=== PATIENT | female | born 1930 | race Caucasian/White ===

== ENCOUNTER 2018-08-29 21:25 | Emergency (ER) | payer MEDICARE ==
[2018-08-29 21:52] LABS: #Basophils 0.1 thou/uL (0.0-0.2); #Eosinphils 0.1 thou/uL (0.0-0.7); #Lymphocytes 1.7 thou/uL (1.20-3.40); #Monocytes 0.9 thou/uL (0.11-0.59); #Neutrophils 8.3 thou/uL (1.40-6.50); %Basophils 0.6 % (0.0-1.0); %Eosinophils 0.7 % (0.0-10.0); %Monocytes 8.2 % (0.0-10.0); %Neutrophils 75.4 % (42.0-75.0); Hemoglobin 10.7 g/dL (12.0-16.0); Mean Corpuscular HGB CONC 31.6 g/dL (32.0-36.0); Mean Corpuscular Hemoglobin 28.1 pg (27.0-31.0); Mean Corpuscular Volume 89.1 fL (78.0-98.0); Mean Platelet Volume 7.8 fL (7.4-10.4); Platelet Count 181 thou/uL (130-400); RBC Distribution Width 12.7 % (11.5-14.5); Red Blood Cell (RBC) Count 3.81 mill/uL (4.20-5.40)
[2018-08-29 21:56] LABS: Bilirubin Negative (Negative); Blood, Urine Negative (Negative); Clarity Slightly Cloudy (Clear); Glucose, Urine (Dipstick) Negative (Negative); Leukocyte Negative (Negative); Nitrite Negative (Negative); Protein, Urine (Dipstick) 30 mg/dL (Neg-Trace); Urobilinogen 0.2 mg/dL (0.2-1.0)
[2018-08-29 22:05] LABS: ALT (SGPT) 7 U/L (8-55); AST (SGOT) 10 U/L (5-34); Alkaline Phosphatase 83 U/L (40-150); Anion Gap 13 mmol/L (10-20); BUN (Urea Nitrogen) 27 mg/dL (9.8-20.1); Bilirubin, Total 0.3 mg/dL (0.2-1.2); Calc. Creatinine Clearance 0 mL/min (70-130); Calcium 9.9 mg/dL (7.8-10.44); Carbon Dioxide 30 mmol/L (23-31); Chloride 102 mmol/L (98-107); Estimated GFR-MDRD 31; Globulin 3.1 g/dL (2.4-3.5); Glucose 144 mg/dL (83-110); Potassium 3.4 mmol/L (3.5-5.1); Protein, Total 7.1 g/dL (6.0-8.3); Sodium 142 mmol/L (136-145)
[2018-08-29 22:07] LABS: Bacteria/HPF None Seen HPF (None Seen); Hyaline Casts/LPF 0-3 HYALINE CAST LPF (0-3 Hyaline); RBC/HPF 0-3 HPF (0-3); Squamous Epithelial 0-3 HPF (0-3); Transitional Epithelial 0-3 HPF (0-3); WBC/HPF 0-3 HPF (0-3)
--- NOTE | 2018-08-29 22:07 | RAD ---
PORTABLE CHEST: 08/29/18 PROVIDED CLINICAL HISTORY: Altered mental status. COMPARISON: 11/27/17. The cardiac silhouette appears enlarged. Vascular calcification is noted. Emphysematous changes are s een. No focal consolidation, pleural fluid or pneumothorax apparent. IMPRESSION: No evidence for an acute cardiopulmonary process. POS: [facility]
--- NOTE | 2018-08-29 22:16 | CT ---
CT BRAIN 08/29/18 PROVIDED CLINICAL HISTORY: Altered mental status. FINDINGS: No comparisons. The ventricular system appears normal in size and morphology. There is no evidence for intracranial h emorrhage or mass effect. Extensive chronic microvascular white matter ischemic changes are seen. The extracranial soft tissues and osseous structures demonstrate an unremarkable CT appearance. IMPRESSION: No evidence for intracranial hemorrhage or mass effect. POS: [facility]
== END 2018-08-29 22:50 | disposition home or self-care (01) ==
LOC: SCSER 21:25
DX: F03.90 Unspecified dementia, unspecified severity, without behavioral disturbance, psychotic disturbance, mood disturbance, and anxiety (principal); K21.9 Gastro-esophageal reflux disease without esophagitis; E78.5 Hyperlipidemia, unspecified; I10 Essential (primary) hypertension; F32.9 Major depressive disorder, single episode, unspecified; Z86.73 Personal history of transient ischemic attack (TIA), and cerebral infarction without residual deficits
CPT/HCPCS: 51701; 70450; 71045; 80053; 81003; 81015; 84484; 85025; 87086; 93005; A4353

== ENCOUNTER 2018-10-26 04:27 | Inpatient (IN) | payer MEDICARE ==
[2018-10-26 05:10] LABS: #Basophils 0.1 thou/uL (0.0-0.2); #Eosinphils 0.1 thou/uL (0.0-0.7); #Lymphocytes 1.7 thou/uL (1.20-3.40); #Monocytes 0.8 thou/uL (0.11-0.59); #Neutrophils 7.2 thou/uL (1.40-6.50); %Basophils 0.5 % (0.0-1.0); %Eosinophils 0.6 % (0.0-10.0); %Lymphocytes 17.1 % (21.0-51.0); %Monocytes 8.3 % (0.0-10.0); %Neutrophils 73.4 % (42.0-75.0); Hemoglobin 11.3 g/dL (12.0-16.0); Mean Corpuscular HGB CONC 34.2 g/dL (32.0-36.0); Mean Corpuscular Hemoglobin 30.2 pg (27.0-31.0); Mean Corpuscular Volume 88.3 fL (78.0-98.0); Platelet Count 211 thou/uL (130-400); RBC Distribution Width 12.8 % (11.5-14.5); Red Blood Cell (RBC) Count 3.74 mill/uL (4.20-5.40); White Blood Cell (WBC) Count 9.8 thou/uL (4.8-10.8)
[2018-10-26 05:27] LABS: ALT (SGPT) 9 U/L (8-55); AST (SGOT) 11 U/L (5-34); Albumin 4.1 g/dL (3.4-4.8); Alkaline Phosphatase 86 U/L (40-150); Anion Gap 13 mmol/L (10-20); BUN (Urea Nitrogen) 21 mg/dL (9.8-20.1); Bilirubin, Total 0.4 mg/dL (0.2-1.2); CK (CPK) 35 U/L (29-168); Calc. Creatinine Clearance 0 mL/min (70-130); Calcium 10.2 mg/dL (7.8-10.44); Carbon Dioxide 27 mmol/L (23-31); Chloride 104 mmol/L (98-107); Estimated GFR-MDRD 35; Globulin 2.9 g/dL (2.4-3.5); Glucose 123 mg/dL (83-110); Potassium 3.1 mmol/L (3.5-5.1); Sodium 141 mmol/L (136-145)
[2018-10-26] MEDS ORDERED: hydrALAZINE 20 MG/ML VIAL ONE (05:27)
[2018-10-26 05:55] LABS: Bilirubin Negative (Negative); Blood, Urine Negative (Negative); Clarity Slightly Cloudy (Clear); Glucose, Urine (Dipstick) 100 mg/dL (Negative); Leukocyte Negative (Negative); Nitrite Positive (Negative); Protein, Urine (Dipstick) 30 mg/dL (Neg-Trace); pH, Urine 6.5 (5.0-9.0)
[2018-10-26 06:14] LABS: Bacteria/HPF Rare-Few HPF (None Seen); Hyaline Casts/LPF 0-3 HYALINE CAST LPF (0-3 Hyaline); RBC/HPF None Seen HPF (0-3); Renal Epithelial 0-3 HPF (0-3); Squamous Epithelial None Seen HPF (0-3); WBC/HPF 0-3 HPF (0-3)
[2018-10-26] MEDS ORDERED: Sodium Chloride 0.9% 100 ML ONE (06:45)
[2018-10-26] MEDS ORDERED: cefTRIAXone\\ROCEPHIN 1 GM VIAL ONE (06:45)
--- NOTE | 2018-10-26 07:29 | CT ---
CT HEAD NONCONTRAST: Date: 10/26/18 COMPARISON: 08/29/18. INDICATION: Altered mental status with history of dementia and TIA. FINDINGS: Moderate chronic microvascular ischemic changes of cerebral white matter present. There is parenchyma l volume loss and compensatory dilatation of the ventricular system. No acute intracranial hemorrhage or mass effect. No acute fluid levels of paranasal sinuses. There is mild scattered paranasal sinus mucosal thickening. IMPRESSION: 1. No acute intracranial hemorrhage or mass effect. 2. Moderate chronic ischemic disease. POS: [facility]
[2018-10-26] MEDS ORDERED: Losartan 25 MG TAB ONE (07:37)
[2018-10-26] MEDS ORDERED: Labetalol HCl 100 MG/20 ML VIAL ONE (07:37)
[2018-10-26] MEDS ORDERED: hydrALAZINE 25 MG TAB ONE (07:37)
[2018-10-26] MEDS ORDERED: Sodium Chloride 0.9% 500 ML IV SCH (09:45)
--- NOTE | 2018-10-26 09:46 | RAD ---
FRONTAL VIEW CHEST: Date: 10/26/18 COMPARISON: 09/06/18. INDICATION: Altered mental status. FINDINGS: The cardiac silhouette is enlarged. There is vascular calcification. Lungs are hyperinflated without consolidation. Chest is otherwise similar. IMPRESSION: 1. COPD. 2. Prominent cardiac silhouette. Correlate clinically. POS: [facility]
[2018-10-26] MEDS: hydrALAZINE 10 MG TAB PO SCH ×2 (12:45→20:36)
--- NOTE | 2018-10-26 12:57 | HP ---
PRIMARY CARE PHYSICIAN: Dr. Perry. CHIEF COMPLAINT: Altered mental status and UTI. HISTORY OF PRESENT ILLNESS: Ms. Dai is a very pleasant 88-year-old female , who presented to the emergency room at [place] earlier this morning with her primary caregiver and her granddaughter, chief complaint about altered mental status, very confused, and talking about people she used to work with. Granddaughter reports this is very out of character. She went to bed with her usual state of health. Denied any fever, cough, or vomiting. Denies any pain. Denied any recent illnesses. She had a similar episode evidently in August, diagnosed with UTI, was given antibiotics and sent home. The granddaughter reports that a year ago in October, she did have a cerebrovascular accident and reports that this episode that she is being admitted for is similar in nature to behavior prior to the CVA, which is why she was worried. Reports that the confusion and altered mental status is not uncommon for her when she does get the UTI, but this is worrisome for her based on symptoms prior to her CVA last October. In the emergency room, she was evaluated and found to have UTI. She was given a dose of Rocephin. Blood pressure was also elevated and she was given multiple medications including her home medications of labetalol 100 mg, hydralazine 10 mg, losartan 100 mg, and then was also given labetalol 20 mg IV push and another dose of hydralazine 10 mg IV push and then, admitted for further management. History is primarily obtained from ER records and from talking with granddaughter, who is at the bedside. She was initially admitted for medical, but we based on blood pressure issues, we will change to telemetry. 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 diff, vertigo, reflux, hyperlipidemia, and hypertension. PAST SURGICAL HISTORY: Per granddaughter, hysterectomy. PSYCHIATRIC HISTORY: Depression. SOCIAL HISTORY: She does live with her granddaughter, who is her primary caregiver. REVIEW OF SYSTEMS: Denies fevers or chills. The patient denies abdominal pain, chest pain, dysuria, or increased frequency. Granddaughter reports increased confusion. All other systems were reviewed with the patient and granddaughter and done to the best of our ability with the patient's current mental state. PHYSICAL EXAMINATION: VITAL SIGNS: Blood pressure 164/79, pulse is 70, respirations 14, temperature 98.5, and pulse ox 99% on room air. CONSTITUTIONAL: The patient is confused. She is oriented to person. HEENT: Head is atraumatic and normocephalic. Eye exam, eyelids normal to inspection. Pupils are equally round and reactive to light. ENT, mucous membranes are moist. Mouth exam is normal. NECK: Normal range of motion. Trachea is midline. RESPIRATORY: Chest, no signs of respiratory distress. Breath sounds are clear. CARDIOVASCULAR: Normal rate and rhythm. Heart sounds are normal S1 and S2. No murmurs. ABDOMEN: With mild tenderness to suprapubic region. No distention. No peritoneal signs. No rigidity. No guarding. BACK: No sacral decubitus noted. EXTREMITIES: Upper extremity sensation intact. Motor strength is normal. Radial pulses equal bilaterally. Lower extremities, motor strength is normal. Sensation intact. Pedal pulses equal bilaterally. No edema is noted. NEURO: The patient is oriented to person. There is no focal motor or sensory deficits. Speech is normal. SKIN: Visualized skin is warm and dry. No rash. PSYCH: The patient is pleasantly confused. Per granddaughter, she is talking about people that she used to interact with in the past, including several people who have been . Insight is very poor. DIAGNOSTIC DATA: EKG interpretation in the ER shows first-degree AV block, breathes per minute 63, no ectopics. Conduction is normal. ST segments are normal. Jackson is left. Radiology interpretation, head CT is negative without contrast, in no acute changes. Chest films, no infiltrates, no congestive heart failure, and no acute findings. ALLERGIES: AMOXICILLIN, CIPRO, HYDROCODONE, MACROBID, AND RIVASTIGMINE. CURRENT MEDICATIONS: 1. Aricept 5 mg p.o. once a day. 2. Amiodarone 100 mg 2 tablets once a day. 3. Hydralazine 10 mg p.o. t.i.d. 4. Labetalol 100 mg b.i.d. 5. Losartan 50 mg 2 tablets once a day. 6. Zoloft 100 mg once a day at bedtime. 7. Pravastatin 20 mg once a day at bedtime. PERTINENT LABORATORY DATA: White blood cell count is 9.8, hemoglobin is 11.3, hematocrit is 33.0, and platelet count is 211. Sodium 141, potassium is 3.1, chloride 104, BUN is 21, creatinine is 1.43, estimated GFR is 35, glucose is 123 , lactic acid 1.5, and calcium 10.2. Liver enzymes are unremarkable. Troponin x1 is undetectable. Urine is positive for protein, glucose, nitrite, transitional and epithelial cells, it has been sent off for culture. PLAN AND ASSESSMENT: 1. Encephalopathy, most likely related to her urinary tract infection. We have sent urine for culture. They started Rocephin IV piggyback in the ER. We will continue. IV gentle hydration normal saline at 75 mL per hour. 2. Hypertension. We will continue her home medications. We will add p.r.n. hypertensive medicines as needed. 3. Hyperlipidemia. We will restart her home medications. 4. Dementia. We will continue her home medications. 5. History of cerebrovascular accident due to confusion. We will obtain an MRI of the brain to rule out subsequent cerebrovascular accident. 6. Deep venous thrombosis and gastrointestinal prophylaxis will be started. 7. Case will be discussed with Dr. Preston, for any further management suggestions. 8. Hospital course will be dependent on clinical findings. Job ID: [id number] [facility]
[2018-10-26] MEDS ORDERED: Melatonin 3 MG TAB PO PRN (12:58)
[2018-10-26] MEDS: cloNIDine 0.1 MG TAB PO PRN (13:05)
--- NOTE | 2018-10-26 13:47 | MRI ---
BRAIN MRI NONCONTRAST: Date: 10/26/18 Reference made to recent head CT, same date. INDICATION: Altered mental status. FINDINGS: No acute territorial infarction, mass effect, or midline shift. There is moderate chronic ischemic di sease of the cerebral white matter. Generalized mild atrophy is present. There is compensatory dilata tion of the ventricular system. Scattered remote lacunar infarctions of the cerebellum are present. T here is mucosal thickening of the paranasal sinuses and bilateral mastoid fluid. Prominent susceptibi lity emanating from patient's oral cavity limits evaluation of this region. IMPRESSION: 1. No acute territorial infarction or mass effect. 2. Moderate chronic ischemic disease of the cerebral white matter. POS: [facility]
[2018-10-26] MEDS: Sodium Chloride 0.9% 1,000 ML IV SCH (14:00)
[2018-10-26] MEDS: hydrALAZINE 20 MG/ML VIAL SLOW IVP PRN (16:08)
[2018-10-26] MEDS: Donepezil HCl 5 MG TAB PO SCH (20:36)
[2018-10-26] MEDS: Pravastatin Sodium 20 MG TAB PO SCH (20:36)
[2018-10-26] MEDS: Labetalol 100 MG TAB PO SCH (20:36)
[2018-10-27] MEDS: Sodium Chloride 0.9% 1,000 ML IV SCH ×2 (04:00→20:18)
[2018-10-27] MEDS ORDERED: hydrALAZINE 10 MG TAB PO SCH (08:06)
[2018-10-27] MEDS: Labetalol 100 MG TAB PO SCH ×2 (09:24→20:18)
[2018-10-27] MEDS: hydrALAZINE 25 MG TAB PO SCH ×2 (09:24→20:18)
[2018-10-27] MEDS: Losartan 25 MG TAB PO SCH (09:24)
[2018-10-27] MEDS: cefTRIAXone\\ROCEPHIN 1 GM in Sodium Chloride 0.9% 100 ML IVPB SCH (09:24)
[2018-10-27] MEDS: Amiodarone 200 MG TAB PO SCH (09:24)
[2018-10-27 09:49] LABS: #Basophils 0.1 thou/uL (0.0-0.2); #Eosinphils 0.1 thou/uL (0.0-0.7); #Lymphocytes 1.4 thou/uL (1.20-3.40); #Monocytes 0.7 thou/uL (0.11-0.59); %Basophils 0.7 % (0.0-1.0); %Lymphocytes 19.1 % (21.0-51.0); %Monocytes 9.4 % (0.0-10.0); %Neutrophils 69.8 % (42.0-75.0); Hemoglobin 9.1 g/dL (12.0-16.0); Mean Corpuscular HGB CONC 31.9 g/dL (32.0-36.0); Mean Corpuscular Hemoglobin 29.4 pg (27.0-31.0); Mean Corpuscular Volume 91.9 fL (78.0-98.0); Mean Platelet Volume 7.6 fL (7.4-10.4); Platelet Count 189 thou/uL (130-400); RBC Distribution Width 12.6 % (11.5-14.5); White Blood Cell (WBC) Count 7.1 thou/uL (4.8-10.8)
[2018-10-27 10:11] LABS: ALT (SGPT) Less than 7 U/L (8-55); AST (SGOT) 8 U/L (5-34); Albumin 3.3 g/dL (3.4-4.8); Alkaline Phosphatase 73 U/L (40-150); Anion Gap 11 mmol/L (10-20); BUN (Urea Nitrogen) 18 mg/dL (9.8-20.1); Bilirubin, Total 0.4 mg/dL (0.2-1.2); Calc. Creatinine Clearance 23 mL/min (70-130); Calcium 9.2 mg/dL (7.8-10.44); Carbon Dioxide 23 mmol/L (23-31); Chloride 111 mmol/L (98-107); Estimated GFR-MDRD 42; Globulin 2.2 g/dL (2.4-3.5); Glucose 91 mg/dL (83-110); Potassium 3.2 mmol/L (3.5-5.1); Protein, Total 5.5 g/dL (6.0-8.3); Sodium 142 mmol/L (136-145)
--- NOTE | 2018-10-27 12:32 | PDOC.PN ---
- Subjective Encounter Start Date: 10/27/18 Encounter Start Time: 12:00 Subjective: Patient examined, alert and oriented x3 -: BP with systolic in the 200s over the last 24 hours -: Denies c/o today - Objective Vital Signs & Weight: Vital Signs (12 hours) Temp Pulse Resp BP Pulse Ox 10/27/18 11:31 98.4 F 76 18 140/62 97 10/27/18 07:59 98.3 F 72 16 199/81 H 93 L 10/27/18 04:02 98.2 F 85 16 93 L Weight Admit Weight 45.495 kg Weight 45.495 kg I&O: 10/26/18 10/27/18 10/28/18 06:59 06:59 06:59 Intake Total 3770 Balance 3770 Result Diagrams: 10/27/18 09:16 10/27/18 09:16 Phys Exam - Physical Examination HEENT: PERRLA, moist MMs Neck: no nodes, no JVD Respiratory: clear to auscultation bilateral Cardiovascular: RRR Gastrointestinal: soft, non-tender Musculoskeletal: no edema, pulses present Neurological: non-focal, normal sensation, moves all 4 limbs Lymphatic: no nodes Psychiatric: A&O x 3 Skin: no rash, normal turgor Dx/Plan (1) Hypertension Code(s): I10 - ESSENTIAL (PRIMARY) HYPERTENSION Status: Acute (2) Acute encephalopathy Code(s): G93.40 - ENCEPHALOPATHY, UNSPECIFIED Status: Acute (3) UTI (urinary tract infection) Status: Acute - Plan cont current plan of care, continue antibiotics Will continue gentle hydration, IV ABX -: SBP>180 despite meds, Increased home dose of hydralazine today -: Is on multiple medications, family states normal SBP in 160's -: PT eval prior to DC * . Review of Systems - Review of Systems Genitourinary: Frequency - Medications/Allergies Allergies/Adverse Reactions: Allergies Allergy/AdvReac Type Severity Reaction Status Date / Time acetaminophen Allergy Verified 10/26/18 09:47 amoxicillin [From Amoxil] Allergy Verified 10/26/18 09:47 ciprofloxacin Allergy Verified 10/26/18 09:47 clarithromycin Allergy Verified 10/26/18 09:47 hydrocodone Allergy Verified 10/26/18 09:47 lansoprazole Allergy Verified 10/26/18 09:47 nitrofurantoin Allergy Verified 10/26/18 09:47 rivastigmine Allergy Verified 10/26/18 09:47 Medications: Current Medications Amiodarone HCl (Cordarone) 200 mg PO DAILY [facility] Last Admin: 10/27/18 09:24 Dose: 200 mg Clonidine (Catapres) 0.1 mg PO Q4H PRN PRN Reason: Hypertension Last Admin: 10/26/18 13:05 Dose: 0.1 mg Donepezil HCl (Aricept) 5 mg PO HS [facility] Last Admin: 10/26/18 20:36 Dose: 5 mg Hydralazine HCl (Apresoline) 10 mg SLOW IVP Q4H PRN PRN Reason: SBP > 180 and HR < 70 Last Admin: 10/26/18 16:08 Dose: 10 mg Hydralazine HCl (Apresoline) 25 mg PO BID [facility] Last Admin: 10/27/18 09:24 Dose: 25 mg Sodium Chloride (Normal Saline 0.9%) 1,000 mls @ 75 mls/hr IV .[id number] [facility] Last Admin: 10/27/18 04:00 Dose: 1,000 mls Ceftriaxone Sodium 1 gm/ (Sodium Chloride) 100 mls @ 200 mls/hr IVPB Q24HR [facility] Labetalol HCl (Normodyne) 100 mg PO BID [facility] Last Admin: 10/27/18 09:24 Dose: 100 mg Losartan Potassium (Cozaar) 100 mg PO DAILY [facility] Last Admin: 10/27/18 09:24 Dose: 100 mg Melatonin (Melatonin) 3 mg PO HS PRN PRN Reason: Insomnia Pravastatin Sodium (Pravachol) 20 mg PO HS [facility] Last Admin: 10/26/18 20:36 Dose: 20 mg Sertraline HCl (Zoloft) 100 mg PO DAILY [facility] Last Admin: 10/27/18 09:25 Dose: 100 mg
[2018-10-27] MEDS: Pravastatin Sodium 20 MG TAB PO SCH (20:18)
[2018-10-27] MEDS: Donepezil HCl 5 MG TAB PO SCH (20:18)
[2018-10-28] MEDS: cloNIDine 0.1 MG TAB PO PRN ×3 (04:27→17:06)
[2018-10-28 05:24] LABS: #Basophils 0.1 thou/uL (0.0-0.2); #Eosinphils 0.1 thou/uL (0.0-0.7); #Lymphocytes 1.2 thou/uL (1.20-3.40); #Monocytes 0.9 thou/uL (0.11-0.59); #Neutrophils 7.3 thou/uL (1.40-6.50); %Basophils 0.6 % (0.0-1.0); %Eosinophils 0.8 % (0.0-10.0); %Lymphocytes 12.6 % (21.0-51.0); %Monocytes 9.7 % (0.0-10.0); %Neutrophils 76.3 % (42.0-75.0); Hemoglobin 9.4 g/dL (12.0-16.0); Mean Corpuscular Hemoglobin 30.5 pg (27.0-31.0); Mean Corpuscular Volume 92.5 fL (78.0-98.0); Mean Platelet Volume 7.9 fL (7.4-10.4); Platelet Count 176 thou/uL (130-400); RBC Distribution Width 12.4 % (11.5-14.5); Red Blood Cell (RBC) Count 3.07 mill/uL (4.20-5.40); White Blood Cell (WBC) Count 9.6 thou/uL (4.8-10.8)
[2018-10-28 05:45] LABS: ALT (SGPT) Less than 7 U/L (8-55); AST (SGOT) 11 U/L (5-34); Albumin 3.4 g/dL (3.4-4.8); Alkaline Phosphatase 74 U/L (40-150); Anion Gap 14 mmol/L (10-20); BUN (Urea Nitrogen) 20 mg/dL (9.8-20.1); Bilirubin, Total 0.4 mg/dL (0.2-1.2); Calc. Creatinine Clearance 22 mL/min (70-130); Calcium 9.2 mg/dL (7.8-10.44); Carbon Dioxide 19 mmol/L (23-31); Chloride 112 mmol/L (98-107); Estimated GFR-MDRD 41; Globulin 2.3 g/dL (2.4-3.5); Glucose 97 mg/dL (83-110); Potassium 3.1 mmol/L (3.5-5.1); Protein, Total 5.7 g/dL (6.0-8.3); Sodium 142 mmol/L (136-145)
[2018-10-28] MEDS: hydrALAZINE 20 MG/ML VIAL SLOW IVP PRN ×3 (06:03→23:54)
[2018-10-28] MEDS ORDERED: Potassium Chloride 40 MEQ in Premix Bag 1 BAG IVPB SCH (08:30)
[2018-10-28] MEDS: hydrALAZINE 25 MG TAB PO SCH ×2 (08:31→20:08)
[2018-10-28] MEDS: Amiodarone 200 MG TAB PO SCH (08:31)
[2018-10-28] MEDS: Labetalol 100 MG TAB PO SCH ×2 (08:31→20:08)
[2018-10-28] MEDS: Losartan 25 MG TAB PO SCH (08:32)
[2018-10-28] MEDS: Sodium Chloride 0.9% 1,000 ML IV SCH ×2 (09:42→20:12)
[2018-10-28] MEDS: cefTRIAXone\\ROCEPHIN 1 GM in Sodium Chloride 0.9% 100 ML IVPB SCH (09:44)
[2018-10-28] MEDS: Potassium Chloride 20 MEQ in Premix Bag 1 BAG IVPB SCH ×2 (10:20→12:20)
--- NOTE | 2018-10-28 16:33 | PDOC.PN ---
- Subjective Encounter Start Date: 10/28/18 Encounter Start Time: 10:00 Subjective: Minimally verbal. Alert and in no distress. -: No n/v. No abdo pain. No CP/SOB. Tolerating intake. -: Continues to have trouble with BP being raised. Per granddaughter she brought her in due to AMS. She was more confused that normal however appears to be back at baseline. Feels fatigued but no complaints at present. - Objective Vital Signs & Weight: Vital Signs (12 hours) Temp Pulse Pulse Resp BP BP BP 10/28/18 15:45 98.7 F 68 16 10/28/18 12:21 186/82 H 10/28/18 11:53 98.2 F 69 17 10/28/18 09:39 195/86 H 10/28/18 09:33 68 195/86 H 199/89 H 10/28/18 08:31 71 193/87 H 10/28/18 07:50 98.2 F 71 17 10/28/18 06:38 70 181/84 H 10/28/18 06:03 69 196/95 H BP Pulse Ox 10/28/18 15:45 190/84 H 94 L 10/28/18 12:21 10/28/18 11:53 195/86 H 94 L 10/28/18 09:39 10/28/18 09:33 10/28/18 08:31 10/28/18 07:50 193/87 H 94 L 10/28/18 06:38 10/28/18 06:03 Weight Admit Weight 100 lb 4.8 oz Weight 100 lb I&O: 10/27/18 10/28/18 10/29/18 06:59 06:59 06:59 Intake Total 3770 2620 1400 Output Total 450 Balance 3770 2170 1400 Result Diagrams: 10/29/18 05:04 10/29/18 05:04 Phys Exam - Physical Examination Constitutional: NAD HEENT: PERRLA, moist MMs Neck: no nodes, supple, full ROM Respiratory: clear to auscultation bilateral Cardiovascular: RRR Gastrointestinal: soft, non-tender, no distention, positive bowel sounds Musculoskeletal: no edema Neurological: normal sensation, moves all 4 limbs Deviation from normal: Alert to person and place, minimally verbal Skin: no rash Dx/Plan (1) Confusion Code(s): R41.0 - DISORIENTATION, UNSPECIFIED Status: Resolved (2) Fatigue Code(s): R53.83 - OTHER FATIGUE Status: Acute Qualifiers: Fatigue type: unspecified Qualified Code(s): R53.83 - Other fatigue (3) Hypertension Code(s): I10 - ESSENTIAL (PRIMARY) HYPERTENSION Status: Chronic Qualifiers: Hypertension type: essential hypertension Qualified Code(s): I10 - Essential (primary) hypertension (4) Hypokalemia Code(s): E87.6 - HYPOKALEMIA Status: Acute - Plan cont current plan of care, plan discussed w/ family, PT/OT, DVT proph w/SCDs Out of bed to chair. Awaiting PT Eval. -: Afebrile. UA/UCx negative. Blood Cx also negative. Discontinue Rocephin. -: Monitor WCC. No signs of infection. -: Ehuwznmy-TVO-9 patch, monitor BP. -: Hypokalemia, K+ replaced. Recheck in AM. Seen by Dr. Oviedo who agrees with plan above. Review of Systems - Review of Systems Constitutional: weakness, malaise. negative: fever, chills, sweats Eyes: negative: Pain, Vision Change, Conjunctivae Inflammation, Eyelid Inflammation, Redness ENT: negative: Ear Pain, Ear Discharge, Nose Pain, Nose Discharge, Nose Congestion, Mouth Pain, Mouth Swelling, Throat Pain, Throat Swelling Respiratory: negative: Cough, Dry, Shortness of Breath, Hemoptysis, SOB with Excertion, Pleuritic Pain, Sputum, Wheezing Cardiovascular: negative: chest pain, palpitations, orthopnea, paroxysmal nocturnal dyspnea, edema, light headedness Gastrointestinal: negative: Nausea, Vomiting, Abdominal Pain, Diarrhea, Constipation, Melena, Hematochezia Genitourinary: negative: Dysuria, Frequency, Incontinence, Hematuria, Retention Musculoskeletal: negative: Neck Pain, Shoulder Pain, Arm Pain, Back Pain, Hand Pain, Leg Pain, Foot Pain Skin: negative: Rash, Lesions, Bruising Neurological: Change in Speech (less verbal than usual). negative: Weakness, Numbness, Incoordination, Confusion, Seizures - Medications/Allergies Allergies/Adverse Reactions: Allergies Allergy/AdvReac Type Severity Reaction Status Date / Time acetaminophen Allergy Verified 10/26/18 09:47 amoxicillin [From Amoxil] Allergy Verified 10/26/18 09:47 ciprofloxacin Allergy Verified 10/26/18 09:47 clarithromycin Allergy Verified 10/26/18 09:47 hydrocodone Allergy Verified 10/26/18 09:47 lansoprazole Allergy Verified 10/26/18 09:47 nitrofurantoin Allergy Verified 10/26/18 09:47 rivastigmine Allergy Verified 10/26/18 09:47 Medications: Current Medications Amiodarone HCl (Cordarone) 200 mg PO DAILY [facility] Last Admin: 10/28/18 08:31 Dose: 200 mg Clonidine (Catapres) 0.1 mg PO Q4H PRN PRN Reason: Hypertension Last Admin: 10/28/18 09:39 Dose: 0.1 mg Clonidine (Yeswgzrk-Uul-5) 0.2 mg TD Q7DAYS [facility] Donepezil HCl (Aricept) 5 mg PO HS [facility] Last Admin: 10/27/18 20:18 Dose: 5 mg Hydralazine HCl (Apresoline) 10 mg SLOW IVP Q4H PRN PRN Reason: SBP > 180 and HR < 70 Last Admin: 10/28/18 14:46 Dose: 10 mg Hydralazine HCl (Apresoline) 25 mg PO BID [facility] Last Admin: 10/28/18 08:31 Dose: 25 mg Sodium Chloride (Normal Saline 0.9%) 1,000 mls @ 75 mls/hr IV .[id number] [facility] Last Admin: 10/28/18 09:42 Dose: 1,000 mls Labetalol HCl (Normodyne) 100 mg PO BID [facility] Last Admin: 10/28/18 08:31 Dose: 100 mg Losartan Potassium (Cozaar) 100 mg PO DAILY [facility] Last Admin: 10/28/18 08:32 Dose: 100 mg Melatonin (Melatonin) 3 mg PO HS PRN PRN Reason: Insomnia Pravastatin Sodium (Pravachol) 20 mg PO HS [facility] Last Admin: 10/27/18 20:18 Dose: 20 mg Sertraline HCl (Zoloft) 100 mg PO DAILY [facility] Last Admin: 10/28/18 08:32 Dose: 100 mg
--- NOTE | 2018-10-28 16:35 | PDOC.EVN ---
Event Note - Event Note Event Note: patient seen, rio reviewed, discussed with Sonja Núñez. agree with management
[2018-10-28] MEDS: Pravastatin Sodium 20 MG TAB PO SCH (20:08)
[2018-10-28] MEDS: Donepezil HCl 5 MG TAB PO SCH (20:08)
[2018-10-29] MEDS: Sodium Chloride 0.9% 1,000 ML IV SCH (02:05)
[2018-10-29] MEDS: cloNIDine 0.1 MG TAB PO PRN (03:55)
[2018-10-29] MEDS: hydrALAZINE 20 MG/ML VIAL SLOW IVP PRN (05:16)
[2018-10-29 05:47] LABS: #Lymphocytes 0.7 thou/uL (1.20-3.40); #Neutrophils 10.7 thou/uL (1.40-6.50); %Basophils 0.1 % (0.0-1.0); %Eosinophils 0.2 % (0.0-10.0); %Lymphocytes 5.3 % (21.0-51.0); %Monocytes 7.7 % (0.0-10.0); %Neutrophils 86.6 % (42.0-75.0); Hemoglobin 9.1 g/dL (12.0-16.0); Mean Corpuscular HGB CONC 32.6 g/dL (32.0-36.0); Mean Corpuscular Hemoglobin 30.2 pg (27.0-31.0); Mean Corpuscular Volume 92.9 fL (78.0-98.0); Mean Platelet Volume 7.5 fL (7.4-10.4); Platelet Count 162 thou/uL (130-400); RBC Distribution Width 12.5 % (11.5-14.5); White Blood Cell (WBC) Count 12.3 thou/uL (4.8-10.8)
[2018-10-29] MEDS: cloNIDine 0.2mg/24 Hour PATCH TD SCH (06:11)
[2018-10-29 06:17] LABS: Anion Gap 16 mmol/L (10-20); BUN (Urea Nitrogen) 21 mg/dL (9.8-20.1); CRP (Inflammatory) 5.51 mg/dL (= or < 0.5); Calc. Creatinine Clearance 25 mL/min (70-130); Calcium 9.5 mg/dL (7.8-10.44); Carbon Dioxide 16 mmol/L (23-31); Chloride 111 mmol/L (98-107); Estimated GFR-MDRD 45; Glucose 129 mg/dL (83-110); Magnesium 1.9 mg/dL (1.6-2.6); Potassium 3.2 mmol/L (3.5-5.1); Sodium 140 mmol/L (136-145)
[2018-10-29] MEDS: Labetalol 100 MG TAB PO SCH ×2 (09:24→21:19)
[2018-10-29] MEDS: hydrALAZINE 25 MG TAB PO SCH ×2 (09:25→21:20)
[2018-10-29] MEDS: Losartan 25 MG TAB PO SCH (09:25)
[2018-10-29] MEDS: Amiodarone 200 MG TAB PO SCH (09:25)
[2018-10-29] MEDS ORDERED: ISOVUE-370 76%-LOCM 1 ML ONE (09:58)
--- NOTE | 2018-10-29 10:01 | PDOC.PN ---
- Subjective Encounter Start Date: 10/29/18 Encounter Start Time: 10:00 -: non-verbal Subjective: Patient alert and found sat upright eating breakfast. -: Does not appear to be in any distress but minimally verbal this morning. -: Complaining of discomfort in right shoulder/neck region. Continues to have issues with uncontrolled BP. Has been in 190s systolic. BP responds to PO meds but without prolonged control, despite addition of Clonidine patch. Asymptomatic. Denies any headaches or blurred vision. Has not had a full bowel movement x 3 days. Per nurse had smear of stool. Tolerating PO intake. No n/v. - Objective Vital Signs & Weight: Vital Signs (12 hours) Temp Pulse Resp BP BP Pulse Ox 10/29/18 07:32 97.3 F L 68 16 238/104 H 93 L 10/29/18 06:11 74 197/79 H 10/29/18 05:16 67 208/98 H 10/29/18 03:41 98.4 F 73 16 195/91 H 93 L 10/29/18 01:01 135/70 10/28/18 23:49 98.7 F 70 16 209/84 H 93 L 10/28/18 22:10 64 168/81 H Weight Admit Weight 100 lb 4.8 oz Weight 103 lb 4.8 oz I&O: 10/28/18 10/29/18 10/30/18 06:59 06:59 06:59 Intake Total 2620 3254 Output Total 450 1150 Balance 2170 2104 Result Diagrams: 10/29/18 05:04 10/29/18 05:04 Phys Exam - Physical Examination Constitutional: NAD HEENT: PERRLA, oral pharynx no lesions Neck: no nodes, supple, full ROM Respiratory: clear to auscultation bilateral Cardiovascular: RRR Gastrointestinal: soft slightly distended, no bowel sounds present Musculoskeletal: no edema Neurological: moves all 4 limbs Psychiatric: normal affect Deviation from normal: Alert but not verbal Skin: no rash Dx/Plan (1) Confusion Code(s): R41.0 - DISORIENTATION, UNSPECIFIED Status: Resolved (2) Fatigue Code(s): R53.83 - OTHER FATIGUE Status: Acute (3) Hypertension Code(s): I10 - ESSENTIAL (PRIMARY) HYPERTENSION Status: Chronic (4) Hypokalemia Code(s): E87.6 - HYPOKALEMIA Status: Acute - Plan cont current plan of care BP 233/104 this morning. Has remained in 190s systolic since admission -: Initially responds to regular & PRN meds. No improvement w/ clonidine patch -: Recheck post morning meds. Add Amlodipine 5 mg PO. -: Convert to full admission status due to hypertensive urgency. Monitor BP. -: Monitor WCC (raised this morning), afebrile. UA/UCx and BCx neg KUB. Check LFTs and lipase. Tylenol for right shoulder pain.
[2018-10-29 11:05] LABS: ALT (SGPT) Less than 7 U/L (8-55); AST (SGOT) 12 U/L (5-34); Albumin 3.5 g/dL (3.4-4.8); Alkaline Phosphatase 77 U/L (40-150); Bilirubin, Direct 0.2 mg/dL (0.1-0.3); Bilirubin, Total 0.5 mg/dL (0.2-1.2); Lipase 11 U/L (8-78); Protein, Total 5.9 g/dL (6.0-8.3)
--- NOTE | 2018-10-29 12:40 | RAD ---
ABDOMEN 1 VIEW: HISTORY: Distention and discomfort, reduced bowel sounds. COMPARISON: None. FINDINGS: Mild dextroscoliosis of the thoracolumbar junction. There is a very large volume of stool within the rectal vault. Dense calcifications of the costal cartilage. IMPRESSION: Large volume of stool in the rectal vault. POS: [facility]
[2018-10-29] MEDS ORDERED: Amlodipine 5 MG TAB PO SCH (12:45)
[2018-10-29 15:10] LABS: Actual Bicarbonate (HCO3a) 18.7 mEq/L (22-28); Base Excess (BEa) -5.1 mEq/L (-2.0 to +3.0); CO2 Tension 30.4 mmHg (35.0-45.0); Calcium, Ionized 1.31 mmol/L (1.12-1.30); Carboxyhemoglobin (COHb) 0.9 gm% (0.0-3.0); Hemoglobin (Hb) 9.7 g/dL (12.0-16.0); O2 Tension (PaO2) 79.1 mmHg (> 60.0); Potassium - ABG Lab 3.19 mmol/L (3.70-5.30); pH, Arterial 7.41 (7.35-7.45)
[2018-10-29 15:13] LABS: Puncture Site RBA
--- NOTE | 2018-10-29 15:31 | PDOC.EVN ---
Event Note - Event Note Event Note: discussed with Sonja Rodriguez. change to inpt, etc
--- NOTE | 2018-10-29 15:50 | RAD ---
CHEST 2 VIEWS: HISTORY: Shortness of breath. COMPARISON: Radiograph of 11/27/2017. FINDINGS: Small effusions. Heart size is enlarged. Mild pulmonary venous congestion. No pneumothorax. Moderate degenerative changes of both shoulders. Dense calcifications of the aorta . IMPRESSION: Moderate effusions and mild pulmonary venous congestion and early edema. POS: [facility]
[2018-10-29] MEDS ORDERED: Furosemide 40 MG/4 ML VIAL SLOW IVP SCH (16:30)
--- NOTE | 2018-10-29 16:36 | CT ---
CT ANGIOGRAPHY CHEST WITH CONTRAST: 10/29/18 HISTORY: Shortness of breath and hypoxia. COMPARISON: Chest radiograph same day. FINDINGS: CT angiogram chest performed after the intravenous administration of contrast. 3D rendering is provid ed. Pulmonary arteries are mildly dilated. No proximal segmental pulmonary arterial filling defect. There are moderate sized layering bilateral pleural effusions. Heart size is markedly enlarged. No pe ricardial effusion. The ascending aorta measures up to 3.2 cm. Extensive vascular calcifications of the aorta. Limited evaluation of the upper abdomen appears unremarkable. Mild pulmonary edema. No pneumothorax. No thoracic spine compression fracture. No displaced rib fracture. IMPRESSION: 1. No proximal segmental pulmonary arterial filling defect. 2. Congestive heart failure with cardiomegaly, moderate effusions, and moderate pulmonary edema. 3. Pulmonary arterial hypertension. POS: [facility]
--- NOTE | 2018-10-29 17:05 | PDOC.PN ---
- Subjective Encounter Start Date: 10/29/18 Encounter Start Time: 17:03 Subjective: some sob today - Objective MAR Reviewed: Yes Vital Signs & Weight: Vital Signs (12 hours) Temp Pulse Resp BP BP Pulse Ox 10/29/18 15:11 98.0 F 63 18 163/74 H 94 L 10/29/18 11:20 94 L 10/29/18 10:49 99.7 F H 71 18 173/72 H 10/29/18 07:32 97.3 F L 68 16 238/104 H 93 L 10/29/18 06:11 74 197/79 H 10/29/18 05:16 67 208/98 H Weight Admit Weight 100 lb 4.8 oz Weight 103 lb 4.8 oz I&O: 10/28/18 10/29/18 10/30/18 06:59 06:59 06:59 Intake Total 2620 3254 Output Total 450 1150 Balance 2170 2104 Result Diagrams: 10/29/18 05:04 10/29/18 05:04 Radiology Reviewed by me: Yes (cxr- bilat pleural effusions, PVC) EKG Reviewed by me: Yes (CT chest, no PE, pos chf) Phys Exam - Physical Examination Neck: no JVD bilat post rales Cardiovascular: RRR, no significant murmur Gastrointestinal: soft, positive bowel sounds Musculoskeletal: no edema Dx/Plan (1) Acute CHF (congestive heart failure) Code(s): I50.9 - HEART FAILURE, UNSPECIFIED Status: Acute Qualifiers: Heart failure type: unspecified Qualified Code(s): I50.9 - Heart failure, unspecified (2) Fatigue Code(s): R53.83 - OTHER FATIGUE Status: Acute Qualifiers: Fatigue type: unspecified Qualified Code(s): R53.83 - Other fatigue (3) Hypokalemia Code(s): E87.6 - HYPOKALEMIA Status: Acute (4) Hypertension Code(s): I10 - ESSENTIAL (PRIMARY) HYPERTENSION Status: Chronic Qualifiers: Hypertension type: essential hypertension Qualified Code(s): I10 - Essential (primary) hypertension - Plan IV fluids DCed -: iv lasix, replace K+, BMP in am -: echocardiagram -: BNP * .
[2018-10-29] MEDS: Donepezil HCl 5 MG TAB PO SCH (21:20)
[2018-10-29] MEDS: Pravastatin Sodium 20 MG TAB PO SCH (21:21)
[2018-10-30] MEDS: hydrALAZINE 20 MG/ML VIAL SLOW IVP PRN (03:54)
[2018-10-30 04:47] LABS: #Lymphocytes 0.7 thou/uL (1.20-3.40); #Monocytes 1.1 thou/uL (0.11-0.59); #Neutrophils 11.7 thou/uL (1.40-6.50); %Eosinophils 0.2 % (0.0-10.0); %Lymphocytes 5.1 % (21.0-51.0); %Monocytes 8.1 % (0.0-10.0); %Neutrophils 86.5 % (42.0-75.0); Mean Corpuscular HGB CONC 32.7 g/dL (32.0-36.0); Mean Corpuscular Hemoglobin 29.8 pg (27.0-31.0); Mean Corpuscular Volume 91.2 fL (78.0-98.0); Platelet Count 172 thou/uL (130-400); RBC Distribution Width 12.6 % (11.5-14.5); Red Blood Cell (RBC) Count 3.03 mill/uL (4.20-5.40); White Blood Cell (WBC) Count 13.6 thou/uL (4.8-10.8)
[2018-10-30 05:06] LABS: ALT (SGPT) 11 U/L (8-55); AST (SGOT) 13 U/L (5-34); Albumin 3.7 g/dL (3.4-4.8); Alkaline Phosphatase 80 U/L (40-150); Anion Gap 13 mmol/L (10-20); BUN (Urea Nitrogen) 25 mg/dL (9.8-20.1); Bilirubin, Total 0.5 mg/dL (0.2-1.2); Calc. Creatinine Clearance 20 mL/min (70-130); Calcium 10.1 mg/dL (7.8-10.44); Carbon Dioxide 22 mmol/L (23-31); Chloride 108 mmol/L (98-107); Estimated GFR-MDRD 35; Globulin 2.8 g/dL (2.4-3.5); Glucose 128 mg/dL (83-110); Protein, Total 6.5 g/dL (6.0-8.3); Sodium 140 mmol/L (136-145)
[2018-10-30 05:20] LABS: Potassium 2.8 mmol/L (3.5-5.1)
[2018-10-30] MEDS: Potassium Chloride 20 MEQ TAB PO SCH ×2 (07:01→09:14)
--- NOTE | 2018-10-30 08:24 | PDOC.PN ---
- Subjective Encounter Start Date: 10/30/18 Encounter Start Time: 08:23 Subjective: no chest pain, sob - Objective MAR Reviewed: Yes Vital Signs & Weight: Vital Signs (12 hours) Temp Pulse Resp BP BP Pulse Ox 10/30/18 07:47 98.8 F 64 18 189/87 H 91 L 10/30/18 04:00 98.2 F 65 19 211/82 H 92 L 10/30/18 03:54 65 211/82 H 10/30/18 00:00 97.7 F 60 19 180/83 H 92 L 10/29/18 21:20 64 214/84 H 10/29/18 21:19 64 214/84 H Weight Admit Weight 100 lb 4.8 oz Weight 99 lb 2 oz I&O: 10/29/18 10/30/18 10/31/18 06:59 06:59 06:59 Intake Total 3254 360 Output Total 1150 825 Balance 2104 -465 Result Diagrams: 10/30/18 04:27 10/30/18 04:27 Phys Exam - Physical Examination Neck: no JVD Respiratory: clear to auscultation bilateral Cardiovascular: RRR, no significant murmur Gastrointestinal: soft, non-tender, positive bowel sounds Musculoskeletal: no edema Dx/Plan (1) Confusion Code(s): R41.0 - DISORIENTATION, UNSPECIFIED Status: Resolved (2) Fatigue Code(s): R53.83 - OTHER FATIGUE Status: Acute Qualifiers: Fatigue type: unspecified Qualified Code(s): R53.83 - Other fatigue (3) Hypertension Code(s): I10 - ESSENTIAL (PRIMARY) HYPERTENSION Status: Chronic Qualifiers: Hypertension type: essential hypertension Qualified Code(s): I10 - Essential (primary) hypertension (4) Hypokalemia Code(s): E87.6 - HYPOKALEMIA Status: Acute (5) Acute respiratory failure with hypoxia Code(s): J96.01 - ACUTE RESPIRATORY FAILURE WITH HYPOXIA Status: Acute (6) CAD (coronary artery disease) Code(s): I25.10 - ATHSCL HEART DISEASE OF [place] CORONARY ARTERY W/O ANG PCTRS Status: Chronic Qualifiers: Coronary Disease-Associated Artery/Lesion type: [place] artery [place] vs. transplanted heart: [place] heart Associated angina: without angina Qualified Code(s): I25.10 - Atherosclerotic heart disease of [place] coronary artery without angina pectoris Comment: Hx cardiac cath, no intervention (7) Acute CHF (congestive heart failure) Code(s): I50.9 - HEART FAILURE, UNSPECIFIED Status: Acute Qualifiers: Heart failure type: unspecified Qualified Code(s): I50.9 - Heart failure, unspecified - Plan cont iv diuresis -: await ECHO -: increase hydralazine po * .
[2018-10-30] MEDS ORDERED: Furosemide 40 MG/4 ML VIAL SLOW IVP SCH (08:30)
[2018-10-30] MEDS: Losartan 25 MG TAB PO SCH (09:13)
[2018-10-30] MEDS: hydrALAZINE 25 MG TAB PO SCH ×3 (09:14→21:22)
[2018-10-30] MEDS: Amlodipine 5 MG TAB PO SCH (09:15)
[2018-10-30] MEDS: Labetalol 100 MG TAB PO SCH ×2 (09:15→21:23)
[2018-10-30] MEDS: Amiodarone 200 MG TAB PO SCH (09:15)
--- NOTE | 2018-10-30 12:59 | PQF ---
[facility], [facility], [facility] [id number] [address] [place] [address] [id number] CLINICAL DOCUMENTATION IMPROVEMENT CLARIFICATION FORM: ICD-10 Updated PLEASE DO AN ADDENDUM TO THE PROGRESS NOTE WITH ANY DOCUMENTATION UPDATES OR ADDITIONS AND CARRY THROUGH TO DC SUMMARY. THANK YOU. DATE: 10/30/2018 ATTN: DR. MARTINEZ Please exercise your independent, professional judgment in responding to the clarification form. Clinical indicators are provided on the bottom of this form for your review Please check appropriate box(s): [ ] Acute Metabolic Encephalopathy in the setting of underlying dementia likely due to Urinary Tract Infection [ ] Acute Encephalopathy in the setting of underlying dementia; multifactorial and include metabolic and hypertensive components [ ] Acute Hypertensive Encephalopathy in the setting of underlying dementia [ x ] Transient Alteration of Awareness [ ] Other diagnosis [ ] Unable to determine In addition, please specify: Present on Admission (POA): [ x ] Yes [ ] No [ ] Unable to determine For continuity of documentation, please document condition throughout progress notes and discharge summary. Thank You. CLINICAL INDICATORS - SIGNS / SYMPTOMS / LABS Altered mental status / confusion improving once cause is corrected (acute) *10/26-ER: HERE FOR CONFUSION *10/28-PN: PER GD, PT WAS MORE CONFUSED THAN NORMAL HOWEVER APPEARS TO BE BACK AT BASELINE. 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 Metabolic / electrolyte abnormality - ER: DIAGNOSED WITH UTI Severe Hypertension - 10/27-PN: BP WITH SYSTOLIC IN THE 200s OVER THE LAST 24 HRS. RISK FACTORS *Hypertension - uncontrolled. 10/27-PN: BP WITH SYSTOLIC IN THE 200s OVER THE LAST 24 HRS. *Infectious process. POSITIVE NITRITES IN URINE. TREATED WITH ROCEPHIN IM AND IV. *Advanced age with dementia - 88 y/o *10/26-ER: HX OF SAME SX WITH CVA AND PREVIOUS UTI. TREATMENTS *IV/IM ANTIBIOTICS *CT AND MRI BRAIN *Neuro checks PER NURSING NOTES *Cause is corrected encephalopathy resolves - 10/28-PN: CONTINUES W/ HTN. PER GD , PT WAS MORE CONFUSED THAN NORMAL HOWEVER APPEARS TO BE BACK AT BASELINE. (AFTER IVF AND IM/IV ABX) . *Antihypertensives (IV) *IV fluids Thank you, Melba (This form is maintained as a part of the permanent medical record) 2015 [employer]. All Rights Reserved Melba Feliciano RN, CDIS [email or web address] [phone] MTDMayra
--- NOTE | 2018-10-30 16:17 | PDOC.EVN ---
Event Note - Event Note Event Note: called to see for nysagtmus, denies dizziness. neuro- horizontal nystagmus, Full range occular motion, strength symetric, no past pointing. advised family i would FU.
--- NOTE | 2018-10-30 17:45 | PDOC.EVN ---
Event Note - Event Note Event Note: family reports unable to talk with nystagmus- seizures- keppra 250 iv q 12h pending neuro
[2018-10-30] MEDS ORDERED: Aspirin 325 MG TAB PO SCH (18:00)
--- NOTE | 2018-10-30 18:39 | ULT ---
CAROTID ULTRASOUND WITH NAZARIO SCALE AND DOPPLER DUPLEX COLOR FLOW IMAGING SPECTRAL ANALYSIS PERFORMED: CLINICAL INDICATION: Nystagmus. FINDINGS: There is scattered mild atherosclerotic calcification of the carotid arteries. PEAK SYSTOLIC VELOCITY (CM/S): Right CCA 61 Left CCA 93 Right ICA 111 Left ICA 151 There is antegrade flow within the visualized bilateral vertebral arteries. IMPRESSION: Elevated on the basis of velocities and ratios there is moderate (50-69%) stenosis of each ICA. As n ecessary, this can be further assessed with CTA neck. POS: MIGUELINA
[2018-10-30] MEDS: Donepezil HCl 5 MG TAB PO SCH (21:22)
[2018-10-30] MEDS: Pravastatin Sodium 20 MG TAB PO SCH (21:23)
[2018-10-31 05:41] LABS: #Lymphocytes 0.9 thou/uL (1.20-3.40); #Monocytes 1.2 thou/uL (0.11-0.59); #Neutrophils 10.2 thou/uL (1.40-6.50); %Basophils 0.1 % (0.0-1.0); %Eosinophils 0.3 % (0.0-10.0); %Monocytes 9.5 % (0.0-10.0); %Neutrophils 83.2 % (42.0-75.0); Hemoglobin 9.2 g/dL (12.0-16.0); Mean Corpuscular HGB CONC 32.8 g/dL (32.0-36.0); Mean Corpuscular Hemoglobin 30.7 pg (27.0-31.0); Mean Corpuscular Volume 93.6 fL (78.0-98.0); Platelet Count 173 thou/uL (130-400); RBC Distribution Width 12.9 % (11.5-14.5); Red Blood Cell (RBC) Count 3.01 mill/uL (4.20-5.40); White Blood Cell (WBC) Count 12.2 thou/uL (4.8-10.8)
[2018-10-31 06:00] LABS: ALT (SGPT) 8 U/L (8-55); AST (SGOT) 15 U/L (5-34); Albumin 3.5 g/dL (3.4-4.8); Alkaline Phosphatase 82 U/L (40-150); Anion Gap 12 mmol/L (10-20); BUN (Urea Nitrogen) 27 mg/dL (9.8-20.1); Bilirubin, Total 0.5 mg/dL (0.2-1.2); Calc. Creatinine Clearance 19 mL/min (70-130); Carbon Dioxide 22 mmol/L (23-31); Chloride 112 mmol/L (98-107); Estimated GFR-MDRD 37; Globulin 2.8 g/dL (2.4-3.5); Glucose 107 mg/dL (83-110); Potassium 3.7 mmol/L (3.5-5.1); Protein, Total 6.3 g/dL (6.0-8.3); Sodium 142 mmol/L (136-145)
[2018-10-31] MEDS: hydrALAZINE 20 MG/ML VIAL SLOW IVP PRN (06:03)
--- NOTE | 2018-10-31 08:10 | PDOC.PN ---
- Subjective Encounter Start Date: 10/31/18 Encounter Start Time: 08:08 Subjective: alert,nystamus resolved - Objective MAR Reviewed: Yes Vital Signs & Weight: Vital Signs (12 hours) Temp Pulse Resp BP BP Pulse Ox 10/31/18 08:00 98 F 76 16 200/106 H 88 L 10/31/18 06:03 68 203/76 H 10/31/18 04:00 99 F 68 16 192/86 H 90 L 10/31/18 00:00 98 F 77 16 136/64 93 L 10/30/18 21:23 70 178/64 H 10/30/18 21:22 70 178/64 H 10/30/18 20:40 91 L Weight Admit Weight 100 lb 4.8 oz Weight 96 lb 9 oz I&O: 10/30/18 10/31/18 11/01/18 06:59 06:59 06:59 Intake Total 360 200 Output Total 825 325 Balance -465 -125 Result Diagrams: 10/31/18 04:55 10/31/18 04:55 Radiology Reviewed by me: Yes (50-70 % stenosis bilat ICA) Phys Exam - Physical Examination Neck: no JVD Respiratory: clear to auscultation bilateral Cardiovascular: RRR, no significant murmur Gastrointestinal: soft, positive bowel sounds Musculoskeletal: no edema Neurological: non-focal Dx/Plan (1) Confusion Code(s): R41.0 - DISORIENTATION, UNSPECIFIED Status: Resolved (2) Fatigue Code(s): R53.83 - OTHER FATIGUE Status: Acute Qualifiers: Fatigue type: unspecified Qualified Code(s): R53.83 - Other fatigue (3) Hypertension Code(s): I10 - ESSENTIAL (PRIMARY) HYPERTENSION Status: Chronic Qualifiers: Hypertension type: essential hypertension Qualified Code(s): I10 - Essential (primary) hypertension (4) Hypokalemia Code(s): E87.6 - HYPOKALEMIA Status: Acute (5) Acute respiratory failure with hypoxia Code(s): J96.01 - ACUTE RESPIRATORY FAILURE WITH HYPOXIA Status: Acute (6) CAD (coronary artery disease) Code(s): I25.10 - ATHSCL HEART DISEASE OF [place] CORONARY ARTERY W/O ANG PCTRS Status: Chronic Qualifiers: Coronary Disease-Associated Artery/Lesion type: [place] artery [place] vs. transplanted heart: [place] heart Associated angina: without angina Qualified Code(s): I25.10 - Atherosclerotic heart disease of [place] coronary artery without angina pectoris Comment: Hx cardiac cath, no intervention (7) Acute CHF (congestive heart failure) Code(s): I50.9 - HEART FAILURE, UNSPECIFIED Status: Acute Qualifiers: Heart failure type: diastolic Qualified Code(s): I50.31 - Acute diastolic ( congestive) heart failure - Plan lasix cozaar for DHF -: cont ASA daily -: cont keppra, EEG today -: cont amlodipine, hydralazine po * .
[2018-10-31] MEDS ORDERED: levETIRAcetam 500 MG TAB PO SCH (09:00)
[2018-10-31] MEDS: Amlodipine 5 MG TAB PO SCH (09:24)
[2018-10-31] MEDS: Losartan 25 MG TAB PO SCH (09:24)
[2018-10-31] MEDS: hydrALAZINE 25 MG TAB PO SCH ×3 (09:24→21:55)
[2018-10-31] MEDS: Labetalol 100 MG TAB PO SCH ×2 (09:24→21:55)
[2018-10-31] MEDS: Amiodarone 200 MG TAB PO SCH (09:24)
[2018-10-31] MEDS: Aspirin 325 MG TAB PO SCH (09:25)
[2018-10-31] MEDS: levETIRAcetam 500 mg/5 ml Oral Solution PO SCH ×2 (10:45→23:20)
--- NOTE | 2018-10-31 18:08 | PDOC.EVN ---
Event Note - Event Note Event Note: family insisting on rehab referall
[2018-10-31] MEDS: Pravastatin Sodium 20 MG TAB PO SCH (21:56)
[2018-10-31] MEDS: Donepezil HCl 5 MG TAB PO SCH (21:56)
--- NOTE | 2018-10-31 23:31 | CON ---
DATE OF CONSULTATION: 10/31/2018 CONSULTING PHYSICIAN: Hospitalist Service. IMPRESSION: Probable focal seizures. PLAN: 1. Keppra 250 mg twice a day. 2. Office followup. HISTORY OF PRESENT ILLNESS: Mrs. Dai is an 88-year-old white female who was admitted with altered mental status. She was placed in the hospital and had echocardiogram, which showed an ejection fraction of 60% to 65%. Her carotid artery study showed around 50% to 69% stenosis bilaterally. Her MRI of the brain showed some small-vessel ischemic changes, but no other acute abnormalities. She was witnessed to have an episode, where her eyes was abruptly start twitching in a conjugate motion. She becomes unresponsive during this period of time. Her daughter reports that the episode yesterday lasted around 15 minutes. She had a very brief episode of only a couple of seconds earlier today. She had an EEG done, which showed some mild slowing, but relatively normal for age. No epileptiform features were seen. She was started on Keppra yesterday. She generally is able to get around the house with the use of a walker. She has a family that looks after her and tends to many of her daily activities. She is generally able to feed herself independently, but otherwise needs help. PAST MEDICAL HISTORY: Hypertension, hyperlipidemia, mild dementia. ALLERGIES: AMOXIL, HYDROCODONE, NITROFURANTOIN, CIPRO, AND RIVASTIGMINE. SOCIAL HISTORY: No tobacco or alcohol use. FAMILY HISTORY: Noncontributory. REVIEW OF SYSTEMS: 10-system review of systems limited due to her cognitive state. PHYSICAL EXAMINATION: GENERAL: She is a frail elderly lady, who is lying in bed, in no distress. She awakened easily and was limitedly conversant. HEENT: Pupils are equal and reactive. Conjunctivae clear. Oropharynx clear. NECK: No lymphadenopathy noted. EXTREMITIES: No cyanosis or edema. NEUROLOGIC: She awakens easily and followed commands reasonably well. Her speech was clear. No facial asymmetry was noted. She had good cat hooker strength bilaterally. Dpsaqa-[id number] movements were smooth. Gait was not tested. No abnormal movements were seen. Reflexes diffusely suppressed. SUMMARY: This is an elderly lady who has had some episodes consistent with some focal seizure activity. I agree with the Keppra and will follow up with her in the office. Job ID: [id number]
[2018-11-01] MEDS: hydrALAZINE 20 MG/ML VIAL SLOW IVP PRN (04:33)
[2018-11-01] MEDS: levETIRAcetam 500 mg/5 ml Oral Solution PO SCH ×2 (08:45→20:23)
[2018-11-01] MEDS: Amlodipine 5 MG TAB PO SCH (08:46)
[2018-11-01] MEDS: Aspirin 325 MG TAB PO SCH (08:46)
[2018-11-01] MEDS: hydrALAZINE 25 MG TAB PO SCH ×3 (08:46→20:23)
[2018-11-01] MEDS: Furosemide 40 MG TAB PO SCH (08:46)
[2018-11-01] MEDS: Labetalol 100 MG TAB PO SCH ×2 (08:46→20:22)
[2018-11-01] MEDS: Amiodarone 200 MG TAB PO SCH (08:46)
[2018-11-01] MEDS: Losartan 25 MG TAB PO SCH (08:46)
--- NOTE | 2018-11-01 10:41 | PQF ---
COOPER ORO RYAN MD [id number] [address] [place] [address] [id number] CLINICAL DOCUMENTATION IMPROVEMENT CLARIFICATION FORM: ICD-10 Updated PLEASE DO AN ADDENDUM TO THE PROGRESS NOTE WITH ANY DOCUMENTATION UPDATES OR ADDITIONS AND CARRY THROUGH TO DC SUMMARY. THANK YOU. Date: 11/01/2018 ATTN: DR. SAN Please exercise your independent, professional judgment in responding to the clarification form. Clinical indicators are provided on the bottom of this form for your review Please check appropriate box(s): [ X ] Protein Calorie Malnutrition: [ ] Mild [ ] Moderate [ X ] Severe [ ] Other Malnutrition (please specify) __ [ ] Underweight without malnutrition [ ] Cachexia [ ] Other diagnosis [ ] Unable to determine In addition, please specify: Present on Admission (POA): [ X ] Yes [ ] No [ ] Unable to determine CLINICAL INDICATORS - SIGNS / SYMPTOMS / LABS *BMI of _15.2____ *Two or More of the Followin. Unintentional Insufficient Energy Intake: 10/31-DIET: KCAL AND PROTEIN GOALS NOT MET. 2. Weight Loss: 10/31-DIET: -3.7% SINCE ADMIT; -8% FROM UBW (105-lbs) 3. Diminished Handgrip Strength: PT ASMT: 3/5 AND 3+/5 CAR ESCORT STRENGTH RISK FACTORS *Inability to consume adequate caloric intake: 10/31-DIET: PT HAS NOT BEEN EATING WELL. *Chronic illness: DEMENTIA, CVA. *ADVANCED AGE - 88 y/o TREATMENT *Dietary consult *Nutritional supplements: ORDERS FOR GLUCERNA BID AND MIGHTY SHAKES BID *Assistance with feeding - 10/31 NURSE NOTE SHOWS MODERATE ASSISTANCE NEEDED WITH FEEDING. PARAMETERS.... Moderate Malnutrition (in acute illness) Energy Intake: <75% of estimated energy requirement for > 7 days Weight Loss: 1-2%/1 week; 5%/ 1 month; 7.5%/3 months Other: mild body fat loss; mild muscle mass loss; mild fluid accumulation; Severe Malnutrition (in acute illness) Energy Intake: < 50% of estimated energy requirement for > 5 days Weight Loss: >1-2%/1 week; >5%/1 month; >7.5%/3 months Other: moderate body fat loss; moderate muscle mass loss; moderate- severe fluid accumulation; measurably reduced attending physician strength Moderate Malnutrition (in chronic illness) Energy Intake: <75% of estimated energy requirement for >1 month Weight Loss: 5%/1 month; 7.5%/3 months; 10%/6 months; 20%/1 year Other: mild body fat loss; mild muscle mass loss; mild fluid accumulation Severe Malnutrition (in chronic illness) Energy Intake: <75% of estimated energy requirement for >1 month Weight Loss: >5%/1 month; >7.5%/3 months; >10%/6 months; >20%/1 year Other: severe body fat loss; severe muscle mass loss; severe fluid accumulation ; measurably reduced attending physician strength Thank you, Melba (This form is maintained as a part of the permanent medical record) 2015 [employer]. All Rights Reserved Melba Feliciano RN, CDIS [email or web address] [phone] MTDMayra
--- NOTE | 2018-11-01 12:00 | PDOC.PN ---
- Subjective Encounter Start Date: 11/01/18 Encounter Start Time: 11:59 Patient seen and examined, family at bedside, all questions answered. - Objective Vital Signs & Weight: Vital Signs (12 hours) Temp Pulse Pulse Resp BP BP BP 11/01/18 11:41 98.7 F 72 18 179/76 H 11/01/18 09:15 72 171/98 H 11/01/18 08:46 72 171/98 H 11/01/18 08:00 99.2 F 72 18 171/98 H 11/01/18 04:33 68 11/01/18 04:00 98.3 F 72 16 182/64 H 11/01/18 00:00 98.7 F 68 16 Pulse Ox Pulse Ox 11/01/18 11:41 93 L 11/01/18 09:15 92 L 11/01/18 08:46 11/01/18 08:00 90 L 11/01/18 04:33 11/01/18 04:00 91 L 11/01/18 00:00 91 L Weight Admit Weight 100 lb 4.8 oz Weight 94 lb 3 oz I&O: 10/31/18 11/01/18 11/02/18 06:59 06:59 06:59 Intake Total 200 250 Output Total 325 100 Balance -125 -100 250 Result Diagrams: 10/31/18 04:55 10/31/18 04:55 Phys Exam - Physical Examination Constitutional: NAD HEENT: PERRLA, moist MMs, sclera anicteric Neck: no nodes, no JVD, supple Respiratory: no wheezing, no rales, no rhonchi Cardiovascular: RRR, no significant murmur, no rub Gastrointestinal: soft, non-tender, no distention Musculoskeletal: no edema, pulses present Dx/Plan (1) Acute CHF (congestive heart failure) Code(s): I50.9 - HEART FAILURE, UNSPECIFIED Status: Acute Qualifiers: Heart failure type: diastolic Qualified Code(s): I50.31 - Acute diastolic ( congestive) heart failure (2) Acute encephalopathy Code(s): G93.40 - ENCEPHALOPATHY, UNSPECIFIED Status: Acute (3) Fatigue Code(s): R53.83 - OTHER FATIGUE Status: Acute Qualifiers: Fatigue type: unspecified Qualified Code(s): R53.83 - Other fatigue (4) CAD (coronary artery disease) Code(s): I25.10 - ATHSCL HEART DISEASE OF [place] CORONARY ARTERY W/O ANG PCTRS Status: Chronic Qualifiers: Coronary Disease-Associated Artery/Lesion type: [place] artery [place] vs. transplanted heart: [place] heart Associated angina: without angina Qualified Code(s): I25.10 - Atherosclerotic heart disease of [place] coronary artery without angina pectoris Comment: Hx cardiac cath, no intervention (5) Hypertension Code(s): I10 - ESSENTIAL (PRIMARY) HYPERTENSION Status: Chronic Qualifiers: Hypertension type: essential hypertension Qualified Code(s): I10 - Essential (primary) hypertension - Plan * overall fucntion is very poor * long discussion held with daughter and granddaughter as well as rest of family * at this point in time continue with current plan of care * will place consult to SNF * consult also to palliative care services * DC plans to home with palliation or SNF depending on what family decides * d/w CM * case and plan d/w patient and family at [facility] along with the MPOa, they understand and agree with this plan.
[2018-11-01] MEDS: Donepezil HCl 5 MG TAB PO SCH (20:22)
[2018-11-01] MEDS: Pravastatin Sodium 20 MG TAB PO SCH (20:23)
[2018-11-02] MEDS: cloNIDine 0.1 MG TAB PO PRN (03:53)
[2018-11-02] MEDS: hydrALAZINE 20 MG/ML VIAL SLOW IVP PRN (04:45)
[2018-11-02] MEDS: Aspirin 325 MG TAB PO SCH (08:57)
[2018-11-02] MEDS: Furosemide 40 MG TAB PO SCH (08:57)
[2018-11-02] MEDS: Labetalol 100 MG TAB PO SCH ×2 (08:57→21:44)
[2018-11-02] MEDS: Amiodarone 200 MG TAB PO SCH (08:57)
[2018-11-02] MEDS: Amlodipine 5 MG TAB PO SCH (08:57)
[2018-11-02] MEDS: Losartan 25 MG TAB PO SCH (08:57)
[2018-11-02] MEDS: hydrALAZINE 25 MG TAB PO SCH ×3 (08:57→21:44)
[2018-11-02] MEDS: levETIRAcetam 500 mg/5 ml Oral Solution PO SCH ×2 (08:58→21:45)
--- NOTE | 2018-11-02 10:37 | PDOC.PN ---
- Subjective Encounter Start Date: 11/02/18 Encounter Start Time: 10:37 Patient seen and examined, no new issues or complaints, all questions answered. - Objective Resuscitation Status - Order Detail: 11/01/18 13:27 Resuscitation Status Routine Resuscitation Status: PRTL: Chem only Discussed with: MPOA Additional comments: discussed with family and MPOA, they want a chemical code only Vital Signs & Weight: Vital Signs (12 hours) Temp Pulse Resp BP BP Pulse Ox 11/02/18 08:57 65 11/02/18 08:00 96 11/02/18 07:52 98.2 F 65 20 195/81 H 96 11/02/18 05:36 166/76 H 11/02/18 04:45 66 181/81 H 11/02/18 04:00 98.3 F 68 19 195/84 H 95 11/02/18 03:53 199/92 H 11/02/18 00:00 98.6 F 70 18 174/70 H 94 L Weight Admit Weight 100 lb 4.8 oz Weight 98 lb I&O: 11/01/18 11/02/18 11/03/18 06:59 06:59 06:59 Intake Total 825 240 Output Total 100 1100 Balance -100 -275 240 Result Diagrams: 10/31/18 04:55 10/31/18 04:55 Phys Exam - Physical Examination Constitutional: NAD HEENT: PERRLA, moist MMs, sclera anicteric Neck: no nodes, no JVD, supple Respiratory: no wheezing, no rales, no rhonchi Cardiovascular: RRR, no significant murmur, no rub Gastrointestinal: soft, non-tender, no distention Musculoskeletal: no edema, pulses present Dx/Plan (1) Acute CHF (congestive heart failure) Code(s): I50.9 - HEART FAILURE, UNSPECIFIED Status: Acute Qualifiers: Heart failure type: diastolic Qualified Code(s): I50.31 - Acute diastolic ( congestive) heart failure (2) Acute encephalopathy Code(s): G93.40 - ENCEPHALOPATHY, UNSPECIFIED Status: Acute (3) Fatigue Code(s): R53.83 - OTHER FATIGUE Status: Acute Qualifiers: Fatigue type: unspecified Qualified Code(s): R53.83 - Other fatigue (4) CAD (coronary artery disease) Code(s): I25.10 - ATHSCL HEART DISEASE OF [place] CORONARY ARTERY W/O ANG PCTRS Status: Chronic Qualifiers: Coronary Disease-Associated Artery/Lesion type: [place] artery [place] vs. transplanted heart: [place] heart Associated angina: without angina Qualified Code(s): I25.10 - Atherosclerotic heart disease of [place] coronary artery without angina pectoris Comment: Hx cardiac cath, no intervention (5) Hypertension Code(s): I10 - ESSENTIAL (PRIMARY) HYPERTENSION Status: Chronic Qualifiers: Hypertension type: essential hypertension Qualified Code(s): I10 - Essential (primary) hypertension - Plan * family having a discussion with palliative care services today to discuss plan of care * for now will continue current plan of care with no changes * case and plan d/w patient's MPOA via phone Roberta Elaine [phone], she understood and agreed with this plan
[2018-11-02] MEDS: Donepezil HCl 5 MG TAB PO SCH (21:43)
[2018-11-02] MEDS: Pravastatin Sodium 20 MG TAB PO SCH (21:44)
[2018-11-03 05:04] LABS: #Eosinphils 0.1 thou/uL (0.0-0.7); #Monocytes 1.2 thou/uL (0.11-0.59); %Basophils 0.2 % (0.0-1.0); %Eosinophils 0.7 % (0.0-10.0); %Monocytes 7.5 % (0.0-10.0); %Neutrophils 85.5 % (42.0-75.0); Hemoglobin 9.7 g/dL (12.0-16.0); Mean Corpuscular HGB CONC 31.6 g/dL (32.0-36.0); Mean Corpuscular Hemoglobin 29.6 pg (27.0-31.0); Mean Corpuscular Volume 93.7 fL (78.0-98.0); Mean Platelet Volume 7.2 fL (7.4-10.4); Platelet Count 252 thou/uL (130-400); RBC Distribution Width 12.4 % (11.5-14.5); Red Blood Cell (RBC) Count 3.26 mill/uL (4.20-5.40); White Blood Cell (WBC) Count 16.3 thou/uL (4.8-10.8)
[2018-11-03 05:24] LABS: ALT (SGPT) 11 U/L (8-55); AST (SGOT) 12 U/L (5-34); Albumin 3.4 g/dL (3.4-4.8); Alkaline Phosphatase 79 U/L (40-150); Anion Gap 15 mmol/L (10-20); BUN (Urea Nitrogen) 32 mg/dL (9.8-20.1); Bilirubin, Total 0.4 mg/dL (0.2-1.2); Calc. Creatinine Clearance 19 mL/min (70-130); Calcium 9.8 mg/dL (7.8-10.44); Carbon Dioxide 25 mmol/L (23-31); Chloride 107 mmol/L (98-107); Estimated GFR-MDRD 36; Globulin 2.8 g/dL (2.4-3.5); Glucose 105 mg/dL (83-110); Protein, Total 6.2 g/dL (6.0-8.3); Sodium 144 mmol/L (136-145)
[2018-11-03 05:25] LABS: Potassium 2.8 mmol/L (3.5-5.1)
[2018-11-03] MEDS: Potassium Chloride 20 MEQ TAB PO SCH ×2 (06:26→08:51)
[2018-11-03] MEDS: Furosemide 40 MG TAB PO SCH (08:50)
[2018-11-03] MEDS: Aspirin 325 MG TAB PO SCH (08:50)
[2018-11-03] MEDS: Amiodarone 200 MG TAB PO SCH (08:50)
[2018-11-03] MEDS: hydrALAZINE 25 MG TAB PO SCH ×3 (08:50→21:10)
[2018-11-03] MEDS: Amlodipine 5 MG TAB PO SCH (08:50)
[2018-11-03] MEDS: Labetalol 100 MG TAB PO SCH ×2 (08:51→21:10)
[2018-11-03] MEDS: levETIRAcetam 500 mg/5 ml Oral Solution PO SCH ×2 (08:51→21:10)
[2018-11-03] MEDS: Losartan 25 MG TAB PO SCH (08:51)
--- NOTE | 2018-11-03 09:33 | PDOC.PN ---
- Subjective Encounter Start Date: 11/03/18 Encounter Start Time: 09:32 Patient seen and examined, no new issues, no famliy at bedside. All questions answered - Objective Resuscitation Status - Order Detail: 11/02/18 12:31 Resuscitation Status Routine Resuscitation Status: DNAR: NO Resuscitation Discussed with: AYAKA Additional comments: Also discussed with family Vital Signs & Weight: Vital Signs (12 hours) Temp Pulse Resp BP BP Pulse Ox 11/03/18 08:51 69 187/92 H 11/03/18 08:50 69 187/92 H 11/03/18 07:49 98.5 F 69 16 187/92 H 95 11/03/18 04:00 98.5 F 66 19 166/80 H 95 11/03/18 00:00 98.7 F 64 19 134/61 94 L 11/02/18 21:44 65 169/60 H Weight Admit Weight 100 lb 4.8 oz Weight 91 lb 4 oz I&O: 11/02/18 11/03/18 11/04/18 06:59 06:59 06:59 Intake Total 825 960 Output Total 1100 1350 Balance -275 -390 Result Diagrams: 11/03/18 04:43 11/03/18 04:43 Phys Exam - Physical Examination Constitutional: NAD HEENT: PERRLA, moist MMs, sclera anicteric Neck: no nodes, no JVD, supple Respiratory: no wheezing, no rales, no rhonchi Cardiovascular: RRR, no significant murmur, no rub Gastrointestinal: soft, non-tender, no distention Musculoskeletal: no edema, pulses present Dx/Plan (1) Acute CHF (congestive heart failure) Code(s): I50.9 - HEART FAILURE, UNSPECIFIED Status: Acute Qualifiers: Heart failure type: diastolic Qualified Code(s): I50.31 - Acute diastolic ( congestive) heart failure (2) Acute encephalopathy Code(s): G93.40 - ENCEPHALOPATHY, UNSPECIFIED Status: Acute (3) Fatigue Code(s): R53.83 - OTHER FATIGUE Status: Acute Qualifiers: Fatigue type: unspecified Qualified Code(s): R53.83 - Other fatigue (4) CAD (coronary artery disease) Code(s): I25.10 - ATHSCL HEART DISEASE OF [place] CORONARY ARTERY W/O ANG PCTRS Status: Chronic Qualifiers: Coronary Disease-Associated Artery/Lesion type: [place] artery [place] vs. transplanted heart: [place] heart Associated angina: without angina Qualified Code(s): I25.10 - Atherosclerotic heart disease of [place] coronary artery without angina pectoris Comment: Hx cardiac cath, no intervention (5) Hypertension Code(s): I10 - ESSENTIAL (PRIMARY) HYPERTENSION Status: Chronic Qualifiers: Hypertension type: essential hypertension Qualified Code(s): I10 - Essential (primary) hypertension - Plan * Case d/w family at length, overall poor prognosis * palliative care also following * family opting to go to [facility] for now and then possible hospice if no recovery noted * CM consulted for placement * DC to [facility] once placement obtained * repeat labs in AM for low K * no other changes in plan
[2018-11-03] MEDS ORDERED: Potassium Chloride 10 MEQ in Premix Bag 1 BAG IVPB SCH (09:45)
[2018-11-03] MEDS: Pravastatin Sodium 20 MG TAB PO SCH (21:10)
[2018-11-03] MEDS: Donepezil HCl 5 MG TAB PO SCH (21:10)
[2018-11-04 07:07] LABS: #Eosinphils 0.3 thou/uL (0.0-0.7); #Monocytes 1.1 thou/uL (0.11-0.59); #Neutrophils 9.8 thou/uL (1.40-6.50); %Basophils 0.1 % (0.0-1.0); %Eosinophils 2.1 % (0.0-10.0); %Lymphocytes 8.4 % (21.0-51.0); %Monocytes 8.8 % (0.0-10.0); %Neutrophils 80.6 % (42.0-75.0); Hemoglobin 10.1 g/dL (12.0-16.0); Mean Corpuscular HGB CONC 32.1 g/dL (32.0-36.0); Mean Corpuscular Volume 93.5 fL (78.0-98.0); Platelet Count 250 thou/uL (130-400); RBC Distribution Width 12.4 % (11.5-14.5); Red Blood Cell (RBC) Count 3.35 mill/uL (4.20-5.40); White Blood Cell (WBC) Count 12.1 thou/uL (4.8-10.8)
[2018-11-04 07:24] LABS: Anion Gap 12 mmol/L (10-20); BUN (Urea Nitrogen) 32 mg/dL (9.8-20.1); Calc. Creatinine Clearance 20 mL/min (70-130); Calcium 9.9 mg/dL (7.8-10.44); Carbon Dioxide 29 mmol/L (23-31); Chloride 106 mmol/L (98-107); Estimated GFR-MDRD 36; Glucose 110 mg/dL (83-110); Potassium 3.6 mmol/L (3.5-5.1); Sodium 143 mmol/L (136-145)
--- NOTE | 2018-11-04 08:18 | PDOC.PN ---
- Subjective Encounter Start Date: 11/04/18 Encounter Start Time: 10:40 Subjective: Patient feels very hungry. Tube feeds held last night due to drainage -: from PEG site. Tightended by Dr. Gan this AM and restarting feeds at -: half speed. - Objective Resuscitation Status - Order Detail: 11/02/18 12:31 Resuscitation Status Routine Resuscitation Status: DNAR: NO Resuscitation Discussed with: MPOA Additional comments: Also discussed with family MAR Reviewed: Yes Vital Signs & Weight: Vital Signs (12 hours) Temp Pulse Resp BP BP Pulse Ox 11/04/18 07:41 98.6 F 64 16 153/78 H 95 11/04/18 07:40 95 11/04/18 04:30 98.6 F 65 18 136/63 95 11/04/18 00:38 98.5 F 70 18 158/74 H 95 11/03/18 21:36 99.0 F 61 18 158/64 H 97 11/03/18 21:10 64 152/75 H Weight Admit Weight 100 lb 4.8 oz Weight 98 lb 6 oz I&O: 11/03/18 11/04/18 11/05/18 06:59 06:59 06:59 Intake Total 960 1440 Output Total 1350 1075 Balance -390 365 Result Diagrams: 11/04/18 06:51 11/04/18 06:51 Phys Exam - Physical Examination Constitutional: NAD very thin HEENT: moist MMs Respiratory: no wheezing, no rales, no rhonchi Cardiovascular: RRR Gastrointestinal: soft, positive bowel sounds PEG in place Neurological: non-focal, moves all 4 limbs Psychiatric: normal affect, A&O x 3 Dx/Plan (1) Acute CHF (congestive heart failure) Code(s): I50.9 - HEART FAILURE, UNSPECIFIED Status: Acute Qualifiers: Heart failure type: diastolic Qualified Code(s): I50.31 - Acute diastolic ( congestive) heart failure (2) Acute encephalopathy Code(s): G93.40 - ENCEPHALOPATHY, UNSPECIFIED Status: Acute (3) Fatigue Code(s): R53.83 - OTHER FATIGUE Status: Acute Qualifiers: Fatigue type: unspecified Qualified Code(s): R53.83 - Other fatigue (4) CAD (coronary artery disease) Code(s): I25.10 - ATHSCL HEART DISEASE OF [place] CORONARY ARTERY W/O ANG PCTRS Status: Chronic Qualifiers: Coronary Disease-Associated Artery/Lesion type: [place] artery [place] vs. 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 - Discharge Day Encounter end time: 10:50
[2018-11-04] MEDS: levETIRAcetam 500 mg/5 ml Oral Solution PO SCH ×2 (09:38→20:30)
[2018-11-04] MEDS: hydrALAZINE 25 MG TAB PO SCH ×3 (09:38→20:29)
[2018-11-04] MEDS: Labetalol 100 MG TAB PO SCH ×2 (09:39→20:30)
[2018-11-04] MEDS: Amiodarone 200 MG TAB PO SCH (09:39)
[2018-11-04] MEDS: Furosemide 40 MG TAB PO SCH (09:39)
[2018-11-04] MEDS: Losartan 25 MG TAB PO SCH (09:39)
[2018-11-04] MEDS: Aspirin 325 MG TAB PO SCH (09:41)
[2018-11-04] MEDS: Amlodipine 5 MG TAB PO SCH (09:41)
[2018-11-04] MEDS: Artificial Tear Sol 15 ML BOT EA EYE PRN ×2 (09:42→20:37)
[2018-11-04] MEDS: Donepezil HCl 5 MG TAB PO SCH (20:29)
[2018-11-04] MEDS: Pravastatin Sodium 20 MG TAB PO SCH (20:30)
[2018-11-05] MEDS: levETIRAcetam 500 mg/5 ml Oral Solution PO SCH ×2 (08:41→20:58)
[2018-11-05] MEDS: Furosemide 40 MG TAB PO SCH (08:42)
[2018-11-05] MEDS: hydrALAZINE 25 MG TAB PO SCH ×3 (08:42→20:52)
[2018-11-05] MEDS: Losartan 25 MG TAB PO SCH (08:43)
[2018-11-05] MEDS: Aspirin 325 MG TAB PO SCH (08:43)
[2018-11-05] MEDS: Amiodarone 200 MG TAB PO SCH (08:43)
[2018-11-05] MEDS: Amlodipine 5 MG TAB PO SCH (08:43)
[2018-11-05] MEDS: Labetalol 100 MG TAB PO SCH ×2 (08:44→21:13)
--- NOTE | 2018-11-05 08:56 | PDOC.PN ---
- Subjective Encounter Start Date: 11/05/18 Encounter Start Time: 10:30 Subjective: Patient not talking this AM. Shook head denying pain or complaints. Sleepy. - Objective Resuscitation Status - Order Detail: 11/02/18 12:31 Resuscitation Status Routine Resuscitation Status: DNAR: NO Resuscitation Discussed with: AYAKA Additional comments: Also discussed with family MAR Reviewed: Yes Vital Signs & Weight: Vital Signs (12 hours) Temp Pulse Resp BP BP Pulse Ox 11/05/18 08:44 60 202/106 H 11/05/18 08:43 60 202/106 H 11/05/18 08:42 60 202/106 H 11/05/18 08:00 97.6 F 60 20 202/106 H 97 11/05/18 04:00 98.2 F 59 L 19 170/68 H 97 11/05/18 00:00 98.1 F 57 L 18 125/55 L 97 Weight Admit Weight 100 lb 4.8 oz Weight 95 lb 5 oz I&O: 11/04/18 11/05/18 11/06/18 06:59 06:59 06:59 Intake Total 1440 450 Output Total 1075 200 400 Balance 365 250 -400 Result Diagrams: 11/04/18 06:51 11/04/18 06:51 Phys Exam - Physical Examination Constitutional: NAD HEENT: moist MMs Respiratory: no wheezing, no rales, no rhonchi Cardiovascular: RRR Gastrointestinal: soft, positive bowel sounds Neurological: non-focal Psychiatric: normal affect Deviation from normal: sleepy, not verbal Dx/Plan (1) Acute CHF (congestive heart failure) Code(s): I50.9 - HEART FAILURE, UNSPECIFIED Status: Acute Qualifiers: Heart failure type: diastolic Qualified Code(s): I50.31 - Acute diastolic ( congestive) heart failure (2) Acute encephalopathy Code(s): G93.40 - ENCEPHALOPATHY, UNSPECIFIED Status: Acute (3) Fatigue Code(s): R53.83 - OTHER FATIGUE Status: Acute Qualifiers: Fatigue type: unspecified Qualified Code(s): R53.83 - Other fatigue (4) CAD (coronary artery disease) Code(s): I25.10 - ATHSCL HEART DISEASE OF [place] CORONARY ARTERY W/O ANG PCTRS Status: Chronic Qualifiers: Coronary Disease-Associated Artery/Lesion type: [place] artery [place] vs. transplanted heart: [place] heart Associated angina: without angina Qualified Code(s): I25.10 - Atherosclerotic heart disease of [place] coronary artery without angina pectoris Comment: Hx cardiac cath, no intervention (5) Hypertension Code(s): I10 - ESSENTIAL (PRIMARY) HYPERTENSION Status: Chronic Qualifiers: Hypertension type: essential hypertension Qualified Code(s): I10 - Essential (primary) hypertension (6) Hypokalemia Code(s): E87.6 - HYPOKALEMIA Status: Resolved (7) Protein-calorie malnutrition, severe Code(s): E43 - UNSPECIFIED SEVERE PROTEIN-CALORIE MALNUTRITION Status: Acute - Plan cont current plan of care, PT/OT, dialysis social worker awaiting SNF placement * . - Discharge Day Encounter end time: 10:40
[2018-11-05] MEDS: cloNIDine 0.2mg/24 Hour PATCH TD SCH (10:40)
[2018-11-05] MEDS: Donepezil HCl 5 MG TAB PO SCH (20:52)
[2018-11-05] MEDS: Pravastatin Sodium 20 MG TAB PO SCH (20:58)
[2018-11-06 05:49] LABS: #Eosinphils 0.1 thou/uL (0.0-0.7); #Monocytes 1.3 thou/uL (0.11-0.59); #Neutrophils 8.5 thou/uL (1.40-6.50); %Basophils 0.3 % (0.0-1.0); %Eosinophils 0.7 % (0.0-10.0); %Lymphocytes 8.9 % (21.0-51.0); %Monocytes 11.9 % (0.0-10.0); %Neutrophils 78.2 % (42.0-75.0); Hemoglobin 10.2 g/dL (12.0-16.0); Mean Corpuscular HGB CONC 31.8 g/dL (32.0-36.0); Mean Corpuscular Hemoglobin 29.6 pg (27.0-31.0); Mean Platelet Volume 7.1 fL (7.4-10.4); Platelet Count 252 thou/uL (130-400); RBC Distribution Width 12.3 % (11.5-14.5); Red Blood Cell (RBC) Count 3.43 mill/uL (4.20-5.40); White Blood Cell (WBC) Count 10.9 thou/uL (4.8-10.8)
[2018-11-06 06:18] LABS: Anion Gap 12 mmol/L (10-20); BUN (Urea Nitrogen) 43 mg/dL (9.8-20.1); Calc. Creatinine Clearance 15 mL/min (70-130); Calcium 9.9 mg/dL (7.8-10.44); Carbon Dioxide 29 mmol/L (23-31); Chloride 106 mmol/L (98-107); Estimated GFR-MDRD 26; Glucose 103 mg/dL (83-110); Potassium 3.1 mmol/L (3.5-5.1); Sodium 144 mmol/L (136-145)
[2018-11-06] MEDS: Amlodipine 5 MG TAB PO SCH (07:54)
[2018-11-06] MEDS: Aspirin 325 MG TAB PO SCH (07:54)
[2018-11-06] MEDS: hydrALAZINE 25 MG TAB PO SCH ×3 (07:55→20:49)
[2018-11-06] MEDS: Losartan 25 MG TAB PO SCH (07:55)
[2018-11-06] MEDS: Furosemide 40 MG TAB PO SCH (07:55)
[2018-11-06] MEDS: Amiodarone 200 MG TAB PO SCH (07:55)
[2018-11-06] MEDS: levETIRAcetam 500 mg/5 ml Oral Solution PO SCH ×2 (07:56→20:49)
[2018-11-06] MEDS: Labetalol 100 MG TAB PO SCH ×2 (07:59→20:49)
--- NOTE | 2018-11-06 09:24 | PDOC.PN ---
- Subjective Encounter Start Date: 11/06/18 Encounter Start Time: 12:20 -: non-verbal Subjective: No events overnight. Still not verbal. - Objective Resuscitation Status - Order Detail: 11/02/18 12:31 Resuscitation Status Routine Resuscitation Status: DNAR: NO Resuscitation Discussed with: AYAKA Additional comments: Also discussed with family MAR Reviewed: Yes Vital Signs & Weight: Vital Signs (12 hours) Temp Pulse Resp BP Pulse Ox 11/06/18 07:59 65 11/06/18 07:55 65 11/06/18 07:54 98.5 F 98 12 165/66 H 92 L 11/06/18 05:21 98.2 F 98 16 159/71 H 98 11/06/18 00:17 98.5 F 60 16 144/63 H 98 Weight Admit Weight 100 lb 4.8 oz Weight 102 lb I&O: 11/05/18 11/06/18 11/07/18 06:59 06:59 06:59 Intake Total 450 460 Output Total 200 400 Balance 250 60 Result Diagrams: 11/06/18 05:31 11/06/18 05:31 Phys Exam - Physical Examination Constitutional: NAD HEENT: moist MMs Respiratory: no wheezing, no rales, no rhonchi Cardiovascular: RRR Gastrointestinal: soft, positive bowel sounds Musculoskeletal: no edema Neurological: non-focal, moves all 4 limbs Deviation from normal: sleepy, opens eyes and shakes head yes and no to first 1- 2 questions, then closes eyes and won't answer anymore Dx/Plan (1) Acute CHF (congestive heart failure) Code(s): I50.9 - HEART FAILURE, UNSPECIFIED Status: Acute Qualifiers: Heart failure type: diastolic Qualified Code(s): I50.31 - Acute diastolic ( congestive) heart failure (2) Acute encephalopathy Code(s): G93.40 - ENCEPHALOPATHY, UNSPECIFIED Status: Acute (3) Fatigue Code(s): R53.83 - OTHER FATIGUE Status: Acute Qualifiers: Fatigue type: unspecified Qualified Code(s): R53.83 - Other fatigue (4) CAD (coronary artery disease) Code(s): I25.10 - ATHSCL HEART DISEASE OF [place] CORONARY ARTERY W/O ANG PCTRS Status: Chronic Qualifiers: Coronary Disease-Associated Artery/Lesion type: [place] artery [place] vs. transplanted heart: [place] heart Associated angina: without angina Qualified Code(s): I25.10 - Atherosclerotic heart disease of [place] coronary artery without angina pectoris Comment: Hx cardiac cath, no intervention (5) Hypertension Code(s): I10 - ESSENTIAL (PRIMARY) HYPERTENSION Status: Chronic Qualifiers: Hypertension type: essential hypertension Qualified Code(s): I10 - Essential (primary) hypertension (6) Hypokalemia Code(s): E87.6 - HYPOKALEMIA Status: Resolved (7) Protein-calorie malnutrition, severe Code(s): E43 - UNSPECIFIED SEVERE PROTEIN-CALORIE MALNUTRITION Status: Acute - Plan cont current plan of care, PT/OT, sr. social media & mobile manager awaiting SNF placement * . - Discharge Day Encounter end time: 12:30
[2018-11-06 20:31] VITALS: TEMP 97.8
[2018-11-06] MEDS: Donepezil HCl 5 MG TAB PO SCH (20:49)
[2018-11-06] MEDS: Pravastatin Sodium 20 MG TAB PO SCH (20:49)
[2018-11-07 08:10] VITALS: BP 166/68
[2018-11-07] MEDS: Aspirin 325 MG TAB PO SCH (08:20)
[2018-11-07] MEDS: levETIRAcetam 500 mg/5 ml Oral Solution PO SCH (08:20)
[2018-11-07] MEDS: Losartan 25 MG TAB PO SCH (08:21)
[2018-11-07] MEDS: Labetalol 100 MG TAB PO SCH (08:21)
[2018-11-07] MEDS: hydrALAZINE 25 MG TAB PO SCH ×2 (08:22→14:45)
[2018-11-07] MEDS: Amiodarone 200 MG TAB PO SCH ×2 (08:22→08:23)
[2018-11-07] MEDS: Furosemide 40 MG TAB PO SCH (08:23)
[2018-11-07] MEDS: Amlodipine 5 MG TAB PO SCH (08:33)
--- NOTE | 2018-11-07 09:01 | EEG ---
Referring Physician: Madison MARTINEZ EEG # 19-30 TEST TYPE: ROUTINE PORTABLE INPATIENT REPORT: AN EEG USING THE INTERNATIONAL TEN-TWENTY SYSTEM OF ELECTRODE PLACEMENT WAS PERFORMED. The waking background is predominately theta frequency in the 5-6 hertz range. Occasional alpha activity was seen but this is poorly maintained. Photic stimulation was unremarkable. No epileptiform features were present. IMPRESSION: THIS IS AN ABNORMAL STUDY FOR THE FINDINGS OF MILD DIFFUSE SLOWING CONSISTENT WITH A DIFFUSE ENCEPHALOPATHIC PROCESS. CLINICAL CORRELATION IS INDICATED. Allergy And Immunology Specialist: ONUR [employer] Forming Machine Tender: EEG.DARIANA DIAZ
--- NOTE | 2018-11-07 09:41 | PDOC.PN ---
- Subjective Encounter Start Date: 11/07/18 Encounter Start Time: 10:00 Subjective: Patient still very sad. Won't talk to me. Did say a few words to her -: daughter when she came. Downturn in mood seemed to coincide with -: starting clondinine patch. - Objective Resuscitation Status - Order Detail: 11/02/18 12:31 Resuscitation Status Routine Resuscitation Status: DNAR: NO Resuscitation Discussed with: MPOA Additional comments: Also discussed with family MAR Reviewed: Yes Vital Signs & Weight: Vital Signs (12 hours) Temp Pulse Resp BP Pulse Ox 11/07/18 08:33 64 11/07/18 08:22 64 11/07/18 08:21 64 11/07/18 08:10 97.8 F 64 18 166/68 H 98 11/07/18 04:00 64 16 153/63 H 97 11/07/18 00:00 58 L 16 148/54 H 98 Weight Admit Weight 100 lb 4.8 oz Weight 102 lb I&O: 11/06/18 11/07/18 11/08/18 06:59 06:59 06:59 Intake Total 460 720 Output Total 400 Balance 60 720 Result Diagrams: 11/06/18 05:31 11/06/18 05:31 Phys Exam - Physical Examination Constitutional: NAD HEENT: moist MMs Respiratory: no wheezing, no rales, no rhonchi Cardiovascular: RRR, no significant murmur Gastrointestinal: soft Musculoskeletal: no edema Neurological: non-focal Deviation from normal: depressed affect, not talking Dx/Plan (1) Acute CHF (congestive heart failure) Code(s): I50.9 - HEART FAILURE, UNSPECIFIED Status: Acute Qualifiers: Heart failure type: diastolic Qualified Code(s): I50.31 - Acute diastolic ( congestive) heart failure (2) Acute encephalopathy Code(s): G93.40 - ENCEPHALOPATHY, UNSPECIFIED Status: Acute (3) Fatigue Code(s): R53.83 - OTHER FATIGUE Status: Acute Qualifiers: Fatigue type: unspecified Qualified Code(s): R53.83 - Other fatigue (4) CAD (coronary artery disease) Code(s): I25.10 - ATHSCL HEART DISEASE OF [place] CORONARY ARTERY W/O ANG PCTRS Status: Chronic Qualifiers: Coronary Disease-Associated Artery/Lesion type: [place] artery [place] vs. transplanted heart: [place] heart Associated angina: without angina Qualified Code(s): I25.10 - Atherosclerotic heart disease of [place] coronary artery without angina pectoris Comment: Hx cardiac cath, no intervention (5) Hypertension Code(s): I10 - ESSENTIAL (PRIMARY) HYPERTENSION Status: Chronic Qualifiers: Hypertension type: essential hypertension Qualified Code(s): I10 - Essential (primary) hypertension (6) Hypokalemia Code(s): E87.6 - HYPOKALEMIA Status: Resolved (7) Protein-calorie malnutrition, severe Code(s): E43 - UNSPECIFIED SEVERE PROTEIN-CALORIE MALNUTRITION Status: Acute (8) Seizure Code(s): R56.9 - UNSPECIFIED CONVULSIONS Status: Acute Comment: Seen by Dr. Weinstein and started on very low dose Keppra, no further episodes, will need O/P followup. (9) Depression, major Code(s): F32.9 - MAJOR DEPRESSIVE DISORDER, SINGLE EPISODE, UNSPECIFIED Status : Acute Comment: On SSRI, suspect Clonidine patch exacerbating, decreased to 0.1mg patch and can try to titrate off as outpatient in a few days - Plan cont current plan of care, PT/OT D/c to SNF today * . - Discharge Day Encounter end time: 10:30
[2018-11-07] MEDS ORDERED: cloNIDine 0.1mg/24 Hour PATCH TD SCH (11:00)
[2018-11-07 13:45] VITALS: BMI 16.5
--- NOTE | 2018-11-08 04:32 | DIS ---
DATE OF ADMISSION: 10/26/2018 DATE OF DISCHARGE: 11/07/2018 PRIMARY CARE PHYSICIAN: Dr. Ricky Perry. REASON FOR ADMISSION: Altered mental status and possible UTI. DISCHARGE DIAGNOSES: 1. Acute metabolic encephalopathy, improved. 2. Acute exacerbation of diastolic congestive heart failure. 3. New onset seizures. 4. Major depression. 5. Fatigue. 6. Protein calorie malnutrition, severe. 7. Hypertensive urgency, resolved. 8. Hypokalemia, resolved. 9. Coronary artery disease, chronic. 10. Bilateral moderate carotid artery stenosis. PROCEDURES: 1. CT of the brain without contrast showing moderate chronic ischemic disease, but no acute intracranial abnormalities. 2. MRI of the brain showing no acute territorial infarction or mass effect, just moderate chronic ischemic disease of the cerebral white matter. 3. X-ray of the abdomen showing large volume of stool in the rectal vault. 4. Two-view chest x-ray showing moderate effusions and mild pulmonary vascular congestion or edema. 5. CT scan, angio of the chest with and without contrast showing no evidence of pulmonary embolism, just congestive heart failure with cardiomegaly, moderate effusions, moderate pulmonary edema and pulmonary artery hypertension. 6. Bilateral carotid ultrasounds showing moderate 50% to 69% stenosis of bilateral internal carotid arteries. 7. EEG showing mild diffuse slowing consistent with diffuse encephalopathic process. 8. Echocardiogram showing ejection fraction of 60% to 65%, grade 1/3 diastolic dysfunction. She does have severe tricuspid regurgitation and elevated right ventricular systolic pressure of 70 mmHg. She also had a small pericardial effusion without tamponade and large pleural effusion. SUMMARY OF HOSPITAL COURSE: This is 88-year-old white female with a longstanding history of very difficult to control hypertension who came in with an episode of altered mental status, confused, talking to people she used to work with who were not present. She had some similar episodes in the past with both UTI and she also had previous stroke or TIA. The patient presents to the emergency room. She had workup done for a stroke, including CT and MRI that were negative and she did have bilateral carotid artery stenosis. During her hospitalization, the patient had very lnlnlnttv-rb-[id number] blood pressure, was going up into the 200s systolic in the setting of no stroke on her MRI. This was treated, eventually clonidine 0.2 mg patch was added and then multiple other medicines were added as well. She continued to have very elevated blood pressures as well as some respiratory difficulties and was requiring some oxygen. She had been in need before, so a workup was done that showed the evidence of congestive heart failure exacerbation. The patient was treated with Lasix, this along with increasing her hydralazine and adding amlodipine eventually improved her blood pressure control. The patient did have a witnessed episode during the hospitalization where her eyes started twitching, conjugate motion, she began unresponsive during this, lasted about 15 minutes and then had another episode, this lasted a few seconds. Dr. Weinstein was consulted about the possible stroke and then this possible seizure activity. EEG was done that just showed results as above. Dr. Olsen is concerned that she is likely having some focal seizure activity. Agree with starting on a very low-dose Keppra 250 mg twice a day and then follow up in his office. During patient's hospitalization, she was quite weak and having to have physical therapy. She was moving much better by the end of the hospitalization. However, she became more and more depressed during her hospitalization. Her SSRIs from home were continued at her previous dose. However, the patient became less verbal. The only time that she would really talk was with her great grandchildren coming to her room and she perked up and started talking some. She also started eating in the morning about 30% of her meals. Looking back over the notes and talking with her family, it seems that her decreased energy level and worsening of depression actually started with the initiation of the clonidine patch. I am actually going to try and wean her off that. We are decreasing her to 0.1 mg patch before discharge today and that can be weaned off further over the next few days. The patient was doing a lot better with weaning off physical therapy by the day of discharge, however, and did ambulate with assistance in the hallways 120 feet. DISCHARGE MANAGEMENT: Discharged to custodial facility at in [place]. ACTIVITY: As tolerated. Encouraged to get up to the chair and ambulate with assistance 1 to 2 times per day. DIET: Healthy heart diet with Mighty shakes t.i.d. or milk shakes if strawberry ones are available. She is on a fluid restriction of 1500 mL. THERAPIES: Occupational, physical, and speech therapy. FOLLOWUP: Follow up with Dr. Olsen in 2 to 3 weeks in the clinic and with her primary care doctor, Ricky Perry, after this day. DISCHARGE MEDICATIONS: 1. Amiodarone 200 mg daily. 2. Amlodipine 5 mg daily. 3. Aspirin 325 mg daily. 4. Clonidine 0.1 mg transdermal q.7 days patch and this can be attempted to be titrated off in the next week. 5. Aricept 5 mg at night. 6. Furosemide 40 mg daily. 7. Hydralazine 50 mg 3 times a day. 8. Labetalol 100 mg twice a day. 9. Keppra 250 mg twice a day. 10. Cozaar 100 mg daily. 11. Melatonin 3 mg at night. 12. Pravastatin 20 mg at night. 13. Sertraline 100 mg daily. TIME SPENT: 35 minutes. Job ID: [id number]
== END 2018-11-07 15:10 | DRG 291 ==
LOC: SCSER 04:27 → OBSVTOIN 07:35 → 2SW 07:35 → 2SE 10-29 18:53 → T4-B 11-05 20:02
PROVIDERS: ADMIT Internal Medicine; ATTEND Internal Medicine
DX: I11.0 Hypertensive heart disease with heart failure (principal); I50.31 Acute diastolic (congestive) heart failure; E43 Unspecified severe protein-calorie malnutrition; J96.01 Acute respiratory failure with hypoxia; N39.0 Urinary tract infection, site not specified; Z68.1 Body mass index [BMI] 19.9 or less, adult; I16.0 Hypertensive urgency; E78.5 Hyperlipidemia, unspecified; K21.9 Gastro-esophageal reflux disease without esophagitis; F32.9 Major depressive disorder, single episode, unspecified; Z88.1 Allergy status to other antibiotic agents; Z88.5 Allergy status to narcotic agent; Z88.8 Allergy status to other drugs, medicaments and biological substances; F03.90 Unspecified dementia, unspecified severity, without behavioral disturbance, psychotic disturbance, mood disturbance, and anxiety; G40.909 Epilepsy, unspecified, not intractable, without status epilepticus; E87.6 Hypokalemia; I25.10 Atherosclerotic heart disease of native coronary artery without angina pectoris; I65.23 Occlusion and stenosis of bilateral carotid arteries; I25.2 Old myocardial infarction; Z79.82 Long term (current) use of aspirin; Z66 Do not resuscitate
CPT/HCPCS: 36415; 51701; 70450; 70551; 71045; 71046; 71275; 74018; 80048; 80053; 80076; 81003; 81015; 82550; 82805; 83605; 83690; 83735; 83880; 84484; 85025; 85379; 86140; 87040; 87086; 93005; 93306; 93798; 93880; 95816; 95819; 96365; 96375; A4353; J0360; J0696; J1940; J1953; J3480; J7050; Q9966

== ENCOUNTER 2018-11-08 20:51 | Emergency (ER) | payer MEDICARE ==
[2018-11-08 22:39] LABS: Bilirubin Negative (Negative); Blood, Urine Negative (Negative); Clarity CLEAR (Clear); Glucose, Urine (Dipstick) Negative (Negative); Leukocyte Negative (Negative); Nitrite Negative (Negative); Protein, Urine (Dipstick) Negative (Neg-Trace); Specific Gravity, Urine 1.012 (1.002-1.036); Urobilinogen 0.2 mg/dL (0.2-1.0)
[2018-11-08] MEDS ORDERED: hydrALAZINE 25 MG TAB PO SCH (23:30)
--- NOTE | 2018-11-08 23:48 | RAD ---
AP VIEW PELVIS 11/08/18 HISTORY: Fall, pain. AP view pelvis obtained. AP view pelvis demonstrates no evidence of pelvic fractures or bony lesions. There is a large amount of stool in the rectum compatible with possible fecal impaction. A large amou nt of stool is also seen in the colon. IMPRESSION: Possible fecal impaction but no evidence of acute pelvic abnormality seen. POS: [facility]
[2018-11-09] MEDS ORDERED: Bisacodyl 10 MG SUPP ONE (00:16)
== END 2018-11-09 01:11 | disposition home or self-care (01) ==
LOC: ERS 20:51
DX: Z04.3 Encounter for examination and observation following other accident (principal); I11.0 Hypertensive heart disease with heart failure; I50.9 Heart failure, unspecified; F32.9 Major depressive disorder, single episode, unspecified; Z79.899 Other long term (current) drug therapy; Z79.82 Long term (current) use of aspirin; Z86.73 Personal history of transient ischemic attack (TIA), and cerebral infarction without residual deficits; W06.XXXA Fall from bed, initial encounter
CPT/HCPCS: 51701; 72170; 81003; A4353

== ENCOUNTER 2018-11-12 15:41 | Inpatient (IN) | payer MEDICARE ==
--- NOTE | 2018-11-12 16:35 | RAD ---
CHEST ONE VIEW: HISTORY: Altered mental status. COMPARISON: Radiograph from 10/26/2018. FINDINGS: The heart size is mildly enlarged. Dense calcifications of the aorta. No focal air space consolidation, pneumothorax, or large effusion. The lungs are mildly hyperinflate d, chronic. Moderate degenerative changes of the right glenohumeral joint. IMPRESSION: 1. Chronic changes. 2. No acute intrathoracic abnormality. POS: [facility]
[2018-11-12 16:56] LABS: Hemoglobin 11.5 g/dL (12.0-16.0); Mean Corpuscular HGB CONC 31.2 g/dL (32.0-36.0); Mean Corpuscular Hemoglobin 28.4 pg (27.0-31.0); Mean Corpuscular Volume 90.8 fL (78.0-98.0); Mean Platelet Volume 7.4 fL (7.4-10.4); Platelet Count 324 thou/uL (130-400); RBC Distribution Width 12.5 % (11.5-14.5); Red Blood Cell (RBC) Count 4.04 mill/uL (4.20-5.40)
[2018-11-12 17:13] LABS: ALT (SGPT) 15 U/L (8-55); AST (SGOT) 16 U/L (5-34); Albumin 3.9 g/dL (3.4-4.8); Alkaline Phosphatase 107 U/L (40-150); Anion Gap 17 mmol/L (10-20); BUN (Urea Nitrogen) 82 mg/dL (9.8-20.1); Bilirubin, Total 0.3 mg/dL (0.2-1.2); Calc. Creatinine Clearance 0 mL/min (70-130); Calcium 10.9 mg/dL (7.8-10.44); Carbon Dioxide 29 mmol/L (23-31); Chloride 108 mmol/L (98-107); Estimated GFR-MDRD 13; Globulin 3.7 g/dL (2.4-3.5); Glucose 137 mg/dL (83-110); Protein, Total 7.6 g/dL (6.0-8.3); Sodium 151 mmol/L (136-145)
[2018-11-12 17:22] LABS: Band 1 % (5-11); Hypochromia SLIGHT = 6-15 cells (100X) (0-5/hpf); Lymphocytes 4 % (21-51); MDiff Complete? YES; Monocytes 4 % (0-10); Neutrophil 91 % (42-75); Platelet Morphology Comment Appears Adequate
--- NOTE | 2018-11-12 17:40 | CT ---
HEAD CT WITHOUT CONTRAST 11/12/18 HISTORY: Altered mental status. COMPARISON: 10/26/18. FINDINGS: No parenchymal hemorrhage. No extra-axial hematoma. No midline shift. Basilar cisterns are patent. Br ain volume, age appropriate. Cortical rojas-white matter differentiation is preserved. Ventricles and sulci are patent and symmetric. Confluent white matter hypodensities likely due to chronic small vessel ischemic change. remote lacun ar infarct involving the left and right deep rojas matter structures. Atherosclerosis of the cavernous carotid and intracranial vertebral arteries. Partial opacification o f the paranasal sinuses. Intact calvarium. IMPRESSION: No acute intracranial process. POS: [facility]
[2018-11-12 18:08] LABS: Bilirubin Small (Negative); Blood, Urine Negative (Negative); Clarity CLEAR (Clear); Glucose, Urine (Dipstick) Negative (Negative); Leukocyte Small (Negative); Nitrite Negative (Negative); Protein, Urine (Dipstick) Trace mg/dL (Neg-Trace); Specific Gravity, Urine 1.016 (1.002-1.036); Urobilinogen 0.2 mg/dL (0.2-1.0)
[2018-11-12 18:10] LABS: Bacteria/HPF None Seen HPF (None Seen); Hyaline Casts/LPF 0-3 HYALINE CAST LPF (0-3 Hyaline); Pathc Cast-AUWi Flag 0.43 (0-2.49); RBC/HPF 0-3 HPF (0-3); Squamous Epithelial 0-3 HPF (0-3)
--- NOTE | 2018-11-12 18:36 | CT ---
ABDOMEN CT WITH CONTRAST PELVIC CT WITH CONTRAST 11/12/18 HISTORY: Abdominal pain. Elevated white blood cell count. COMPARISON: None. FINDINGS: ABDOMEN CT: Minimal opacification and consolidation of the right lower lobe likely representing atelectasis. Avni y pneumonia/infiltrate cannot be excluded. Heart size is within normal limits. No pericardial effusio n. The visualized aorta is atherosclerotic. There are coronary artery calcification. 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 Gallbladder is surgically absent. There does appear to be some d ilatation of the biliary system. Evaluation is limited by motion. Limited evaluation of the solid org ans by lack of IV contrast. Grossly, no solid organ abnormality. Hypodense, isodense and hyperdense lesions of the kidneys are likely due to combination of simple and complex cysts. Fat attenuation in the right kidney may represent a small angiomyolipoma. Bilaterally , no evidence of obstructive uropathy. No mesenteric mass, lymphadenopathy, free air or free fluid. Markedly limited evaluation of the alimentary canal by lack of oral contrast. Gastric mucosal is unre markable. Small bowel loops are grossly unremarkable. The ileocecal junction appears to be normal. Ap pendix is difficult to appreciate. No obvious inflammation at the cecal apex. There is a marked amoun t of fecal material with bowel wall thickening, pericolonic and presacral fat stranding involving the sigmoid colon and rectum. Given the presence of significant fecal material, stercoral colitis should be considered. CT PELVIS: Stranding of the presacral fat. Surgically absent uterus. Unremarkable urinary bladder. No lytic or b lastic lesions in the osseous structures. IMPRESSION: Stercoral colitis. Other etiologies of colitis such as ischemic or infectious/inflammatory process ca nnot be completely excluded. Results of the study discussed with Trini Kamara, 11/12/18 at 6:14 p.m. Code CR. POS: [facility]
[2018-11-12] MEDS ORDERED: metroNIDAZOLE 500 MG/100 ML BAG ONE (19:00)
[2018-11-12] MEDS ORDERED: Aztreonam 2 GM in Sodium Chloride 0.9% 100 ML IVPB SCH (19:15)
[2018-11-12] MEDS ORDERED: Ondansetron ODT 4 MG TAB PO PRN (20:58)
[2018-11-12] MEDS ORDERED: Guaifenesin DM 100-10/5 ML UDCUP PO PRN (20:58)
[2018-11-12] MEDS ORDERED: Ondansetron PF 4 MG/2 ML Vial IVP PRN (20:58)
[2018-11-12] MEDS ORDERED: Sodium Chloride 0.9% 1,000 ML IV SCH (20:58)
[2018-11-12] MEDS ORDERED: Melatonin 3 MG TAB PO PRN (20:58)
[2018-11-12] MEDS ORDERED: Senokot 8.6 MG TAB PO PRN (20:58)
[2018-11-12] MEDS: Labetalol 100 MG TAB PO SCH ×2 (21:43→21:59)
[2018-11-12] MEDS: Cefepime 1 GM in Sodium Chloride 0.9% 100 ML IVPB SCH (21:46)
[2018-11-12] MEDS: metroNIDAZOLE 500 MG in Premix Bag 1 BAG IVPB SCH (21:47)
[2018-11-12] MEDS: levETIRAcetam 500 mg/5 ml Oral Solution PO SCH ×2 (21:48→21:59)
[2018-11-12] MEDS: hydrALAZINE 25 MG TAB PO SCH ×2 (21:49→21:59)
[2018-11-12] MEDS: Famotidine 20 MG TAB PO SCH (21:49)
[2018-11-12] MEDS: Docusate 100 MG CAP PO SCH (21:49)
[2018-11-12] MEDS: Pravastatin Sodium 20 MG TAB PO SCH ×2 (21:49→22:01)
[2018-11-12] MEDS: Donepezil HCl 5 MG TAB PO SCH ×2 (21:49→22:01)
--- NOTE | 2018-11-13 02:22 | HP ---
PRIMARY CARE PHYSICIAN: Ricky Perry MD. CHIEF COMPLAINT: Altered mental status. HISTORY OF PRESENT ILLNESS: This is an 88-year-old white female, recently in the hospital for altered mental status and hypertensive urgency. The patient was initially treated for possible UTI. The culture came back negative and the antibiotics were discontinued. The patient had severe elevations of blood pressure in her last hospitalization and multiple medications were started including amlodipine and clonidine patch. The patient became very, very sleepy, somnolent, much less responsive during her hospitalization. She had no stroke identified. She did appear to have worsening of her depression, however. The patient's blood pressure was able to be stabilized and it was thought that she was actually being sedated and having worsening of her depression from her clonidine patch. This was titrated down. The patient was discharged to a [facility] facility with instructions to titrate off completely, which was done about 2 days ago. In the [facility] facility, the patient has not had any bowel movements. She did have a fall and was evaluated in the emergency room over the weekend. At that time, she had some laxatives given for constipation, some bowel movement did pass. The patient was brought back to the [facility] facility; however, today she was noted to be altered by the nursing staff, so she was brought back in today. Here her creatinine was noted to be elevated from previously being 1.3 to 1.8 up to now 3.36 and her white blood cell count was elevated at 35,000. She had impaction on exam and a large amount of stool was cleared up by the emergency room doctor. CT of the abdomen did show some stranding and bowel wall thickening consistent with stercoral colitis. There was still a large amount of fecal material in the colon in spite of what has already been removed. Speaking with the granddaughters in the room, the patient does not really seem any different from mental status standpoint to her than she has been over the last week and a half to 2 weeks when she was in the hospital here previously. The patient has been getting up with physical therapy. She actually ate and sat up and ate dinner last night and in the emergency room here, after she had a small amount of IV fluids given, she perked up and then asked to go to the bathroom. She went and sat on the bedside commode and passed a bowel movement then as well. PAST MEDICAL HISTORY: All history taken from family and from the chart as the patient verbalizes minimally, mentally when she is interested in talking similar to when she was in the hospital last time. 1. Stroke in 2018. 2. Hypertension. 3. Hyperlipidemia. 4. Gastroesophageal reflux. 5. Vertigo previously with amlodipine. 6. Recurrent Clostridium difficile colitis. 7. Renal mass. 8. Arthritis. PAST SURGICAL HISTORY: Hysterectomy. PSYCHIATRIC HISTORY: Major depression. SOCIAL HISTORY: The patient is currently living at a SNF, but lives with her granddaughter. The patient is a confirmed, continued to be a DNR. REVIEW OF SYSTEMS: Unable to obtain secondary to patient's mental status. The granddaughter does not know about her having any fevers or any other symptoms and stated that she has had some bowel movement since the laxatives given on Sunday in the emergency room. PHYSICAL EXAMINATION: VITAL SIGNS: Blood pressure 145/64, pulse 71, respirations 14, temperature 98.5, O2 saturation 97% on room air. GENERAL: This is a well-developed, thin, elderly white female in no acute distress. She has her eyes closed, but will open them to voice, will nod yes or no for the first question or so and after that, closes her eyes and does not really respond. She can follow commands though, but opening eyes, opening mouth and moving arms and legs. HEENT EXAM: Pupils equal, round, and reactive to light. Oropharynx clear without lesions, erythema, or exudate. NECK: Supple. No lymphadenopathy. No thyroid nodules or enlargement. No JVD. HEART: Regular rate and rhythm. No murmurs, rubs, or gallops. LUNGS: Clear to auscultation bilaterally. No wheezes, crackles, or rhonchi. ABDOMEN: Soft. She does have some tenderness to palpation diffusely. No masses palpable. No significant guarding. Normoactive bowel sounds. Per the emergency room physician's exam, the patient had impaction and had a large amount of stool removed by the ER doctor. I did not repeat that exam currently. EXTREMITIES: No clubbing, cyanosis, or edema. SKIN: No rashes or lesions noted. NEUROLOGIC: The patient seems to be moving all extremities equally and has no facial droop. PSYCHIATRIC: She is alert, but will not speak for me. She does appear depressed, though not crying like she was multiple times and during her last hospitalization. LABORATORY DATA: CBC with a white blood cell count of 35,000, 91% neutrophils, 1 band. Hemoglobin 11.5, hematocrit 36.7, platelet count 324. Complete metabolic panel is notable for sodium of 151, potassium 3.0, chloride of 108, BUN of 82, creatinine of 3.36, glucose of 137, calcium of 10.9. Urinalysis showed small bilirubin, small leukocyte esterase, 7-10 white blood cells and no bacteria. Chest x-ray, I did review the chest x-ray done in the emergency room along with the radiologist's report. There is no acute infiltrate or cardiac abnormalities. CT of the brain in the emergency room shows no acute intracranial process. CT of the abdomen and pelvis in the emergency room, see history of present illness for results. ASSESSMENT AND PLAN: 1. Fecal impaction with stercoral colitis. We will give MiraLAX, stool softeners and p.r.n. Senokot until we get soft regular bowel movements. We will also use enemas as needed. We will consult Dr. Jimenez with GI for assistance in dealing with this. 2. Sepsis secondary to fecal impaction with stercoral colitis. We will treat with antibiotics. The patient was given aztreonam and metronidazole in the emergency room. I will transition this to metronidazole and cefepime due to the patient's renal function. The patient has had cephalosporins successfully in the past without any sort of reactions. We will monitor the patient closely. Granddaughter does understand the patient, given her age and physical status, that this is a severe illness, but she does seem to be tolerating it well at this point. Hope she will improve with fluids and antibiotics. 3. Acute on chronic renal failure. We will give patient gentle fluid hydration. She got a small bolus in the emergency room. We will give fluids overnight and we have to be careful not to overload her. I will check creatinine regularly and we will have Nephrology consulted. 4. History of Clostridium difficile colitis. We will observe carefully on antibiotics for any evidence of a recurrence of Clostridium difficile. For now, patient is on metronidazole and if she does start having some diarrhea most likely from the laxatives, then we may need checking for Clostridium difficile and start oral vancomycin. We will give her IV antibiotics with a minimal amount of time necessary for her inflammation and infection. 5. Hypertension with history of hypertensive urgency. Patient's blood pressure is currently well controlled off the clonidine. Given her constipation and her previous reactions amlodipine, I do want to try and take her off the amlodipine as well as stop that now. We will continue all her other blood pressure medicines except for her losartan due to her renal function. We will hold that until renal function improves and then restart at that time. I will give her some p.r.n. IV hydralazine as well for severe elevations of high blood pressure. 6. Gastrointestinal prophylaxis. The patient is on Pepcid twice a day. CODE STATUS: I did confirm this with her granddaughter. The patient is a Do Not Attempt resuscitation. Her medical decision makers are her daughter, Kika Buchanan, and granddaughter, Roberta Henry. Job ID: [id number]
[2018-11-13] MEDS: hydrALAZINE 20 MG/ML VIAL SLOW IVP PRN ×2 (04:09→12:46)
[2018-11-13] MEDS: metroNIDAZOLE 500 MG in Premix Bag 1 BAG IVPB SCH ×3 (05:47→15:21)
[2018-11-13 07:52] LABS: Anion Gap 20 mmol/L (10-20); BUN (Urea Nitrogen) 78 mg/dL (9.8-20.1); Calc. Creatinine Clearance 9 mL/min (70-130); Calcium 10.1 mg/dL (7.8-10.44); Carbon Dioxide 21 mmol/L (23-31); Chloride 116 mmol/L (98-107); Estimated GFR-MDRD 17; Glucose 115 mg/dL (83-110); Sodium 154 mmol/L (136-145)
[2018-11-13 07:55] LABS: Potassium 2.8 mmol/L (3.5-5.1)
[2018-11-13] MEDS: Cefepime 1 GM in Sodium Chloride 0.9% 100 ML IVPB SCH ×2 (08:02→20:10)
[2018-11-13 08:05] LABS: Mean Corpuscular HGB CONC 31.7 g/dL (32.0-36.0); Mean Corpuscular Hemoglobin 28.8 pg (27.0-31.0); Mean Corpuscular Volume 90.8 fL (78.0-98.0); Mean Platelet Volume 7.6 fL (7.4-10.4); Platelet Count 253 thou/uL (130-400); RBC Distribution Width 12.5 % (11.5-14.5); Red Blood Cell (RBC) Count 3.82 mill/uL (4.20-5.40); White Blood Cell (WBC) Count 35.9 thou/uL (4.8-10.8)
--- NOTE | 2018-11-13 08:44 | PDOC.PN ---
- Subjective Encounter Start Date: 11/13/18 Encounter Start Time: 11:00 Subjective: Patient unchanged overnight. Continues to respond minimally, but following -: commands. Dr. Jimenez saw earlier today and performed further manual -: disimpaction, enemas to remove the rest. - Objective Resuscitation Status - Order Detail: 11/12/18 19:36 Resuscitation Status Routine Resuscitation Status: DNAR: NO Resuscitation Discussed with: Daughter and Granddaughter MAR Reviewed: Yes Vital Signs & Weight: Vital Signs (12 hours) Temp Pulse Resp BP BP BP Pulse Ox 11/13/18 07:51 97.2 F L 73 19 179/65 H 95 11/13/18 04:09 71 190/64 H 11/13/18 04:00 97.5 F L 74 18 190/64 H 97 11/13/18 00:00 97.8 F 71 18 171/67 H 95 11/12/18 22:24 97 11/12/18 21:59 68 11/12/18 21:09 97.6 F 68 20 151/79 H 97 Weight Weight 87 lb 9.6 oz Result Diagrams: 11/13/18 07:13 11/13/18 07:13 Phys Exam - Physical Examination Constitutional: NAD HEENT: moist MMs Respiratory: no wheezing, no rales, no rhonchi Cardiovascular: RRR, no significant murmur Gastrointestinal: soft, positive bowel sounds TTP diffusely, but minimal guarding Neurological: non-focal, moves all 4 limbs Deviation from normal: depressed affect, at recent baseline Dx/Plan (1) Sepsis Code(s): A41.9 - SEPSIS, UNSPECIFIED ORGANISM Status: Acute (2) Fecal impaction Code(s): K56.41 - FECAL IMPACTION Status: Acute Comment: with stercoralis colitis (3) Acute renal failure superimposed on stage 3 chronic kidney disease Code(s): N17.9 - ACUTE KIDNEY FAILURE, UNSPECIFIED; N18.3 - CHRONIC KIDNEY DISEASE, STAGE 3 (MODERATE) Status: Acute Comment: Improving with gentle fluids (4) Hypokalemia Code(s): E87.6 - HYPOKALEMIA Status: Acute Comment: replacing (5) Hypertension Code(s): I10 - ESSENTIAL (PRIMARY) HYPERTENSION Status: Chronic Qualifiers: Hypertension type: essential hypertension Qualified Code(s): I10 - Essential (primary) hypertension Comment: elevated, holding ARB, will increase Hydralazine (6) Diastolic CHF Code(s): I50.30 - UNSPECIFIED DIASTOLIC (CONGESTIVE) HEART FAILURE Status: Chronic Qualifiers: Heart failure chronicity: chronic Qualified Code(s): I50.32 - Chronic diastolic (congestive) heart failure Comment: Will need to monitor closely with fluid resuscitation for overload (7) Acute encephalopathy Code(s): G93.40 - ENCEPHALOPATHY, UNSPECIFIED Status: Acute Comment: likely related to depression worsened by new medications, clonidine discontinued, stopping Amlodipine as well as has history of severe vertigo with that medication and also causes constipation (8) Depression, major Code(s): F32.9 - MAJOR DEPRESSIVE DISORDER, SINGLE EPISODE, UNSPECIFIED Status : Acute Comment: On SSRI (9) Protein-calorie malnutrition, severe Code(s): E43 - UNSPECIFIED SEVERE PROTEIN-CALORIE MALNUTRITION Status: Acute (10) Seizure Code(s): R56.9 - UNSPECIFIED CONVULSIONS Status: Chronic Comment: Seen by Dr. Weinstein last visit and started on very low dose Keppra, no further episodes (11) CAD (coronary artery disease) Code(s): I25.10 - ATHSCL HEART DISEASE OF [place] CORONARY ARTERY W/O ANG PCTRS Status: Chronic Qualifiers: Coronary Disease-Associated Artery/Lesion type: [place] artery [place] vs. transplanted heart: [place] heart Associated angina: without angina Qualified Code(s): I25.10 - Atherosclerotic heart disease of [place] coronary artery without angina pectoris Comment: Hx cardiac cath, no intervention - Plan cont current plan of care, continue antibiotics, PT/OT, DVT proph w/SCDs * . - Discharge Day Encounter end time: 11:10
[2018-11-13] MEDS ORDERED: Potassium Chloride 40 MEQ in Premix Bag 1 BAG IVPB SCH (08:45)
[2018-11-13] MEDS ORDERED: Dextrose 5% in Water 1,000 ML IV SCH (09:00)
[2018-11-13] MEDS: Amiodarone 200 MG TAB PO SCH (09:22)
[2018-11-13] MEDS: Aspirin 325 MG TAB PO SCH (09:22)
[2018-11-13] MEDS: levETIRAcetam 500 mg/5 ml Oral Solution PO SCH ×2 (09:23→20:10)
[2018-11-13] MEDS: Labetalol 100 MG TAB PO SCH ×2 (09:23→20:08)
[2018-11-13] MEDS: Famotidine 20 MG TAB PO SCH ×2 (09:23→20:08)
[2018-11-13] MEDS: Polyethylene Glycol 3350 17 GM Packet PO SCH (09:23)
[2018-11-13] MEDS: Docusate 100 MG CAP PO SCH ×2 (09:23→20:08)
--- NOTE | 2018-11-13 09:54 | CON ---
DATE OF CONSULTATION: CONSULTING PHYSICIAN: Tony Burton MD. REQUESTING PHYSICIAN: John Paul Chavarria MD. REASON FOR CONSULTATION: Acute on chronic kidney disease, hypernatremia, and hypokalemia. IMPRESSION: 1. Acute on chronic kidney disease, this is likely hemodynamically mediated in the context of intravascular depletion. 2. Hypernatremia in the context of free water deficit. 3. Hypokalemia related to GI issues. 4. Mental status change, agitation, this is likely related to electrolyte abnormality in this case of hypernatremia. 5. Fecal impaction with elevated white blood cell count, query cause, rule out Clostridium difficile colitis. PLAN: 1. Discontinue normal saline. 2. Start this patient on free water repletion with dextrose water in addition to potassium repletion. 3. Given the elevated white blood cell count and fecal impaction and recent history of antibiotic usage for treatment of urinary tract infection, we will ask this patient's stool for Clostridium difficile. 4. Monitor the electrolyte closely. 5. Renally dose all medications for low GFR. 6. Further management to be dependent on the clinical course. HISTORY OF PRESENT ILLNESS: This is an 88-year-old female patient from a intermediate facility, who was recently treated here for urinary tract infection, sent to a intermediate facility; however, noted not to have moved her bowels to the point of undergoing fecal disimpaction. The patient presented here noted with elevated white blood cell count of about 35,000, elevated creatinine, elevated sodium, and low potassium. Given the constellation of these findings, decision has been taken to involve Renal in the management of this case. PAST MEDICAL HISTORY: Significant for severe hypertension, dyslipidemia, reflux disease, vertigo, renal mass, and arthritis. MEDICATIONS: Reviewed as documented on [email or web address]. SOCIAL HISTORY: Recently from a intermediate facility. The patient is DNR. FAMILY HISTORY: Could not be obtained. REVIEW OF SYSTEMS: Could not be obtained from this patient given the mental status. PHYSICAL EXAMINATION: GENERAL: The patient was found to be somewhat agitated, noted with the following vital signs. VITAL SIGNS: Afebrile, temperature 97.5, pulse 74, respiratory rate of 18, blood pressure 190/64, O2 saturation of 97%. HEENT: Remarkable for dry oral mucosa. NECK: Supple. No conjunctival injection or icterus. CARDIOVASCULAR SYSTEM: First and second heart sounds were heard. RESPIRATORY SYSTEM: Clear to auscultation. DIGESTIVE: Revealed a benign abdomen. EXTREMITIES: No peripheral edema. SKIN: Revealed dry skin. LYMPHATICS: No peripheral lymphadenopathy. NEUROLOGIC: Revealed that the patient is agitated, but no lateralizing sign. SUMMARY: An 88-year-old female patient, who presented here with mental status change, noted to be severely hypernatremic and hypokalemic also with evidence of acute on chronic kidney disease with elevated white blood cell count. Thank you for this consultation. We will follow with you. Job ID: [id number]
[2018-11-13 09:57] LABS: Band 3 % (5-11); Lymphocytes 10 % (21-51); MDiff Complete? YES; Monocytes 3 % (0-10); Neutrophil 84 % (42-75); RBC Morphology Normal
[2018-11-13] MEDS: Potassium Chloride 40 MEQ in Dextrose 5% in Water 1,000 ML IV SCH ×2 (11:25→16:38)
[2018-11-13] MEDS: Potassium Chloride 20 MEQ in Premix Bag 1 BAG IVPB SCH ×2 (11:26→13:23)
[2018-11-13] MEDS: hydrALAZINE 25 MG TAB PO SCH ×3 (11:34→20:08)
--- NOTE | 2018-11-13 12:18 | CON ---
DATE OF CONSULTATION: 11/13/2018 REASON FOR CONSULTATION: Fecal impaction and stercoral colitis. HISTORY OF PRESENT ILLNESS: Ms. Dai is an 88-year-old female, brought [facility] for altered mentation. She has not been very communicative. On ER evaluation, she was noted to have a large amount of fecal impaction that was cleared partially in the emergency room. CT exam performed showed large stool burden in the rectosigmoid colon with mural thickening and surrounding inflammatory changes in the perirectal area. There is no reported history of nausea and vomiting. On initial admission, her white count was noted to be elevated to 30,000. There was no reported fever. Not much other history could be obtained from the patient. Of note, the patient was recently admitted to the hospital for altered mentation and elevation of blood pressure. There was no acute cerebrovascular event noted. PAST MEDICAL HISTORY: Includes; 1. Hypertension. 2. Hyperlipidemia. 3. History of C. diff colitis. 4. Degenerative joint disease. 5. History of renal mass. 6. Status post hysterectomy. ALLERGIES: INCLUDE ACETAMINOPHEN, AMOXICILLIN, CIPRO, AND CLARITHROMYCIN. MEDICATIONS: Prior to admission include; 1. Keppra. 2. Apresoline. 3. Sertraline. 4. Pravastatin. 5. Labetalol. 6. Donepezil. 7. Aspirin. 8. Amiodarone. 9. Clonidine. 10. Losartan. 11. Lasix. 12. Amlodipine. SOCIAL HISTORY: The [facility]. No known tobacco or alcohol usage. FAMILY HISTORY: Unknown. REVIEW OF SYSTEMS: Not obtainable. PHYSICAL EXAMINATION: VITAL SIGNS: Temperature is 97.2, blood pressure 179/65, and pulse is 73. GENERAL: She is awake, but not communicative. HEENT: Shows anicteric sclerae. NECK: Supple. No adenopathy or mass. CV: Shows normal S1 and S2. Regular rate and rhythm. CHEST: Shows poor excursion. ABDOMEN: Soft and diffusely mildly tender. No guarding or rebound. She has active bowel sounds. No tympany. EXTREMITIES: Shows no edema. RECTAL: Showed a large amount of semi-hard and soft stool in the rectal vault. With the help of her nurse, I manually disimpact her rectum as much as possible with fairly moderate amount of stool evacuated, remaining stool is soft and not able to disimpact. LABORATORY DATA: WBCs 35.9, hemoglobin 11.0, hematocrit 34.7, and platelet count of 353. Sodium 154, potassium 2.8, chloride 116, CO2 of 21, creatinine 2.59, and BUN is 78. Abdominal CT showed large amount of fecal material in the distal colon, rectosigmoid area, and also some in the proximal colon. There is mural thickening involving the rectosigmoid area and rectum with described presacral fat stranding. ASSESSMENT: 1. Obstipation with rectal impaction. The patient was partially disimpacted in the ER and I further disimpacted at bedside. The remaining stool is very soft and not hard and not able to manually evacuated through her anus. 2. Severe dehydration with hypernatremia and hypokalemia. 3. Acute kidney injury, likely prerenal. 4. Altered mentation. RECOMMENDATION: 1. As the patient is severely dehydrated with acute renal failure, would refrain from any bowel prep solution such as Golytely from above. 2. We will give Fleet Enema per rectum x3 in serial. 3. We will obtain followup KUB later today following enema administration. 4. We would continue with cefepime and metronidazole for now. Job ID: [id number] [facility]
[2018-11-13] MEDS: Fleet Enema 133 ML BOT PR SCH ×3 (12:26→17:23)
[2018-11-13] MEDS ORDERED: diphenhydrAMINE 50 MG/ML VIAL IVP SCH ×2 (14:30→16:00)
[2018-11-13] MEDS ORDERED: diphenhydrAMINE 50 MG/ML VIAL IVP PRN (15:58)
[2018-11-13 17:37] LABS: Anion Gap 19 mmol/L (10-20); BUN (Urea Nitrogen) 67 mg/dL (9.8-20.1); Calc. Creatinine Clearance 11 mL/min (70-130); Calcium 9.7 mg/dL (7.8-10.44); Carbon Dioxide 19 mmol/L (23-31); Chloride 114 mmol/L (98-107); Estimated GFR-MDRD 21; Glucose 109 mg/dL (83-110); Potassium 3.3 mmol/L (3.5-5.1); Sodium 149 mmol/L (136-145)
[2018-11-13] MEDS: Pravastatin Sodium 20 MG TAB PO SCH (20:08)
[2018-11-13] MEDS: Donepezil HCl 5 MG TAB PO SCH (20:08)
--- NOTE | 2018-11-13 20:12 | RAD ---
ONE VIEW ABDOMEN 11/13/18 COMPARISON: 10/29/18 HISTORY: Colitis. Bowel impaction. FINDINGS: Moderate amount of fecal material in the sigmoid colon and rectum. Air filled mildly prominent left h emicolon is noted. There is some scattered fecal material in the right hemicolon. No pneumoperitoneum in the supine projection. When correlation is made with a CT from 11/12/18, the degree of fecal materi al in the sigmoid colon and rectum does not appear to have appreciably changed. IMPRESSION: Persistent fecal material in the distal sigmoid colon and rectum. POS: [facility]
[2018-11-14] MEDS: Potassium Chloride 40 MEQ in Dextrose 5% in Water 1,000 ML IV SCH ×4 (00:23→20:13)
[2018-11-14] MEDS ORDERED: Bisacodyl 5 MG TAB PO PRN (07:13)
[2018-11-14] MEDS ORDERED: Fleet Enema 133 ML BOT PR SCH (07:15)
--- NOTE | 2018-11-14 08:30 | PDOC.PN ---
- Subjective Encounter Start Date: 11/14/18 Encounter Start Time: 09:50 Subjective: Patient had diffuse rash and discomfort with antibiotics yesterday. Stopped -: metronidazole initially as patient may have had reaction many years ago. -: Next Cefepime infusion with rash again. Stopped and switched to Aztreonam. Patient not taking good po and pulling at lips and tongue, has some ulcers in mouth likely from antibiotic reaction as well. Will try some Maalox to coat ulcers and see if she can take po better doing that. - Objective Resuscitation Status - Order Detail: 11/12/18 19:36 Resuscitation Status Routine Resuscitation Status: DNAR: NO Resuscitation Discussed with: Daughter and Granddaughter MAR Reviewed: Yes Vital Signs & Weight: Vital Signs (12 hours) Temp Pulse Resp BP BP Pulse Ox 11/14/18 07:44 98.2 F 79 21 H 133/53 L 97 11/14/18 04:00 98.2 F 85 18 137/54 L 96 11/14/18 00:00 98.3 F 86 18 135/55 L 94 L Weight Admit Weight 87 lb 9.6 oz Weight 88 lb 6.4 oz I&O: 11/13/18 11/14/18 11/15/18 06:59 06:59 06:59 Intake Total 1620 Balance 1620 Result Diagrams: 11/14/18 11:01 11/14/18 11:01 Phys Exam - Physical Examination Constitutional: NAD HEENT: moist MMs some ulcers on tongue and cheeks, dry cracked lips Respiratory: no wheezing, no rales, no rhonchi Cardiovascular: RRR, no significant murmur Gastrointestinal: positive bowel sounds soft, TTP diffusely, no masses Neurological: non-focal Deviation from normal: arousable, not verbalizing anything Dx/Plan (1) Sepsis Code(s): A41.9 - SEPSIS, UNSPECIFIED ORGANISM Status: Acute (2) Fecal impaction Code(s): K56.41 - FECAL IMPACTION Status: Acute Comment: with stercoralis colitis (3) Acute renal failure superimposed on stage 3 chronic kidney disease Code(s): N17.9 - ACUTE KIDNEY FAILURE, UNSPECIFIED; N18.3 - CHRONIC KIDNEY DISEASE, STAGE 3 (MODERATE) Status: Acute Comment: Improving with gentle fluids (4) Hypokalemia Code(s): E87.6 - HYPOKALEMIA Status: Acute Comment: replacing (5) Hypertension Code(s): I10 - ESSENTIAL (PRIMARY) HYPERTENSION Status: Chronic Qualifiers: Hypertension type: essential hypertension Qualified Code(s): I10 - Essential (primary) hypertension Comment: elevated, holding ARB, will increase Hydralazine, much better if taken manually (6) Diastolic CHF Code(s): I50.30 - UNSPECIFIED DIASTOLIC (CONGESTIVE) HEART FAILURE Status: Chronic Qualifiers: Heart failure chronicity: chronic Qualified Code(s): I50.32 - Chronic diastolic (congestive) heart failure Comment: Will need to monitor closely with fluid resuscitation for overload (7) Acute encephalopathy Code(s): G93.40 - ENCEPHALOPATHY, UNSPECIFIED Status: Acute Comment: likely related to depression worsened by new medications, clonidine discontinued, stopping Amlodipine as well as has history of severe vertigo with that medication and also causes constipation (8) Depression, major Code(s): F32.9 - MAJOR DEPRESSIVE DISORDER, SINGLE EPISODE, UNSPECIFIED Status : Acute Comment: On SSRI (9) Protein-calorie malnutrition, severe Code(s): E43 - UNSPECIFIED SEVERE PROTEIN-CALORIE MALNUTRITION Status: Acute (10) Seizure Code(s): R56.9 - UNSPECIFIED CONVULSIONS Status: Chronic Comment: Seen by Dr. Weinstein last visit and started on very low dose Keppra, no further episodes (11) CAD (coronary artery disease) Code(s): I25.10 - ATHSCL HEART DISEASE OF [place] CORONARY ARTERY W/O ANG PCTRS Status: Chronic Qualifiers: Coronary Disease-Associated Artery/Lesion type: [place] artery [place] vs. transplanted heart: [place] heart Associated angina: without angina Qualified Code(s): I25.10 - Atherosclerotic heart disease of [place] coronary artery without angina pectoris Comment: Hx cardiac cath, no intervention - Plan cont current plan of care, continue antibiotics, PT/OT, DVT proph w/SCDs switch to aztreonam, Dr. Jimenez to start metronidazole and vanc fo -: hx of C. diff. * . - Discharge Day Encounter end time: 10:00
[2018-11-14] MEDS: Aspirin 325 MG TAB PO SCH ×3 (08:51→11:19)
[2018-11-14] MEDS: Famotidine 20 MG TAB PO SCH ×4 (08:51→20:59)
[2018-11-14] MEDS: Labetalol 100 MG TAB PO SCH ×4 (08:51→20:59)
[2018-11-14] MEDS: Docusate 100 MG CAP PO SCH ×4 (08:51→20:51)
[2018-11-14] MEDS: Amiodarone 200 MG TAB PO SCH ×3 (08:51→11:20)
[2018-11-14] MEDS: hydrALAZINE 25 MG TAB PO SCH ×5 (08:51→20:58)
[2018-11-14] MEDS: levETIRAcetam 500 mg/5 ml Oral Solution PO SCH ×3 (08:52→20:57)
[2018-11-14] MEDS: Fleet Enema 133 ML BOT PR SCH ×3 (08:52→15:12)
[2018-11-14] MEDS: Aztreonam 1 GM in Sodium Chloride 0.9% 100 ML IVPB SCH ×2 (08:52→20:13)
[2018-11-14] MEDS: Polyethylene Glycol 3350 17 GM Packet PO SCH (09:13)
[2018-11-14] MEDS ORDERED: Mag-Al Plus 1200 MG/1200 MG/120 MG/30 ML UDCUP PO PRN (10:19)
--- NOTE | 2018-11-14 10:33 | PRG ---
DATE OF SERVICE: 11/14/2018 SUBJECTIVE: The patient has moderate result with Fleet enemas x3 yesterday. She only had smear stool output overnight. Clinically, she appears about the same, noncommunicative. PHYSICAL EXAMINATION: VITAL SIGNS: Temperature 98.2, blood pressure 133/53, and pulse 79. GENERAL: She appears somewhat stuporous, but arousable, noncommunicative. HEENT: Anicteric sclerae. NECK: Supple. CV: Normal S1 and S2. Regular rate and rhythm. CHEST: Breath sound, poor excursion. ABDOMEN: Soft. No tympany. No distention. She has active bowel sounds. EXTREMITIES: No edema. LABORATORY DATA: None yet today. ASSESSMENT: 1. Constipation with fecal impaction, status post disimpaction yesterday with moderate result from Fleet enemas. 2. Stercoral colitis. 3. Positive Clostridium difficile, toxigenic by PCR. 4. Dehydration with acute kidney injury. 5. Altered mentation. RECOMMENDATION: 1. Continue with Fleet enemas from below and/or Dulcolax from above. No GoLYTELY at this point because of her kidney injuries. 2. I will start on vancomycin 125 mg p.o. q.i.d. 3. Check labs. If she still has significant leukocytosis, we will restart her back on IV metronidazole. Job ID: [id number]
[2018-11-14 11:25] LABS: #Basophils 0.1 thou/uL (0.0-0.2); #Eosinphils 0.1 thou/uL (0.0-0.7); #Lymphocytes 1.8 thou/uL (1.20-3.40); #Monocytes 1.2 thou/uL (0.11-0.59); #Neutrophils 16.1 thou/uL (1.40-6.50); %Basophils 0.3 % (0.0-1.0); %Eosinophils 0.6 % (0.0-10.0); %Lymphocytes 9.1 % (21.0-51.0); Hemoglobin 9.3 g/dL (12.0-16.0); Mean Corpuscular HGB CONC 31.5 g/dL (32.0-36.0); Mean Corpuscular Hemoglobin 29.1 pg (27.0-31.0); Mean Corpuscular Volume 92.3 fL (78.0-98.0); Mean Platelet Volume 7.4 fL (7.4-10.4); Platelet Count 230 thou/uL (130-400); RBC Distribution Width 12.5 % (11.5-14.5); White Blood Cell (WBC) Count 19.2 thou/uL (4.8-10.8)
[2018-11-14 11:58] LABS: ALT (SGPT) 16 U/L (8-55); AST (SGOT) 20 U/L (5-34); Albumin 2.8 g/dL (3.4-4.8); Alkaline Phosphatase 69 U/L (40-150); Anion Gap 14 mmol/L (10-20); BUN (Urea Nitrogen) 60 mg/dL (9.8-20.1); Bilirubin, Total 0.3 mg/dL (0.2-1.2); Calc. Creatinine Clearance 13 mL/min (70-130); Calcium 8.6 mg/dL (7.8-10.44); Carbon Dioxide 21 mmol/L (23-31); Chloride 113 mmol/L (98-107); Estimated GFR-MDRD 26; Globulin 2.5 g/dL (2.4-3.5); Glucose 112 mg/dL (83-110); Potassium 3.6 mmol/L (3.5-5.1); Protein, Total 5.3 g/dL (6.0-8.3); Sodium 144 mmol/L (136-145)
[2018-11-14] MEDS: Vancomycin HCl 25 MG/ML Oral PO SCH ×3 (13:01→20:13)
--- NOTE | 2018-11-14 20:00 | PRG ---
DATE OF SERVICE: 11/14/2018 SUBJECTIVE: The patient is seen and examined. Seems to be doing much better. Noted with the following vital signs. OBJECTIVE: VITAL SIGNS: Afebrile. Temperature 98.5, pulse 73, blood pressure 133/55, respiratory rate of 18, O2 saturation of 96%. HEENT: Unremarkable. CARDIOVASCULAR SYSTEM: First and second heart sounds were heard. RESPIRATORY SYSTEM: Clear to auscultation. DIGESTIVE SYSTEM: Revealed a benign abdomen. EXTREMITIES: No peripheral edema. LABORATORY INVESTIGATION: Showed a white count of 19,000, hemoglobin 9.3. Chemistry showed a sodium of 144, creatinine 1.8, BUN of 60. IMPRESSION: 1. Hypernatremia in the context of free water deficit, which seems to be improved. 2. Hypokalemia, which has improved. 3. Acute on chronic kidney disease, improving. 4. Clostridium difficile colitis, on treatment. PLAN: 1. We will begin to deescalate free water repletion. 2. Continue to monitor renal function and electrolytes. 3. Further management to be dependent on the clinical course. Job ID: [id number]
[2018-11-14] MEDS: Pravastatin Sodium 20 MG TAB PO SCH (20:58)
[2018-11-14] MEDS: Donepezil HCl 5 MG TAB PO SCH (20:59)
[2018-11-15 07:41] LABS: Anion Gap 13 mmol/L (10-20); BUN (Urea Nitrogen) 47 mg/dL (9.8-20.1); Calc. Creatinine Clearance 16 mL/min (70-130); Calcium 8.4 mg/dL (7.8-10.44); Carbon Dioxide 20 mmol/L (23-31); Chloride 114 mmol/L (98-107); Estimated GFR-MDRD 34; Glucose 105 mg/dL (83-110); Potassium 3.5 mmol/L (3.5-5.1); Sodium 143 mmol/L (136-145)
[2018-11-15] MEDS: Labetalol 100 MG TAB PO SCH ×2 (09:27→21:40)
[2018-11-15] MEDS: levETIRAcetam 500 mg/5 ml Oral Solution PO SCH ×2 (09:27→21:40)
[2018-11-15] MEDS: Docusate 100 MG CAP PO SCH (09:28)
[2018-11-15] MEDS: Aspirin 325 MG TAB PO SCH (09:28)
[2018-11-15] MEDS: Famotidine 20 MG TAB PO SCH ×2 (09:29→21:40)
[2018-11-15] MEDS: hydrALAZINE 25 MG TAB PO SCH ×3 (09:29→21:41)
[2018-11-15] MEDS: Amiodarone 200 MG TAB PO SCH (09:29)
[2018-11-15] MEDS: Aztreonam 1 GM in Sodium Chloride 0.9% 100 ML IVPB SCH (09:30)
[2018-11-15] MEDS: Polyethylene Glycol 3350 17 GM Packet PO SCH (09:30)
[2018-11-15] MEDS: Vancomycin HCl 25 MG/ML Oral PO SCH ×4 (09:32→21:40)
--- NOTE | 2018-11-15 11:12 | PQF ---
COOPER ORO, NITHIN LOPEZ MD [id number] [facility] [id number] CLINICAL DOCUMENTATION IMPROVEMENT CLARIFICATION FORM: ICD-10 Updated PLEASE DO AN ADDENDUM TO THE PROGRESS NOTE WITH ANY DOCUMENTATION UPDATES OR ADDITIONS AND CARRY THROUGH TO DC SUMMARY. THANK YOU. DATE: 11/15/18 ATTN: DR. Mayra CAROLINA Please exercise your independent, professional judgment in responding to the clarification form. Clinical indicators are provided on the bottom of this form for your review. Please check appropriate box(s): [ x] Encephalopathy: Type: [ x ] Acute [ ] Subacute [ ] Chronic Etiology: [ ] Metabolic [ ] Toxic [ ] Hypoxic [ ] Septic [ ] Drug induced: [ x ] Other diagnosis metabolic encephalopathy [ ] Unable to determine In addition, please specify: Present on Admission (POA): [ x] Yes [ ] No [ ] Unable to determine For continuity of documentation, please document condition throughout progress notes and discharge summary. Thank You. CLINICAL INDICATORS - SIGNS / SYMPTOMS / LABS 11/12 ED PHYSICIAN: PRIMARY DX METABOLIC ENCEPHALOPATHY 11/13 - 11/14 PN (JASWINDER) DX/PLAN : 7) ACUTE ENCEPHALOPATHY, UNSPECIFIED LIKELY RELATED TO DEPRESSION WORSENED BY NEW MEDICATIONS RISK: SEVERE DEHYDRATION SEPSIS C-DIFF COLITIS POTASSIUM CHLORIDE D5W (11/14- PRESENT) VANCOMYCIN PO (11/14 - PRESENT) AZACTAM IV ( 11/14- PRESENT) THANK YOU! KHLOE (This form is maintained as a part of the permanent medical record) 2014 [employer]. All Rights Reserved [email or web address] [phone] MTDD
--- NOTE | 2018-11-15 11:59 | PDOC.PN ---
- Subjective Encounter Start Date: 11/15/18 Encounter Start Time: 07:40 -: old records requested/rev pt is altered, has poor oral intake, family bedside Patient seen and examined. No overnight events - Objective Resuscitation Status - Order Detail: 11/12/18 19:36 Resuscitation Status Routine Resuscitation Status: DNAR: NO Resuscitation Discussed with: Daughter and Granddaughter ELDA Reviewed: Yes Vital Signs & Weight: Vital Signs (12 hours) Temp Pulse Resp BP Pulse Ox 11/15/18 09:29 79 11/15/18 09:27 79 11/15/18 08:06 97.5 F L 79 18 173/69 H 96 11/15/18 05:39 97.6 F 77 18 179/73 H 96 11/15/18 00:00 97.9 F 77 18 173/66 H 96 Weight Admit Weight 87 lb 9.6 oz Weight 87 lb 12.8 oz I&O: 11/14/18 11/15/18 11/16/18 06:59 06:59 06:59 Intake Total 1620 1240 Balance 1620 1240 Result Diagrams: 11/14/18 11:01 11/15/18 07:11 Phys Exam - Physical Examination Constitutional: NAD HEENT: PERRLA, sclera anicteric dry MM Neck: no JVD, supple Respiratory: no wheezing, no rales, no rhonchi Cardiovascular: RRR, no significant murmur, no rub Gastrointestinal: soft, non-tender, no distention, positive bowel sounds Musculoskeletal: no edema, pulses present Neurological: moves all 4 limbs Lymphatic: no nodes Psychiatric: normal affect Skin: no rash, normal turgor Dx/Plan (1) Acute renal failure superimposed on stage 3 chronic kidney disease Code(s): N17.9 - ACUTE KIDNEY FAILURE, UNSPECIFIED; N18.3 - CHRONIC KIDNEY DISEASE, STAGE 3 (MODERATE) Status: Acute Comment: Improving with gentle fluids (2) C. difficile colitis Status: Acute (3) Fecal impaction Code(s): K56.41 - FECAL IMPACTION Status: Acute Comment: with stercoralis colitis (4) Hypokalemia Code(s): E87.6 - HYPOKALEMIA Status: Acute (5) Sepsis Code(s): A41.9 - SEPSIS, UNSPECIFIED ORGANISM Status: Acute (6) Anxiety and depression Code(s): F41.9 - ANXIETY DISORDER, UNSPECIFIED; F32.9 - MAJOR DEPRESSIVE DISORDER, SINGLE EPISODE, UNSPECIFIED Status: Chronic (7) CAD (coronary artery disease) Code(s): I25.10 - ATHSCL HEART DISEASE OF [place] CORONARY ARTERY W/O ANG PCTRS Status: Chronic Qualifiers: Coronary Disease-Associated Artery/Lesion type: [place] artery [place] vs. transplanted heart: [place] heart Associated angina: without angina Qualified Code(s): I25.10 - Atherosclerotic heart disease of [place] coronary artery without angina pectoris Comment: (8) Hypertension Code(s): I10 - ESSENTIAL (PRIMARY) HYPERTENSION Status: Chronic Qualifiers: Hypertension type: essential hypertension Qualified Code(s): I10 - Essential (primary) hypertension Comment: elevated, holding ARB, will increase Hydralazine, much better if taken manually (9) Protein-calorie malnutrition, severe Code(s): E43 - UNSPECIFIED SEVERE PROTEIN-CALORIE MALNUTRITION Status: Chronic (10) Seizure Code(s): R56.9 - UNSPECIFIED CONVULSIONS Status: Chronic Comment: Seen by Dr. 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 Review of Systems - Review of Systems Other: not reliable due to her level of cognitive status - Medications/Allergies Allergies/Adverse Reactions: Allergies Allergy/AdvReac Type Severity Reaction Status Date / Time cefepime Allergy Mild Rash Verified 11/14/18 10:10 red dye Allergy Unknown Verified 11/13/18 16:12 yellow dye Allergy Unknown Verified 11/13/18 16:12 acetaminophen Allergy Verified 10/26/18 09:47 amoxicillin [From Amoxil] Allergy Verified 10/26/18 09:47 ciprofloxacin Allergy Verified 10/26/18 09:47 clarithromycin Allergy Verified 10/26/18 09:47 hydrocodone Allergy Verified 10/26/18 09:47 lansoprazole Allergy Verified 10/26/18 09:47 nitrofurantoin Allergy Verified 10/26/18 09:47 rivastigmine Allergy Verified 10/26/18 09:47 Medications: Current Medications Al Hydroxide/Mg Hydroxide (Maalox Plus) 30 ml PO Q6H PRN PRN Reason: MOUTH PAIN Last Admin: 11/14/18 15:14 Dose: 30 ml Amiodarone HCl (Cordarone) 200 mg PO DAILY [facility] Last Admin: 11/15/18 09:29 Dose: 200 mg Aspirin (Aspirin) 325 mg PO DAILY [facility] Last Admin: 11/15/18 09:28 Dose: 325 mg Bisacodyl (Dulcolax) 10 mg PO DAILYPRN PRN PRN Reason: Constipation Diphenhydramine HCl (Benadryl) 25 mg IVP Q6H PRN PRN Reason: Itching & Insomnia Last Admin: 11/13/18 21:19 Dose: 25 mg Docusate Sodium (Colace) 100 mg PO BID [facility] Last Admin: 11/15/18 09:28 Dose: Not Given Donepezil HCl (Aricept) 5 mg PO HS [facility] Last Admin: 11/14/18 20:59 Dose: 5 mg Famotidine (Pepcid) 20 mg PO BID [facility] Last Admin: 11/15/18 09:29 Dose: 20 mg Guaifenesin/Dextromethorphan (Robitussin Dm) 15 ml PO Q4H PRN PRN Reason: Cough Hydralazine HCl (Apresoline) 10 mg SLOW IVP Q4H PRN PRN Reason: Severe Hypertension Last Admin: 11/13/18 12:46 Dose: 10 mg Hydralazine HCl (Apresoline) 75 mg PO TID [facility] Last Admin: 11/15/18 09:29 Dose: 75 mg Aztreonam 1 gm/ Sodium (Chloride) 100 mls @ 100 mls/hr IVPB Q12HR [facility] Last Admin: 11/15/18 09:30 Dose: 100 mls Potassium Chloride 40 meq/ (Dextrose/Water) 1,020 mls @ 75 mls/hr IV .[id number] [facility] Last Admin: 11/14/18 20:13 Dose: 1,020 mls Labetalol HCl (Normodyne) 100 mg PO BID [facility] Last Admin: 11/15/18 09:27 Dose: 100 mg Levetiracetam (Keppra Oral Solution) 250 mg PO BID [facility] Last Admin: 11/15/18 09:27 Dose: 250 mg Melatonin (Melatonin) 3 mg PO HS PRN PRN Reason: Insomnia Ondansetron HCl (Zofran Odt) 4 mg PO Q6H PRN PRN Reason: Nausea/Vomiting Ondansetron HCl (Zofran) 4 mg IVP Q6H PRN PRN Reason: Nausea/Vomiting Polyethylene Glycol (Miralax) 17 gm PO DAILY [facility] Last Admin: 11/15/18 09:30 Dose: Not Given Pravastatin Sodium (Pravachol) 20 mg PO HS [facility] Last Admin: 11/14/18 20:58 Dose: 20 mg Senna (Senokot) 2 tab PO HSPRN PRN PRN Reason: Constipation Sertraline HCl (Zoloft) 100 mg PO DAILY [facility] Last Admin: 11/15/18 09:28 Dose: 100 mg Sodium Chloride (Flush - Normal Saline) 10 ml IVF Q12HR [facility] Last Admin: 11/15/18 09:31 Dose: Not Given Sodium Chloride (Flush - Normal Saline) 10 ml IVF PRN PRN PRN Reason: Saline Flush Vancomycin HCl (First Vancomycin) 125 mg PO QID [facility] Last Admin: 11/15/18 09:32 Dose: 125 mg
--- NOTE | 2018-11-15 12:42 | PRG ---
DATE OF SERVICE: 11/15/2018 SUBJECTIVE: The patient is seen and examined, seems to be doing much better. Noted with the following vital signs. OBJECTIVE: VITAL SIGNS: Afebrile, temperature 97.5, pulse 79, respiratory rate of 18, O2 saturations are 96%, blood pressure of 177/79. HEENT: Unremarkable. Moist oral mucosa. NECK: Supple. No conjunctival injection or icterus. CARDIOVASCULAR SYSTEM: First and second heart sounds were heard. RESPIRATORY SYSTEM: Clear to auscultation. DIGESTIVE SYSTEM: Revealed a benign abdomen. Positive bowel sounds. EXTREMITIES: No peripheral edema. SKIN: No new gross rash. LYMPHATICS: No peripheral lymphadenopathy. IMPRESSION: 1. Acute on chronic kidney disease, which seems to be improving. 2. Chronic kidney disease, stage 3, at baseline. 3. Hyponatremia which has improved status post free water repletion. 4. Clostridium difficile colitis, on treatment. PLAN: 1. We will continue current renal supportive measures. 2. Continue to renally dose all medications and avoid potentially nephrotoxic agents. 3. I have already deescalated free water repletion. The patient seems to be doing much better. Job ID: [id number]
[2018-11-15] MEDS: Potassium Chloride 40 MEQ in Dextrose 5% in Water 1,000 ML IV SCH (14:12)
--- NOTE | 2018-11-15 15:58 | PRG ---
DATE OF SERVICE: 11/15/2018 SUBJECTIVE: Ms. Dai had a couple of liquidy incontinent stools today. She has had very little oral intake. OBJECTIVE: VITAL SIGNS: Temperature 97.5, pulse 79, blood pressure 173/69. GENERAL: She is in no acute distress. She is awake and responsive. Her daughter does most of the talking for her. LUNGS: Clear to auscultation bilaterally. HEART: Regular rate and rhythm. ABDOMEN: Soft, nontender, nondistended. Bowel sounds are present. EXTREMITIES: No lower extremity edema. RECTAL: Reveals no stool in the rectal vault. She has a liquid incontinent diarrhea in the diaper. LABORATORY DATA: White blood cell count 19.2, hemoglobin 9.3, platelets 230. Creatinine 1.46. IMPRESSION: 1. Stercoral colitis, improved status post disimpaction at the bedside by Dr. Jimenez. 2. Clostridium difficile colitis. She is now having diarrhea with incontinence. She is on vancomycin orally. 3. Acute renal failure, is improved. RECOMMENDATIONS: 1. Continue oral vancomycin. We should be able to back off the laxatives; however, we again do not want to run into a problem with fecal impaction. I will reduce the MiraLAX to one-half of a dose daily. If the diarrhea worsens, then it can be discontinued. 2. I am not clear on the indication for the aztreonam. I will discontinue that for now; however, if it is deemed necessary, the primary service can restart it. 3. Continue to encourage oral intake and ambulation. 4. Dr. Basilio will cover for the weekend. Job ID: [id number]
[2018-11-15] MEDS: Donepezil HCl 5 MG TAB PO SCH (21:40)
[2018-11-15] MEDS: Pravastatin Sodium 20 MG TAB PO SCH (21:40)
[2018-11-16] MEDS: Potassium Chloride 40 MEQ in Dextrose 5% in Water 1,000 ML IV SCH ×2 (00:39→11:28)
[2018-11-16 07:55] LABS: #Basophils 0.1 thou/uL (0.0-0.2); #Eosinphils 0.5 thou/uL (0.0-0.7); #Lymphocytes 1.8 thou/uL (1.20-3.40); #Monocytes 1.1 thou/uL (0.11-0.59); #Neutrophils 11.1 thou/uL (1.40-6.50); %Basophils 0.6 % (0.0-1.0); %Eosinophils 3.4 % (0.0-10.0); %Lymphocytes 12.1 % (21.0-51.0); %Monocytes 7.7 % (0.0-10.0); %Neutrophils 76.3 % (42.0-75.0); Hemoglobin 9.3 g/dL (12.0-16.0); Mean Corpuscular HGB CONC 31.6 g/dL (32.0-36.0); Mean Corpuscular Hemoglobin 29.2 pg (27.0-31.0); Mean Corpuscular Volume 92.4 fL (78.0-98.0); Mean Platelet Volume 7.4 fL (7.4-10.4); Platelet Count 231 thou/uL (130-400); RBC Distribution Width 12.4 % (11.5-14.5); Red Blood Cell (RBC) Count 3.17 mill/uL (4.20-5.40); White Blood Cell (WBC) Count 14.6 thou/uL (4.8-10.8)
[2018-11-16 08:20] LABS: Anion Gap 9 mmol/L (10-20); BUN (Urea Nitrogen) 36 mg/dL (9.8-20.1); Calc. Creatinine Clearance 20 mL/min (70-130); Calcium 8.2 mg/dL (7.8-10.44); Carbon Dioxide 20 mmol/L (23-31); Chloride 112 mmol/L (98-107); Estimated GFR-MDRD 43; Glucose 89 mg/dL (83-110); Magnesium 1.5 mg/dL (1.6-2.6); Potassium 4.2 mmol/L (3.5-5.1); Sodium 137 mmol/L (136-145)
[2018-11-16] MEDS: hydrALAZINE 25 MG TAB PO SCH ×3 (08:20→20:27)
[2018-11-16] MEDS: Aspirin 325 MG TAB PO SCH (08:20)
[2018-11-16 08:21] LABS: ALT (SGPT) 15 U/L (8-55); AST (SGOT) 12 U/L (5-34); Albumin 2.6 g/dL (3.4-4.8); Alkaline Phosphatase 70 U/L (40-150); Bilirubin, Direct 0.1 mg/dL (0.1-0.3); Bilirubin, Total 0.3 mg/dL (0.2-1.2); Phosphorus 2.8 mg/dL (2.3-4.7); Protein, Total 5.1 g/dL (6.0-8.3)
[2018-11-16] MEDS: Polyethylene Glycol 3350 17 GM Packet PO SCH (08:21)
[2018-11-16] MEDS: levETIRAcetam 500 mg/5 ml Oral Solution PO SCH ×2 (08:21→20:29)
[2018-11-16] MEDS: Famotidine 20 MG TAB PO SCH ×2 (08:21→20:29)
[2018-11-16] MEDS: Amiodarone 200 MG TAB PO SCH (08:21)
[2018-11-16] MEDS: Labetalol 100 MG TAB PO SCH ×2 (08:22→20:28)
[2018-11-16] MEDS: Vancomycin HCl 25 MG/ML Oral PO SCH ×4 (08:22→20:28)
--- NOTE | 2018-11-16 10:29 | PDOC.PN ---
- Subjective Encounter Start Date: 11/16/18 Encounter Start Time: 09:35 today her bladder appeared distended, asked to do bladder scan she is very weak and her oral intake is very poor that is main concern at this time - Objective Resuscitation Status - Order Detail: 11/12/18 19:36 Resuscitation Status Routine Resuscitation Status: DNAR: NO Resuscitation Discussed with: Daughter and Granddaughter ELDA Reviewed: Yes Vital Signs & Weight: Vital Signs (12 hours) Temp Pulse Resp BP Pulse Ox 11/16/18 08:22 67 11/16/18 08:20 67 11/16/18 08:00 95 11/16/18 07:49 97.7 F 67 16 173/65 H 94 L Weight Admit Weight 87 lb 9.6 oz Weight 87 lb 3.2 oz I&O: 11/15/18 11/16/18 11/17/18 06:59 06:59 07:59 Intake Total 1240 950 Output Total 5 3 Balance 1235 947 Result Diagrams: 11/16/18 07:32 11/16/18 07:32 Phys Exam - Physical Examination Constitutional: NAD HEENT: PERRLA, sclera anicteric Neck: no JVD, supple Respiratory: no wheezing, no rales, no rhonchi Cardiovascular: RRR, no significant murmur, no rub Gastrointestinal: soft, no distention, positive bowel sounds Musculoskeletal: no edema, pulses present Neurological: moves all 4 limbs Lymphatic: no nodes Psychiatric: normal affect Skin: no rash, normal turgor Dx/Plan (1) Acute renal failure superimposed on stage 3 chronic kidney disease Code(s): N17.9 - ACUTE KIDNEY FAILURE, UNSPECIFIED; N18.3 - CHRONIC KIDNEY DISEASE, STAGE 3 (MODERATE) Status: Acute Comment: Improving with gentle fluids (2) C. difficile colitis Status: Acute (3) Fecal impaction Code(s): K56.41 - FECAL IMPACTION Status: Acute Comment: with stercoralis colitis (4) Hypokalemia Code(s): E87.6 - HYPOKALEMIA Status: Acute (5) Sepsis Code(s): A41.9 - SEPSIS, UNSPECIFIED ORGANISM Status: Acute (6) Anxiety and depression Code(s): F41.9 - ANXIETY DISORDER, UNSPECIFIED; F32.9 - MAJOR DEPRESSIVE DISORDER, SINGLE EPISODE, UNSPECIFIED Status: Chronic (7) CAD (coronary artery disease) Code(s): I25.10 - ATHSCL HEART DISEASE OF [place] CORONARY ARTERY W/O ANG PCTRS Status: Chronic Qualifiers: Coronary Disease-Associated Artery/Lesion type: [place] artery [place] vs. transplanted heart: [place] heart Associated angina: without angina Qualified Code(s): I25.10 - Atherosclerotic heart disease of [place] coronary artery without angina pectoris Comment: (8) Hypertension Code(s): I10 - ESSENTIAL (PRIMARY) HYPERTENSION Status: Chronic Qualifiers: Hypertension type: essential hypertension Qualified Code(s): I10 - Essential (primary) hypertension Comment: elevated, holding ARB, will increase Hydralazine, much better if taken manually (9) Protein-calorie malnutrition, severe Code(s): E43 - UNSPECIFIED SEVERE PROTEIN-CALORIE MALNUTRITION Status: Chronic (10) Seizure Code(s): R56.9 - UNSPECIFIED CONVULSIONS Status: Chronic Comment: Seen by Dr. 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 Review of Systems - Review of Systems Other: not reliable with pt due to her level of cognitive status - Medications/Allergies Allergies/Adverse Reactions: Allergies Allergy/AdvReac Type Severity Reaction Status Date / Time cefepime Allergy Mild Rash Verified 11/14/18 10:10 red dye Allergy Unknown Verified 11/13/18 16:12 yellow dye Allergy Unknown Verified 11/13/18 16:12 acetaminophen Allergy Verified 10/26/18 09:47 amoxicillin [From Amoxil] Allergy Verified 10/26/18 09:47 ciprofloxacin Allergy Verified 10/26/18 09:47 clarithromycin Allergy Verified 10/26/18 09:47 hydrocodone Allergy Verified 10/26/18 09:47 lansoprazole Allergy Verified 10/26/18 09:47 nitrofurantoin Allergy Verified 10/26/18 09:47 rivastigmine Allergy Verified 10/26/18 09:47 Medications: Current Medications Al Hydroxide/Mg Hydroxide (Maalox Plus) 30 ml PO Q6H PRN PRN Reason: MOUTH PAIN Last Admin: 11/14/18 15:14 Dose: 30 ml Amiodarone HCl (Cordarone) 200 mg PO DAILY [facility] Last Admin: 11/16/18 08:21 Dose: 200 mg Aspirin (Aspirin) 325 mg PO DAILY [facility] Last Admin: 11/16/18 08:20 Dose: 325 mg Diphenhydramine HCl (Benadryl) 25 mg IVP Q6H PRN PRN Reason: Itching & Insomnia Last Admin: 11/13/18 21:19 Dose: 25 mg Donepezil HCl (Aricept) 5 mg PO HS [facility] Last Admin: 11/15/18 21:40 Dose: 5 mg Famotidine (Pepcid) 20 mg PO BID [facility] Last Admin: 11/16/18 08:21 Dose: 20 mg Guaifenesin/Dextromethorphan (Robitussin Dm) 15 ml PO Q4H PRN PRN Reason: Cough Hydralazine HCl (Apresoline) 10 mg SLOW IVP Q4H PRN PRN Reason: Severe Hypertension Last Admin: 11/13/18 12:46 Dose: 10 mg Hydralazine HCl (Apresoline) 75 mg PO TID [facility] Last Admin: 11/16/18 08:20 Dose: 75 mg Potassium Chloride 40 meq/ (Dextrose/Water) 1,020 mls @ 75 mls/hr IV .[id number] [facility] Last Admin: 11/16/18 00:39 Dose: 1,020 mls Labetalol HCl (Normodyne) 100 mg PO BID [facility] Last Admin: 11/16/18 08:22 Dose: 100 mg Levetiracetam (Keppra Oral Solution) 250 mg PO BID [facility] Last Admin: 11/16/18 08:21 Dose: 250 mg Melatonin (Melatonin) 3 mg PO HS PRN PRN Reason: Insomnia Ondansetron HCl (Zofran Odt) 4 mg PO Q6H PRN PRN Reason: Nausea/Vomiting Ondansetron HCl (Zofran) 4 mg IVP Q6H PRN PRN Reason: Nausea/Vomiting Polyethylene Glycol (Miralax) 8.5 gm PO DAILY [facility] Last Admin: 11/16/18 08:21 Dose: 8.5 gm Pravastatin Sodium (Pravachol) 20 mg PO HS [facility] Last Admin: 03/08/19 21:40 Dose: 20 mg Senna (Senokot) 2 tab PO HSPRN PRN PRN Reason: Constipation Sertraline HCl (Zoloft) 100 mg PO DAILY [facility] Last Admin: 11/16/18 08:20 Dose: 100 mg Sodium Chloride (Flush - Normal Saline) 10 ml IVF Q12HR [facility] Last Admin: 11/16/18 08:22 Dose: Not Given Sodium Chloride (Flush - Normal Saline) 10 ml IVF PRN PRN PRN Reason: Saline Flush Vancomycin HCl (First Vancomycin) 125 mg PO QID [facility] Last Admin: 11/16/18 08:22 Dose: 125 mg
--- NOTE | 2018-11-16 13:52 | PRG ---
DATE OF SERVICE: 11/16/2018 SUBJECTIVE: This is an 88-year-old female with fecal impaction, diarrhea, C. difficile toxin positive. She is on antibiotics. She appears weak and sleepy. She does not communicate very well. She has no abdominal pain, nausea, vomiting. PHYSICAL EXAMINATION: GENERAL: She is thin built, appears sleepy and weak. VITAL SIGNS: Pulse is 67, blood pressure is 173/60. CARDIOVASCULAR SYSTEM/LUNGS: Within normal limits. ABDOMEN: Soft. Abdomen is nondistended. Abdomen is nontender. LABORATORY DATA: From today WBC down to 14,600, hemoglobin is 9.3, hematocrit 29.3, polys are 73. No bandemia. Chemistry panel shows normal potassium 4.2, chloride 112, bicarb is 20, BUN is 36 coming down with hydration, creatinine 1.18. RECOMMENDATION: Continue p.r.n. vancomycin, and also increase p.o. intake and IV hydration. Job ID: [id number]
[2018-11-16] MEDS: Donepezil HCl 5 MG TAB PO SCH (20:29)
[2018-11-16] MEDS: Pravastatin Sodium 20 MG TAB PO SCH (20:29)
--- NOTE | 2018-11-16 21:54 | PRG ---
DATE OF SERVICE: 11/16/2018 SUBJECTIVE: The patient is seen and examined, noted with the following vital signs. OBJECTIVE: VITAL SIGNS: Afebrile, temperature 97.7, pulse 69, respiratory rate of 16, O2 saturation of 95. HEENT: Unremarkable. CARDIOVASCULAR: First and second heart sounds were heard. RESPIRATORY: Clear to auscultation. DIGESTIVE: Revealed a benign abdomen. Positive bowel sounds. EXTREMITIES: No peripheral edema. SKIN: No new gross rash. LYMPHATICS: No peripheral lymphadenopathy. LABORATORY INVESTIGATION: Showed a sodium down to 137, potassium 4.2, creatinine 1.18 with BUN of 36. IMPRESSION: 1. Hypernatremia which has since resolved in the context of free water repletion. 2. Clostridium difficile colitis, on treatment. 3. Acute on chronic kidney disease, which is much improved. 4. Hypokalemia, resolved. PLAN: 1. We will begin to deescalate free water repletion. 2. No need for potassium supplementation any more. 3. Further management will be dependent on the clinical course. 4. Consider addressing this hypertension with medications. Job ID: [id number]
[2018-11-17 06:45] LABS: Anion Gap 10 mmol/L (10-20); BUN (Urea Nitrogen) 27 mg/dL (9.8-20.1); Calc. Creatinine Clearance 25 mL/min (70-130); Calcium 8.4 mg/dL (7.8-10.44); Carbon Dioxide 21 mmol/L (23-31); Chloride 113 mmol/L (98-107); Estimated GFR-MDRD 50; Glucose 80 mg/dL (83-110); Potassium 4.1 mmol/L (3.5-5.1); Sodium 140 mmol/L (136-145)
[2018-11-17] MEDS: Vancomycin HCl 25 MG/ML Oral PO SCH ×4 (08:36→19:49)
[2018-11-17] MEDS: levETIRAcetam 500 mg/5 ml Oral Solution PO SCH ×2 (08:36→19:48)
[2018-11-17] MEDS: Labetalol 100 MG TAB PO SCH ×2 (08:36→19:48)
[2018-11-17] MEDS: hydrALAZINE 25 MG TAB PO SCH ×3 (08:37→19:48)
[2018-11-17] MEDS: Amiodarone 200 MG TAB PO SCH (08:38)
[2018-11-17] MEDS: Polyethylene Glycol 3350 17 GM Packet PO SCH (08:38)
[2018-11-17] MEDS: Famotidine 20 MG TAB PO SCH ×2 (08:38→19:48)
[2018-11-17] MEDS: Aspirin 325 MG TAB PO SCH (08:38)
[2018-11-17] MEDS: Losartan 25 MG TAB PO SCH (10:19)
[2018-11-17] MEDS: Amlodipine 5 MG TAB PO SCH (10:20)
--- NOTE | 2018-11-17 12:39 | PDOC.PN ---
- Subjective Encounter Start Date: 11/17/18 Encounter Start Time: 09:30 pt is doing well, she is more alert, able to void, eating - Objective Resuscitation Status - Order Detail: 11/12/18 19:36 Resuscitation Status Routine Resuscitation Status: DNAR: NO Resuscitation Discussed with: Daughter and Granddaughter MAR Reviewed: Yes Vital Signs & Weight: Vital Signs (12 hours) Temp Pulse Resp BP Pulse Ox 11/17/18 11:00 97.8 F 83 18 183/75 H 97 11/17/18 10:20 78 11/17/18 08:37 78 11/17/18 08:36 78 11/17/18 08:00 97 11/17/18 07:43 98.0 F 78 16 192/71 H 97 11/17/18 00:00 95 Weight Admit Weight 87 lb 9.6 oz Weight 94 lb 1.6 oz I&O: 11/16/18 11/17/18 11/18/18 05:59 06:59 06:59 Intake Total Output Total Balance Result Diagrams: 11/16/18 07:32 11/17/18 05:43 Phys Exam - Physical Examination HEENT: PERRLA, moist MMs, sclera anicteric Neck: no JVD, supple Respiratory: no wheezing, no rales, no rhonchi Cardiovascular: RRR, no significant murmur, no rub Gastrointestinal: soft, non-tender, no distention, positive bowel sounds Musculoskeletal: no edema, pulses present Neurological: non-focal, normal sensation Psychiatric: normal affect, A&O x 3 Skin: no rash, normal turgor Dx/Plan (1) Acute renal failure superimposed on stage 3 chronic kidney disease Code(s): N17.9 - ACUTE KIDNEY FAILURE, UNSPECIFIED; N18.3 - CHRONIC KIDNEY DISEASE, STAGE 3 (MODERATE) Status: Acute Comment: Improving with gentle fluids (2) C. difficile colitis Status: Acute (3) Fecal impaction Code(s): K56.41 - FECAL IMPACTION Status: Acute Comment: with stercoralis colitis (4) Hypokalemia Code(s): E87.6 - HYPOKALEMIA Status: Acute (5) Sepsis Code(s): A41.9 - SEPSIS, UNSPECIFIED ORGANISM Status: Acute (6) Anxiety and depression Code(s): F41.9 - ANXIETY DISORDER, UNSPECIFIED; F32.9 - MAJOR DEPRESSIVE DISORDER, SINGLE EPISODE, UNSPECIFIED Status: Chronic (7) CAD (coronary artery disease) Code(s): I25.10 - ATHSCL HEART DISEASE OF [place] CORONARY ARTERY W/O ANG PCTRS Status: Chronic Qualifiers: Coronary Disease-Associated Artery/Lesion type: [place] artery [place] vs. transplanted heart: [place] heart Associated angina: without angina Qualified Code(s): I25.10 - Atherosclerotic heart disease of [place] coronary artery without angina pectoris Comment: (8) Hypertension Code(s): I10 - ESSENTIAL (PRIMARY) HYPERTENSION Status: Chronic Qualifiers: Hypertension type: essential hypertension Qualified Code(s): I10 - Essential (primary) hypertension Comment: elevated, holding ARB, will increase Hydralazine, much better if taken manually (9) Protein-calorie malnutrition, severe Code(s): E43 - UNSPECIFIED SEVERE PROTEIN-CALORIE MALNUTRITION Status: Chronic (10) Seizure Code(s): R56.9 - UNSPECIFIED CONVULSIONS Status: Chronic Comment: Seen by Dr. Weinstein last visit and started on very low dose Keppra, no further episodes - Plan cont current plan of care, plan discussed w/ family * continue oral vancomycin * add florastor * discussed with family * medication reviewed as below * symptomatic treatment * discharge planning. Review of Systems - Review of Systems ENT: negative: Ear Pain, Ear Discharge, Nose Pain, Nose Discharge, Nose Congestion, Mouth Pain, Mouth Swelling, Throat Pain, Throat Swelling, Other Respiratory: negative: Cough, Dry, Shortness of Breath, Hemoptysis, SOB with Excertion, Pleuritic Pain, Sputum, Wheezing Cardiovascular: negative: chest pain, palpitations, orthopnea, paroxysmal nocturnal dyspnea, edema, light headedness, other Gastrointestinal: negative: Nausea, Vomiting, Abdominal Pain, Diarrhea, Constipation, Melena, Hematochezia, Other Genitourinary: negative: Dysuria, Frequency, Incontinence, Hematuria, Retention , Other Musculoskeletal: negative: Neck Pain, Shoulder Pain, Arm Pain, Back Pain, Hand Pain, Leg Pain, Foot Pain, Other - Medications/Allergies Allergies/Adverse Reactions: Allergies Allergy/AdvReac Type Severity Reaction Status Date / Time cefepime Allergy Mild Rash Verified 11/14/18 10:10 red dye Allergy Unknown Verified 11/13/18 16:12 yellow dye Allergy Unknown Verified 11/13/18 16:12 acetaminophen Allergy Verified 10/26/18 09:47 amoxicillin [From Amoxil] Allergy Verified 10/26/18 09:47 ciprofloxacin Allergy Verified 10/26/18 09:47 clarithromycin Allergy Verified 10/26/18 09:47 hydrocodone Allergy Verified 10/26/18 09:47 lansoprazole Allergy Verified 10/26/18 09:47 nitrofurantoin Allergy Verified 10/26/18 09:47 rivastigmine Allergy Verified 10/26/18 09:47 Medications: Current Medications Al Hydroxide/Mg Hydroxide (Maalox Plus) 30 ml PO Q6H PRN PRN Reason: MOUTH PAIN Last Admin: 11/14/18 15:14 Dose: 30 ml Amiodarone HCl (Cordarone) 200 mg PO DAILY [facility] Last Admin: 11/17/18 08:38 Dose: 200 mg Amlodipine Besylate (Norvasc) 5 mg PO DAILY [facility] Last Admin: 11/17/18 10:20 Dose: 5 mg Aspirin (Aspirin) 325 mg PO DAILY [facility] Last Admin: 11/17/18 08:38 Dose: 325 mg Diphenhydramine HCl (Benadryl) 25 mg IVP Q6H PRN PRN Reason: Itching & Insomnia Last Admin: 11/13/18 21:19 Dose: 25 mg Donepezil HCl (Aricept) 5 mg PO HS [facility] Last Admin: 11/16/18 20:29 Dose: 5 mg Famotidine (Pepcid) 20 mg PO BID [facility] Last Admin: 11/17/18 08:38 Dose: 20 mg Furosemide (Lasix) 40 mg PO DAILY-[facility] Guaifenesin/Dextromethorphan (Robitussin Dm) 15 ml PO Q4H PRN PRN Reason: Cough Hydralazine HCl (Apresoline) 10 mg SLOW IVP Q4H PRN PRN Reason: Severe Hypertension Last Admin: 11/13/18 12:46 Dose: 10 mg Hydralazine HCl (Apresoline) 75 mg PO TID [facility] Last Admin: 11/17/18 08:37 Dose: 75 mg Labetalol HCl (Normodyne) 100 mg PO BID [facility] Last Admin: 11/17/18 08:36 Dose: 100 mg Levetiracetam (Keppra Oral Solution) 250 mg PO BID [facility] Last Admin: 11/17/18 08:36 Dose: 250 mg Losartan Potassium (Cozaar) 100 mg PO DAILY [facility] Last Admin: 11/17/18 10:19 Dose: 100 mg Melatonin (Melatonin) 3 mg PO HS PRN PRN Reason: Insomnia Ondansetron HCl (Zofran Odt) 4 mg PO Q6H PRN PRN Reason: Nausea/Vomiting Ondansetron HCl (Zofran) 4 mg IVP Q6H PRN PRN Reason: Nausea/Vomiting Polyethylene Glycol (Miralax) 8.5 gm PO DAILY [facility] Last Admin: 11/17/18 08:38 Dose: 8.5 gm Pravastatin Sodium (Pravachol) 20 mg PO HS [facility] Last Admin: 11/16/18 20:29 Dose: 20 mg Saccharomyces Boulardii (Florastor) 250 mg PO DAILY [facility] Senna (Senokot) 2 tab PO HSPRN PRN PRN Reason: Constipation Sertraline HCl (Zoloft) 100 mg PO DAILY [facility] Last Admin: 11/17/18 08:37 Dose: 100 mg Sodium Chloride (Flush - Normal Saline) 10 ml IVF Q12HR [facility] Last Admin: 11/17/18 08:40 Dose: 10 ml Sodium Chloride (Flush - Normal Saline) 10 ml IVF PRN PRN PRN Reason: Saline Flush Last Admin: 11/17/18 08:39 Dose: 10 ml Vancomycin HCl (First Vancomycin) 125 mg PO QID [facility] Last Admin: 11/17/18 08:36 Dose: 125 mg
[2018-11-17] MEDS: Pravastatin Sodium 20 MG TAB PO SCH (19:47)
[2018-11-17] MEDS: Donepezil HCl 5 MG TAB PO SCH (19:48)
--- NOTE | 2018-11-17 19:57 | PRG ---
DATE OF SERVICE: 11/17/2018 SUBJECTIVE: An 88-year-old female hospitalized because of dehydration, fecal impaction, C. difficile colitis etc. She is actually remarkably doing much better today. She is awake, alert and was able to eat well today as well as she is not having any abdominal pain. She is eating well today. She had 2 small liquid stool, the volume is very small. She is on vancomycin. Her lab tests actually coming, it was normal. Her BUN is almost back to normal to 27, creatinine is 1.03. The chloride is slightly high at 113 indicative of free water deficiency. Her WBC count is 14,600 and hemoglobin 9.3. PHYSICAL EXAMINATION: GENERAL: She is awake and responsive. She ate pretty well today. She has no abdominal pain. VITAL SIGNS: Temperature 97.8 degrees Fahrenheit, pulse is 83, and blood pressure 180/76. CARDIOVASCULAR: First and second heart sounds are normal. LUNGS: Clear to auscultation. ABDOMEN: Soft. No organomegaly. No tenderness. No masses. RECOMMENDATIONS: 1. Continue increased p.o. intake. 2. Hopefully, tomorrow. We will continue the vancomycin in the next 10 to 14 days. We will sign off from today and if there are new problems, please call us back. Job ID: [id number]
--- NOTE | 2018-11-17 23:10 | PRG ---
DATE OF SERVICE: 11/17/2018 SUBJECTIVE: The patient is seen and examined, noted with the following vital signs. OBJECTIVE: VITAL SIGNS: Afebrile, temperature 97.7; pulse 73; respiratory rate of 12; O2 saturation 96%; blood pressure 171/70. HEENT EXAMINATION: Unremarkable. CARDIOVASCULAR SYSTEM: First and second heart sounds were heard. RESPIRATORY SYSTEM: Clear to auscultation. DIGESTIVE SYSTEM: Revealed a benign abdomen. EXTREMITIES: No peripheral edema. SKIN EXAMINATION: No new gross rash. LYMPHATICS: No peripheral lymphadenopathy. IMPRESSION: 1. Hypernatremia which seems to have resolved. 2. Acute on chronic kidney disease, much improved. 3. Clostridium difficile colitis. PLAN: 1. Continue current renal supportive measures. 2. Pay close attention to the patient's electrolytes and replete accordingly. 3. Further management will be dependent on the clinical course. Job ID: [id number]
[2018-11-18] MEDS: levETIRAcetam 500 mg/5 ml Oral Solution PO SCH ×2 (08:05→20:55)
[2018-11-18] MEDS: Vancomycin HCl 25 MG/ML Oral PO SCH ×4 (08:06→20:56)
[2018-11-18] MEDS: Saccharomyces boulardii 250 MG CAP PO SCH (08:06)
[2018-11-18] MEDS: Labetalol 100 MG TAB PO SCH ×2 (08:06→20:55)
[2018-11-18] MEDS: Polyethylene Glycol 3350 17 GM Packet PO SCH (08:07)
[2018-11-18] MEDS: hydrALAZINE 25 MG TAB PO SCH ×3 (08:07→20:55)
[2018-11-18] MEDS: Famotidine 20 MG TAB PO SCH ×2 (08:07→20:54)
[2018-11-18] MEDS: Amlodipine 5 MG TAB PO SCH (08:08)
[2018-11-18] MEDS: Furosemide 40 MG TAB PO SCH (08:08)
[2018-11-18] MEDS: Losartan 25 MG TAB PO SCH (08:08)
[2018-11-18] MEDS: Aspirin 325 MG TAB PO SCH (08:08)
[2018-11-18] MEDS: Amiodarone 200 MG TAB PO SCH (08:09)
[2018-11-18 09:10] LABS: #Basophils 0.2 thou/uL (0.0-0.2); #Eosinphils 0.5 thou/uL (0.0-0.7); #Lymphocytes 1.9 thou/uL (1.20-3.40); #Monocytes 0.9 thou/uL (0.11-0.59); #Neutrophils 9.1 thou/uL (1.40-6.50); %Basophils 1.3 % (0.0-1.0); %Lymphocytes 15.4 % (21.0-51.0); %Monocytes 7.4 % (0.0-10.0); Hemoglobin 11.1 g/dL (12.0-16.0); Mean Corpuscular Hemoglobin 28.7 pg (27.0-31.0); Mean Corpuscular Volume 89.8 fL (78.0-98.0); Mean Platelet Volume 7.4 fL (7.4-10.4); Platelet Count 329 thou/uL (130-400); RBC Distribution Width 12.5 % (11.5-14.5); Red Blood Cell (RBC) Count 3.88 mill/uL (4.20-5.40); White Blood Cell (WBC) Count 12.7 thou/uL (4.8-10.8)
[2018-11-18 09:45] LABS: Anion Gap 12 mmol/L (10-20); BUN (Urea Nitrogen) 21 mg/dL (9.8-20.1); Calc. Creatinine Clearance 22 mL/min (70-130); Calcium 9.6 mg/dL (7.8-10.44); Carbon Dioxide 22 mmol/L (23-31); Chloride 111 mmol/L (98-107); Estimated GFR-MDRD 44; Glucose 73 mg/dL (83-110); Potassium 4.4 mmol/L (3.5-5.1); Sodium 141 mmol/L (136-145)
--- NOTE | 2018-11-18 11:31 | PDOC.PN ---
- Subjective Encounter Start Date: 11/18/18 Encounter Start Time: 09:55 Patient seen and examined. No new complaints. No overnight events - Objective Resuscitation Status - Order Detail: 11/12/18 19:36 Resuscitation Status Routine Resuscitation Status: DNAR: NO Resuscitation Discussed with: Daughter and Granddaughter ELDA Reviewed: Yes Vital Signs & Weight: Vital Signs (12 hours) Temp Pulse Resp BP BP Pulse Ox 11/18/18 08:08 73 189/82 H 11/18/18 08:07 73 189/82 H 11/18/18 08:06 73 189/82 H 11/18/18 07:49 97.4 F L 73 20 189/82 H 96 Weight Admit Weight 87 lb 9.6 oz Weight 92 lb 6.4 oz I&O: 11/17/18 11/18/18 11/19/18 06:59 06:59 06:59 Intake Total 650 Output Total 320 Balance 330 Result Diagrams: 11/18/18 08:42 11/18/18 08:42 Phys Exam - Physical Examination Constitutional: NAD HEENT: PERRLA, sclera anicteric Neck: no JVD, supple Respiratory: no wheezing, no rales, no rhonchi Cardiovascular: RRR, no significant murmur, no rub Gastrointestinal: soft, non-tender, no distention Musculoskeletal: no edema, pulses present Neurological: non-focal, normal sensation Lymphatic: no nodes Psychiatric: normal affect Skin: no rash, normal turgor Dx/Plan (1) Acute renal failure superimposed on stage 3 chronic kidney disease Code(s): N17.9 - ACUTE KIDNEY FAILURE, UNSPECIFIED; N18.3 - CHRONIC KIDNEY DISEASE, STAGE 3 (MODERATE) Status: Acute Comment: Improving with gentle fluids (2) C. difficile colitis Status: Acute (3) Fecal impaction Code(s): K56.41 - FECAL IMPACTION Status: Acute Comment: with stercoralis colitis (4) Hypokalemia Code(s): E87.6 - HYPOKALEMIA Status: Acute (5) Sepsis Code(s): A41.9 - SEPSIS, UNSPECIFIED ORGANISM Status: Acute (6) Anxiety and depression Code(s): F41.9 - ANXIETY DISORDER, UNSPECIFIED; F32.9 - MAJOR DEPRESSIVE DISORDER, SINGLE EPISODE, UNSPECIFIED Status: Chronic (7) CAD (coronary artery disease) Code(s): I25.10 - ATHSCL HEART DISEASE OF [place] CORONARY ARTERY W/O ANG PCTRS Status: Chronic Qualifiers: Coronary Disease-Associated Artery/Lesion type: [place] artery [place] vs. transplanted heart: [place] heart Associated angina: without angina Qualified Code(s): I25.10 - Atherosclerotic heart disease of [place] coronary artery without angina pectoris Comment: (8) Hypertension Code(s): I10 - ESSENTIAL (PRIMARY) HYPERTENSION Status: Chronic Qualifiers: Hypertension type: essential hypertension Qualified Code(s): I10 - Essential (primary) hypertension Comment: elevated, holding ARB, will increase Hydralazine, much better if taken manually (9) Protein-calorie malnutrition, severe Code(s): E43 - UNSPECIFIED SEVERE PROTEIN-CALORIE MALNUTRITION Status: Chronic (10) Seizure Code(s): R56.9 - UNSPECIFIED CONVULSIONS Status: Chronic Comment: Seen by Dr. 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 * continue oral vancomycin * encourage oral intake * medication reviewed as below * symptomatic treatment Review of Systems - Review of Systems Other: not reliable with pt due to her level of cognitive status - Medications/Allergies Allergies/Adverse Reactions: Allergies Allergy/AdvReac Type Severity Reaction Status Date / Time cefepime Allergy Mild Rash Verified 11/14/18 10:10 red dye Allergy Unknown Verified 11/13/18 16:12 yellow dye Allergy Unknown Verified 11/13/18 16:12 acetaminophen Allergy Verified 10/26/18 09:47 amoxicillin [From Amoxil] Allergy Verified 10/26/18 09:47 ciprofloxacin Allergy Verified 10/26/18 09:47 clarithromycin Allergy Verified 10/26/18 09:47 hydrocodone Allergy Verified 10/26/18 09:47 lansoprazole Allergy Verified 10/26/18 09:47 nitrofurantoin Allergy Verified 10/26/18 09:47 rivastigmine Allergy Verified 10/26/18 09:47 Medications: Current Medications Al Hydroxide/Mg Hydroxide (Maalox Plus) 30 ml PO Q6H PRN PRN Reason: MOUTH PAIN Last Admin: 11/14/18 15:14 Dose: 30 ml Amiodarone HCl (Cordarone) 200 mg PO [facility]ILY [facility] Last Admin: 11/18/18 08:09 Dose: 200 mg Amlodipine Besylate (Norvasc) 5 mg PO DAILY [facility] Last Admin: 11/18/18 08:08 Dose: 5 mg Aspirin (Aspirin) 325 mg PO DAILY [facility] Last Admin: 11/18/18 08:08 Dose: 325 mg Diphenhydramine HCl (Benadryl) 25 mg IVP Q6H PRN PRN Reason: Itching & Insomnia Last Admin: 11/13/18 21:19 Dose: 25 mg Donepezil HCl (Aricept) 5 mg PO HS [facility] Last Admin: 11/17/18 19:48 Dose: 5 mg Famotidine (Pepcid) 20 mg PO BID [facility] Last Admin: 11/18/18 08:07 Dose: 20 mg Furosemide (Lasix) 40 mg PO DAILY-[facility] Last Admin: 11/18/18 08:08 Dose: 40 mg Guaifenesin/Dextromethorphan (Robitussin Dm) 15 ml PO Q4H PRN PRN Reason: Cough Hydralazine HCl (Apresoline) 10 mg SLOW IVP Q4H PRN PRN Reason: Severe Hypertension Last Admin: 11/13/18 12:46 Dose: 10 mg Hydralazine HCl (Apresoline) 75 mg PO TID [facility] Last Admin: 11/18/18 08:07 Dose: 75 mg Labetalol HCl (Normodyne) 100 mg PO BID [facility] Last Admin: 11/18/18 08:06 Dose: 100 mg Levetiracetam (Keppra Oral Solution) 250 mg PO BID [facility] Last Admin: 11/18/18 08:05 Dose: 250 mg Losartan Potassium (Cozaar) 100 mg PO DAILY [facility] Last Admin: 11/18/18 08:08 Dose: 100 mg Melatonin (Melatonin) 3 mg PO HS PRN PRN Reason: Insomnia Ondansetron HCl (Zofran Odt) 4 mg PO Q6H PRN PRN Reason: Nausea/Vomiting Ondansetron HCl (Zofran) 4 mg IVP Q6H PRN PRN Reason: Nausea/Vomiting Polyethylene Glycol (Miralax) 8.5 gm PO DAILY [facility] Last Admin: 11/18/18 08:07 Dose: 8.5 gm Pravastatin Sodium (Pravachol) 20 mg PO HS [facility] Last Admin: 11/17/18 19:47 Dose: 20 mg Saccharomyces Boulardii (Florastor) 250 mg PO DAILY [facility] Last Admin: 11/18/18 08:06 Dose: 250 mg Senna (Senokot) 2 tab PO HSPRN PRN PRN Reason: Constipation Sertraline HCl (Zoloft) 100 mg PO DAILY [facility] Last Admin: 11/18/18 08:07 Dose: 100 mg Sodium Chloride (Flush - Normal Saline) 10 ml IVF Q12HR [facility] Last Admin: 11/18/18 08:09 Dose: 10 ml Sodium Chloride (Flush - Normal Saline) 10 ml IVF PRN PRN PRN Reason: Saline Flush Last Admin: 11/17/18 08:39 Dose: 10 ml Vancomycin HCl (First Vancomycin) 125 mg PO QID [facility] Last Admin: 11/18/18 08:06 Dose: 125 mg
--- NOTE | 2018-11-18 20:12 | PRG ---
DATE OF SERVICE: 11/18/2018 SUBJECTIVE: The patient is seen and examined, noted with the following vital signs. OBJECTIVE: VITAL SIGNS: Afebrile, temperature 97.8, pulse 89, respiratory rate of 16, O2 saturations 97%, and blood pressure of 122/60. HEENT: Examination unremarkable. CARDIOVASCULAR: First and second heart sounds were heard. RESPIRATORY SYSTEM: Clear to auscultation. DIGESTIVE SYSTEM: Revealed a benign abdomen with positive bowel sounds. EXTREMITIES: No peripheral edema. SKIN: No new gross rash. LYMPHATICS: No peripheral lymphadenopathy. LABORATORY DATA: Laboratory investigation showed sodium of 141, creatinine 1.15. IMPRESSION: 1. Acute on chronic kidney disease, which has much improved. 2. Hypernatremia resolved. PLAN: 1. We will continue current supportive measures. 2. Further management to be dependent on the clinical course. Job ID: [id number]
[2018-11-18] MEDS: Pravastatin Sodium 20 MG TAB PO SCH (20:54)
[2018-11-18] MEDS: Donepezil HCl 5 MG TAB PO SCH (20:54)
[2018-11-19] MEDS: Labetalol 100 MG TAB PO SCH ×2 (08:26→20:09)
[2018-11-19] MEDS: levETIRAcetam 500 mg/5 ml Oral Solution PO SCH ×2 (08:26→20:10)
[2018-11-19] MEDS: Losartan 25 MG TAB PO SCH (08:27)
[2018-11-19] MEDS: Aspirin 325 MG TAB PO SCH (08:27)
[2018-11-19] MEDS: Saccharomyces boulardii 250 MG CAP PO SCH (08:27)
[2018-11-19] MEDS: hydrALAZINE 25 MG TAB PO SCH ×3 (08:27→20:08)
[2018-11-19] MEDS: Amlodipine 5 MG TAB PO SCH (08:27)
[2018-11-19] MEDS: Furosemide 40 MG TAB PO SCH (08:28)
[2018-11-19] MEDS: Famotidine 20 MG TAB PO SCH ×2 (08:28→20:09)
[2018-11-19] MEDS: Polyethylene Glycol 3350 17 GM Packet PO SCH (08:28)
[2018-11-19] MEDS: Amiodarone 200 MG TAB PO SCH (08:28)
[2018-11-19] MEDS: Vancomycin HCl 25 MG/ML Oral PO SCH ×4 (08:29→20:10)
--- NOTE | 2018-11-19 10:35 | PDOC.PN ---
- Subjective Encounter Start Date: 11/19/18 Encounter Start Time: 08:20 Patient seen and examined. No overnight events - Objective Resuscitation Status - Order Detail: 11/12/18 19:36 Resuscitation Status Routine Resuscitation Status: DNAR: NO Resuscitation Discussed with: Daughter and Granddaughter ELDA Reviewed: Yes Vital Signs & Weight: Vital Signs (12 hours) Temp Pulse Resp BP BP Pulse Ox 11/19/18 08:27 76 193/84 H 11/19/18 08:26 76 193/84 H 11/19/18 07:46 97.8 F 76 18 193/84 H 91 L Weight Admit Weight 87 lb 9.6 oz Weight 92 lb 3.2 oz I&O: 11/18/18 11/19/18 11/20/18 06:59 06:59 06:59 Intake Total 650 525 Output Total 320 Balance 330 525 Result Diagrams: 11/18/18 08:42 11/18/18 08:42 Phys Exam - Physical Examination Constitutional: NAD HEENT: PERRLA, moist MMs, sclera anicteric Neck: no JVD, supple Respiratory: no wheezing, no rales, no rhonchi Cardiovascular: RRR, no significant murmur, no rub Gastrointestinal: soft, non-tender, no distention, positive bowel sounds Musculoskeletal: no edema, pulses present Neurological: moves all 4 limbs Lymphatic: no nodes Psychiatric: normal affect Skin: no rash, normal turgor Dx/Plan (1) Acute renal failure superimposed on stage 3 chronic kidney disease Code(s): N17.9 - ACUTE KIDNEY FAILURE, UNSPECIFIED; N18.3 - CHRONIC KIDNEY DISEASE, STAGE 3 (MODERATE) Status: Acute Comment: (2) C. difficile colitis Status: Acute (3) Fecal impaction Code(s): K56.41 - FECAL IMPACTION Status: Acute Comment: with stercoralis colitis (4) Hypokalemia Code(s): E87.6 - HYPOKALEMIA Status: Acute (5) Sepsis Code(s): A41.9 - SEPSIS, UNSPECIFIED ORGANISM Status: Acute (6) Anxiety and depression Code(s): F41.9 - ANXIETY DISORDER, UNSPECIFIED; F32.9 - MAJOR DEPRESSIVE DISORDER, SINGLE EPISODE, UNSPECIFIED Status: Chronic (7) CAD (coronary artery disease) Code(s): I25.10 - ATHSCL HEART DISEASE OF [place] CORONARY ARTERY W/O ANG PCTRS Status: Chronic Qualifiers: Coronary Disease-Associated Artery/Lesion type: [place] artery [place] vs. transplanted heart: [place] heart Associated angina: without angina Qualified Code(s): I25.10 - Atherosclerotic heart disease of [place] coronary artery without angina pectoris Comment: (8) Hypertension Code(s): I10 - ESSENTIAL (PRIMARY) HYPERTENSION Status: Chronic Qualifiers: Hypertension type: essential hypertension Qualified Code(s): I10 - Essential (primary) hypertension Comment: (9) Protein-calorie malnutrition, severe Code(s): E43 - UNSPECIFIED SEVERE PROTEIN-CALORIE MALNUTRITION Status: Chronic (10) Seizure Code(s): R56.9 - UNSPECIFIED CONVULSIONS Status: Chronic Comment: - Plan cont current plan of care, 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 Review of Systems - Review of Systems Other: not reliable with pt due to her dementia - Medications/Allergies Allergies/Adverse Reactions: Allergies Allergy/AdvReac Type Severity Reaction Status Date / Time cefepime Allergy Mild Rash Verified 11/14/18 10:10 red dye Allergy Unknown Verified 11/13/18 16:12 yellow dye Allergy Unknown Verified 11/13/18 16:12 acetaminophen Allergy Verified 10/26/18 09:47 amoxicillin [From Amoxil] Allergy Verified 10/26/18 09:47 ciprofloxacin Allergy Verified 10/26/18 09:47 clarithromycin Allergy Verified 10/26/18 09:47 hydrocodone Allergy Verified 10/26/18 09:47 lansoprazole Allergy Verified 10/26/18 09:47 nitrofurantoin Allergy Verified 10/26/18 09:47 rivastigmine Allergy Verified 10/26/18 09:47 Medications: Current Medications Al Hydroxide/Mg Hydroxide (Maalox Plus) 30 ml PO Q6H PRN PRN Reason: MOUTH PAIN Last Admin: 11/14/18 15:14 Dose: 30 ml Amiodarone HCl (Cordarone) 200 mg PO DAILY [facility] Last Admin: 11/19/18 08:28 Dose: 200 mg Amlodipine Besylate (Norvasc) 5 mg PO DAILY [facility] Last Admin: 11/19/18 08:27 Dose: 5 mg Aspirin (Aspirin) 325 mg PO DAILY [facility] Last Admin: 11/19/18 08:27 Dose: 325 mg Diphenhydramine HCl (Benadryl) 25 mg IVP Q6H PRN PRN Reason: Itching & Insomnia Last Admin: 11/13/18 21:19 Dose: 25 mg Donepezil HCl (Aricept) 5 mg PO HS [facility] Last Admin: 11/18/18 20:54 Dose: 5 mg Famotidine (Pepcid) 20 mg PO BID [facility] Last Admin: 11/19/18 08:28 Dose: 20 mg Furosemide (Lasix) 40 mg PO DAILY-[facility] Last Admin: 11/19/18 08:28 Dose: 40 mg Guaifenesin/Dextromethorphan (Robitussin Dm) 15 ml PO Q4H PRN PRN Reason: Cough Hydralazine HCl (Apresoline) 10 mg SLOW IVP Q4H PRN PRN Reason: Severe Hypertension Last Admin: 11/13/18 12:46 Dose: 10 mg Hydralazine HCl (Apresoline) 75 mg PO TID [facility] Last Admin: 11/19/18 08:27 Dose: 75 mg Labetalol HCl (Normodyne) 100 mg PO BID [facility] Last Admin: 11/19/18 08:26 Dose: 100 mg Levetiracetam (Keppra Oral Solution) 250 mg PO BID [facility] Last Admin: 11/19/18 08:26 Dose: 250 mg Losartan Potassium (Cozaar) 100 mg PO DAILY [facility] Last Admin: 11/19/18 08:27 Dose: 100 mg Melatonin (Melatonin) 3 mg PO HS PRN PRN Reason: Insomnia Ondansetron HCl (Zofran Odt) 4 mg PO Q6H PRN PRN Reason: Nausea/Vomiting Ondansetron HCl (Zofran) 4 mg IVP Q6H PRN PRN Reason: Nausea/Vomiting Polyethylene Glycol (Miralax) 8.5 gm PO DAILY [facility] Last Admin: 11/19/18 08:28 Dose: 8.5 gm Pravastatin Sodium (Pravachol) 20 mg PO HS [facility] Last Admin: 11/18/18 20:54 Dose: 20 mg Saccharomyces Boulardii (Florastor) 250 mg PO DAILY [facility] Last Admin: 11/19/18 08:27 Dose: 250 mg Senna (Senokot) 2 tab PO HSPRN PRN PRN Reason: Constipation Sertraline HCl (Zoloft) 100 mg PO DAILY [facility] Last Admin: 11/19/18 08:27 Dose: 100 mg Sodium Chloride (Flush - Normal Saline) 10 ml IVF Q12HR [facility] Last Admin: 11/19/18 08:29 Dose: 10 ml Sodium Chloride (Flush - Normal Saline) 10 ml IVF PRN PRN PRN Reason: Saline Flush Last Admin: 11/17/18 08:39 Dose: 10 ml Vancomycin HCl (First Vancomycin) 125 mg PO QID [facility] Last Admin: 11/19/18 08:29 Dose: 125 mg
[2018-11-19 11:30] LABS: Anion Gap 9 mmol/L (10-20); BUN (Urea Nitrogen) 16 mg/dL (9.8-20.1); Calc. Creatinine Clearance 23 mL/min (70-130); Calcium 8.8 mg/dL (7.8-10.44); Carbon Dioxide 21 mmol/L (23-31); Chloride 113 mmol/L (98-107); Estimated GFR-MDRD 46; Glucose 105 mg/dL (83-110); Potassium 3.8 mmol/L (3.5-5.1); Sodium 139 mmol/L (136-145)
[2018-11-19 14:35] LABS: #Basophils 0.1 thou/uL (0.0-0.2); #Eosinphils 0.3 thou/uL (0.0-0.7); #Lymphocytes 1.3 thou/uL (1.20-3.40); #Monocytes 0.8 thou/uL (0.11-0.59); #Neutrophils 6.4 thou/uL (1.40-6.50); %Basophils 0.9 % (0.0-1.0); %Eosinophils 3.9 % (0.0-10.0); %Lymphocytes 14.4 % (21.0-51.0); %Neutrophils 71.9 % (42.0-75.0); Hemoglobin 9.4 g/dL (12.0-16.0); Mean Corpuscular HGB CONC 31.2 g/dL (32.0-36.0); Mean Corpuscular Volume 89.8 fL (78.0-98.0); Mean Platelet Volume 6.8 fL (7.4-10.4); Platelet Count 262 thou/uL (130-400); RBC Distribution Width 12.5 % (11.5-14.5); Red Blood Cell (RBC) Count 3.34 mill/uL (4.20-5.40); White Blood Cell (WBC) Count 8.9 thou/uL (4.8-10.8)
[2018-11-19] MEDS ORDERED: Chloraseptic Spray 180 ml Bottle PO PRN (16:36)
[2018-11-19] MEDS ORDERED: Cyanocobalamin (Vitamin B-12) 1,000 MCG TAB PO SCH (16:45)
[2018-11-19] MEDS ORDERED: Folic Acid 1 MG TAB PO SCH (16:45)
[2018-11-19] MEDS: Cyanocobalamin (Vitamin B-12) 1,000 MCG TAB PO SCH (17:18)
--- NOTE | 2018-11-19 20:00 | PRG ---
DATE OF SERVICE: 11/19/2018 SUBJECTIVE: The patient is seen and examined. Noted with the following vital signs. OBJECTIVE: VITAL SIGNS: Afebrile, temperature 97.9, pulse 69, respiratory rate of 16, O2 saturations are 97%, and blood pressure 135/82. HEENT: Unremarkable. Moist oral mucosa. No conjunctival injection or icterus. NECK: Supple. CARDIOVASCULAR SYSTEM: First and second heart sounds were heard. RESPIRATORY SYSTEM: Clear to auscultation. DIGESTIVE SYSTEM: Revealed a benign abdomen. Positive bowel sounds. EXTREMITIES: No peripheral edema. SKIN: No new gross rash. LYMPHATICS: No peripheral lymphadenopathy. IMPRESSION: 1. Acute on chronic kidney disease, which is much improved. 2. Hyponatremia, resolved. PLAN: Continue current renal supportive measures. Job ID: [id number]
[2018-11-19] MEDS: Pravastatin Sodium 20 MG TAB PO SCH (20:09)
[2018-11-19] MEDS: Donepezil HCl 5 MG TAB PO SCH (20:09)
[2018-11-20] MEDS: hydrALAZINE 20 MG/ML VIAL SLOW IVP PRN (04:47)
[2018-11-20] MEDS: levETIRAcetam 500 mg/5 ml Oral Solution PO SCH ×2 (08:57→20:59)
[2018-11-20] MEDS: Amiodarone 200 MG TAB PO SCH (09:00)
[2018-11-20] MEDS: Cyanocobalamin (Vitamin B-12) 1,000 MCG TAB PO SCH (09:01)
[2018-11-20] MEDS: Saccharomyces boulardii 250 MG CAP PO SCH (09:01)
[2018-11-20] MEDS: Folic Acid 1 MG TAB PO SCH (09:01)
[2018-11-20] MEDS: Labetalol 100 MG TAB PO SCH ×2 (09:01→20:58)
[2018-11-20] MEDS: Amlodipine 5 MG TAB PO SCH (09:01)
[2018-11-20] MEDS: Aspirin 325 MG TAB PO SCH (09:01)
[2018-11-20] MEDS: Famotidine 20 MG TAB PO SCH ×2 (09:01→20:58)
[2018-11-20] MEDS: hydrALAZINE 25 MG TAB PO SCH ×3 (09:02→20:58)
[2018-11-20] MEDS: Losartan 25 MG TAB PO SCH (09:02)
[2018-11-20] MEDS: Polyethylene Glycol 3350 17 GM Packet PO SCH (09:03)
[2018-11-20] MEDS: Vancomycin HCl 25 MG/ML Oral PO SCH ×4 (09:03→21:00)
[2018-11-20] MEDS: Furosemide 40 MG TAB PO SCH (09:03)
--- NOTE | 2018-11-20 15:21 | PRG ---
DATE OF SERVICE: 11/20/2018 SUBJECTIVE: The patient is seen and examined at the bedside. She is asleep but arousable. She does not interact much with me and she is not verbal to me. OBJECTIVE: VITAL SIGNS: Blood pressure is 158/64, pulse is 80, respiratory rate is 16, O2 saturation is 96% on room air, and her temperature is 97.8. GENERAL: She does not follow my commands. LUNGS: Sound clear to me. HEART: S1 and S2 normal. No S3. No S4. ABDOMEN: Soft, nondistended. EXTREMITIES: No clubbing, cyanosis, or edema. NEUROLOGIC: She does not follow commands. She is able to move her all 4 extremities. There are no any motor deficits, but she is not oriented. She is not able to even communicate with me. LABORATORY DATA: None today. IMPRESSION: 1. Clostridium difficile colitis, on vancomycin orally. 2. Acute renal failure superimposed on stage 3 chronic kidney disease. 3. Fecal impaction. 4. Hypokalemia. 5. Sepsis. 6. Coronary artery disease. 7. Hypertension. 8. Seizures. PLAN: The plan is to continue her p.o. antibiotics for her Clostridium difficile colitis. We are awaiting for the approval from [facility]. Continue her PT and OT and supportive care. Job ID: [id number]
[2018-11-20] MEDS: Donepezil HCl 5 MG TAB PO SCH (20:59)
[2018-11-20] MEDS: Pravastatin Sodium 20 MG TAB PO SCH (20:59)
[2018-11-21] MEDS: Amlodipine 5 MG TAB PO SCH ×2 (07:33→20:45)
[2018-11-21] MEDS: Labetalol 100 MG TAB PO SCH ×2 (07:33→20:45)
[2018-11-21] MEDS: hydrALAZINE 25 MG TAB PO SCH ×3 (07:34→20:44)
[2018-11-21] MEDS: Saccharomyces boulardii 250 MG CAP PO SCH (07:34)
[2018-11-21] MEDS: Aspirin 325 MG TAB PO SCH (07:35)
[2018-11-21] MEDS: Famotidine 20 MG TAB PO SCH ×2 (07:35→20:45)
[2018-11-21] MEDS: Losartan 25 MG TAB PO SCH (07:35)
[2018-11-21] MEDS: Furosemide 40 MG TAB PO SCH (07:35)
[2018-11-21] MEDS: Cyanocobalamin (Vitamin B-12) 1,000 MCG TAB PO SCH (07:36)
[2018-11-21] MEDS: Polyethylene Glycol 3350 17 GM Packet PO SCH (07:36)
[2018-11-21] MEDS: levETIRAcetam 500 mg/5 ml Oral Solution PO SCH ×2 (07:36→20:43)
[2018-11-21] MEDS: Amiodarone 200 MG TAB PO SCH (07:36)
[2018-11-21] MEDS: Folic Acid 1 MG TAB PO SCH (07:36)
[2018-11-21] MEDS: Vancomycin HCl 25 MG/ML Oral PO SCH ×4 (07:38→20:43)
--- NOTE | 2018-11-21 10:19 | PRG ---
DATE OF SERVICE: 11/21/2018 SUBJECTIVE: The patient is seen and examined at the bedside. Apparently, she had a bath this morning and she ate breakfast with some assistance. OBJECTIVE: VITAL SIGNS: Blood pressure is 194/67, pulse is 68, her temperature is 97.7, respiratory rate is 16, and O2 saturation 95% on room air. GENERAL: She is sleeping during my visit. She does not awake, going to wake up and talk to me. LUNGS: Her lung sounds are clear. HEART: S1 and S2 normal. ABDOMEN: Soft, nontender, and nondistended. EXTREMITIES: No clubbing, cyanosis, or edema. NEUROLOGIC: Postponed since she does not participate in anything during my visit. LABORATORY DATA: None. IMPRESSION: 1. Clostridium difficile colitis, on vancomycin orally. 2. Acute renal failure superimposed on stage 3 chronic kidney disease. 3. Fecal impaction. 4. Hypokalemia. 5. Sepsis. 6. Coronary artery disease. 7. Hypertension. 8. Seizures. PLAN: She will continue her oral vancomycin. We will continue her Florastor. We will dose on her amlodipine since her blood pressure is running high. We will continue PT, OT, and waiting for [facility] facility transfer. Job ID: [id number]
--- NOTE | 2018-11-21 11:54 | PRG ---
DATE OF SERVICE: 11/21/2018 SUBJECTIVE: The patient was seen and examined. Hemodynamically stable. OBJECTIVE: HEENT: Unremarkable. CARDIOVASCULAR SYSTEM: First and second heart sounds were heard. RESPIRATORY SYSTEM: Clear to auscultation. DIGESTIVE SYSTEM: Revealed a benign abdomen. EXTREMITIES: No peripheral edema. IMPRESSION: 1. Hyponatremia, which has since resolved. 2. Acute kidney injury on chronic kidney disease, which has also improved. PLAN: 1. Continue current renal supportive measures. 2. We will be signed off at this point, available to be called back for any further nephrology or dialysis needs. Job ID: [id number]
[2018-11-21] MEDS: hydrALAZINE 20 MG/ML VIAL SLOW IVP PRN (12:27)
[2018-11-21] MEDS: Donepezil HCl 5 MG TAB PO SCH (20:45)
[2018-11-21] MEDS: Pravastatin Sodium 20 MG TAB PO SCH (20:46)
[2018-11-22] MEDS: Labetalol 100 MG TAB PO SCH ×2 (08:27→21:59)
[2018-11-22] MEDS: levETIRAcetam 500 mg/5 ml Oral Solution PO SCH ×2 (08:27→22:00)
[2018-11-22] MEDS: Losartan 25 MG TAB PO SCH (08:31)
[2018-11-22] MEDS: hydrALAZINE 25 MG TAB PO SCH ×3 (08:31→21:58)
[2018-11-22] MEDS: Aspirin 325 MG TAB PO SCH (08:31)
[2018-11-22] MEDS: Folic Acid 1 MG TAB PO SCH (08:32)
[2018-11-22] MEDS: Furosemide 40 MG TAB PO SCH (08:32)
[2018-11-22] MEDS: Cyanocobalamin (Vitamin B-12) 1,000 MCG TAB PO SCH (08:32)
[2018-11-22] MEDS: Amlodipine 5 MG TAB PO SCH (08:32)
[2018-11-22] MEDS: Amiodarone 200 MG TAB PO SCH (08:32)
[2018-11-22] MEDS: Famotidine 20 MG TAB PO SCH ×2 (08:32→21:58)
[2018-11-22] MEDS: Saccharomyces boulardii 250 MG CAP PO SCH (08:33)
[2018-11-22] MEDS: Polyethylene Glycol 3350 17 GM Packet PO SCH (08:40)
[2018-11-22] MEDS: Vancomycin HCl 25 MG/ML Oral PO SCH ×4 (08:56→21:59)
--- NOTE | 2018-11-22 12:10 | PRG ---
DATE OF SERVICE: 11/22/2018 SUBJECTIVE: The patient is seen and examined at the bedside. She is awake this morning. She does not communicate with me. She does not follow my commands. OBJECTIVE: VITAL SIGNS: Blood pressure is 180/80, pulse is 79, temperature is 97.9, respiratory rate is 20, O2 saturation is 97. GENERAL: She is not in any distress during my visit. HEENT: Her sclerae nonicteric. Conjunctivae palish. Oral mucosa is not examined. She is not willing to open her mouth. LUNGS: Clear. HEART: S1, S2, somewhat irregular. There is a systolic murmur over the left sternal border 2/6. ABDOMEN: Soft, nontender. Bowel sounds are present. EXTREMITIES: No clubbing, cyanosis, or edema. NEUROLOGICAL: She has severe dementia. There is not much communication between us. She does not follow my commands. LABORATORY DATA: None today. IMPRESSION: 1. Clostridium difficile colitis, on vancomycin orally. 2. Acute renal failure superimposed on stage 3 chronic kidney disease. 3. Fecal impaction. 4. Hypokalemia. 5. Sepsis. 6. Coronary artery disease. 7. Hypertension, very difficult to treat. We are going to switch her amlodipine to nifedipine, most likely she has some kind of renal artery stenosis. 8. Seizures. PLAN: Plan is to send her to [facility] for PT. She will stay on vancomycin orally for additional 2 days to finish a 10-day course of oral vancomycin four times a day. We will continue her current regimen PT and OT and as I mentioned above, we will switch her amlodipine to Procardia which is nifedipine which seems to be stronger than amlodipine. Also, she is on several other blood pressure lowering agents and I suspect that she might have some renal artery stenosis. Job ID: [id number]
[2018-11-22] MEDS: Donepezil HCl 5 MG TAB PO SCH (21:59)
[2018-11-22] MEDS: Pravastatin Sodium 20 MG TAB PO SCH (21:59)
--- NOTE | 2018-11-23 09:03 | PRG ---
DATE OF SERVICE: 11/23/2018 SUBJECTIVE: The patient is seen and examined at bedside. She is not communicating with me. She wakes up. She does not follow my commands. She does not want to be bothered. Yesterday, she did physical therapy. I saw her walking in the hallway with a walker. OBJECTIVE: VITAL SIGNS: Blood pressure is 137/72, pulse is 80, temperature is 98.1, O2 saturation is 94% on room air, and respiratory rate is 16. HEENT: Her pupils respond to light properly. Sclerae are nonicteric. LUNGS: Clear. HEART: S1 and S2, normal. No S3. No S4. ABDOMEN: Soft, nontender, and nondistended. EXTREMITIES: No clubbing, cyanosis, or edema. NEUROLOGIC: She does not follow my commands. She does not communicate with me. She is able to move all four extremities. LABORATORY DATA: None. IMPRESSION: 1. Clostridium difficile colitis, on vancomycin orally. 2. Acute renal failure superimposed on stage 3 chronic kidney disease. 3. Fecal impaction. 4. Hypokalemia, resolved. 5. Sepsis. 6. Coronary artery disease, chronic, stable. 7. Hypertension with better response since we changed her from amlodipine to nifedipine. 8. Seizures. PLAN: The patient is waiting for approval by insurance company and that is the only reason why she is still here. We are going to continue her current regimen and she did not have any watery bowel movements. She will continue PT and OT and we should be done with her vancomycin by Sunday. Job ID: [id number]
[2018-11-23] MEDS: NIFEdipine XL 60 MG TAB PO SCH (09:24)
[2018-11-23] MEDS: Labetalol 100 MG TAB PO SCH ×2 (09:24→21:43)
[2018-11-23] MEDS: Famotidine 20 MG TAB PO SCH ×2 (09:24→21:43)
[2018-11-23] MEDS: Cyanocobalamin (Vitamin B-12) 1,000 MCG TAB PO SCH (09:25)
[2018-11-23] MEDS: Furosemide 40 MG TAB PO SCH (09:25)
[2018-11-23] MEDS: Saccharomyces boulardii 250 MG CAP PO SCH (09:25)
[2018-11-23] MEDS: Amiodarone 200 MG TAB PO SCH (09:25)
[2018-11-23] MEDS: hydrALAZINE 25 MG TAB PO SCH ×3 (09:25→21:43)
[2018-11-23] MEDS: Losartan 25 MG TAB PO SCH (09:25)
[2018-11-23] MEDS: levETIRAcetam 500 mg/5 ml Oral Solution PO SCH ×2 (09:26→21:42)
[2018-11-23] MEDS: Polyethylene Glycol 3350 17 GM Packet PO SCH (09:26)
[2018-11-23] MEDS: Folic Acid 1 MG TAB PO SCH (09:26)
[2018-11-23] MEDS: Aspirin 325 MG TAB PO SCH (09:26)
[2018-11-23] MEDS: Vancomycin HCl 25 MG/ML Oral PO SCH ×4 (09:27→21:42)
[2018-11-23] MEDS: Pravastatin Sodium 20 MG TAB PO SCH (21:42)
[2018-11-23] MEDS: Donepezil HCl 5 MG TAB PO SCH (21:43)
[2018-11-24] MEDS: hydrALAZINE 20 MG/ML VIAL SLOW IVP PRN (01:18)
[2018-11-24] MEDS: Furosemide 40 MG TAB PO SCH (05:57)
[2018-11-24] MEDS: levETIRAcetam 500 mg/5 ml Oral Solution PO SCH ×2 (08:31→20:40)
[2018-11-24] MEDS: Vancomycin HCl 25 MG/ML Oral PO SCH ×4 (08:32→20:54)
[2018-11-24] MEDS: Polyethylene Glycol 3350 17 GM Packet PO SCH (08:32)
[2018-11-24] MEDS: Losartan 25 MG TAB PO SCH (08:33)
[2018-11-24] MEDS: Labetalol 100 MG TAB PO SCH ×2 (08:34→20:40)
[2018-11-24] MEDS: Aspirin 325 MG TAB PO SCH (08:35)
[2018-11-24] MEDS: Cyanocobalamin (Vitamin B-12) 1,000 MCG TAB PO SCH (08:35)
[2018-11-24] MEDS: Saccharomyces boulardii 250 MG CAP PO SCH (08:36)
[2018-11-24] MEDS: hydrALAZINE 25 MG TAB PO SCH ×3 (08:36→20:39)
[2018-11-24] MEDS: Amiodarone 200 MG TAB PO SCH (08:37)
[2018-11-24] MEDS: Famotidine 20 MG TAB PO SCH ×2 (08:37→20:39)
[2018-11-24] MEDS: Folic Acid 1 MG TAB PO SCH (08:37)
[2018-11-24] MEDS: NIFEdipine XL 60 MG TAB PO SCH (08:38)
[2018-11-24] MEDS: Amlodipine 10 MG TAB PO SCH (09:31)
--- NOTE | 2018-11-24 10:21 | PRG ---
DATE OF SERVICE: 11/24/2018 SUBJECTIVE: The patient is seen and examined at bedside. She is still sleeping this morning. She is arousable, but there is no any contact with this patient. OBJECTIVE: VITAL SIGNS: Blood pressure is 190/78, pulse is 77, respiratory rate is 16, O2 saturation is 96%, temperature is 97.9. Her blood pressure is running high almost all the time. She does not follow my commands. HEENT: Sclerae nonicteric. Pupils responding to light properly. LUNGS: Clear. HEART: S1 and S2 normal. No S3. No S4. ABDOMEN: Soft, nondistended. EXTREMITIES: No clubbing, cyanosis, or edema. NEUROLOGICAL: She does not follow my commands. She is able to move her all four extremities. She is not engaging in any interaction with me during my visit. LABORATORY DATA: None. IMPRESSION: 1. Clostridium difficile colitis, on vancomycin orally. 2. Acute renal failure superimposed on stage 3 chronic kidney disease, improved. 3. Fecal impaction. 4. Hypokalemia, resolved. 5. Sepsis, resolved. 6. Coronary artery disease, chronic, stable. 7. Hypertension, which is the only active problem. I have to go back to her amlodipine 10 mg once a day since nifedipine is slow release and it cannot be crashed and she cannot take this form of medications. 8. Seizures. PLAN: The patient is waiting for insurance company to approve her to skilled unit for PT and OT. I am going back to use amlodipine 10 mg once a day for her hypertension and I have to add a clonidine patch since her systolic blood pressure is running more than 160 most of the time. Job ID: [id number]
[2018-11-24] MEDS ORDERED: cloNIDine 0.1mg/24 Hour PATCH TD SCH (12:00)
[2018-11-24] MEDS: Donepezil HCl 5 MG TAB PO SCH (20:39)
[2018-11-24] MEDS: Pravastatin Sodium 20 MG TAB PO SCH (20:41)
[2018-11-25] MEDS: levETIRAcetam 500 mg/5 ml Oral Solution PO SCH ×2 (08:14→20:48)
[2018-11-25] MEDS: Cyanocobalamin (Vitamin B-12) 1,000 MCG TAB PO SCH (08:15)
[2018-11-25] MEDS: Vancomycin HCl 25 MG/ML Oral PO SCH ×4 (08:15→20:54)
[2018-11-25] MEDS: Labetalol 100 MG TAB PO SCH ×2 (08:15→20:47)
[2018-11-25] MEDS: Polyethylene Glycol 3350 17 GM Packet PO SCH (08:16)
[2018-11-25] MEDS: Amlodipine 10 MG TAB PO SCH (08:17)
[2018-11-25] MEDS: Aspirin 325 MG TAB PO SCH (08:17)
[2018-11-25] MEDS: Losartan 25 MG TAB PO SCH (08:17)
[2018-11-25] MEDS: Folic Acid 1 MG TAB PO SCH (08:17)
[2018-11-25] MEDS: hydrALAZINE 25 MG TAB PO SCH ×3 (08:17→20:47)
[2018-11-25] MEDS: Furosemide 40 MG TAB PO SCH (08:18)
[2018-11-25] MEDS: Saccharomyces boulardii 250 MG CAP PO SCH (08:18)
[2018-11-25] MEDS: Famotidine 20 MG TAB PO SCH ×2 (08:18→20:46)
[2018-11-25] MEDS: Amiodarone 200 MG TAB PO SCH (08:18)
[2018-11-25] MEDS ORDERED: Bisacodyl 5 MG TAB PO PRN (13:48)
--- NOTE | 2018-11-25 13:51 | PDOC.PN ---
- Subjective Encounter Start Date: 11/25/18 Encounter Start Time: 15:20 Subjective: Patient sleeping in bed, awakes to stimulation and will look at -: me but then closes eyes tight and won't respond. No words. - Objective Resuscitation Status - Order Detail: 11/12/18 19:36 Resuscitation Status Routine Resuscitation Status: DNAR: NO Resuscitation Discussed with: Daughter and Granddaughter MAR Reviewed: Yes Vital Signs & Weight: Vital Signs (12 hours) Temp Pulse Resp BP BP Pulse Ox 11/25/18 11:57 98.2 F 68 20 138/60 96 11/25/18 08:17 67 160/78 H 11/25/18 08:15 67 160/78 H 11/25/18 08:04 97.5 F L 67 20 160/78 H 96 11/25/18 04:00 98 F 67 18 130/65 96 Weight Admit Weight 87 lb 9.6 oz Weight 90 lb 9.6 oz I&O: 11/24/18 11/25/18 11/26/18 06:59 06:59 06:59 Intake Total 960 1125 Output Total 1450 Balance 960 -325 Result Diagrams: 11/19/18 14:31 11/19/18 10:55 Phys Exam - Physical Examination Constitutional: NAD HEENT: moist MMs Respiratory: no wheezing, no rales, no rhonchi Cardiovascular: RRR, no significant murmur Gastrointestinal: soft, non-tender, positive bowel sounds Neurological: non-focal Deviation from normal: won't talk, arousable Dx/Plan (1) Sepsis Code(s): A41.9 - SEPSIS, UNSPECIFIED ORGANISM Status: Resolved (2) Fecal impaction Code(s): K56.41 - FECAL IMPACTION Status: Acute Comment: with stercoralis colitis, had resolved but now no BM for 1 week, on Miralax daily, will give colace as well and add prn Dulcolax (3) Acute renal failure superimposed on stage 3 chronic kidney disease Code(s): N17.9 - ACUTE KIDNEY FAILURE, UNSPECIFIED; N18.3 - CHRONIC KIDNEY DISEASE, STAGE 3 (MODERATE) Status: Acute Comment: (4) Hypertension Code(s): I10 - ESSENTIAL (PRIMARY) HYPERTENSION Status: Chronic Qualifiers: Hypertension type: essential hypertension Qualified Code(s): I10 - Essential (primary) hypertension Comment: (5) Diastolic CHF Code(s): I50.30 - UNSPECIFIED DIASTOLIC (CONGESTIVE) HEART FAILURE Status: Chronic Qualifiers: Heart failure chronicity: chronic Qualified Code(s): I50.32 - Chronic diastolic (congestive) heart failure Comment: Will need to monitor closely with fluid resuscitation for overload (6) Acute encephalopathy Code(s): G93.40 - ENCEPHALOPATHY, UNSPECIFIED Status: Chronic Comment: likely related to depression worsened by new medications, clonidine discontinued , stopping Amlodipine as well as has history of severe vertigo with that medication and also causes constipation (7) Depression, major Code(s): F32.9 - MAJOR DEPRESSIVE DISORDER, SINGLE EPISODE, UNSPECIFIED Status : Chronic Comment: On SSRI (8) Protein-calorie malnutrition, severe Code(s): E43 - UNSPECIFIED SEVERE PROTEIN-CALORIE MALNUTRITION Status: Chronic (9) Seizure Code(s): R56.9 - UNSPECIFIED CONVULSIONS Status: Chronic Comment: (10) CAD (coronary artery disease) Code(s): I25.10 - ATHSCL HEART DISEASE OF [place] CORONARY ARTERY W/O ANG PCTRS Status: Chronic Qualifiers: Coronary Disease-Associated Artery/Lesion type: [place] artery [place] vs. transplanted heart: [place] heart Associated angina: without angina Qualified Code(s): I25.10 - Atherosclerotic heart disease of [place] coronary artery without angina pectoris Comment: (11) C. difficile colitis Status: Acute Comment: on oral vancomycin - Plan cont current plan of care, continue antibiotics amlodipine and clonidine added, will d/c again due to possibility of -: adverse effect, increase hydralazine * . - Discharge Day Encounter end time: 14:50
[2018-11-25] MEDS ORDERED: Bisacodyl 5 MG TAB PO SCH (15:30)
[2018-11-25] MEDS: Docusate 100 MG CAP PO SCH (20:46)
[2018-11-25] MEDS: Donepezil HCl 5 MG TAB PO SCH (20:46)
[2018-11-25] MEDS: Pravastatin Sodium 20 MG TAB PO SCH (20:46)
[2018-11-26] MEDS: Saccharomyces boulardii 250 MG CAP PO SCH (08:32)
[2018-11-26] MEDS: Cyanocobalamin (Vitamin B-12) 1,000 MCG TAB PO SCH (08:32)
[2018-11-26] MEDS: Losartan 25 MG TAB PO SCH (08:34)
[2018-11-26] MEDS: hydrALAZINE 25 MG TAB PO SCH ×3 (08:35→20:54)
[2018-11-26] MEDS: Aspirin 325 MG TAB PO SCH (08:35)
[2018-11-26] MEDS: Docusate 100 MG CAP PO SCH (08:36)
[2018-11-26] MEDS: Amiodarone 200 MG TAB PO SCH (08:36)
[2018-11-26] MEDS: Famotidine 20 MG TAB PO SCH ×2 (08:36→20:54)
[2018-11-26] MEDS: Furosemide 40 MG TAB PO SCH (08:36)
[2018-11-26] MEDS: Labetalol 100 MG TAB PO SCH ×2 (08:36→20:53)
[2018-11-26] MEDS: Folic Acid 1 MG TAB PO SCH (08:36)
[2018-11-26] MEDS: levETIRAcetam 500 mg/5 ml Oral Solution PO SCH ×2 (08:37→20:51)
[2018-11-26] MEDS: Polyethylene Glycol 3350 17 GM Packet PO SCH (08:44)
[2018-11-26] MEDS: Vancomycin HCl 25 MG/ML Oral PO SCH ×4 (08:45→20:56)
--- NOTE | 2018-11-26 15:59 | PDOC.PN ---
- Subjective Encounter Start Date: 11/26/18 Encounter Start Time: 15:58 Ms. Dai was seen today in follow-up of fecal impaction, followed by C. Diff Colitis. She also was admitted with altered mental status. She will only answer a few questions with yes/no answers, but then just stare at you. She shook her head no when asked if she has any pain. - Objective Resuscitation Status - Order Detail: 11/12/18 19:36 Resuscitation Status Routine Resuscitation Status: DNAR: NO Resuscitation Discussed with: Daughter and Granddaughter ELDA Reviewed: Yes Vital Signs & Weight: Vital Signs (12 hours) Temp Pulse Resp BP BP Pulse Ox 11/26/18 15:18 63 120/62 11/26/18 15:17 98 F 63 20 120/62 98 11/26/18 11:39 98.1 F 92 16 138/68 96 11/26/18 08:36 88 164/78 H 11/26/18 08:35 88 164/78 H 11/26/18 08:20 96 11/26/18 08:00 96.8 F L 88 16 95 11/26/18 04:00 97.5 F L 66 18 130/60 96 Weight Admit Weight 87 lb 9.6 oz Weight 90 lb 9.6 oz I&O: 11/25/18 11/26/18 11/27/18 06:59 06:59 06:59 Intake Total 1125 1225 Output Total 1450 1100 Balance -325 125 Result Diagrams: 11/19/18 14:31 11/19/18 10:55 Phys Exam - Physical Examination HEENT: PERRLA right eye closed Respiratory: no wheezing, no rales, no rhonchi, clear to auscultation bilateral Cardiovascular: RRR, no significant murmur, no rub Gastrointestinal: soft, non-tender, no distention, positive bowel sounds Musculoskeletal: no edema, pulses present Dx/Plan (1) C. difficile colitis Status: Acute Comment: on oral vancomycin (2) Fecal impaction Code(s): K56.41 - FECAL IMPACTION Status: Acute Comment: with stercoralis colitis, had resolved but now no BM for 1 week, on Miralax daily, will give colace as well and add prn Dulcolax (3) CAD (coronary artery disease) Code(s): I25.10 - ATHSCL HEART DISEASE OF [place] CORONARY ARTERY W/O ANG PCTRS Status: Chronic Qualifiers: Coronary Disease-Associated Artery/Lesion type: [place] artery [place] vs. transplanted heart: [place] heart Associated angina: without angina Qualified Code(s): I25.10 - Atherosclerotic heart disease of [place] coronary artery without angina pectoris Comment: (4) Hypertension Code(s): I10 - ESSENTIAL (PRIMARY) HYPERTENSION Status: Chronic Qualifiers: Hypertension type: essential hypertension Qualified Code(s): I10 - Essential (primary) hypertension Comment: (5) Depression, major Code(s): F32.9 - MAJOR DEPRESSIVE DISORDER, SINGLE EPISODE, UNSPECIFIED Status : Chronic Comment: On SSRI (6) Seizure Code(s): R56.9 - UNSPECIFIED CONVULSIONS Status: Chronic Comment: - Plan * C. 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 * Seizure disorder- continue Keppra * Severe deconditioning- continue PT/OT- and awaiting half-way placement
[2018-11-26] MEDS: Donepezil HCl 5 MG TAB PO SCH (20:51)
[2018-11-26] MEDS: Pravastatin Sodium 20 MG TAB PO SCH (20:53)
[2018-11-26] MEDS: Docusate Sodium 100 MG/10 ML UDCUP PO SCH (20:54)
[2018-11-27] MEDS: Docusate Sodium 100 MG/10 ML UDCUP PO SCH ×2 (08:23→21:34)
[2018-11-27] MEDS: Polyethylene Glycol 3350 17 GM Packet PO SCH (08:23)
[2018-11-27] MEDS: Losartan 25 MG TAB PO SCH (08:24)
[2018-11-27] MEDS: hydrALAZINE 25 MG TAB PO SCH ×3 (08:24→21:37)
[2018-11-27] MEDS: Amiodarone 200 MG TAB PO SCH (08:24)
[2018-11-27] MEDS: Cyanocobalamin (Vitamin B-12) 1,000 MCG TAB PO SCH (08:24)
[2018-11-27] MEDS: Furosemide 40 MG TAB PO SCH (08:24)
[2018-11-27] MEDS: Saccharomyces boulardii 250 MG CAP PO SCH (08:25)
[2018-11-27] MEDS: levETIRAcetam 500 mg/5 ml Oral Solution PO SCH ×2 (08:25→21:34)
[2018-11-27] MEDS: Labetalol 100 MG TAB PO SCH ×2 (08:25→21:37)
[2018-11-27] MEDS: Folic Acid 1 MG TAB PO SCH (08:25)
[2018-11-27] MEDS: Famotidine 20 MG TAB PO SCH ×2 (08:25→21:38)
[2018-11-27] MEDS: Aspirin 325 MG TAB PO SCH (08:25)
[2018-11-27] MEDS: Vancomycin HCl 25 MG/ML Oral PO SCH ×4 (08:30→21:33)
[2018-11-27 15:32] VITALS: BMI 16.0
--- NOTE | 2018-11-27 17:23 | PDOC.PN ---
- Subjective Encounter Start Date: 11/27/18 Encounter Start Time: 14:45 Ms. Dai was seen today in follow-up of altered mental status and failure to thrive. She appears much as she did yesterday, essential non-verbal. - Objective Resuscitation Status - Order Detail: 11/12/18 19:36 Resuscitation Status Routine Resuscitation Status: DNAR: NO Resuscitation Discussed with: Daughter and Granddaughter MAR Reviewed: Yes Vital Signs & Weight: Vital Signs (12 hours) Temp Pulse Resp BP BP Pulse Ox 11/27/18 14:57 98.0 F 65 18 160/70 H 96 11/27/18 14:48 64 160/70 H 11/27/18 11:41 97.5 F L 64 18 130/60 95 11/27/18 08:36 95 11/27/18 08:25 70 170/80 H 11/27/18 08:24 70 170/80 H 11/27/18 08:21 97.9 F 70 18 170/80 H 95 Weight Admit Weight 87 lb 9.6 oz Weight 90 lb 9.6 oz I&O: 11/26/18 11/27/18 11/28/18 06:59 06:59 06:59 Intake Total 1225 1055 Output Total 1100 500 Balance 125 555 Result Diagrams: 11/19/18 14:31 11/19/18 10:55 Phys Exam - Physical Examination HEENT: PERRLA Respiratory: no wheezing, no rales, no rhonchi, clear to auscultation bilateral Cardiovascular: RRR, no significant murmur, no rub Gastrointestinal: soft, non-tender, no distention, positive bowel sounds Musculoskeletal: no edema, pulses present Dx/Plan (1) C. difficile colitis Status: Acute Comment: on oral vancomycin (2) Fecal impaction Code(s): K56.41 - FECAL IMPACTION Status: Acute Comment: with stercoralis colitis, had resolved but now no BM for 1 week, on Miralax daily, will give colace as well and add prn Dulcolax (3) CAD (coronary artery disease) Code(s): I25.10 - ATHSCL HEART DISEASE OF [place] CORONARY ARTERY W/O ANG PCTRS Status: Chronic Qualifiers: Coronary Disease-Associated Artery/Lesion type: [place] artery [place] vs. transplanted heart: [place] heart Associated angina: without angina Qualified Code(s): I25.10 - Atherosclerotic heart disease of [place] coronary artery without angina pectoris Comment: (4) Hypertension Code(s): I10 - ESSENTIAL (PRIMARY) HYPERTENSION Status: Chronic Qualifiers: Hypertension type: essential hypertension Qualified Code(s): I10 - Essential (primary) hypertension Comment: (5) Depression, major Code(s): F32.9 - MAJOR DEPRESSIVE DISORDER, SINGLE EPISODE, UNSPECIFIED Status : Chronic Comment: On SSRI (6) Seizure Code(s): R56.9 - UNSPECIFIED CONVULSIONS Status: Chronic Comment: - Plan * C. Diff Colitis- continue one more day of oral Vancomycin * Fecal impaction- resolved * Altered mental status- suspect depression- continue Zoloft * HTN- blood pressure is labile- will continue to monitor * Awaiting snf placement.
[2018-11-27] MEDS: Donepezil HCl 5 MG TAB PO SCH (21:34)
[2018-11-27] MEDS: Pravastatin Sodium 20 MG TAB PO SCH (21:34)
[2018-11-28] MEDS: Saccharomyces boulardii 250 MG CAP PO SCH (09:26)
[2018-11-28] MEDS: Folic Acid 1 MG TAB PO SCH (09:26)
[2018-11-28] MEDS: Furosemide 40 MG TAB PO SCH (09:26)
[2018-11-28] MEDS: Losartan 25 MG TAB PO SCH (09:26)
[2018-11-28] MEDS: hydrALAZINE 25 MG TAB PO SCH ×3 (09:26→21:35)
[2018-11-28] MEDS: Aspirin 325 MG TAB PO SCH (09:26)
[2018-11-28] MEDS: Labetalol 100 MG TAB PO SCH ×2 (09:27→21:35)
[2018-11-28] MEDS: Famotidine 20 MG TAB PO SCH ×2 (09:27→21:36)
[2018-11-28] MEDS: Cyanocobalamin (Vitamin B-12) 1,000 MCG TAB PO SCH (09:27)
[2018-11-28] MEDS: Amiodarone 200 MG TAB PO SCH (09:27)
[2018-11-28] MEDS: Docusate Sodium 100 MG/10 ML UDCUP PO SCH ×2 (09:28→21:35)
[2018-11-28] MEDS: Polyethylene Glycol 3350 17 GM Packet PO SCH (09:28)
[2018-11-28] MEDS: levETIRAcetam 500 mg/5 ml Oral Solution PO SCH ×2 (09:28→22:17)
[2018-11-28] MEDS ORDERED: Sodium Chloride 0.9% 1,000 ML IV SCH ×2 (12:15→17:49)
[2018-11-28] MEDS: Vancomycin HCl 25 MG/ML Oral PO SCH (14:38)
--- NOTE | 2018-11-28 16:13 | PDOC.PN ---
- Subjective Encounter Start Date: 11/28/18 Encounter Start Time: 16:11 Ms. cintron was seen today in follow-up of C. diff colitis. She is still practically non-verbal. she appears comfortable. - Objective Resuscitation Status - Order Detail: 11/12/18 19:36 Resuscitation Status Routine Resuscitation Status: DNAR: NO Resuscitation Discussed with: Daughter and Granddaughter MAR Reviewed: Yes Vital Signs & Weight: Vital Signs (12 hours) Temp Pulse Resp BP BP BP Pulse Ox 11/28/18 15:50 78 160/65 H 11/28/18 15:48 98.2 F 78 18 160/65 H 96 11/28/18 12:35 97.2 F L 72 18 125/60 96 11/28/18 09:27 81 160/65 H 11/28/18 09:26 81 160/65 H 11/28/18 08:31 97.7 F 81 18 94 L 11/28/18 08:00 160/65 H Weight Admit Weight 87 lb 9.6 oz Weight 90 lb 9.6 oz I&O: 11/27/18 11/28/18 11/29/18 06:59 06:59 06:59 Intake Total 1055 920 Output Total 500 900 Balance 555 20 Result Diagrams: 11/19/18 14:31 11/19/18 10:55 Phys Exam - Physical Examination HEENT: PERRLA Respiratory: no wheezing, no rales, no rhonchi, clear to auscultation bilateral Cardiovascular: RRR, no significant murmur, no rub Gastrointestinal: soft, non-tender, no distention, positive bowel sounds Musculoskeletal: no edema, pulses present Dx/Plan (1) C. difficile colitis Status: Acute Comment: on oral vancomycin (2) Fecal impaction Code(s): K56.41 - FECAL IMPACTION Status: Acute Comment: with stercoralis colitis, had resolved but now no BM for 1 week, on Miralax daily, will give colace as well and add prn Dulcolax (3) CAD (coronary artery disease) Code(s): I25.10 - ATHSCL HEART DISEASE OF [place] CORONARY ARTERY W/O ANG PCTRS Status: Chronic Qualifiers: Coronary Disease-Associated Artery/Lesion type: [place] artery [place] vs. transplanted heart: [place] heart Associated angina: without angina Qualified Code(s): I25.10 - Atherosclerotic heart disease of [place] coronary artery without angina pectoris Comment: (4) Hypertension Code(s): I10 - ESSENTIAL (PRIMARY) HYPERTENSION Status: Chronic Qualifiers: Hypertension type: essential hypertension Qualified Code(s): I10 - Essential (primary) hypertension Comment: (5) Depression, major Code(s): F32.9 - MAJOR DEPRESSIVE DISORDER, SINGLE EPISODE, UNSPECIFIED Status : Chronic Comment: On SSRI (6) Seizure Code(s): R56.9 - UNSPECIFIED CONVULSIONS Status: Chronic Comment: - Plan * C. Colitis- She will be completing her course of Vancomycin today * Fecal Impaction- resolved * Hypertension- blood pressure is labile * Deconditioning- continue PT/OT as tolerated .
[2018-11-28] MEDS: Pravastatin Sodium 20 MG TAB PO SCH (21:36)
[2018-11-28] MEDS: Donepezil HCl 5 MG TAB PO SCH (21:36)
[2018-11-29 06:20] LABS: #Basophils 0.1 thou/uL (0.0-0.2); #Lymphocytes 1.1 thou/uL (1.20-3.40); #Monocytes 0.8 thou/uL (0.11-0.59); %Basophils 0.9 % (0.0-1.0); %Eosinophils 0.1 % (0.0-10.0); %Lymphocytes 12.4 % (21.0-51.0); %Monocytes 9.3 % (0.0-10.0); %Neutrophils 77.3 % (42.0-75.0); Hemoglobin 9.6 g/dL (12.0-16.0); Mean Corpuscular HGB CONC 31.6 g/dL (32.0-36.0); Mean Corpuscular Volume 91.7 fL (78.0-98.0); Mean Platelet Volume 7.3 fL (7.4-10.4); Platelet Count 303 thou/uL (130-400); RBC Distribution Width 13.8 % (11.5-14.5); Red Blood Cell (RBC) Count 3.32 mill/uL (4.20-5.40)
[2018-11-29 06:44] LABS: Anion Gap 12 mmol/L (10-20); BUN (Urea Nitrogen) 31 mg/dL (9.8-20.1); Calc. Creatinine Clearance 15 mL/min (70-130); Calcium 9.5 mg/dL (7.8-10.44); Carbon Dioxide 30 mmol/L (23-31); Chloride 110 mmol/L (98-107); Estimated GFR-MDRD 28; Glucose 114 mg/dL (83-110); Sodium 149 mmol/L (136-145)
[2018-11-29 06:49] LABS: Potassium 2.5 mmol/L (3.5-5.1)
[2018-11-29] MEDS: Furosemide 40 MG TAB PO SCH (08:31)
[2018-11-29] MEDS: Losartan 25 MG TAB PO SCH (08:31)
[2018-11-29] MEDS: Docusate Sodium 100 MG/10 ML UDCUP PO SCH ×2 (08:31→21:09)
[2018-11-29] MEDS: Saccharomyces boulardii 250 MG CAP PO SCH (08:32)
[2018-11-29] MEDS: hydrALAZINE 25 MG TAB PO SCH ×3 (08:32→21:10)
[2018-11-29] MEDS: Amiodarone 200 MG TAB PO SCH (08:33)
[2018-11-29] MEDS: Famotidine 20 MG TAB PO SCH ×2 (08:33→21:10)
[2018-11-29] MEDS: Folic Acid 1 MG TAB PO SCH (08:33)
[2018-11-29] MEDS: Cyanocobalamin (Vitamin B-12) 1,000 MCG TAB PO SCH (08:33)
[2018-11-29] MEDS: Aspirin 325 MG TAB PO SCH (08:33)
[2018-11-29] MEDS: Labetalol 100 MG TAB PO SCH ×2 (08:33→21:10)
[2018-11-29] MEDS: Polyethylene Glycol 3350 17 GM Packet PO SCH (08:34)
[2018-11-29] MEDS: Potassium Chloride 40 MEQ in Sodium Chloride 0.45% 1,000 ML IV SCH (08:50)
[2018-11-29] MEDS: levETIRAcetam 500 mg/5 ml Oral Solution PO SCH ×2 (09:09→21:09)
[2018-11-29 15:46] LABS: Free T4 (Free Thyroxine) 1.04 ng/dL (0.70-1.48); Thyroid Stimulating Hormone 4.9934 uIU/mL (0.35-4.94)
[2018-11-29 16:43] LABS: Bilirubin Negative (Negative); Blood, Urine Negative (Negative); Clarity CLEAR (Clear); Glucose, Urine (Dipstick) Negative (Negative); Leukocyte Negative (Negative); Nitrite Negative (Negative); Protein, Urine (Dipstick) Negative (Neg-Trace); Urobilinogen 0.2 mg/dL (0.2-1.0); pH, Urine 6.5 (5.0-9.0)
[2018-11-29 16:44] LABS: Bacteria/HPF None Seen HPF (None Seen); Hyaline Casts/LPF 0-3 HYALINE CAST LPF (0-3 Hyaline); Pathc Cast-AUWi Flag 0.27 (0-2.49); RBC/HPF 0-3 HPF (0-3); Squamous Epithelial None Seen HPF (0-3); WBC/HPF 0-3 HPF (0-3)
[2018-11-29 16:49] LABS: Vitamin B12 Greater than 2000 pg/mL (211-911)
--- NOTE | 2018-11-29 18:09 | PDOC.PN ---
- Subjective Encounter Start Date: 11/29/18 Encounter Start Time: 14:00 Ms. Dai was seen today in follow-up. She was a little more animated, while her granddaughter and great grand child were in the room. She smiled at the babay, and was able to say her name, and a few words. - Objective Resuscitation Status - Order Detail: 11/12/18 19:36 Resuscitation Status Routine Resuscitation Status: DNAR: NO Resuscitation Discussed with: Daughter and Granddaughter MAR Reviewed: Yes Vital Signs & Weight: Vital Signs (12 hours) Temp Pulse Resp BP BP Pulse Ox 11/29/18 16:02 68 178/72 H 11/29/18 16:00 97.5 F L 68 16 96 11/29/18 12:50 160/86 H 11/29/18 08:33 68 160/65 H 11/29/18 08:32 68 160/65 H 11/29/18 08:00 96 11/29/18 07:56 98.0 F 68 16 96 Weight Admit Weight 87 lb 9.6 oz Weight 90 lb 9.6 oz I&O: 11/28/18 11/29/18 11/30/18 06:59 06:59 06:59 Intake Total 920 650 Output Total 900 200 Balance 20 450 Result Diagrams: 11/29/18 05:35 11/29/18 05:35 Phys Exam - Physical Examination HEENT: PERRLA Respiratory: no wheezing, no rales, no rhonchi, clear to auscultation bilateral Cardiovascular: RRR, no significant murmur, no rub Gastrointestinal: soft, non-tender, no distention, positive bowel sounds Musculoskeletal: pulses present, edema present + non-pitting edema in the lower extremities Neurological: non-focal Dx/Plan (1) C. difficile colitis Status: Acute Comment: on oral vancomycin (2) Fecal impaction Code(s): K56.41 - FECAL IMPACTION Status: Acute Comment: with stercoralis colitis, had resolved but now no BM for 1 week, on Miralax daily, will give colace as well and add prn Dulcolax (3) CAD (coronary artery disease) Code(s): I25.10 - ATHSCL HEART DISEASE OF [place] CORONARY ARTERY W/O ANG PCTRS Status: Chronic Qualifiers: Coronary Disease-Associated Artery/Lesion type: [place] artery [place] vs. transplanted heart: [place] heart Associated angina: without angina Qualified Code(s): I25.10 - Atherosclerotic heart disease of [place] coronary artery without angina pectoris Comment: (4) Hypertension Code(s): I10 - ESSENTIAL (PRIMARY) HYPERTENSION Status: Chronic Qualifiers: Hypertension type: essential hypertension Qualified Code(s): I10 - Essential (primary) hypertension Comment: (5) Depression, major Code(s): F32.9 - MAJOR DEPRESSIVE DISORDER, SINGLE EPISODE, UNSPECIFIED Status : Chronic Comment: On SSRI (6) Seizure Code(s): R56.9 - UNSPECIFIED CONVULSIONS Status: Chronic Comment: - Plan * Metabolic encephalopathy- ? etiology- he have checked a TSH and free T4. Her TSH was a bit elevated, but the free T4 was normal. She is on Amiodarone which could effect the TSH. Therefore will hold off on any thyroid replacement . Her previous hospital records were reviewed * Urinary Retention- ? etiology- this may be due to her lack of mobility- will try to get her up out of bed more, and continue to assess- Will avoid Abbott catheter placement and defer to I/O cath as needed * Hypokalemia- replace * C.Diff- she has completed treatment for this * Mild volume depletion- cautious hydration * Seizure- continue Keppra * Severe deconditioning- continue PT/OT * HTN- blood pressure is a bit elevated- but she has had adverse reactions to clonidine- will monitor * [facility]
[2018-11-29] MEDS: Pravastatin Sodium 20 MG TAB PO SCH (21:10)
[2018-11-29] MEDS: Donepezil HCl 5 MG TAB PO SCH (21:10)
[2018-11-30] MEDS: Potassium Chloride 40 MEQ in Sodium Chloride 0.45% 1,000 ML IV SCH ×2 (00:34→17:12)
[2018-11-30] MEDS: Losartan 25 MG TAB PO SCH (08:28)
[2018-11-30] MEDS: hydrALAZINE 25 MG TAB PO SCH ×3 (08:29→21:41)
[2018-11-30] MEDS: Aspirin 325 MG TAB PO SCH (08:29)
[2018-11-30] MEDS: Famotidine 20 MG TAB PO SCH ×2 (08:29→21:37)
[2018-11-30] MEDS: Furosemide 40 MG TAB PO SCH (08:29)
[2018-11-30] MEDS: Cyanocobalamin (Vitamin B-12) 1,000 MCG TAB PO SCH (08:29)
[2018-11-30] MEDS: Folic Acid 1 MG TAB PO SCH (08:29)
[2018-11-30] MEDS: Amiodarone 200 MG TAB PO SCH (08:29)
[2018-11-30] MEDS: Saccharomyces boulardii 250 MG CAP PO SCH (08:29)
[2018-11-30] MEDS: Docusate Sodium 100 MG/10 ML UDCUP PO SCH ×2 (08:30→21:36)
[2018-11-30] MEDS: levETIRAcetam 500 mg/5 ml Oral Solution PO SCH ×2 (08:30→21:36)
[2018-11-30] MEDS: Labetalol 100 MG TAB PO SCH ×2 (08:30→21:40)
[2018-11-30] MEDS: Polyethylene Glycol 3350 17 GM Packet PO SCH (08:31)
[2018-11-30 09:00] LABS: Anion Gap 17 mmol/L (10-20); BUN (Urea Nitrogen) 27 mg/dL (9.8-20.1); Calc. Creatinine Clearance 17 mL/min (70-130); Calcium 9.7 mg/dL (7.8-10.44); Carbon Dioxide 23 mmol/L (23-31); Chloride 112 mmol/L (98-107); Estimated GFR-MDRD 33; Glucose 111 mg/dL (83-110); Potassium 3.5 mmol/L (3.5-5.1); Sodium 148 mmol/L (136-145)
--- NOTE | 2018-11-30 15:36 | PDOC.PN ---
- Subjective Encounter Start Date: 11/30/18 Encounter Start Time: 15:35 Ms. Dai was seen today in follow-up. She appears comfortable. She did not speak to me. - Objective Resuscitation Status - Order Detail: 11/12/18 19:36 Resuscitation Status Routine Resuscitation Status: DNAR: NO Resuscitation Discussed with: Daughter and Granddaughter MAR Reviewed: Yes Vital Signs & Weight: Vital Signs (12 hours) Temp Pulse Resp BP BP Pulse Ox 11/30/18 14:05 68 176/62 H 11/30/18 14:04 97.7 F 68 16 176/62 H 96 11/30/18 08:45 98.1 F 84 16 181/91 H 96 11/30/18 08:31 96 11/30/18 08:30 181/91 H 11/30/18 08:29 181/91 H 11/30/18 05:37 97.9 F 68 16 160/76 H 96 Weight Admit Weight 87 lb 9.6 oz Weight 90 lb 9.6 oz I&O: 11/29/18 11/30/18 12/01/18 06:59 06:59 06:59 Intake Total 650 908 Output Total 200 Balance 450 908 Result Diagrams: 11/29/18 05:35 11/30/18 08:37 Phys Exam - Physical Examination HEENT: PERRLA Respiratory: no wheezing, no rales, no rhonchi, clear to auscultation bilateral Cardiovascular: RRR, no significant murmur, no rub Gastrointestinal: soft, non-tender, no distention, positive bowel sounds Musculoskeletal: no edema, pulses present Dx/Plan (1) C. difficile colitis Status: Acute Comment: on oral vancomycin (2) Fecal impaction Code(s): K56.41 - FECAL IMPACTION Status: Acute Comment: with stercoralis colitis, had resolved but now no BM for 1 week, on Miralax daily, will give colace as well and add prn Dulcolax (3) CAD (coronary artery disease) Code(s): I25.10 - ATHSCL HEART DISEASE OF [place] CORONARY ARTERY W/O ANG PCTRS Status: Chronic Qualifiers: Coronary Disease-Associated Artery/Lesion type: [place] artery [place] vs. transplanted heart: [place] heart Associated angina: without angina Qualified Code(s): I25.10 - Atherosclerotic heart disease of [place] coronary artery without angina pectoris Comment: (4) Hypertension Code(s): I10 - ESSENTIAL (PRIMARY) HYPERTENSION Status: Chronic Qualifiers: Hypertension type: essential hypertension Qualified Code(s): I10 - Essential (primary) hypertension Comment: (5) Depression, major Code(s): F32.9 - MAJOR DEPRESSIVE DISORDER, SINGLE EPISODE, UNSPECIFIED Status : Chronic Comment: On SSRI (6) Seizure Code(s): R56.9 - UNSPECIFIED CONVULSIONS Status: Chronic Comment: - Plan * C. Diff- resolved- she has completed the course of oral Vancomycin. No diarrhea has been reported * Urinary retention- this isimproving as well, continue getting the patient up, at least 4-5 times a day. Avoid lincoln catheter. The patient's family does not want this. The patient's granddaughter says he grand father as a result of infection which developed as a result of a Lincoln catheter. In and Out cath only as needed * CAD- stable . * Seizure disorder- stable * Metabolic encephalopathy- ? etiology- Thyroid function- likely normal, TSH may be effected by Amiodarone * Awaiting long-term placment
[2018-11-30] MEDS: hydrALAZINE 20 MG/ML VIAL SLOW IVP PRN (18:26)
--- NOTE | 2018-11-30 21:30 | PRG ---
DATE OF SERVICE: 11/30/2018 SUBJECTIVE: The patient was seen and examined, noted with the following vital signs. OBJECTIVE: VITAL SIGNS: Afebrile. Temperature 98.2, pulse 80, respiratory rate of 16, and O2 saturation of 97% with a blood pressure of 182/62. HEENT: Unremarkable except some degree of dry oral mucosa. No conjunctival injection or icterus. NECK: Supple. CARDIOVASCULAR: First and second heart sounds were heard. RESPIRATORY: Clear to auscultation. DIGESTIVE: Benign abdomen. EXTREMITIES: No peripheral edema. SKIN: No new gross rash. LYMPHATICS: No peripheral lymphadenopathy. LABORATORY INVESTIGATION: Significant for sodium of 148 with creatinine of 1.48. IMPRESSION: 1. Hypernatremia, which has since resolved, but seems to be relapsing at this point in the context of free water depletion. 2. Acute kidney injury in line with #1 above in terms of intravascular depletion. PLAN: 1. We will recommend free water repletion to address the hypernatremia as well as the acute kidney injury. 2. Renally dosed all medications and avoid potentially nephrotoxic agents. Job ID: [id number]
[2018-11-30] MEDS: Donepezil HCl 5 MG TAB PO SCH (21:37)
[2018-11-30] MEDS: Pravastatin Sodium 20 MG TAB PO SCH (21:37)
[2018-12-01] MEDS: Potassium Chloride 40 MEQ in Sodium Chloride 0.45% 1,000 ML IV SCH ×2 (03:45→08:24)
[2018-12-01] MEDS: levETIRAcetam 500 mg/5 ml Oral Solution PO SCH ×2 (08:11→21:07)
[2018-12-01] MEDS: Losartan 25 MG TAB PO SCH (08:11)
[2018-12-01] MEDS: Labetalol 100 MG TAB PO SCH ×2 (08:11→21:07)
[2018-12-01] MEDS: Docusate Sodium 100 MG/10 ML UDCUP PO SCH ×2 (08:12→21:07)
[2018-12-01] MEDS: Famotidine 20 MG TAB PO SCH ×2 (08:13→21:08)
[2018-12-01] MEDS: Saccharomyces boulardii 250 MG CAP PO SCH (08:13)
[2018-12-01] MEDS: Polyethylene Glycol 3350 17 GM Packet PO SCH (08:13)
[2018-12-01] MEDS: Folic Acid 1 MG TAB PO SCH (08:14)
[2018-12-01] MEDS: Cyanocobalamin (Vitamin B-12) 1,000 MCG TAB PO SCH (08:14)
[2018-12-01] MEDS: Amiodarone 200 MG TAB PO SCH (08:14)
[2018-12-01] MEDS: hydrALAZINE 25 MG TAB PO SCH ×3 (08:14→21:07)
[2018-12-01] MEDS: Furosemide 40 MG TAB PO SCH (08:14)
[2018-12-01] MEDS: Aspirin 325 MG TAB PO SCH (08:14)
--- NOTE | 2018-12-01 15:39 | PDOC.PN ---
- Subjective Encounter Start Date: 12/01/18 Encounter Start Time: 15:20 Subjective: f/u c. diff colitis completing po Vancomycin course. Has had one BM -: in about 1 week. Nsg reports pt non-verbal mainly and needs assistance -: with all ADL's. Waiting on SNF options/approval. - Objective Resuscitation Status - Order Detail: 11/12/18 19:36 Resuscitation Status Routine Resuscitation Status: DNAR: NO Resuscitation Discussed with: Daughter and Granddaughter MAR Reviewed: Yes Vital Signs & Weight: Vital Signs (12 hours) Temp Pulse Resp BP BP Pulse Ox 12/01/18 14:37 74 150/82 H 12/01/18 12:00 97.9 F 74 20 160/82 H 97 12/01/18 08:14 74 178/100 H 12/01/18 08:11 74 178/100 H 12/01/18 08:09 98.3 F 74 20 178/100 H 97 12/01/18 08:00 97 12/01/18 05:30 97.9 F 75 16 152/86 H 97 Weight Admit Weight 87 lb 9.6 oz Weight 90 lb 9.6 oz I&O: 11/30/18 12/01/18 12/02/18 06:59 06:59 06:59 Intake Total 908 1544 Output Total 480 Balance 908 1064 Result Diagrams: 11/29/18 05:35 11/30/18 08:37 Additional Labs: Microbiology 12/01/18 10:20 Stool C. difficile GDH Antigen & Toxins - Final 11/29/18 00:10 Urine lincoln catheter Urine Culture - Final NO GROWTH AT 48 HOURS 11/13/18 14:00 Stool C. difficile GDH Antigen & Toxins - Final 11/13/18 14:00 Stool Clostridioides difficile Toxins A&B (PCR) - Final Laboratory Tests 11/29/18 11/29/18 11/29/18 05:35 15:01 15:01 Sodium 149 H Potassium 2.5 L* Creatinine 1.69 H Vitamin B12 Greater than 2000 H Folate 52.70 H Free T4 1.04 TSH 3rd Generation 4.9934 H Phys Exam - Physical Examination opens eyes to name, non-verbal, sits up briefly, nods her head HEENT: PERRLA, sclera anicteric, oral pharynx no lesions Neck: no nodes, no JVD, supple, full ROM Respiratory: no wheezing, no rales, no rhonchi, clear to auscultation bilateral S1, S2 Cardiovascular: RRR, no significant murmur, no rub, gallop Gastrointestinal: soft, non-tender, no distention, positive bowel sounds Musculoskeletal: pulses present Neurological: normal sensation, moves all 4 limbs Skin: normal turgor, cap refill <2 seconds Dx/Plan (1) Acute renal failure superimposed on stage 3 chronic kidney disease Code(s): N17.9 - ACUTE KIDNEY FAILURE, UNSPECIFIED; N18.3 - CHRONIC KIDNEY DISEASE, STAGE 3 (MODERATE) Status: Acute Comment: Improved with IVF's, avoidance of nephrotoxic meds and limiting contrast exposure, serial creatinine (2) C. difficile colitis Status: Acute Comment: Resolved, Vancomcyin course completed (3) Fecal impaction Code(s): K56.41 - FECAL IMPACTION Status: Acute Comment: with stercoralis colitis, on Miralax daily, will give colace as well and add prn Dulcolax (4) Hypokalemia Code(s): E87.6 - HYPOKALEMIA Status: Acute Comment: Resolving with KCL supplementation (5) Physical deconditioning Code(s): R53.81 - OTHER MALAISE Status: Chronic Comment: PT for mobilization , SNF options pending - Plan PT/OT, adoption social worker, speech therapy, out of bed/ambulate, DVT proph w/SCDs Stable currently -: Continue IVF's as po intake inadequate for fluids -: Continue current BP regimen -: PT for mobilization and ambulation -: Palliative care consult * Awaiting SNF options/approval * AM lab: BMP
[2018-12-01] MEDS: hydrALAZINE 20 MG/ML VIAL SLOW IVP PRN (16:28)
[2018-12-01] MEDS: Pravastatin Sodium 20 MG TAB PO SCH (21:07)
[2018-12-01] MEDS: Donepezil HCl 5 MG TAB PO SCH (21:07)
[2018-12-02] MEDS: Potassium Chloride 40 MEQ in Sodium Chloride 0.45% 1,000 ML IV SCH (01:26)
[2018-12-02 05:42] LABS: Anion Gap 9 mmol/L (10-20); BUN (Urea Nitrogen) 24 mg/dL (9.8-20.1); Calc. Creatinine Clearance 17 mL/min (70-130); Calcium 9.6 mg/dL (7.8-10.44); Carbon Dioxide 32 mmol/L (23-31); Chloride 106 mmol/L (98-107); Estimated GFR-MDRD 35; Glucose 96 mg/dL (83-110); Potassium 3.2 mmol/L (3.5-5.1); Sodium 144 mmol/L (136-145)
[2018-12-02] MEDS: Labetalol 100 MG TAB PO SCH ×2 (08:58→20:54)
[2018-12-02] MEDS: Losartan 25 MG TAB PO SCH (08:58)
[2018-12-02] MEDS: Amiodarone 200 MG TAB PO SCH (08:59)
[2018-12-02] MEDS: Folic Acid 1 MG TAB PO SCH (08:59)
[2018-12-02] MEDS: Cyanocobalamin (Vitamin B-12) 1,000 MCG TAB PO SCH (08:59)
[2018-12-02] MEDS: hydrALAZINE 25 MG TAB PO SCH ×3 (08:59→20:55)
[2018-12-02] MEDS: Saccharomyces boulardii 250 MG CAP PO SCH (08:59)
[2018-12-02] MEDS: Famotidine 20 MG TAB PO SCH ×2 (08:59→20:55)
[2018-12-02] MEDS: Aspirin 325 MG TAB PO SCH (08:59)
[2018-12-02] MEDS: Docusate Sodium 100 MG/10 ML UDCUP PO SCH ×2 (09:00→20:55)
[2018-12-02] MEDS: Furosemide 40 MG TAB PO SCH (09:00)
[2018-12-02] MEDS: levETIRAcetam 500 mg/5 ml Oral Solution PO SCH ×2 (09:00→20:55)
[2018-12-02] MEDS: Polyethylene Glycol 3350 17 GM Packet PO SCH (09:01)
[2018-12-02] MEDS: hydrALAZINE 20 MG/ML VIAL SLOW IVP PRN (11:11)
--- NOTE | 2018-12-02 17:49 | PDOC.PN ---
- Subjective Encounter Start Date: 12/02/18 Encounter Start Time: 17:00 Subjective: f/u for deconditioning, s/p c. diff colitis completing course of tx -: Remains frail, needs max assist with all ADL's. Eating small portions -: of meals. - Objective Resuscitation Status - Order Detail: 11/12/18 19:36 Resuscitation Status Routine Resuscitation Status: DNAR: NO Resuscitation Discussed with: Daughter and Granddaughter MAR Reviewed: Yes Vital Signs & Weight: Vital Signs (12 hours) Temp Pulse Resp Pulse Ox 12/02/18 11:11 75 12/02/18 08:59 75 12/02/18 08:58 75 12/02/18 08:00 98.6 F 75 20 94 L Weight Admit Weight 87 lb 9.6 oz Weight 90 lb 9.6 oz I&O: 12/01/18 12/02/18 12/03/18 06:59 06:59 06:59 Intake Total 1544 1960 200 Output Total 480 1030 Balance 1064 930 200 Result Diagrams: 11/29/18 05:35 12/02/18 05:02 Additional Labs: Microbiology 12/01/18 10:20 Stool C. difficile GDH Antigen & Toxins - Final 11/29/18 00:10 Urine lincoln catheter Urine Culture - Final NO GROWTH AT 48 HOURS 11/13/18 14:00 Stool C. difficile GDH Antigen & Toxins - Final 11/13/18 14:00 Stool Clostridioides difficile Toxins A&B (PCR) - Final Laboratory Tests 11/29/18 11/29/18 11/29/18 05:35 15:01 15:01 Sodium 149 H Potassium 2.5 L* BUN Creatinine 1.69 H Vitamin B12 Greater than 2000 H Folate 52.70 H Free T4 1.04 TSH 3rd Generation 4.9934 H 11/30/18 08:37 Sodium 148 H Potassium BUN 27 H Creatinine 1.48 H Vitamin B12 Folate Free T4 TSH 3rd Generation Phys Exam - Physical Examination alert, non-verbal, eating slowly HEENT: PERRLA, sclera anicteric, oral pharynx no lesions Neck: no nodes, no JVD, supple, full ROM few scattered rhonchi Respiratory: no wheezing S1, S2 Cardiovascular: RRR, no significant murmur, no rub, gallop Gastrointestinal: soft, non-tender, no distention, positive bowel sounds frail, generalized atrophy Musculoskeletal: no edema, pulses present non-verbal, nods head occasionally Neurological: normal sensation, moves all 4 limbs Skin: normal turgor, cap refill <2 seconds Dx/Plan (1) Acute renal failure superimposed on stage 3 chronic kidney disease Code(s): N17.9 - ACUTE KIDNEY FAILURE, UNSPECIFIED; N18.3 - CHRONIC KIDNEY DISEASE, STAGE 3 (MODERATE) Status: Acute Comment: Improved with IVF's, avoidance of nephrotoxic meds and limiting contrast exposure, serial creatinine (2) C. difficile colitis Status: Acute Comment: Resolved, Vancomcyin course completed (3) Fecal impaction Code(s): K56.41 - FECAL IMPACTION Status: Acute Comment: with stercoralis colitis, on Miralax daily, will give colace as well and add prn Dulcolax (4) Hypokalemia Code(s): E87.6 - HYPOKALEMIA Status: Acute Comment: Resolving with KCL supplementation (5) Physical deconditioning Code(s): R53.81 - OTHER MALAISE Status: Chronic Comment: PT for mobilization , SNF options pending - Plan PT/OT, social work job titles, speech therapy, out of bed/ambulate, DVT proph w/SCDs Continue supportive mgmt -: Continue IVF's -: OOB with PT for mobilization, fall risk precautions -: SNF options pending -: Likely d/c in 24-48h * .
--- NOTE | 2018-12-02 17:55 | PRG ---
DATE OF SERVICE: 12/02/2018 SUBJECTIVE: The patient was seen and examined. No new complaint. Hemodynamically, stable. OBJECTIVE: HEENT: Unremarkable. CARDIOVASCULAR SYSTEM: First and second heart sounds were heard. RESPIRATORY SYSTEM: Clear to auscultation. DIGESTIVE: Revealed a benign abdomen. Positive bowel sounds. EXTREMITIES: No peripheral edema. SKIN: No new gross rash. LYMPHATICS: No peripheral lymphadenopathy. LABORATORY INVESTIGATION: Showed a sodium of 144, potassium of 3.2, creatinine 1.42, BUN of 24. IMPRESSION: 1. Hypernatremia, which seems to have resolved status post free water repletion. 2. Hypokalemia. 3. Acute on chronic kidney disease. PLAN: 1. Replete potassium. 2. Continue free water repletion. 3. Further management to be dependent on the clinical course. Job ID: [id number]
[2018-12-02] MEDS: Pravastatin Sodium 20 MG TAB PO SCH (20:55)
[2018-12-02] MEDS: Donepezil HCl 5 MG TAB PO SCH (20:55)
[2018-12-03] MEDS: Potassium Chloride 40 MEQ in Sodium Chloride 0.45% 1,000 ML IV SCH ×4 (06:41→16:45)
[2018-12-03] MEDS: Polyethylene Glycol 3350 17 GM Packet PO SCH (08:18)
[2018-12-03] MEDS: Saccharomyces boulardii 250 MG CAP PO SCH (08:19)
[2018-12-03] MEDS: Labetalol 100 MG TAB PO SCH ×2 (08:19→21:00)
[2018-12-03] MEDS: levETIRAcetam 500 mg/5 ml Oral Solution PO SCH ×2 (08:19→20:59)
[2018-12-03] MEDS: Aspirin 325 MG TAB PO SCH (08:20)
[2018-12-03] MEDS: hydrALAZINE 25 MG TAB PO SCH ×3 (08:20→21:01)
[2018-12-03] MEDS: Losartan 25 MG TAB PO SCH (08:20)
[2018-12-03] MEDS: Furosemide 40 MG TAB PO SCH (08:20)
[2018-12-03] MEDS: Amiodarone 200 MG TAB PO SCH (08:21)
[2018-12-03] MEDS: Folic Acid 1 MG TAB PO SCH (08:21)
[2018-12-03] MEDS: Cyanocobalamin (Vitamin B-12) 1,000 MCG TAB PO SCH (08:21)
[2018-12-03] MEDS: Docusate Sodium 100 MG/10 ML UDCUP PO SCH ×2 (09:11→20:59)
[2018-12-03] MEDS: Famotidine 20 MG TAB PO SCH ×2 (09:11→21:02)
--- NOTE | 2018-12-03 15:50 | PDOC.PN ---
- Subjective Encounter Start Date: 12/03/18 Encounter Start Time: 15:15 Subjective: f/u for FTT, deconditioning, completed course of abx for c. diff. -: Needing max assist with all ADL's, waiting for SNF option approval. - Objective Resuscitation Status - Order Detail: 11/12/18 19:36 Resuscitation Status Routine Resuscitation Status: DNAR: NO Resuscitation Discussed with: Daughter and Granddaughter MAR Reviewed: Yes Vital Signs & Weight: Vital Signs (12 hours) Temp Pulse Resp BP BP Pulse Ox 12/03/18 14:28 76 177/80 H 12/03/18 08:20 84 200/86 H 12/03/18 08:19 84 200/86 H 12/03/18 05:51 98.0 F 84 20 180/60 H 93 L Weight Admit Weight 87 lb 9.6 oz Weight 90 lb 9.6 oz I&O: 12/02/18 12/03/18 12/04/18 06:59 06:59 06:59 Intake Total 1960 800 Output Total 1030 Balance 930 800 Result Diagrams: 11/29/18 05:35 12/02/18 05:02 Additional Labs: Microbiology 12/01/18 10:20 Stool C. difficile GDH Antigen & Toxins - Final 11/29/18 00:10 Urine lincoln catheter Urine Culture - Final NO GROWTH AT 48 HOURS 11/13/18 14:00 Stool C. difficile GDH Antigen & Toxins - Final 11/13/18 14:00 Stool Clostridioides difficile Toxins A&B (PCR) - Final Laboratory Tests 11/29/18 11/29/18 11/29/18 05:35 15:01 15:01 Sodium 149 H Potassium 2.5 L* BUN Creatinine 1.69 H Vitamin B12 Greater than 2000 H Folate 52.70 H Free T4 1.04 TSH 3rd Generation 4.9934 H 11/30/18 08:37 Sodium 148 H Potassium BUN 27 H Creatinine 1.48 H Vitamin B12 Folate Free T4 TSH 3rd Generation Phys Exam - Physical Examination alert to name, smiles briefly HEENT: PERRLA, sclera anicteric, oral pharynx no lesions Neck: no nodes, no JVD, supple, full ROM occasional rhonchi Respiratory: no wheezing, no rales, clear to auscultation bilateral S1, S2 Cardiovascular: RRR, no significant murmur, no rub, gallop Gastrointestinal: soft, non-tender, no distention, positive bowel sounds Musculoskeletal: no edema, pulses present Neurological: moves all 4 limbs Skin: normal turgor, cap refill <2 seconds Dx/Plan (1) Acute renal failure superimposed on stage 3 chronic kidney disease Code(s): N17.9 - ACUTE KIDNEY FAILURE, UNSPECIFIED; N18.3 - CHRONIC KIDNEY DISEASE, STAGE 3 (MODERATE) Status: Acute Comment: Improved with IVF's, avoidance of nephrotoxic meds and limiting contrast exposure, serial creatinine (2) C. difficile colitis Status: Acute Comment: Resolved, Vancomcyin course completed (3) Fecal impaction Code(s): K56.41 - FECAL IMPACTION Status: Acute Comment: with stercoralis colitis, on Miralax daily, will give colace as well and add prn Dulcolax (4) Hypokalemia Code(s): E87.6 - HYPOKALEMIA Status: Acute Comment: Resolving with KCL supplementation (5) Physical deconditioning Code(s): R53.81 - OTHER MALAISE Status: Chronic Comment: PT for mobilization , SNF options pending - Plan PT/OT, health and social care teacher, speech therapy, DVT proph w/SCDs Continue supportive mgmt -: IVF's @ 60ml/h -: OOB with PT -: Await SNF options -: Likley to SNF in 48h * .
--- NOTE | 2018-12-03 17:21 | PRG ---
DATE OF SERVICE: 12/03/2018 SUBJECTIVE: The patient has no new complaint. Noted with the following vital signs. OBJECTIVE: VITAL SIGNS: Afebrile. Temperature 98, pulse 84, and blood pressure . HEENT: Unremarkable. CARDIOVASCULAR SYSTEM: First and second heart sounds were heard. RESPIRATORY SYSTEM: Clear to auscultation. DIGESTIVE: Revealed a benign abdomen. Positive bowel sounds. EXTREMITIES: No peripheral edema. LABORATORY INVESTIGATION: None. IMPRESSION: 1. Hypernatremia in the context of free water depletion, which seems to be improved. 2. Kspny-qn-wogapnn kidney disease. PLAN: We will continue current renal supportive measures. Job ID: [id number]
[2018-12-03] MEDS: Donepezil HCl 5 MG TAB PO SCH (21:02)
[2018-12-03] MEDS: Pravastatin Sodium 20 MG TAB PO SCH (21:02)
[2018-12-04] MEDS: Labetalol 100 MG TAB PO SCH ×2 (08:55→20:52)
[2018-12-04] MEDS: levETIRAcetam 500 mg/5 ml Oral Solution PO SCH ×2 (08:55→20:56)
[2018-12-04] MEDS: Docusate Sodium 100 MG/10 ML UDCUP PO SCH ×2 (08:55→20:56)
[2018-12-04] MEDS: Saccharomyces boulardii 250 MG CAP PO SCH (08:55)
[2018-12-04] MEDS: hydrALAZINE 25 MG TAB PO SCH ×3 (08:55→20:55)
[2018-12-04] MEDS: Famotidine 20 MG TAB PO SCH ×2 (08:56→20:56)
[2018-12-04] MEDS: Aspirin 325 MG TAB PO SCH (08:56)
[2018-12-04] MEDS: Furosemide 40 MG TAB PO SCH (08:56)
[2018-12-04] MEDS: Polyethylene Glycol 3350 17 GM Packet PO SCH (08:56)
[2018-12-04] MEDS: Folic Acid 1 MG TAB PO SCH (08:56)
[2018-12-04] MEDS: Cyanocobalamin (Vitamin B-12) 1,000 MCG TAB PO SCH (08:56)
[2018-12-04] MEDS: Amiodarone 200 MG TAB PO SCH (08:56)
[2018-12-04] MEDS: Potassium Chloride 40 MEQ in Sodium Chloride 0.45% 1,000 ML IV SCH (09:04)
[2018-12-04] MEDS: Losartan 25 MG TAB PO SCH (09:09)
--- NOTE | 2018-12-04 10:25 | PRG ---
DATE OF SERVICE: 12/04/2018 The patient is noted with the following vital signs. OBJECTIVE: VITAL SIGNS: Afebrile, temperature 97.7, pulse 79, respiratory rate of 18, O2 saturations are 98%, and blood pressure 186/71. HEENT: Unremarkable. CARDIOVASCULAR SYSTEM: First and second heart sounds were heard. RESPIRATORY SYSTEM: Clear to auscultation. DIGESTIVE SYSTEM: Revealed a benign abdomen. EXTREMITIES: No peripheral edema. IMPRESSION: 1. Acute on chronic kidney disease. 2. Hyponatremia, which is resolved. 3. Advanced age. PLAN: 1. Continue current renal supportive measures and free water repletion. 2. Further management to be dependent on the clinical course. Job ID: [id number]
--- NOTE | 2018-12-04 15:41 | PDOC.PN ---
- Subjective Encounter Start Date: 12/04/18 Encounter Start Time: 15:30 Subjective: f/u for FTT, deconditioning and continues to receive max assist -: for ADL's. No new issues per nursing. - Objective Resuscitation Status - Order Detail: 11/12/18 19:36 Resuscitation Status Routine Resuscitation Status: DNAR: NO Resuscitation Discussed with: Daughter and Granddaughter MAR Reviewed: Yes Vital Signs & Weight: Vital Signs (12 hours) Temp Pulse Resp BP BP Pulse Ox 12/04/18 08:00 97.7 F 79 18 186/71 H 98 12/04/18 04:00 97.6 F 75 18 180/60 H 92 L Weight Admit Weight 87 lb 9.6 oz Weight 90 lb 9.6 oz I&O: 12/03/18 12/04/18 12/05/18 06:59 06:59 06:59 Intake Total 800 1380 Balance 800 1380 Result Diagrams: 11/29/18 05:35 12/02/18 05:02 Additional Labs: Microbiology 12/01/18 10:20 Stool C. difficile GDH Antigen & Toxins - Final 11/29/18 00:10 Urine lincoln catheter Urine Culture - Final NO GROWTH AT 48 HOURS 11/13/18 14:00 Stool C. difficile GDH Antigen & Toxins - Final 11/13/18 14:00 Stool Clostridioides difficile Toxins A&B (PCR) - Final Laboratory Tests 11/29/18 11/29/18 11/29/18 05:35 15:01 15:01 Sodium 149 H Potassium 2.5 L* BUN Creatinine 1.69 H Vitamin B12 Greater than 2000 H Folate 52.70 H Free T4 1.04 TSH 3rd Generation 4.9934 H 11/30/18 08:37 Sodium 148 H Potassium BUN 27 H Creatinine 1.48 H Vitamin B12 Folate Free T4 TSH 3rd Generation Phys Exam - Physical Examination Constitutional: NAD HEENT: PERRLA, sclera anicteric, oral pharynx no lesions Neck: no nodes, no JVD, supple, full ROM Respiratory: no wheezing, no rales, no rhonchi, clear to auscultation bilateral S1, S2 Cardiovascular: RRR, no significant murmur, no rub, gallop Gastrointestinal: soft, non-tender, no distention, positive bowel sounds Musculoskeletal: no edema, pulses present Neurological: moves all 4 limbs Skin: normal turgor, cap refill <2 seconds Dx/Plan (1) Acute renal failure superimposed on stage 3 chronic kidney disease Code(s): N17.9 - ACUTE KIDNEY FAILURE, UNSPECIFIED; N18.3 - CHRONIC KIDNEY DISEASE, STAGE 3 (MODERATE) Status: Acute Comment: Improved with IVF's, avoidance of nephrotoxic meds and limiting contrast exposure, serial creatinine (2) C. difficile colitis Status: Acute Comment: Resolved, Vancomcyin course completed (3) Fecal impaction Code(s): K56.41 - FECAL IMPACTION Status: Acute Comment: with stercoralis colitis, on Miralax daily, will give colace as well and add prn Dulcolax (4) Hypokalemia Code(s): E87.6 - HYPOKALEMIA Status: Acute Comment: Resolving with KCL supplementation (5) Physical deconditioning Code(s): R53.81 - OTHER MALAISE Status: Chronic Comment: PT for mobilization , SNF options pending, fall risk precautions - Plan plan discussed w/ family, PT/OT, social work therapist, speech therapy, out of bed/ ambulate, DVT proph w/SCDs Stable currently -: Awaiting SNF approval -: Continue low-volume IVF's another 24h -: Continue Losartan, Labetolol, Hydralazine -: Likely can transition to SNF in 24-48h * .
[2018-12-04] MEDS: Donepezil HCl 5 MG TAB PO SCH (20:56)
[2018-12-04] MEDS: Pravastatin Sodium 20 MG TAB PO SCH (20:56)
[2018-12-05] MEDS: Potassium Chloride 40 MEQ in Sodium Chloride 0.45% 1,000 ML IV SCH ×2 (03:25→19:02)
[2018-12-05] MEDS: Polyethylene Glycol 3350 17 GM Packet PO SCH (08:07)
[2018-12-05] MEDS: levETIRAcetam 500 mg/5 ml Oral Solution PO SCH ×2 (08:07→20:58)
[2018-12-05] MEDS: Furosemide 40 MG TAB PO SCH (08:08)
[2018-12-05] MEDS: Aspirin 325 MG TAB PO SCH (08:08)
[2018-12-05] MEDS: hydrALAZINE 25 MG TAB PO SCH ×3 (08:08→21:00)
[2018-12-05] MEDS: Cyanocobalamin (Vitamin B-12) 1,000 MCG TAB PO SCH (08:08)
[2018-12-05] MEDS: Docusate Sodium 100 MG/10 ML UDCUP PO SCH ×2 (08:08→20:58)
[2018-12-05] MEDS: Amiodarone 200 MG TAB PO SCH (08:08)
[2018-12-05] MEDS: Losartan 25 MG TAB PO SCH (08:08)
[2018-12-05] MEDS: Folic Acid 1 MG TAB PO SCH (08:09)
[2018-12-05] MEDS: Labetalol 100 MG TAB PO SCH ×2 (08:09→21:03)
[2018-12-05] MEDS: Saccharomyces boulardii 250 MG CAP PO SCH (08:09)
[2018-12-05] MEDS: Famotidine 20 MG TAB PO SCH ×2 (08:09→20:59)
--- NOTE | 2018-12-05 18:43 | PDOC.PN ---
- Subjective Encounter Start Date: 12/05/18 Encounter Start Time: 14:10 Subjective: f/u for FTT, deconditioning needing max assist with all ADL's. Ambulated -: short distance with PT. - Objective Resuscitation Status - Order Detail: 11/12/18 19:36 Resuscitation Status Routine Resuscitation Status: DNAR: NO Resuscitation Discussed with: Daughter and Granddaughter ELDA Reviewed: Yes Vital Signs & Weight: Vital Signs (12 hours) Temp Pulse Resp BP Pulse Ox 12/05/18 14:48 79 12/05/18 08:09 79 12/05/18 08:08 79 12/05/18 08:00 97.8 F 77 16 160/78 H 96 Weight Admit Weight 87 lb 9.6 oz Weight 90 lb 9.6 oz I&O: 12/04/18 12/05/18 12/06/18 06:59 06:59 06:59 Intake Total 1380 100 600 Output Total 650 Balance 1380 -550 600 Result Diagrams: 11/29/18 05:35 12/02/18 05:02 Additional Labs: Microbiology 12/01/18 10:20 Stool C. difficile GDH Antigen & Toxins - Final 11/29/18 00:10 Urine lincoln catheter Urine Culture - Final NO GROWTH AT 48 HOURS 11/13/18 14:00 Stool C. difficile GDH Antigen & Toxins - Final 11/13/18 14:00 Stool Clostridioides difficile Toxins A&B (PCR) - Final Laboratory Tests 11/29/18 11/29/18 11/29/18 05:35 15:01 15:01 Sodium 149 H Potassium 2.5 L* BUN Creatinine 1.69 H Vitamin B12 Greater than 2000 H Folate 52.70 H Free T4 1.04 TSH 3rd Generation 4.9934 H 11/30/18 08:37 Sodium 148 H Potassium BUN 27 H Creatinine 1.48 H Vitamin B12 Folate Free T4 TSH 3rd Generation Phys Exam - Physical Examination Constitutional: NAD states one word, nods head occasionally, tracks with eyes frail HEENT: PERRLA, sclera anicteric, oral pharynx no lesions Neck: no nodes, no JVD, supple, full ROM Respiratory: no wheezing, no rales, no rhonchi, clear to auscultation bilateral Cardiovascular: RRR, no significant murmur, no rub, gallop Gastrointestinal: soft, non-tender, no distention, positive bowel sounds Musculoskeletal: no edema, pulses present Neurological: moves all 4 limbs Skin: normal turgor, cap refill <2 seconds Dx/Plan (1) Acute renal failure superimposed on stage 3 chronic kidney disease Code(s): N17.9 - ACUTE KIDNEY FAILURE, UNSPECIFIED; N18.3 - CHRONIC KIDNEY DISEASE, STAGE 3 (MODERATE) Status: Acute Comment: Improved with IVF's, avoidance of nephrotoxic meds and limiting contrast exposure, serial creatinine (2) C. difficile colitis Status: Acute Comment: Resolved, Vancomcyin course completed (3) Fecal impaction Code(s): K56.41 - FECAL IMPACTION Status: Acute Comment: with stercoral colitis, on Miralax daily, will give colace as well and add prn Dulcolax (4) Hypokalemia Code(s): E87.6 - HYPOKALEMIA Status: Acute Comment: Resolving with KCL supplementation (5) Physical deconditioning Code(s): R53.81 - OTHER MALAISE Status: Chronic Comment: PT for mobilization , SNF options pending, fall risk precautions - Plan PT/OT, social security specialist, speech therapy, out of bed/ambulate, DVT proph w/SCDs Stable currently -: Continue PT/OT for mobilization, ROM exercises -: Continue IVF's another 24h then d/c -: Modified diet due to aspiration risk -: Transfer to [facility] in am 12/06/18 * .
[2018-12-05] MEDS: Donepezil HCl 5 MG TAB PO SCH (20:59)
[2018-12-05] MEDS: Pravastatin Sodium 20 MG TAB PO SCH (21:03)
[2018-12-06 07:51] VITALS: TEMP 97.7
[2018-12-06] MEDS: levETIRAcetam 500 mg/5 ml Oral Solution PO SCH (08:06)
[2018-12-06] MEDS: Losartan 25 MG TAB PO SCH (08:07)
[2018-12-06] MEDS: Labetalol 100 MG TAB PO SCH (08:07)
[2018-12-06] MEDS: Docusate Sodium 100 MG/10 ML UDCUP PO SCH (08:07)
[2018-12-06] MEDS: Polyethylene Glycol 3350 17 GM Packet PO SCH (08:07)
[2018-12-06] MEDS: Saccharomyces boulardii 250 MG CAP PO SCH (08:08)
[2018-12-06] MEDS: Furosemide 40 MG TAB PO SCH (08:08)
[2018-12-06] MEDS: Famotidine 20 MG TAB PO SCH (08:08)
[2018-12-06] MEDS: Amiodarone 200 MG TAB PO SCH (08:08)
[2018-12-06] MEDS: Aspirin 325 MG TAB PO SCH (08:08)
[2018-12-06] MEDS: Folic Acid 1 MG TAB PO SCH (08:08)
[2018-12-06] MEDS: hydrALAZINE 25 MG TAB PO SCH (08:08)
[2018-12-06] MEDS: Cyanocobalamin (Vitamin B-12) 1,000 MCG TAB PO SCH (08:09)
[2018-12-06 08:10] VITALS: BP 160/75
[2018-12-06] MEDS: Potassium Chloride 40 MEQ in Sodium Chloride 0.45% 1,000 ML IV SCH (12:55)
--- NOTE | 2018-12-07 05:59 | DIS ---
DATE OF ADMISSION: 11/12/2018 DATE OF DISCHARGE: 12/06/2018 PRIMARY CARE PHYSICIAN: Dr. Ricky Perry. DISCHARGE DISPOSITION: [facility]. DISCHARGE DIAGNOSES: 1. Metabolic encephalopathy, slowly improving. 2. Clostridium difficile colitis. 3. Acute on chronic kidney injury. 4. Fecal impaction with stercoral colitis. 5. Hypertension. 6. Early dementia. DISCHARGE MEDICATIONS: Include; 1. Florastor 250 mg daily. 2. Melatonin 3 mg q.h.s. 3. Keppra 250 mg twice daily. 4. Hydralazine 100 mg t.i.d. 5. Lasix 40 mg daily. 6. Folic acid 1 mg daily. 7. Pepcid 20 mg twice daily. 8. Vitamin B12 1000 mcg daily. 9. Aspirin 325 mg daily. 10. Sertraline 100 mg daily. 11. Pravastatin 20 mg q.h.s. 12. Cozaar 100 mg daily. 13. Labetalol 100 mg twice a day. 14. Aricept 5 mg q.h.s. 15. Colace 100 mg twice daily. 16. Amiodarone 200 mg daily. PROCEDURES: Procedures done during the admission; the patient had a CT scan of the brain showing no acute intracranial process. The patient also had a CT scan of the abdomen and pelvis, showing stercoral colitis. CODE STATUS: DNAR. ALLERGIES: TO CEFEPIME, RED DYE, YELLOW DYE, ACETAMINOPHEN, AMOXICILLIN, CIPROFLOXACIN, NITROFURANTOIN, HYDROCODONE, LANSOPRAZOLE, RIVASTIGMINE, AMOXICILLIN, AND CLARITHROMYCIN. HOSPITAL COURSE: Ms. Dai is a pleasant 88-year-old female, who was brought to the hospital due to the family's concerns that she was more lethargic than usual, and was also noted to have some loose stools. She was admitted, initially had some fecal retention, but then this was followed up by having severe diarrhea. She was seen by Gastroenterology, and was found to have Clostridium difficile colitis. This was successfully treated with oral vancomycin during her hospital stay. She also had severe deconditioning as well as some delirium, which she was more lethargic than usual. This actually slowly improved during the course of her hospital stay when she was initially essentially nonverbal and would only just stare at you, toward the time of discharge, she had perked up to the point where she would smile when you came in the room, follow you, and say a few words. She was also noted to have some urinary retention, the etiology of which is unknown. However, this did appear to improve with the patient becoming more ambulatory. The family, i.e., the granddaughter and daughter are deathly afraid of indwelling Abbott catheters and would prefer to have periodic in and out catheterizations as opposed to having an indwelling Abbott catheter with regard to the urinary retention. This is as a result of them losing their father and grandfather respectively as a result of severe urosepsis from an indwelling catheter. Due to the patient's severe deconditioning, she was transferred to the [facility] to obtain more physical therapy. Job ID: [id number]
== END 2018-12-06 13:47 | DRG 871 ==
LOC: ERS 15:41 → T4-B 19:01
PROVIDERS: ADMIT Emergency Medicine; ATTEND Emergency Medicine
DX: A41.9 Sepsis, unspecified organism (principal); G93.41 Metabolic encephalopathy; E43 Unspecified severe protein-calorie malnutrition; N17.9 Acute kidney failure, unspecified; I13.0 Hypertensive heart and chronic kidney disease with heart failure and stage 1 through stage 4 chronic kidney disease, or unspecified chronic kidney disease; I50.32 Chronic diastolic (congestive) heart failure; E87.0 Hyperosmolality and hypernatremia; Z68.1 Body mass index [BMI] 19.9 or less, adult; A04.71 Enterocolitis due to Clostridium difficile, recurrent; I16.0 Hypertensive urgency; F41.9 Anxiety disorder, unspecified; Z66 Do not resuscitate; F32.9 Major depressive disorder, single episode, unspecified; E78.5 Hyperlipidemia, unspecified; E86.0 Dehydration; K21.9 Gastro-esophageal reflux disease without esophagitis; M19.90 Unspecified osteoarthritis, unspecified site; K56.41 Fecal impaction; F03.90 Unspecified dementia, unspecified severity, without behavioral disturbance, psychotic disturbance, mood disturbance, and anxiety; N18.3 Chronic kidney disease, stage 3 (moderate); E87.6 Hypokalemia; I25.10 Atherosclerotic heart disease of native coronary artery without angina pectoris; R33.9 Retention of urine, unspecified; E87.5 Hyperkalemia; Z88.1 Allergy status to other antibiotic agents; Z90.710 Acquired absence of both cervix and uterus; Z88.8 Allergy status to other drugs, medicaments and biological substances; Z91.041 Radiographic dye allergy status; Z79.82 Long term (current) use of aspirin; Z79.899 Other long term (current) drug therapy
CPT/HCPCS: 36415; 36416; 51701; 70450; 71045; 72170; 74018; 74176; 80048; 80053; 80076; 81001; 81003; 81015; 82607; 82746; 83605; 83735; 84100; 84439; 84443; 85025; 87086; 87324; 87449; 87493; 96365; 96375; A4353; J0360; J0692; J1200; J3480; J3490; J7050; J7070

== ENCOUNTER 2018-12-11 17:23 | Inpatient (IN) | payer MEDICARE ==
[2018-12-11 18:08] LABS: Bilirubin Small (Negative); Blood, Urine Negative (Negative); Clarity TURBID (Clear); Glucose, Urine (Dipstick) Negative (Negative); Leukocyte Large (Negative); Nitrite Negative (Negative); Protein, Urine (Dipstick) 100 mg/dL (Neg-Trace); Specific Gravity, Urine 1.016 (1.002-1.036); Urobilinogen 0.2 mg/dL (0.2-1.0); pH, Urine 7.5 (5.0-9.0)
[2018-12-11 18:10] LABS: Bacteria/HPF 4+ HPF (None Seen); Hyaline Casts/LPF 7-10 HYALINE CAST LPF (0-3 Hyaline); Pathc Cast-AUWi Flag 0.68 (0-2.49); Squamous Epithelial None Seen HPF (0-3)
[2018-12-11 18:26] LABS: RBC/HPF None Seen HPF (0-3)
[2018-12-11 18:32] LABS: #Basophils 0.1 thou/uL (0.0-0.2); #Eosinphils 0.1 thou/uL (0.0-0.7); #Lymphocytes 1.4 thou/uL (1.20-3.40); #Monocytes 1.2 thou/uL (0.11-0.59); #Neutrophils 11.4 thou/uL (1.40-6.50); %Basophils 0.4 % (0.0-1.0); %Eosinophils 0.4 % (0.0-10.0); %Lymphocytes 9.6 % (21.0-51.0); %Monocytes 8.8 % (0.0-10.0); %Neutrophils 80.9 % (42.0-75.0); Hemoglobin 11.7 g/dL (12.0-16.0); Mean Corpuscular HGB CONC 31.9 g/dL (32.0-36.0); Mean Corpuscular Hemoglobin 29.5 pg (27.0-31.0); Mean Corpuscular Volume 92.3 fL (78.0-98.0); Mean Platelet Volume 8.2 fL (7.4-10.4); Platelet Count 213 thou/uL (130-400); RBC Distribution Width 14.8 % (11.5-14.5); Red Blood Cell (RBC) Count 3.97 mill/uL (4.20-5.40); White Blood Cell (WBC) Count 14.1 thou/uL (4.8-10.8)
--- NOTE | 2018-12-11 18:33 | RAD ---
FEXAM: Portable chest PROVIDED CLINICAL HISTORY: Altered mental status, leukocytosis COMPARISON: 11/12/2018 FINDINGS: Cardiac and mediastinal silhouette unchanged in appearance. Vascular calcification is again noted. No focal consolidation, pleural fluid or pneumothorax evident. IMPRESSION: No evidence for an acute cardiopulmonary process.
[2018-12-11 18:53] LABS: ALT (SGPT) 12 U/L (8-55); AST (SGOT) 18 U/L (5-34); Albumin 3.5 g/dL (3.4-4.8); Alkaline Phosphatase 70 U/L (40-150); Anion Gap 17 mmol/L (10-20); BUN (Urea Nitrogen) 88 mg/dL (9.8-20.1); Bilirubin, Total 0.4 mg/dL (0.2-1.2); Calc. Creatinine Clearance 0 mL/min (70-130); Calcium 9.8 mg/dL (7.8-10.44); Carbon Dioxide 27 mmol/L (23-31); Chloride 113 mmol/L (98-107); Estimated GFR-MDRD 11; Glucose 139 mg/dL (83-110); Potassium 3.5 mmol/L (3.5-5.1); Protein, Total 6.5 g/dL (6.0-8.3); Sodium 153 mmol/L (136-145)
[2018-12-11] MEDS ORDERED: Gentamicin 80 MG/2 ML VIAL ONE (19:42)
[2018-12-11] MEDS ORDERED: Sodium Chloride 0.9% 1,000 ML IV SCH (21:40)
[2018-12-11 21:44] VITALS: BMI 14.6
[2018-12-11 22:31] LABS: Lactic Acid 1.1 mmol/L (0.5-2.2)
[2018-12-11] MEDS: NS 0.9% w/ 20 MEQ KCL 1,000 ML/1,000 ML BAG IV SCH (23:09)
[2018-12-11] MEDS: Sodium Chloride 0.9% 1,000 ML IV SCH (23:19)
--- NOTE | 2018-12-11 23:33 | HP ---
PRIMARY CARE PROVIDER: Ricky Perry MD CHIEF COMPLAINT: Abnormal labs. HISTORY OF PRESENT ILLNESS: Ms. Dai is a pleasant 88-year-old lady, who was seen at [facility] on December 11, 2018. She was hospitalized at this facility from November 12 to of this year for metabolic encephalopathy, Clostridium difficile colitis, acute on chronic kidney injury, fecal impaction with stercoral colitis, and early dementia. She was discharged to [facility] from this hospital for fci. Please note that Ms. Dai is unable to provide any history. Collateral history was obtained from review of medical record and discussion with emergency room physician. The patient reportedly had elevated white count at [facility] as well as hypotension. She also had mental status changes and was not responsive or following commands. She was reportedly convalescent yesterday and said she did not feel good. Family reports that she does not have any diarrhea. REVIEW OF SYSTEMS: Could not be completed secondary to the patient's noncooperation. PAST MEDICAL HISTORY: Arthritis, renal mass, recurrent Clostridium difficile infection, vertigo, gastroesophageal reflux disease, dyslipidemia, hypertension , and congestive heart failure. PAST SURGICAL HISTORY: Hysterectomy, spine surgery, and tumor removal from neck. PSYCHIATRIC HISTORY: Depression. SOCIAL HISTORY: The patient is currently in a fci facility. Could not obtain history regarding tobacco use, alcohol use, or recreational drug use. CODE STATUS: I discussed her code status with her granddaughter over the telephone. The patient is DNAR. ALLERGIES: ACETAMINOPHEN, AMOXICILLIN, CIPROFLOXACIN, CLARITHROMYCIN, HYDROCODONE, NITROFURANTOIN, RIVASTIGMINE, AND CEFEPIME. CURRENT MEDICATIONS: As dictated by Dr. Flowers in her discharge summary dated December 06, 2018. FAMILY HISTORY: Could not obtain. PHYSICAL EXAMINATION: GENERAL: On examination, Ms. Dai is sleepy, but arousable, not in acute distress. VITAL SIGNS: Blood pressure is 151/81, pulse 69, respiratory rate 16, and oxygen saturation 97% on room air. She is afebrile. HEENT: Eyes, no scleral icterus, no conjunctival pallor. ENT: Dry mucosal membranes, no oropharyngeal erythema or exudates. NECK: Supple, nontender, trachea is midline. RESPIRATORY: Accessory muscles of breathing are not active. Chest wall movements are symmetric bilaterally. LUNGS: Clear to auscultation without wheeze, rhonchi, or crepitations. CARDIOVASCULAR: S1 and S2 are heard, regular. Peripheral pulses palpable. NEUROLOGIC: Full neurologic examination was not possible secondary to patient's noncooperation. No facial droop. Deep tendon reflexes 2+. MUSCULOSKELETAL: The patient is moving all 4 extremities. SKIN: No rashes or subcutaneous nodules. LYMPHATIC: No cervical lymphadenopathy. PSYCHIATRIC: Normal mood, unable to assess orientation to person, place, or time. LABORATORY DATA: Ms. Dai's labs and investigations were reviewed. Chest x -ray did not show any pulmonary infiltrates. She has leukocytosis with 14,100 white cells, of which 81% are neutrophils. She has normocytic anemia with hemoglobin 11.7, normal platelet count, elevated sodium of 153, normal potassium, elevated creatinine of 3.87, creatinine was 2.88 yesterday and 1.42 on December 02, 2018, elevated blood urea nitrogen of 88, elevated lactic acid level of 2.9, unremarkable liver profile and urinalysis positive for leukocyte esterase. ASSESSMENT AND PLAN: Ms. Dai is a pleasant 88-year-old lady, who was seen at [facility] on November 10, 2018. Her problem list includes: 1. Severe sepsis: Ms. Dai is presenting with severe sepsis, most likely secondary to urinary tract infection. She will be admitted to the hospital for further management, including intravenous fluids and antibiotics. 2. Urinary tract infection: She has received ceftriaxone and aztreonam in the past at this facility. Given her recent hospitalization, we will start her on aztreonam. She has received a dose of gentamicin in the emergency room. We will await urine cultures. 3. History of recurrent Clostridium difficile colitis: We will watch for diarrhea. We will start her on Florastor. 4. Acute on chronic kidney disease stage 3: Most likely prerenal. We will provide intravenous hydration and recheck creatinine. 5. Hypertension: We will continue hydralazine and labetalol if her blood pressure can tolerate. 6. Dementia: Continue Aricept. Many thanks for allowing me to participate in your patient's care. Please feel free to contact me with any questions or concerns. LEVEL OF RISK: Moderate. LEVEL OF COMPLEXITY: Moderate. Job ID: [id number] [facility]
[2018-12-12 07:14] LABS: #Eosinphils 0.1 thou/uL (0.0-0.7); #Lymphocytes 1.7 thou/uL (1.20-3.40); #Neutrophils 12.1 thou/uL (1.40-6.50); %Basophils 0.1 % (0.0-1.0); %Eosinophils 0.7 % (0.0-10.0); %Lymphocytes 11.2 % (21.0-51.0); %Monocytes 6.9 % (0.0-10.0); %Neutrophils 81.1 % (42.0-75.0); Hemoglobin 10.5 g/dL (12.0-16.0); Mean Corpuscular HGB CONC 31.3 g/dL (32.0-36.0); Mean Corpuscular Hemoglobin 29.2 pg (27.0-31.0); Mean Corpuscular Volume 93.3 fL (78.0-98.0); Mean Platelet Volume 8.3 fL (7.4-10.4); Platelet Count 191 thou/uL (130-400); RBC Distribution Width 14.6 % (11.5-14.5); Red Blood Cell (RBC) Count 3.58 mill/uL (4.20-5.40); White Blood Cell (WBC) Count 14.9 thou/uL (4.8-10.8)
[2018-12-12 07:24] LABS: Anion Gap 13 mmol/L (10-20); BUN (Urea Nitrogen) 84 mg/dL (9.8-20.1); Calc. Creatinine Clearance 7 mL/min (70-130); Calcium 9.4 mg/dL (7.8-10.44); Carbon Dioxide 27 mmol/L (23-31); Chloride 118 mmol/L (98-107); Estimated GFR-MDRD 14; Glucose 106 mg/dL (83-110); Potassium 3.2 mmol/L (3.5-5.1); Sodium 155 mmol/L (136-145)
[2018-12-12] MEDS: Aztreonam 1 GM in Sodium Chloride 0.9% 100 ML IVPB SCH ×2 (08:03→20:25)
[2018-12-12] MEDS: Heparin 5,000 UNITS/ML VIAL SC SCH ×3 (08:07→20:27)
[2018-12-12] MEDS ORDERED: Prevnar 13-Val Conj/PF 0.5 ML SYRINGE IM ONE (09:00)
[2018-12-12] MEDS: NS 0.9% w/ 20 MEQ KCL 1,000 ML/1,000 ML BAG IV SCH (11:29)
[2018-12-12] MEDS: Sodium Chloride 0.9% 1,000 ML IV SCH (11:29)
--- NOTE | 2018-12-12 14:07 | PDOC.PN ---
- Subjective Encounter Start Date: 12/12/18 Encounter Start Time: 13:50 Subjective: f/u for suspected sepsis from urinary source on Aztreonam. Ucx not -: available. Remains awake and eating small amounts per nursing. -: No diarrhea or docucmented fever. - Objective Resuscitation Status - Order Detail: 12/11/18 22:44 Resuscitation Status Routine Resuscitation Status: DNAR: NO Resuscitation Discussed with: GRAND DAUGHTER ELDA Reviewed: Yes Vital Signs & Weight: Vital Signs (12 hours) Temp Pulse Resp BP Pulse Ox 12/12/18 08:00 94 L 12/12/18 07:52 97.5 F L 88 18 159/91 H 94 L Weight Admit Weight 82 lb 9.6 oz Weight 82 lb 9.6 oz I&O: 12/11/18 12/12/18 12/13/18 06:59 06:59 06:59 Intake Total 568 480 Output Total 350 Balance 218 480 Result Diagrams: 12/12/18 06:26 12/12/18 06:26 Additional Labs: Microbiology 12/01/18 10:20 Stool C. difficile GDH Antigen & Toxins - Final 11/29/18 00:10 Urine lincoln catheter Urine Culture - Final NO GROWTH AT 48 HOURS 11/13/18 14:00 Stool C. difficile GDH Antigen & Toxins - Final 11/13/18 14:00 Stool Clostridioides difficile Toxins A&B (PCR) - Final 12/11/18 18:20 Venous blood - Left Hand Blood Culture - Preliminary Specimen has been received and culture in progress. No Growth to date. 12/11/18 18:20 Venous blood - Left Arm Blood Culture - Preliminary Specimen has been received and culture in progress. No Growth to date. Laboratory Tests 11/29/18 11/29/18 11/29/18 05:35 15:01 15:01 WBC Hgb Neutrophils % Sodium 149 H Potassium 2.5 L* BUN Creatinine 1.69 H Lactic Acid Vitamin B12 Greater than 2000 H Folate 52.70 H Free T4 1.04 TSH 3rd Generation 4.9934 H 11/30/18 12/11/18 12/11/18 08:37 18:12 18:12 WBC 14.1 H Hgb 11.7 L Neutrophils % 80.9 H Sodium 148 H 153 H Potassium 3.5 BUN 27 H 88 H Creatinine 1.48 H 3.87 H Lactic Acid Vitamin B12 Folate Free T4 TSH 3rd Generation 12/11/18 12/11/18 12/12/18 18:12 22:00 06:26 WBC Hgb Neutrophils % 81.1 H Sodium Potassium BUN Creatinine Lactic Acid 2.9 H 1.1 Vitamin B12 Folate Free T4 TSH 3rd Generation Radiology Reviewed by me: Yes (PCXR - no acute process) Phys Exam - Physical Examination Constitutional: NAD oral mucosa dry HEENT: PERRLA, sclera anicteric, oral pharynx no lesions Neck: no nodes, no JVD, supple, full ROM Respiratory: no wheezing, no rales, no rhonchi, clear to auscultation bilateral Cardiovascular: RRR, no significant murmur, no rub, gallop Gastrointestinal: soft, non-tender, no distention, positive bowel sounds Musculoskeletal: no edema, pulses present aphasic(baseline) Neurological: normal sensation, moves all 4 limbs Skin: normal turgor, cap refill <2 seconds Dx/Plan (1) Sepsis Code(s): A41.9 - SEPSIS, UNSPECIFIED ORGANISM Status: Acute Comment: Suspected from UTI, await final Ucx results, continue Aztreonam, continue IVF's (2) Acute hypernatremia Code(s): E87.0 - HYPEROSMOLALITY AND HYPERNATREMIA Status: Acute Comment: Change D5W with KCL @ 100ml/h, serial Na+ (3) Acute renal failure superimposed on stage 3 chronic kidney disease Code(s): N17.9 - ACUTE KIDNEY FAILURE, UNSPECIFIED; N18.3 - CHRONIC KIDNEY DISEASE, STAGE 3 (MODERATE) Status: Acute Comment: Improved with IVF's, avoidance of nephrotoxic meds and limiting contrast exposure, serial creatinine (4) UTI (urinary tract infection) Status: Suspected Comment: Ucx pending, continue Aztreonam (5) Physical deconditioning Code(s): R53.81 - OTHER MALAISE Status: Chronic Comment: PT for mobilization , SNF options pending, fall risk precautions - Plan continue antibiotics, PT/OT, social worker delinquency prevention, out of bed/ambulate, DVT proph w/ SCDs Stable currently -: Continue Aztreonam -: Change IVF D5W secondary to hypernatremia -: PT evaluation for functional assessment -: AM lab: BMP, CBC * .
[2018-12-12] MEDS: hydrALAZINE 25 MG TAB PO SCH ×2 (16:25→20:25)
[2018-12-12] MEDS: Potassium Chloride 40 MEQ in Dextrose 5% in Water 1,000 ML IV SCH (16:54)
[2018-12-12] MEDS: Famotidine 20 MG TAB PO SCH (20:25)
[2018-12-12] MEDS: Donepezil HCl 5 MG TAB PO SCH (20:25)
[2018-12-12] MEDS: levETIRAcetam 500 mg/5 ml Oral Solution PO SCH (20:26)
[2018-12-12] MEDS: Labetalol 100 MG TAB PO SCH (20:26)
[2018-12-13] MEDS: Potassium Chloride 40 MEQ in Dextrose 5% in Water 1,000 ML IV SCH ×4 (04:51→22:36)
[2018-12-13 06:47] LABS: Band 15 % (5-11); Hemoglobin 9.7 g/dL (12.0-16.0); Lymphocytes 13 % (21-51); MDiff Complete? YES; Mean Corpuscular HGB CONC 30.9 g/dL (32.0-36.0); Mean Corpuscular Volume 97.1 fL (78.0-98.0); Mean Platelet Volume 7.9 fL (7.4-10.4); Monocytes 1 % (0-10); Neutrophil 71 % (42-75); Platelet Count 178 thou/uL (130-400); Platelet Morphology Comment Appears Adequate; RBC Distribution Width 14.7 % (11.5-14.5); Red Blood Cell (RBC) Count 3.24 mill/uL (4.20-5.40); White Blood Cell (WBC) Count 10.5 thou/uL (4.8-10.8)
[2018-12-13 06:48] LABS: Anion Gap 11 mmol/L (10-20); BUN (Urea Nitrogen) 70 mg/dL (9.8-20.1); Calc. Creatinine Clearance 10 mL/min (70-130); Calcium 9.1 mg/dL (7.8-10.44); Carbon Dioxide 24 mmol/L (23-31); Chloride 120 mmol/L (98-107); Estimated GFR-MDRD 21; Glucose 113 mg/dL (83-110); Potassium 3.6 mmol/L (3.5-5.1); Sodium 151 mmol/L (136-145)
[2018-12-13] MEDS: Saccharomyces boulardii 250 MG CAP PO SCH (08:34)
[2018-12-13] MEDS: Amiodarone 200 MG TAB PO SCH (08:34)
[2018-12-13] MEDS: Aspirin 325 MG TAB PO SCH (08:34)
[2018-12-13] MEDS: Famotidine 20 MG TAB PO SCH ×2 (08:34→20:42)
[2018-12-13] MEDS: Cyanocobalamin (Vitamin B-12) 1,000 MCG TAB PO SCH (08:34)
[2018-12-13] MEDS: hydrALAZINE 25 MG TAB PO SCH ×3 (08:34→20:40)
[2018-12-13] MEDS: Heparin 5,000 UNITS/ML VIAL SC SCH ×3 (08:35→20:43)
[2018-12-13] MEDS: Folic Acid 1 MG TAB PO SCH (08:35)
[2018-12-13] MEDS: Labetalol 100 MG TAB PO SCH ×2 (09:40→20:40)
[2018-12-13] MEDS: levETIRAcetam 500 mg/5 ml Oral Solution PO SCH ×2 (09:40→20:41)
[2018-12-13] MEDS: Aztreonam 1 GM in Sodium Chloride 0.9% 100 ML IVPB SCH ×2 (09:40→20:38)
--- NOTE | 2018-12-13 15:04 | PDOC.PN ---
- Subjective Encounter Start Date: 12/13/18 Encounter Start Time: 14:45 Subjective: f/u for suspected sepsis due to UTI and dehydration currently on IVF 's -: and Aztreonam. No new issues per nursing. - Objective Resuscitation Status - Order Detail: 12/11/18 22:44 Resuscitation Status Routine Resuscitation Status: DNAR: NO Resuscitation Discussed with: GRAND DAUGHTER EDLA Reviewed: Yes Vital Signs & Weight: Vital Signs (12 hours) Temp Pulse Resp BP BP Pulse Ox 12/13/18 14:25 78 112/60 12/13/18 11:39 97.5 F L 78 16 116/60 95 12/13/18 09:40 80 157/66 H 12/13/18 08:34 80 157/66 H 12/13/18 08:30 96 12/13/18 07:55 97.7 F 80 16 157/66 H 96 12/13/18 04:00 97.4 F L 82 18 148/68 H 98 Weight Admit Weight 82 lb 9.6 oz Weight 82 lb 9.6 oz I&O: 12/12/18 12/13/18 12/14/18 06:59 06:59 06:59 Intake Total 568 820 Output Total 350 250 Balance 218 570 Result Diagrams: 12/13/18 06:14 12/13/18 06:14 Additional Labs: Microbiology 12/01/18 10:20 Stool C. difficile GDH Antigen & Toxins - Final 11/29/18 00:10 Urine lincoln catheter Urine Culture - Final NO GROWTH AT 48 HOURS 11/13/18 14:00 Stool C. difficile GDH Antigen & Toxins - Final 11/13/18 14:00 Stool Clostridioides difficile Toxins A&B (PCR) - Final 12/11/18 18:20 Venous blood - Left Hand Blood Culture - Preliminary Specimen has been received and culture in progress. No Growth to date. 12/11/18 18:20 Venous blood - Left Arm Blood Culture - Preliminary Specimen has been received and culture in progress. No Growth to date. Laboratory Tests 11/29/18 11/29/18 11/29/18 05:35 15:01 15:01 WBC Hgb Neutrophils % Band Neuts % (Manual) Sodium 149 H Potassium 2.5 L* BUN Creatinine 1.69 H Lactic Acid Vitamin B12 Greater than 2000 H Folate 52.70 H Free T4 1.04 TSH 3rd Generation 4.9934 H 11/30/18 12/11/18 12/11/18 08:37 18:12 18:12 WBC 14.1 H Hgb 11.7 L Neutrophils % 80.9 H Band Neuts % (Manual) Sodium 148 H 153 H Potassium 3.5 BUN 27 H 88 H Creatinine 1.48 H 3.87 H Lactic Acid Vitamin B12 Folate Free T4 TSH 3rd Generation 12/11/18 12/11/18 12/12/18 18:12 22:00 06:26 WBC Hgb Neutrophils % Band Neuts % (Manual) Sodium 155 H Potassium 3.2 L BUN 84 H Creatinine 3.14 H Lactic Acid 2.9 H 1.1 Vitamin B12 Folate Free T4 TSH 3rd Generation 12/12/18 12/13/18 06:26 06:14 WBC 14.9 H Hgb 10.5 L Neutrophils % 81.1 H Band Neuts % (Manual) 15 H Sodium Potassium BUN Creatinine Lactic Acid Vitamin B12 Folate Free T4 TSH 3rd Generation Microbiology 12/11/18 18:20 Venous blood - Left Hand Blood Culture - Preliminary Specimen has been received and culture in progress. No Growth to date. 12/11/18 18:20 Venous blood - Left Hand Blood Culture - Preliminary NO GROWTH AT 48 HOURS 12/11/18 18:20 Venous blood - Left Arm Blood Culture - Preliminary Specimen has been received and culture in progress. No Growth to date. 12/11/18 18:20 Venous blood - Left Arm Blood Culture - Preliminary NO GROWTH AT 48 HOURS 12/11/18 17:50 Urine clean catch Urine Culture - Preliminary Presumptive Escherichia coli Phys Exam - Physical Examination Constitutional: NAD HEENT: PERRLA, sclera anicteric, oral pharynx no lesions Neck: no nodes, no JVD, supple, full ROM Respiratory: no wheezing, no rales, no rhonchi, clear to auscultation bilateral Cardiovascular: RRR, no significant murmur, no rub, gallop Gastrointestinal: soft, non-tender, no distention, positive bowel sounds Musculoskeletal: no edema, pulses present Neurological: normal sensation, moves all 4 limbs A x O x 1 Skin: normal turgor, cap refill <2 seconds Dx/Plan (1) Sepsis Code(s): A41.9 - SEPSIS, UNSPECIFIED ORGANISM Status: Acute Comment: Suspected from UTI, await final Ucx results, continue Aztreonam, continue IVF's (2) Acute hypernatremia Code(s): E87.0 - HYPEROSMOLALITY AND HYPERNATREMIA Status: Acute Comment: Change D5W with KCL @ 100ml/h, serial Na+, improving (3) Acute renal failure superimposed on stage 3 chronic kidney disease Code(s): N17.9 - ACUTE KIDNEY FAILURE, UNSPECIFIED; N18.3 - CHRONIC KIDNEY DISEASE, STAGE 3 (MODERATE) Status: Acute Comment: Improved with IVF's, avoidance of nephrotoxic meds and limiting contrast exposure, serial creatinine (4) UTI (urinary tract infection) Status: Suspected Comment: Ucx with >100K E. coli, continue Aztreonam pending final sensitivities (5) Physical deconditioning Code(s): R53.81 - OTHER MALAISE Status: Chronic Comment: PT for mobilization , SNF options pending, fall risk precautions - Plan continue antibiotics, PT/OT, social media developer, out of bed/ambulate, DVT proph w/ SCDs Stable currently -: Continue IVF's -: Continue Aztreonam pending final Ucx sensitivities -: CM for dispo options -: AM lab: BMP, CBC * .
--- NOTE | 2018-12-13 15:14 | PQF ---
COOPER OROELOY DO [id number] CLINICAL DOCUMENTATION IMPROVEMENT CLARIFICATION FORM: ICD-10 Updated PLEASE DO AN ADDENDUM TO THE PROGRESS NOTE WITH ANY DOCUMENTATION UPDATES OR ADDITIONS AND CARRY THROUGH TO DC SUMMARY. THANK YOU. Date: 12/13/2018 ATTN: DR.C RIVERA Please exercise your independent, professional judgment in responding to the clarification form. Clinical indicators are provided on the bottom of this form for your review. Please check appropriate box(s): [ x ] Protein Calorie Malnutrition: [ ] Mild [ x ] Moderate [ ] Severe [ ] Cachexia [ ] Other diagnosis [ ] Unable to determine In addition, please specify: Present on Admission (POA): [ x ] Yes [ ] No [ ] Unable to determine CLINICAL INDICATORS - SIGNS / SYMPTOMS / LABS RECORDED BMI 14.6 DIETARY ASSESSMENT: PHYSICAL FINDINGS: PT HAS SEVERE MUSCLE WASTING TO CLAVICLE, INTEROSSEOUS MUSCLES; SHE IS THIN AND HAS LIMITED FAT STORE MALNUTRITION: 5.7% WT LOSS OVER 1 MONTH, SEVERE MUSCLE WASTING NOTED RISK: DEMENTIA SHELTER PATIENT ADVANCED AGE TREATMENTS: DIETARY COUNSELING MONITORING DAILY MEAL CONSUMPTION THANK YOU! KHLOE (This form is maintained as a part of the permanent medical record) 2014 [employer] All Rights Reserved [email or web address] [phone] MTDD
[2018-12-13] MEDS: Donepezil HCl 5 MG TAB PO SCH (20:40)
[2018-12-14] MEDS: Potassium Chloride 40 MEQ in Dextrose 5% in Water 1,000 ML IV SCH ×2 (02:53→15:48)
[2018-12-14 07:25] LABS: Hemoglobin 8.5 g/dL (12.0-16.0); Mean Corpuscular HGB CONC 31.7 g/dL (32.0-36.0); Mean Corpuscular Hemoglobin 29.8 pg (27.0-31.0); Mean Corpuscular Volume 94.1 fL (78.0-98.0); Mean Platelet Volume 8.2 fL (7.4-10.4); Platelet Count 169 thou/uL (130-400); RBC Distribution Width 14.8 % (11.5-14.5); Red Blood Cell (RBC) Count 2.85 mill/uL (4.20-5.40); White Blood Cell (WBC) Count 7.4 thou/uL (4.8-10.8)
[2018-12-14 07:32] LABS: Anion Gap 10 mmol/L (10-20); BUN (Urea Nitrogen) 64 mg/dL (9.8-20.1); Calc. Creatinine Clearance 12 mL/min (70-130); Calcium 8.7 mg/dL (7.8-10.44); Carbon Dioxide 21 mmol/L (23-31); Chloride 117 mmol/L (98-107); Estimated GFR-MDRD 25; Glucose 115 mg/dL (83-110); Potassium 4.5 mmol/L (3.5-5.1); Sodium 143 mmol/L (136-145)
[2018-12-14] MEDS: levETIRAcetam 500 mg/5 ml Oral Solution PO SCH ×2 (08:31→19:32)
[2018-12-14] MEDS: Cyanocobalamin (Vitamin B-12) 1,000 MCG TAB PO SCH (08:32)
[2018-12-14] MEDS: Famotidine 20 MG TAB PO SCH ×2 (08:32→19:31)
[2018-12-14] MEDS: Folic Acid 1 MG TAB PO SCH (08:32)
[2018-12-14] MEDS: Amiodarone 200 MG TAB PO SCH (08:32)
[2018-12-14] MEDS: Labetalol 100 MG TAB PO SCH ×2 (08:33→19:30)
[2018-12-14] MEDS: Aspirin 325 MG TAB PO SCH (08:33)
[2018-12-14] MEDS: Saccharomyces boulardii 250 MG CAP PO SCH (08:33)
[2018-12-14] MEDS: hydrALAZINE 25 MG TAB PO SCH ×3 (08:36→19:30)
[2018-12-14] MEDS: Heparin 5,000 UNITS/ML VIAL SC SCH ×2 (08:36→19:31)
[2018-12-14] MEDS: Aztreonam 1 GM in Sodium Chloride 0.9% 100 ML IVPB SCH (09:18)
[2018-12-14 09:35] LABS: Band 1 % (5-11); Hypochromia SLIGHT = 6-15 cells (100X) (0-5/hpf); Lymphocytes 22 % (21-51); MDiff Complete? YES; Microcytosis MODERATE=15-30 cells (100X) (0-5/hpf); Monocytes 4 % (0-10); Neutrophil 73 % (42-75); Platelet Morphology Comment Appears Adequate
--- NOTE | 2018-12-14 16:21 | PDOC.PN ---
- Subjective Encounter Start Date: 12/14/18 Encounter Start Time: 16:19 Subjective: Recently discharge to SNF after treatment for AMS from UTI/ constipation/C d -: Now readmitted with decreased responsivenes, hypotension. -: Still non conversational. Has baseline dementia - Objective Resuscitation Status - Order Detail: 12/11/18 22:44 Resuscitation Status Routine Resuscitation Status: DNAR: NO Resuscitation Discussed with: GRAND DAUGHTER Vital Signs & Weight: Vital Signs (12 hours) Temp Pulse Resp BP BP Pulse Ox 12/14/18 15:33 66 149/72 H 12/14/18 15:26 97.5 F L 66 18 149/72 H 95 12/14/18 11:30 97.7 F 71 18 126/62 97 12/14/18 08:36 72 162/73 H 12/14/18 08:33 72 145/69 H 12/14/18 08:00 97 12/14/18 07:20 97.8 F 72 14 145/79 H 98 Weight Admit Weight 82 lb 9.6 oz Weight 82 lb 9.6 oz I&O: 12/13/18 12/14/18 12/15/18 06:59 06:59 06:59 Intake Total 820 2290 Output Total 250 Balance 570 2290 Result Diagrams: 12/14/18 06:50 12/14/18 06:50 Phys Exam - Physical Examination sleeping but arousable though non conversational HEENT: moist MMs Neck: no JVD, supple Respiratory: no rhonchi fair air entry bilaterally. Cardiovascular: RRR Gastrointestinal: soft, non-tender, no distention, positive bowel sounds Musculoskeletal: no edema, pulses present Neurological: moves all 4 limbs sleeping but arousabe. Non conversational Dx/Plan (1) Protein-calorie malnutrition, moderate Code(s): E44.0 - MODERATE PROTEIN-CALORIE MALNUTRITION Status: Acute (2) SAAD (acute kidney injury) Code(s): N17.9 - ACUTE KIDNEY FAILURE, UNSPECIFIED Status: Acute (3) Dementia Code(s): F03.90 - UNSPECIFIED DEMENTIA WITHOUT BEHAVIORAL DISTURBANCE Status: Acute (4) Dehydration with hypernatremia Code(s): E87.0 - HYPEROSMOLALITY AND HYPERNATREMIA Status: Acute (5) Acute hypernatremia Code(s): E87.0 - HYPEROSMOLALITY AND HYPERNATREMIA Status: Acute Comment: Change D5W with KCL @ 100ml/h, serial Na+, improving (6) UTI (urinary tract infection) Status: Suspected Comment: Ucx with >100K E. coli, continue Aztreonam pending final sensitivities (7) Sepsis Code(s): A41.9 - SEPSIS, UNSPECIFIED ORGANISM Status: Acute Comment: Suspected from UTI, await final Ucx results, continue Aztreonam, continue IVF's (8) Acute encephalopathy Code(s): G93.40 - ENCEPHALOPATHY, UNSPECIFIED Status: Chronic Comment: likely related to depression worsened by new medications, clonidine discontinued , stopping Amlodipine as well as has history of severe vertigo with that medication and also causes constipation (9) Hypertension Code(s): I10 - ESSENTIAL (PRIMARY) HYPERTENSION Status: Chronic Qualifiers: Hypertension type: essential hypertension Qualified Code(s): I10 - Essential (primary) hypertension Comment: (10) Physical deconditioning Code(s): R53.81 - OTHER MALAISE Status: Chronic Comment: PT for mobilization , SNF options pending, fall risk precautions - Plan Continue antibiotic. Substitute aztreonam with Rocephin given culture resul -: Continue IVF. Monitor electrolytes and renal function -: Diet as tolerated. Start oral supplementation -: Increase activity as tolerated. * .
[2018-12-14] MEDS: cefTRIAXone\\ROCEPHIN 1 GM in Sodium Chloride 0.9% 100 ML IVPB SCH (17:09)
[2018-12-14] MEDS: Donepezil HCl 5 MG TAB PO SCH (19:31)
[2018-12-15] MEDS: Potassium Chloride 40 MEQ in Dextrose 5% in Water 1,000 ML IV SCH ×2 (04:00→15:16)
[2018-12-15] MEDS: Saccharomyces boulardii 250 MG CAP PO SCH (08:25)
[2018-12-15] MEDS: Aspirin 325 MG TAB PO SCH (08:25)
[2018-12-15] MEDS: Heparin 5,000 UNITS/ML VIAL SC SCH ×2 (08:25→20:36)
[2018-12-15] MEDS: Folic Acid 1 MG TAB PO SCH (08:25)
[2018-12-15] MEDS: Famotidine 20 MG TAB PO SCH ×2 (08:27→20:35)
[2018-12-15] MEDS: Cyanocobalamin (Vitamin B-12) 1,000 MCG TAB PO SCH (08:27)
[2018-12-15] MEDS: Amiodarone 200 MG TAB PO SCH (08:28)
[2018-12-15] MEDS: levETIRAcetam 500 mg/5 ml Oral Solution PO SCH ×2 (08:28→20:35)
[2018-12-15] MEDS: hydrALAZINE 25 MG TAB PO SCH ×3 (08:30→20:33)
[2018-12-15] MEDS: Labetalol 100 MG TAB PO SCH ×2 (08:31→20:34)
[2018-12-15] MEDS: cefTRIAXone\\ROCEPHIN 1 GM in Sodium Chloride 0.9% 100 ML IVPB SCH (17:09)
--- NOTE | 2018-12-15 17:56 | PDOC.PN ---
- Subjective Encounter Start Date: 12/15/18 Encounter Start Time: 17:54 Subjective: More awake today but still not verbalizing much. -: Tolerating oral intake more. - Objective Resuscitation Status - Order Detail: 12/11/18 22:44 Resuscitation Status Routine Resuscitation Status: DNAR: NO Resuscitation Discussed with: GRAND DAUGHTER Vital Signs & Weight: Vital Signs (12 hours) Temp Pulse Resp BP BP Pulse Ox 12/15/18 15:22 97.6 F 83 16 168/67 H 97 12/15/18 15:19 83 168/67 H 12/15/18 12:00 97.7 F 65 17 162/72 H 94 L 12/15/18 08:31 73 159/78 H 12/15/18 08:30 73 159/78 H 12/15/18 08:00 99 12/15/18 07:45 97.4 F L 73 16 133/68 99 Weight Admit Weight 82 lb 9.6 oz Weight 82 lb 9.6 oz I&O: 12/14/18 12/15/18 12/16/18 06:59 06:59 06:59 Intake Total 2290 2350 1313 Balance 2290 2350 1313 Result Diagrams: 12/14/18 06:50 12/14/18 06:50 Phys Exam - Physical Examination Thin elderly female in no distresss. Afebrile HEENT: PERRLA, moist MMs Neck: no JVD, supple fair air entry with some transmitted sound Cardiovascular: RRR Gastrointestinal: soft, non-tender, no distention, positive bowel sounds Musculoskeletal: no edema Neurological: non-focal moves all limbsbut weakly Oriented to person at least Dx/Plan (1) Protein-calorie malnutrition, moderate Code(s): E44.0 - MODERATE PROTEIN-CALORIE MALNUTRITION Status: Acute (2) SAAD (acute kidney injury) Code(s): N17.9 - ACUTE KIDNEY FAILURE, UNSPECIFIED Status: Acute Comment: Improving with IVF (3) Dementia Code(s): F03.90 - UNSPECIFIED DEMENTIA WITHOUT BEHAVIORAL DISTURBANCE Status: Acute (4) Dehydration with hypernatremia Code(s): E87.0 - HYPEROSMOLALITY AND HYPERNATREMIA Status: Acute Comment: Improved. (5) Acute hypernatremia Code(s): E87.0 - HYPEROSMOLALITY AND HYPERNATREMIA Status: Acute (6) UTI (urinary tract infection) Status: Suspected (7) Sepsis Code(s): A41.9 - SEPSIS, UNSPECIFIED ORGANISM Status: Acute Comment: Due to cpomplicated UTI (8) Acute encephalopathy Code(s): G93.40 - ENCEPHALOPATHY, UNSPECIFIED Status: Chronic Comment: likely related to depression worsened by new medications, clonidine discontinued , stopping Amlodipine as well as has history of severe vertigo with that medication and also causes constipation (9) Hypertension Code(s): I10 - ESSENTIAL (PRIMARY) HYPERTENSION Status: Chronic Qualifiers: Hypertension type: essential hypertension Qualified Code(s): I10 - Essential (primary) hypertension Comment: (10) Physical deconditioning Code(s): R53.81 - OTHER MALAISE Status: Chronic Comment: PT for mobilization , SNF options pending, fall risk precautions - Plan Continue antibiotics and IVF. -: Monitor electrolytes and renal function. -: Start oral supplement -: Oral intake as tolerated. -: Activity as tolerasted. Consult palliative care * .
[2018-12-15 18:20] LABS: Anion Gap 10 mmol/L (10-20); BUN (Urea Nitrogen) 42 mg/dL (9.8-20.1); Calc. Creatinine Clearance 16 mL/min (70-130); Carbon Dioxide 21 mmol/L (23-31); Chloride 113 mmol/L (98-107); Estimated GFR-MDRD 35; Glucose 74 mg/dL (83-110); Potassium 5.1 mmol/L (3.5-5.1); Sodium 139 mmol/L (136-145)
[2018-12-15] MEDS: Donepezil HCl 5 MG TAB PO SCH (20:35)
[2018-12-15] MEDS: Melatonin 3 MG TAB PO PRN (20:35)
[2018-12-16] MEDS: Potassium Chloride 40 MEQ in Dextrose 5% in Water 1,000 ML IV SCH ×2 (00:27→13:46)
[2018-12-16 06:30] LABS: #Eosinphils 0.1 thou/uL (0.0-0.7); #Lymphocytes 0.9 thou/uL (1.20-3.40); #Monocytes 0.6 thou/uL (0.11-0.59); #Neutrophils 5.4 thou/uL (1.40-6.50); %Basophils 0.5 % (0.0-1.0); %Eosinophils 1.2 % (0.0-10.0); %Lymphocytes 12.4 % (21.0-51.0); Hemoglobin 9.8 g/dL (12.0-16.0); Mean Corpuscular HGB CONC 31.5 g/dL (32.0-36.0); Mean Corpuscular Hemoglobin 28.6 pg (27.0-31.0); Mean Corpuscular Volume 90.7 fL (78.0-98.0); Mean Platelet Volume 8.4 fL (7.4-10.4); Platelet Count 150 thou/uL (130-400); RBC Distribution Width 14.5 % (11.5-14.5); Red Blood Cell (RBC) Count 3.45 mill/uL (4.20-5.40)
[2018-12-16 06:42] LABS: Anion Gap 11 mmol/L (10-20); BUN (Urea Nitrogen) 38 mg/dL (9.8-20.1); Calc. Creatinine Clearance 16 mL/min (70-130); Calcium 8.9 mg/dL (7.8-10.44); Carbon Dioxide 19 mmol/L (23-31); Chloride 112 mmol/L (98-107); Estimated GFR-MDRD 36; Glucose 75 mg/dL (83-110); Potassium 4.5 mmol/L (3.5-5.1); Sodium 137 mmol/L (136-145)
[2018-12-16] MEDS: Labetalol 100 MG TAB PO SCH ×2 (09:52→20:48)
[2018-12-16] MEDS: levETIRAcetam 500 mg/5 ml Oral Solution PO SCH ×2 (09:53→20:49)
[2018-12-16] MEDS: Saccharomyces boulardii 250 MG CAP PO SCH (09:54)
[2018-12-16] MEDS: Amiodarone 200 MG TAB PO SCH (09:54)
[2018-12-16] MEDS: Folic Acid 1 MG TAB PO SCH (09:54)
[2018-12-16] MEDS: hydrALAZINE 25 MG TAB PO SCH ×3 (09:55→20:49)
[2018-12-16] MEDS: Famotidine 20 MG TAB PO SCH ×2 (09:55→20:49)
[2018-12-16] MEDS: Aspirin 325 MG TAB PO SCH (09:55)
[2018-12-16] MEDS: Cyanocobalamin (Vitamin B-12) 1,000 MCG TAB PO SCH (09:55)
[2018-12-16] MEDS: Heparin 5,000 UNITS/ML VIAL SC SCH ×2 (09:58→20:51)
--- NOTE | 2018-12-16 14:28 | PDOC.PN ---
- Subjective Encounter Start Date: 12/16/18 Encounter Start Time: 14:26 Subjective: No new problem. -: Oral intake remained poor -: very weak. - Objective Resuscitation Status - Order Detail: 12/11/18 22:44 Resuscitation Status Routine Resuscitation Status: DNAR: NO Resuscitation Discussed with: GRAND DAUGHTER Vital Signs & Weight: Vital Signs (12 hours) Temp Pulse Resp BP BP Pulse Ox 12/16/18 13:59 87 133/68 12/16/18 09:55 84 139/69 12/16/18 09:52 84 129/98 H 12/16/18 09:45 97.9 F 78 18 139/82 95 Weight Admit Weight 82 lb 9.6 oz Weight 82 lb 9.6 oz I&O: 12/15/18 12/16/18 12/17/18 06:59 06:59 06:59 Intake Total 2350 1413 Output Total 200 Balance 2350 1213 Result Diagrams: 12/16/18 06:18 12/16/18 06:18 Phys Exam - Physical Examination cachetic elderly female, fatigued. HEENT: sclera anicteric, oral pharynx no lesions Neck: supple fair air entry bilaterally with some transmitted sound Cardiovascular: RRR Gastrointestinal: soft, non-tender, no distention, positive bowel sounds Musculoskeletal: no edema Neurological: moves all 4 limbs awake but barely speaking. Dx/Plan (1) SAAD (acute kidney injury) Code(s): N17.9 - ACUTE KIDNEY FAILURE, UNSPECIFIED Status: Acute Comment: Improving with IVF (2) Dementia Code(s): F03.90 - UNSPECIFIED DEMENTIA WITHOUT BEHAVIORAL DISTURBANCE Status: Acute (3) Dehydration with hypernatremia Code(s): E87.0 - HYPEROSMOLALITY AND HYPERNATREMIA Status: Acute Comment: Improved. (4) Acute hypernatremia Code(s): E87.0 - HYPEROSMOLALITY AND HYPERNATREMIA Status: Acute (5) UTI (urinary tract infection) Status: Suspected (6) Sepsis Code(s): A41.9 - SEPSIS, UNSPECIFIED ORGANISM Status: Acute Comment: Due to cpomplicated UTI (7) Acute encephalopathy Code(s): G93.40 - ENCEPHALOPATHY, UNSPECIFIED Status: Chronic Comment: likely related to depression worsened by new medications, clonidine discontinued , stopping Amlodipine as well as has history of severe vertigo with that medication and also causes constipation (8) Hypertension Code(s): I10 - ESSENTIAL (PRIMARY) HYPERTENSION Status: Chronic Qualifiers: Hypertension type: essential hypertension Qualified Code(s): I10 - Essential (primary) hypertension Comment: (9) Physical deconditioning Code(s): R53.81 - OTHER MALAISE Status: Chronic Comment: PT for mobilization , SNF options pending, fall risk precautions (10) Failure to thrive in adult Status: Acute (11) Protein-calorie malnutrition, severe Code(s): E43 - UNSPECIFIED SEVERE PROTEIN-CALORIE MALNUTRITION Status: Chronic - Plan Restart IVF due to poor oral intake. Monitor renal function -: Continue IV antibiotics. -: Consult palliative care. Patient should either be comfort only or get a PEG -: Continue supportive care * .
[2018-12-16] MEDS: Dextrose 5%-Lactated Ringers 1,000 ML IV SCH (16:03)
[2018-12-16] MEDS: cefTRIAXone\\ROCEPHIN 1 GM in Sodium Chloride 0.9% 100 ML IVPB SCH (16:03)
[2018-12-16] MEDS: Melatonin 3 MG TAB PO PRN (20:49)
[2018-12-16] MEDS: Donepezil HCl 5 MG TAB PO SCH (20:49)
[2018-12-17] MEDS: Dextrose 5%-Lactated Ringers 1,000 ML IV SCH ×3 (00:01→19:38)
[2018-12-17] MEDS: hydrALAZINE 25 MG TAB PO SCH ×3 (09:25→20:31)
[2018-12-17] MEDS: Labetalol 100 MG TAB PO SCH ×2 (09:26→20:30)
[2018-12-17] MEDS: Famotidine 20 MG TAB PO SCH ×2 (09:27→20:32)
[2018-12-17] MEDS: levETIRAcetam 500 mg/5 ml Oral Solution PO SCH ×2 (09:28→20:30)
[2018-12-17] MEDS: Saccharomyces boulardii 250 MG CAP PO SCH (09:28)
[2018-12-17] MEDS: Aspirin 325 MG TAB PO SCH (09:29)
[2018-12-17] MEDS: Amiodarone 200 MG TAB PO SCH (09:29)
[2018-12-17] MEDS: Folic Acid 1 MG TAB PO SCH (09:29)
[2018-12-17] MEDS: Cyanocobalamin (Vitamin B-12) 1,000 MCG TAB PO SCH (09:30)
[2018-12-17] MEDS: Heparin 5,000 UNITS/ML VIAL SC SCH ×2 (09:30→20:33)
--- NOTE | 2018-12-17 15:13 | PDOC.PN ---
- Subjective Encounter Start Date: 12/17/18 Encounter Start Time: 15:11 Subjective: Seen. No new problem. Non conversational - Objective Resuscitation Status - Order Detail: 12/11/18 22:44 Resuscitation Status Routine Resuscitation Status: DNAR: NO Resuscitation Discussed with: GRAND DAUGHTER Vital Signs & Weight: Vital Signs (12 hours) Temp Pulse Resp BP BP Pulse Ox 12/17/18 09:26 73 167/88 H 12/17/18 09:25 73 167/88 H 12/17/18 08:00 97.5 F L 73 16 167/68 H 95 Weight Admit Weight 82 lb 9.6 oz Weight 82 lb 9.6 oz I&O: 12/16/18 12/17/18 12/18/18 06:59 06:59 06:59 Intake Total 1413 850 Output Total 200 200 Balance 1213 650 Result Diagrams: 12/16/18 06:18 12/16/18 06:18 Phys Exam - Physical Examination cachetic and chronically ill looking HEENT: PERRLA Neck: supple Respiratory: no rhonchi fair air entry bilaterally Cardiovascular: RRR Gastrointestinal: soft, no distention, positive bowel sounds Musculoskeletal: no edema aake but non verbal. carinal nerves 2-12 are intact Dx/Plan (1) SAAD (acute kidney injury) Code(s): N17.9 - ACUTE KIDNEY FAILURE, UNSPECIFIED Status: Acute Comment: Improving with IVF (2) Dementia Code(s): F03.90 - UNSPECIFIED DEMENTIA WITHOUT BEHAVIORAL DISTURBANCE Status: Acute (3) Dehydration with hypernatremia Code(s): E87.0 - HYPEROSMOLALITY AND HYPERNATREMIA Status: Acute Comment: Improved. (4) Acute hypernatremia Code(s): E87.0 - HYPEROSMOLALITY AND HYPERNATREMIA Status: Acute (5) UTI (urinary tract infection) Status: Suspected Comment: culture grew E coli (6) Sepsis Code(s): A41.9 - SEPSIS, UNSPECIFIED ORGANISM Status: Acute Comment: Due to cpomplicated UTI (7) Acute encephalopathy Code(s): G93.40 - ENCEPHALOPATHY, UNSPECIFIED Status: Chronic Comment: likely related to depression worsened by new medications, clonidine discontinued , stopping Amlodipine as well as has history of severe vertigo with that medication and also causes constipation (8) Hypertension Code(s): I10 - ESSENTIAL (PRIMARY) HYPERTENSION Status: Chronic Qualifiers: Hypertension type: essential hypertension Qualified Code(s): I10 - Essential (primary) hypertension Comment: (9) Physical deconditioning Code(s): R53.81 - OTHER MALAISE Status: Chronic Comment: PT for mobilization , SNF options pending, fall risk precautions (10) Failure to thrive in adult Status: Acute (11) Protein-calorie malnutrition, severe Code(s): E43 - UNSPECIFIED SEVERE PROTEIN-CALORIE MALNUTRITION Status: Chronic - Plan Continue IVF and antibiotics -: For PEG tube placement. -: Consulted GI for PEG -: Discussed with patient daughter and grand daughter. they want PEG tube * .
[2018-12-17] MEDS: cefTRIAXone\\ROCEPHIN 1 GM in Sodium Chloride 0.9% 100 ML IVPB SCH (16:02)
--- NOTE | 2018-12-17 19:00 | CON ---
DATE OF CONSULTATION: 12/17/2018 REASON FOR CONSULTATION: Moderate protein-calorie malnutrition. CONSULTING PHYSICIAN: Yonathan Storm Obi, MD HISTORY OF PRESENT ILLNESS: The patient is an 88-year-old female with past medical history of osteoarthritis, renal mass, recurrent Clostridium difficile infections, vertigo, GERD, hyperlipidemia, hypertension, congestive heart failure, and a cerebrovascular accident in October 2017, who was initially admitted for altered mental status. The patient was unable to contribute any meaningful information to our interview, so all the information was obtained from nursing staff, family, and chart review. The patient was recently discharged from the hospital after being treated for Clostridium difficile colitis successfully with antibiotic therapy and was ultimately discharged to [facility]. However, while in the jail, she was again noted to have an elevated white blood cell count with strong concern for recurrent urinary tract infection. She was subsequently readmitted to the hospital here and noted to have hypotension, for which she responded well to IV fluid administration and antibiotics. However, during the course of this hospitalization, she has been fairly minimally responsive to verbal stimuli and has not been interactive to the point where she has not been able to consume larger portions of her meals. Per nursing staff over the last 24 to 48 hours, she has only been able to eat approximately 10% to 25% of the meals given to her. However, per nursing staff, she has not had any evidence of nausea, vomiting, abdominal pain, dysphagia, odynophagia, diarrhea, or constipation. REVIEW OF SYSTEMS: A 10-category review of systems could not be obtained due to the patient's altered mental status. PAST MEDICAL HISTORY: As per HPI. PAST SURGICAL HISTORY: Hysterectomy, spine surgery, and tumor removal from her neck. FAMILY HISTORY: No evidence of GI malignancy seen in the chart. SOCIAL HISTORY: Per family, denies any alcohol, tobacco, or illicit drug use. OUTPATIENT MEDICATIONS: Reviewed. ALLERGIES: ACETAMINOPHEN, AMOXICILLIN, CIPROFLOXACIN, CLARITHROMYCIN, HYDROCODONE, NITROFURANTOIN, RIVASTIGMINE, AND CEFEPIME. PHYSICAL EXAMINATION: VITAL SIGNS: Temperature 97.5, pulse 78, blood pressure 130/61, respiratory rate 16, and saturating 95% on room air. GENERAL: The patient was lying in bed, in no acute distress. Alert to verbal prompting, but did not contribute any verbal responses to questioning. HEENT: Normocephalic, atraumatic. No JVD or scleral icterus noted. CARDIOVASCULAR: Regular rate and rhythm with a 3/6 systolic murmur best heard at the left lower sternal border. RESPIRATORY: Clear to auscultation bilaterally, but with diminished inspiratory effort. ABDOMEN: Normoactive bowel sounds. Soft, nontender, and nondistended. EXTREMITIES: Cachectic in appearance. No cyanosis, clubbing, or edema. LABORATORY DATA: CBC with a white blood cell count of 7, hemoglobin 9.8, hematocrit 31.2, platelets 150. Chemistry with sodium of 137, potassium 4.5, chloride 112, CO2 of 19, BUN 38, creatinine 1.37, glucose 75. IMAGING DATA: Chest x-ray obtained on December 11, 2018 showed no evidence for acute cardiopulmonary process with no focal consolidation, pleural fluid, or pneumothorax evident. ASSESSMENT AND PLAN: The patient is an 88-year-old female with past medical history of osteoarthritis, renal mass, recurrent C difficile infection, vertigo, gastroesophageal reflux disease, hyperlipidemia, hypertension, congestive heart failure, and cerebrovascular accident, presenting with decreased oral intake and moderate protein-calorie malnutrition. The patient has had a complicated history with multiple hospitalizations over the last 3 to 4 months with recurrent urinary tract infections, Clostridium difficile colitis, and as a result, altered mental status on both of these occasions. However, during the course of this hospitalization, she was noted to have urinary tract infection and has been treated adequately for this particular disease process. However, at this time, her mental status has not improved and she still only tolerates approximately 10% to 25% of her meals with inadequate oral intake at this time. There is also a diagnosis of possible dementia in her chart, for which she is on donepezil as an outpatient, but per family, she had been taking this because "it would prevent against the formation of dementia." At this time, it is unclear as to whether her altered mental status is due to recurrent infection, existing dementia, or a subsequent cerebrovascular accident that she sustained during the course of the last month or two with stepwise decrease in her functionality. However, with her decreased oral intake, she is at risk for malnutrition. The only problem is that placing percutaneous gastrostomy tube for nutritional purposes in this patient population, especially dementia is controversial as the studies have shown that it did not increase functional status nor does it increase longevity. After a long conversation with the patient's family and medical power of customer service representative teacher, I would recommend attempting to maximize her nutrition and nutritional intake over the next 24 to 48 hours to see if she responds with continued treatment of her infection. I also advised the patient's family to participate in her feeds as much as possible to provide a familiar face in order to provide some grounding stimuli to maintain adequate sensorium. RECOMMENDATIONS: 1. Would attempt to optimize nutritional intake with encouraged feeds by family and by nursing staff. 2. Continue to monitor for any signs of dysphagia and/or odynophagia. 3. We will hold off on PEG tube at this time given the patient's mental status and possibility of improvement with adequate treatment of her other medical comorbidities. 4. We will continue to follow. Please call with any questions. Job ID: [id number]
[2018-12-17] MEDS: Donepezil HCl 5 MG TAB PO SCH (20:32)
[2018-12-18] MEDS: Dextrose 5%-Lactated Ringers 1,000 ML IV SCH ×3 (05:19→20:10)
[2018-12-18] MEDS: Aspirin 325 MG TAB PO SCH (08:36)
[2018-12-18] MEDS: Folic Acid 1 MG TAB PO SCH (08:37)
[2018-12-18] MEDS: Cyanocobalamin (Vitamin B-12) 1,000 MCG TAB PO SCH (08:39)
[2018-12-18] MEDS: Saccharomyces boulardii 250 MG CAP PO SCH (08:39)
[2018-12-18] MEDS: Famotidine 20 MG TAB PO SCH ×2 (08:39→20:25)
[2018-12-18] MEDS: Amiodarone 200 MG TAB PO SCH (08:39)
[2018-12-18] MEDS: levETIRAcetam 500 mg/5 ml Oral Solution PO SCH ×2 (08:40→20:23)
[2018-12-18] MEDS: Heparin 5,000 UNITS/ML VIAL SC SCH ×2 (08:44→20:26)
[2018-12-18] MEDS: hydrALAZINE 25 MG TAB PO SCH ×3 (08:47→20:25)
[2018-12-18] MEDS: Labetalol 100 MG TAB PO SCH ×2 (08:48→20:25)
[2018-12-18 10:01] LABS: Prothrombin Time 13.6 SEC (12.0-14.7)
[2018-12-18 10:02] LABS: PTT 47.4 SEC (22.9-36.1)
[2018-12-18 10:06] LABS: Albumin 2.6 g/dL (3.4-4.8); Anion Gap 12 mmol/L (10-20); BUN (Urea Nitrogen) 20 mg/dL (9.8-20.1); BUN/Creatinine Ratio 17.39; Calc. Creatinine Clearance 20 mL/min (70-130); Calcium 8.7 mg/dL (7.8-10.44); Carbon Dioxide 19 mmol/L (23-31); Chloride 113 mmol/L (98-107); Estimated GFR-MDRD 44; Glucose 99 mg/dL (83-110); Magnesium 1.4 mg/dL (1.6-2.6); Phosphorus 2.5 mg/dL (2.3-4.7); Potassium 3.5 mmol/L (3.5-5.1); Sodium 140 mmol/L (136-145)
[2018-12-18] MEDS: cefTRIAXone\\ROCEPHIN 1 GM in Sodium Chloride 0.9% 100 ML IVPB SCH (16:55)
--- NOTE | 2018-12-18 18:30 | PRG ---
DATE OF SERVICE: 12/18/2018 REASON FOR CONSULTATION: Moderate protein-calorie malnutrition. SUBJECTIVE: Upon conferring with the nursing staff today, she states that the patient was not tolerating the hospital diet very well, but when family members brought in food from an outside facility ([employer]), the patient was able to tolerate much more oral intake and was able to eat some chicken as well as the entire small bowl of mashed potatoes and gravy. Upon evaluation of the patient tonight, she was a bit more alert and interactive and was attempting to verbalize, but was not forming words in the process. Per nursing staff there, she has not had a bowel movement over the last 12 to 24 hours. There has been no evidence of vomiting, diarrhea, or constipation during this time. OBJECTIVE: VITAL SIGNS: Temperature 98.6, pulse 72, blood pressure 157/78, respiratory rate 18, and saturating 95% on room air. GENERAL: The patient was lying in bed, in no acute distress. Alert to verbal prompting, but could not contribute any significant verbal responses, although she did mouth the words. CARDIOVASCULAR: Regular rate and rhythm. RESPIRATORY: Clear to auscultation bilaterally. ABDOMEN: Normoactive bowel sounds. Soft, nontender, and nondistended. EXTREMITIES: Cachectic in appearance. No cyanosis, clubbing, or edema. LABORATORY DATA: Chemistry with a sodium of 140, potassium 3.5, chloride 113, CO2 of 19, BUN 20, creatinine 1.15, glucose 99, calcium 8.7, phosphorus 2.5, magnesium 1.4, and albumin 2.6. IMAGING DATA: No current GI imaging is available for review. ASSESSMENT AND PLAN: The patient is an 88-year-old female with past medical history of osteoarthritis, renal mass, recurrent Clostridium difficile infection, vertigo, gastroesophageal reflux disease, hyperlipidemia, hypertension, congestive heart failure, and cerebrovascular accident, presenting with decreased oral intake and moderate protein-calorie malnutrition. Protein-calorie malnutrition: The patient has had a complicated history with multiple hospitalizations over the last 3 to 4 months with recurrent urinary tract infections and more recently, Clostridium difficile colitis with altered mental status on both of these occasions. Prior to this admission, she was noted in the [facility] to have an elevated white blood cell count, which then prompted her readmission to the hospital for further evaluation. She was again noted to have urinary tract infection, but during the course of the last 4 to 5 days has had decreased oral intake, where she was tolerating approximately 10% to 25% of her meals. However, with family and nursing staff prompting and with feeding the patient, it sounds like she has been able to tolerate much more food today when compared to previous and may be more of an element of physical deconditioning versus dementia and stabilization of her dementia with familiar faces, aka her family. With her decreased oral intake over the last week, she is still at increased risk for malnutrition and is not able to significantly increase oral intake, may be a candidate for percutaneous gastrostomy tube placement. However, gastrostomy tube placement in this patient population is controversial, in that it has not been shown to increase functional status nor increase longevity in the population with [id number] dementia. RECOMMENDATIONS: 1. We would continue to attempt to optimize nutritional intake with encourage feeds by family and nursing staff. 2. Continue to monitor for signs of any dysphagia. 3. We will continue to hold off on PEG tube at this time if the patient can continue to increase her oral intake. 4. Agree with antibiotic administration for treatment of her urinary tract infection. We will continue to follow. Please call with any questions. Job ID: [id number]
[2018-12-18] MEDS ORDERED: Magnesium Sulfate 4 GM in Sodium Chloride 0.9% 250 ML 250 ML IVPB SCH (18:45)
--- NOTE | 2018-12-18 18:50 | PDOC.PN ---
- Subjective Encounter Start Date: 12/18/18 Encounter Start Time: 18:42 -: non-verbal Subjective: Awake but non conversational - Objective Resuscitation Status - Order Detail: 12/11/18 22:44 Resuscitation Status Routine Resuscitation Status: DNAR: NO Resuscitation Discussed with: GRAND DAUGHTER Vital Signs & Weight: Vital Signs (12 hours) Temp Pulse Resp BP BP Pulse Ox 12/18/18 14:49 72 157/78 H 12/18/18 12:00 98.6 F 78 18 157/78 H 95 12/18/18 08:48 72 154/76 H 12/18/18 08:47 72 154/76 H 12/18/18 07:16 98.6 F 72 18 154/76 H 95 Weight Admit Weight 82 lb 9.6 oz Weight 82 lb 9.6 oz I&O: 12/17/18 12/18/18 12/19/18 06:59 06:59 06:59 Intake Total 850 50 420 Output Total 200 Balance 650 50 420 Result Diagrams: 12/16/18 06:18 12/18/18 09:27 Phys Exam - Physical Examination cachetic HEENT: PERRLA, moist MMs Neck: no JVD, supple Respiratory: no wheezing, no rales fair air entry Cardiovascular: RRR Gastrointestinal: soft, non-tender, positive bowel sounds Musculoskeletal: no edema wasting of limbs noted awake but non verbal. Dx/Plan (1) SAAD (acute kidney injury) Code(s): N17.9 - ACUTE KIDNEY FAILURE, UNSPECIFIED Status: Acute Comment: Improving with IVF (2) Dementia Code(s): F03.90 - UNSPECIFIED DEMENTIA WITHOUT BEHAVIORAL DISTURBANCE Status: Acute (3) Dehydration with hypernatremia Code(s): E87.0 - HYPEROSMOLALITY AND HYPERNATREMIA Status: Acute Comment: Improved. (4) Acute hypernatremia Code(s): E87.0 - HYPEROSMOLALITY AND HYPERNATREMIA Status: Acute (5) UTI (urinary tract infection) Status: Suspected Comment: culture grew E coli (6) Sepsis Code(s): A41.9 - SEPSIS, UNSPECIFIED ORGANISM Status: Acute Comment: Due to cpomplicated UTI (7) Acute encephalopathy Code(s): G93.40 - ENCEPHALOPATHY, UNSPECIFIED Status: Chronic Comment: likely related to depression worsened by new medications, clonidine discontinued , stopping Amlodipine as well as has history of severe vertigo with that medication and also causes constipation (8) Hypertension Code(s): I10 - ESSENTIAL (PRIMARY) HYPERTENSION Status: Chronic Qualifiers: Hypertension type: essential hypertension Qualified Code(s): I10 - Essential (primary) hypertension Comment: (9) Physical deconditioning Code(s): R53.81 - OTHER MALAISE Status: Chronic Comment: PT for mobilization , SNF options pending, fall risk precautions (10) Failure to thrive in adult Status: Acute (11) Protein-calorie malnutrition, severe Code(s): E43 - UNSPECIFIED SEVERE PROTEIN-CALORIE MALNUTRITION Status: Chronic - Plan Continue antibiotic and IVF. -: Start calrie count -: Replete serum magnesium with magnesium sulphate. -: Follow renal function and electrolytes * .
[2018-12-18] MEDS: Donepezil HCl 5 MG TAB PO SCH (20:25)
[2018-12-19] MEDS: Dextrose 5%-Lactated Ringers 1,000 ML IV SCH (05:46)
[2018-12-19] MEDS: levETIRAcetam 500 mg/5 ml Oral Solution PO SCH ×2 (08:32→22:01)
[2018-12-19] MEDS: hydrALAZINE 25 MG TAB PO SCH ×3 (08:33→22:01)
[2018-12-19] MEDS: Saccharomyces boulardii 250 MG CAP PO SCH (08:33)
[2018-12-19] MEDS: Famotidine 20 MG TAB PO SCH ×2 (08:34→22:00)
[2018-12-19] MEDS: Cyanocobalamin (Vitamin B-12) 1,000 MCG TAB PO SCH (08:34)
[2018-12-19] MEDS: Aspirin 325 MG TAB PO SCH (08:34)
[2018-12-19] MEDS: Heparin 5,000 UNITS/ML VIAL SC SCH ×2 (08:35→22:01)
[2018-12-19] MEDS: Folic Acid 1 MG TAB PO SCH (08:35)
[2018-12-19] MEDS: Amiodarone 200 MG TAB PO SCH (08:35)
[2018-12-19] MEDS: Labetalol 100 MG TAB PO SCH ×2 (08:38→22:01)
[2018-12-19 12:30] LABS: Albumin 2.4 g/dL (3.4-4.8); Anion Gap 11 mmol/L (10-20); BUN (Urea Nitrogen) 17 mg/dL (9.8-20.1); Calc. Creatinine Clearance 21 mL/min (70-130); Calcium 8.3 mg/dL (7.8-10.44); Carbon Dioxide 19 mmol/L (23-31); Chloride 114 mmol/L (98-107); Estimated GFR-MDRD 47; Glucose 137 mg/dL (83-110); Magnesium 2.6 mg/dL (1.6-2.6); Phosphorus 2.4 mg/dL (2.3-4.7); Potassium 3.4 mmol/L (3.5-5.1); Sodium 141 mmol/L (136-145)
--- NOTE | 2018-12-19 14:21 | PDOC.PN ---
- Subjective Encounter Start Date: 12/19/18 Encounter Start Time: 14:20 Subjective: No new problem. Oral intake remained very poor. Non verbal. - Objective Resuscitation Status - Order Detail: 12/11/18 22:44 Resuscitation Status Routine Resuscitation Status: DNAR: NO Resuscitation Discussed with: GRAND DAUGHTER Vital Signs & Weight: Vital Signs (12 hours) Temp Pulse Resp BP BP Pulse Ox 12/19/18 11:35 98 F 64 16 132/58 L 95 12/19/18 08:38 79 180/89 H 12/19/18 08:33 79 180/89 H Weight Admit Weight 82 lb 9.6 oz Weight 82 lb 9.6 oz I&O: 12/18/18 12/19/18 12/20/18 06:59 06:59 06:59 Intake Total 50 1878 210 Balance 50 1878 210 Result Diagrams: 12/16/18 06:18 12/19/18 11:04 Phys Exam - Physical Examination cachetic and frail HEENT: moist MMs Neck: no JVD, supple fair air entry bilaterally Cardiovascular: RRR Gastrointestinal: soft, no distention, positive bowel sounds Musculoskeletal: no edema wasting of limbs noted Neurological: non-focal awake but non verbal. Dx/Plan (1) SAAD (acute kidney injury) Code(s): N17.9 - ACUTE KIDNEY FAILURE, UNSPECIFIED Status: Acute Comment: Improving with IVF (2) Dementia Code(s): F03.90 - UNSPECIFIED DEMENTIA WITHOUT BEHAVIORAL DISTURBANCE Status: Acute (3) Dehydration with hypernatremia Code(s): E87.0 - HYPEROSMOLALITY AND HYPERNATREMIA Status: Acute Comment: Improved. (4) Acute hypernatremia Code(s): E87.0 - HYPEROSMOLALITY AND HYPERNATREMIA Status: Acute (5) UTI (urinary tract infection) Status: Suspected Comment: culture grew E coli (6) Sepsis Code(s): A41.9 - SEPSIS, UNSPECIFIED ORGANISM Status: Acute Comment: Due to cpomplicated UTI (7) Acute encephalopathy Code(s): G93.40 - ENCEPHALOPATHY, UNSPECIFIED Status: Chronic Comment: likely related to depression worsened by new medications, clonidine discontinued , stopping Amlodipine as well as has history of severe vertigo with that medication and also causes constipation (8) Hypertension Code(s): I10 - ESSENTIAL (PRIMARY) HYPERTENSION Status: Chronic Qualifiers: Hypertension type: essential hypertension Qualified Code(s): I10 - Essential (primary) hypertension Comment: (9) Physical deconditioning Code(s): R53.81 - OTHER MALAISE Status: Chronic Comment: PT for mobilization , SNF options pending, fall risk precautions (10) Failure to thrive in adult Status: Acute (11) Protein-calorie malnutrition, severe Code(s): E43 - UNSPECIFIED SEVERE PROTEIN-CALORIE MALNUTRITION Status: Chronic - Plan Oral intake remained abysmally poor -: Will contact GI to put in PEG . -: Replete serum potassium -: Continue IVF. -: Oral intake as tolerated. * .
[2018-12-19] MEDS ORDERED: Potassium Chloride 20 MEQ TAB PO SCH (14:30)
[2018-12-19] MEDS: cefTRIAXone\\ROCEPHIN 1 GM in Sodium Chloride 0.9% 100 ML IVPB SCH (17:25)
--- NOTE | 2018-12-19 18:44 | PRG ---
DATE OF SERVICE: 12/19/2018 REASON FOR CONSULTATION: Moderate protein-calorie malnutrition. SUBJECTIVE: Upon conferring with the nursing staff, the patient had consumed approximately 1 Ensure shake, 1 Mighty shake and pudding and some applesauce earlier today, but had been fairly reluctant to proceed with any oral intake with at times fighting the nursing staff with spoon feeding her food. Upon talking with the patient, she was more alert when compared to previous examinations and she was able to express that she was not in any pain, but that she was not hungry. She did have a bowel movement after having the interview with me. Per nursing staff, there has been no evidence of vomiting, diarrhea, or constipation over the last 24 to 48 hours. OBJECTIVE: VITAL SIGNS: Temperature 98.2, pulse 62, blood pressure 118/48, respiratory rate 16, saturating 95% on room air. GENERAL: The patient was lying in bed, in no acute distress, alert to verbal prompting, and was attempting to get out of bed at the time of this examination. She did have some very short verbal responses to simple questionings, but was otherwise not communicative. CARDIOVASCULAR: Regular rate and rhythm. RESPIRATORY: Clear to auscultation bilaterally. ABDOMEN: Normoactive bowel sounds. Soft, nontender, nondistended. EXTREMITIES: Cachectic in appearance. No cyanosis, clubbing, or edema. LABORATORY DATA: Chemistry with a sodium of 141, potassium 3.4, chloride 114, CO2 of 19, BUN 17, creatinine 1.09, glucose 137, calcium 2.3, albumin 2.4, phosphorus 2.4, magnesium 2.6. IMAGING DATA: No current GI imaging is available for review. ASSESSMENT AND PLAN: The patient is an 88-year-old female with past medical history of osteoarthritis, renal mass, recurrent Clostridium difficile infection, vertigo, gastroesophageal reflux disease, hyperlipidemia, hypertension, congestive heart failure, and cerebrovascular accident, presenting with decreased oral intake and moderate protein-calorie malnutrition. The patient has a complicated history with multiple hospitalizations over the last 3 to 4 months secondary to recurrent urinary tract infections and more recently Clostridium difficile colitis. On the times that she has been admitted to the hospital, nursing staff states that she has been fairly noncommunicative and does not seem to maintain adequate sensorium. However, upon speaking with the patient's family, at her baseline at home, she has been able to converse effectively with her family members as well as engage in some limited physical activities. During the course of this hospitalization, she has had decreased oral intake, where she was approximately 10% to 25% of her meals and has been fairly reluctant to cooperate with oral intake per nursing staff. Yesterday, she did have increased oral intake with outside food brought in from family where she was able to eat a significant amount, but this has not been echoed today. With her decreased oral intake over the last week and over the last subsequent hospitalization, she is still at increased risk for malnutrition, and if she is not able to significant significantly increase her oral intake, may need placement of percutaneous gastrostomy tube for supplementation purposes. However, given the patient's advanced age and altered mental status, the likelihood of improvement in her functional status and her longevity is questionable. Upon conferring with the patient's family and medical power of criminal defense attorney today, they would like to wait one more day with the family coming back to bedside in an attempt to feed her to optimize her nutritional intake prior to placement of a PEG tube. RECOMMENDATIONS: 1. We will continue to attempt to optimize nutritional intake and encourage feeds by family and nursing staff, would liberalize her diet in order to accommodate this. 2. Continue to monitor for signs of any dysphagia. 3. Would continue to hold on PEG tube at this time and I will discuss with the family at bedside tomorrow about future plan of care. We will continue to follow. Please call with any questions. Job ID: [id number]
[2018-12-19] MEDS: Donepezil HCl 5 MG TAB PO SCH (22:00)
[2018-12-20] MEDS: Dextrose 5%-Lactated Ringers 1,000 ML IV SCH (06:29)
[2018-12-20 07:38] LABS: Albumin 2.7 g/dL (3.4-4.8); Anion Gap 13 mmol/L (10-20); BUN (Urea Nitrogen) 18 mg/dL (9.8-20.1); BUN/Creatinine Ratio 16.07; Calc. Creatinine Clearance 20 mL/min (70-130); Calcium 8.6 mg/dL (7.8-10.44); Carbon Dioxide 18 mmol/L (23-31); Chloride 114 mmol/L (98-107); Estimated GFR-MDRD 46; Glucose 102 mg/dL (83-110); Magnesium 2.4 mg/dL (1.6-2.6); Phosphorus 2.3 mg/dL (2.3-4.7); Potassium 4.4 mmol/L (3.5-5.1); Sodium 141 mmol/L (136-145)
[2018-12-20] MEDS: Heparin 5,000 UNITS/ML VIAL SC SCH (09:23)
[2018-12-20] MEDS: Labetalol 100 MG TAB PO SCH ×2 (09:30→20:54)
[2018-12-20] MEDS: Saccharomyces boulardii 250 MG CAP PO SCH (09:31)
[2018-12-20] MEDS: Amiodarone 200 MG TAB PO SCH (09:31)
[2018-12-20] MEDS: hydrALAZINE 25 MG TAB PO SCH ×3 (09:31→20:54)
[2018-12-20] MEDS: Cyanocobalamin (Vitamin B-12) 1,000 MCG TAB PO SCH (09:31)
[2018-12-20] MEDS: Famotidine 20 MG TAB PO SCH ×2 (09:31→20:53)
[2018-12-20] MEDS: Aspirin 325 MG TAB PO SCH (09:31)
[2018-12-20] MEDS: levETIRAcetam 500 mg/5 ml Oral Solution PO SCH ×2 (09:33→20:54)
[2018-12-20] MEDS: Folic Acid 1 MG TAB PO SCH (09:33)
--- NOTE | 2018-12-20 14:33 | PDOC.PN ---
- Subjective Encounter Start Date: 12/20/18 Encounter Start Time: 14:32 Subjective: No change in condition. Oral intake remained very poor. -: non verbal still - Objective Resuscitation Status - Order Detail: 12/11/18 22:44 Resuscitation Status Routine Resuscitation Status: DNAR: NO Resuscitation Discussed with: GRAND DAUGHTER Vital Signs & Weight: Vital Signs (12 hours) Temp Pulse Resp BP BP 12/20/18 09:31 77 142/78 H 12/20/18 09:30 77 142/78 H 12/20/18 07:39 98.7 F 77 16 142/78 H Weight Admit Weight 82 lb 9.6 oz Weight 82 lb 9.6 oz I&O: 12/19/18 12/20/18 12/21/18 06:59 06:59 06:59 Intake Total 1878 1857 Output Total 30 Balance 1878 1827 Result Diagrams: 12/16/18 06:18 12/20/18 06:41 Phys Exam - Physical Examination cachetic and frail HEENT: PERRLA, moist MMs Neck: supple Respiratory: no wheezing, no rales, no rhonchi fair air entry with transmitted sound. Cardiovascular: RRR Gastrointestinal: soft, non-tender, no distention, positive bowel sounds Musculoskeletal: no edema, pulses present Neurological: moves all 4 limbs awake. Looks up to call but non verbal, very weak Dx/Plan (1) SAAD (acute kidney injury) Code(s): N17.9 - ACUTE KIDNEY FAILURE, UNSPECIFIED Status: Acute Comment: Improved with IVF (2) Dementia Code(s): F03.90 - UNSPECIFIED DEMENTIA WITHOUT BEHAVIORAL DISTURBANCE Status: Acute (3) Dehydration with hypernatremia Code(s): E87.0 - HYPEROSMOLALITY AND HYPERNATREMIA Status: Acute Comment: Improved. (4) Acute hypernatremia Code(s): E87.0 - HYPEROSMOLALITY AND HYPERNATREMIA Status: Acute Comment: Resolved. (5) UTI (urinary tract infection) Status: Suspected Comment: culture grew E coli (6) Sepsis Code(s): A41.9 - SEPSIS, UNSPECIFIED ORGANISM Status: Acute Comment: Due to cpomplicated UTI (7) Acute encephalopathy Code(s): G93.40 - ENCEPHALOPATHY, UNSPECIFIED Status: Chronic Comment: Due to UTI, electrolyte derangements and severe PCM (8) Hypertension Code(s): I10 - ESSENTIAL (PRIMARY) HYPERTENSION Status: Chronic Qualifiers: Hypertension type: essential hypertension Qualified Code(s): I10 - Essential (primary) hypertension Comment: (9) Physical deconditioning Code(s): R53.81 - OTHER MALAISE Status: Chronic Comment: PT for mobilization , SNF options pending, fall risk precautions (10) Failure to thrive in adult Status: Acute (11) Protein-calorie malnutrition, severe Code(s): E43 - UNSPECIFIED SEVERE PROTEIN-CALORIE MALNUTRITION Status: Chronic - Plan DC rocephin. has recieved at least 10 days of antibiotics. -: Continue gentle IV hydration -: Slater oral intake encouraged. -: Tube feeding remained her best chance of survival. -: Calorie count showed abyssmal intake. Awaiting GI re eval re PEG placement * .
--- NOTE | 2018-12-20 15:50 | PRG ---
DATE OF SERVICE: 12/20/2018 REASON FOR CONSULTATION: Moderate protein-calorie malnutrition. SUBJECTIVE: Per nursing staff today, she was able to eat approximately 25% of both her breakfast and lunch, but required significant coaxing in order to do so. Family was also at bedside today and encouraging the patient to eat, for which she was responding very well, but again was minimal upon intake of her favorite foods. She has been fairly nonverbal during this hospitalization and did interact some today, but with very short one-word answers and loss of attention shortly upon answering the question. Upon conferring with the patient's family/medical power of associate attorney, they are amenable to pursuing PEG tube placement at this time given exhaustion of more conservative routes of nutrition. Per nursing staff, there has been no evidence of vomiting, diarrhea, or constipation over the last 24 to 48 hours. OBJECTIVE: VITAL SIGNS: Temperature 98.7, pulse 77, blood pressure 142/78, respiratory rate 16, saturating 94% on room air. GENERAL: The patient is lying in bed, in no acute distress. Alert and verbal prompting and did have some very short verbal responses to simple questions, but otherwise noncommunicative. Sensorium could not be assessed. CARDIOVASCULAR: Regular rate and rhythm. RESPIRATORY: Clear to auscultation bilaterally. ABDOMEN: Normoactive bowel sounds. Soft, nontender, nondistended. EXTREMITIES: Cachectic in appearance. No cyanosis, clubbing or edema. LABORATORY DATA: Chemistry with a sodium of 141, potassium 4.4, chloride 114, CO2 of 18, BUN 18, creatinine 1.12, glucose 102. IMAGING DATA: No current GI imaging is available for review. ASSESSMENT AND PLAN: The patient is an 88-year-old female with past medical history of osteoarthritis, renal mass, recurrent Clostridium difficile infection, vertigo, gastroesophageal reflux disease, hyperlipidemia, hypertension, congestive heart failure and cerebrovascular accident, presenting with decreased oral intake and moderate protein-calorie malnutrition. The patient is presenting as a readmittance from the senior care to the hospital with multiple hospitalizations over the last 3 to 4 months secondary to recurrent urinary tract infections, recurrent dehydration and more recently, Clostridium difficile colitis. During her prior last two hospitalizations, she has been fairly noncommunicative and does not seem to maintain adequate sensorium per discussion with nursing staff. However, upon conferring with the patient's family, they provided very different story in that the patient was able to interact in multiple different ways, although she was not able to participate in most of her ADLs. During the last 48 to 72 hours, she has been able to intake approximately 10% to 25% of her meals and has been fairly reluctant to cooperate with oral intake with nursing staff, but has been more amenable to oral intake via family. However, given the patient's debilitated status and altered mental status (unknown etiology at this time), she is unable to maintain adequate nutrition on her own in the likelihood of maintaining adequate nutrition in the senior care is unlikely as well. Given the patient's advanced age and altered mental status, the likelihood of improvement with placement of a percutaneous gastrostomy tube is questionable, but upon conferring with the patient's family, they would like to proceed with PEG tube at this time. RECOMMENDATIONS: 1. We will continue to attempt to optimize nutritional intake and encourage feeds as much as possible. 2. Continue to monitor for signs of any dysphagia. 3. We will plan for EGD with PEG tube placement tomorrow. Please make the patient n.p.o. at midnight with holding of any anticoagulation tonight. We will continue to follow. Please call with any questions. Dr. Gan is on-call this weekend. Job ID: [id number]
[2018-12-20] MEDS: Donepezil HCl 5 MG TAB PO SCH (20:53)
[2018-12-21] MEDS: Dextrose 5%-Lactated Ringers 1,000 ML IV SCH (06:17)
[2018-12-21] MEDS: Labetalol 100 MG TAB PO SCH ×3 (06:17→20:48)
[2018-12-21 06:47] LABS: Band 3 % (5-11); Hemoglobin 8.4 g/dL (12.0-16.0); Lymphocytes 35 % (21-51); MDiff Complete? YES; Mean Corpuscular HGB CONC 31.5 g/dL (32.0-36.0); Mean Corpuscular Hemoglobin 30.2 pg (27.0-31.0); Mean Corpuscular Volume 95.9 fL (78.0-98.0); Mean Platelet Volume 7.6 fL (7.4-10.4); Monocytes 5 % (0-10); Neutrophil 57 % (42-75); Platelet Count 154 thou/uL (130-400); RBC Distribution Width 15.3 % (11.5-14.5); Red Blood Cell (RBC) Count 2.78 mill/uL (4.20-5.40); White Blood Cell (WBC) Count 4.2 thou/uL (4.8-10.8)
[2018-12-21] MEDS ORDERED: cefTRIAXone\\ROCEPHIN 1 GM VIAL ONE (10:41)
[2018-12-21] MEDS ORDERED: Sodium Chloride 0.9% 100 ML ONE (10:42)
[2018-12-21] MEDS: Aspirin 325 MG TAB PO SCH (10:53)
[2018-12-21] MEDS: hydrALAZINE 25 MG TAB PO SCH ×3 (10:55→20:48)
[2018-12-21] MEDS: levETIRAcetam 500 mg/5 ml Oral Solution PO SCH ×3 (10:57→20:49)
[2018-12-21] MEDS ORDERED: Promethazine HCl 25 MG/ML VIAL IM PRN (11:18)
[2018-12-21] MEDS ORDERED: Promethazine HCl 25 MG/ML VIAL SLOW IVP PRN (11:18)
[2018-12-21] MEDS: Amiodarone 200 MG TAB PO SCH (14:00)
[2018-12-21] MEDS: Saccharomyces boulardii 250 MG CAP PO SCH (14:01)
[2018-12-21] MEDS: Folic Acid 1 MG TAB PO SCH (14:01)
[2018-12-21] MEDS: Famotidine 20 MG TAB PO SCH ×2 (14:05→20:48)
[2018-12-21] MEDS: Cyanocobalamin (Vitamin B-12) 1,000 MCG TAB PO SCH (14:06)
--- NOTE | 2018-12-21 15:30 | OP ---
DATE OF PROCEDURE: 12/21/2018 PROCEDURES PERFORMED: Esophagogastroduodenoscopy with percutaneous endoscopic gastrostomy placement. PREPROCEDURE DIAGNOSES: 1. Dementia. 2. Oropharyngeal dysphagia. POSTPROCEDURE DIAGNOSES: Normal esophagogastroduodenoscopy and percutaneous endoscopic gastrostomy tube placed by Ponsky pull technique. ANESTHESIA: TIVA. RECOMMENDATIONS: Begin tube feedings as per orders. Clean the PEG tube site daily with soap and water. PROCEDURE IN DETAIL: The patient's family was informed of the risks, benefits, possible complications of an endoscopy and PEG tube placement including perforation, bleeding, reaction to medication, aspiration, infection, and injury to the intraabdominal organs. Informed consent was obtained. The patient was brought to the endoscopy suite, where she was sedated in gradual fashion. A bite block was placed inside the orifice. Abdomen was prepped and draped in sterile fashion. A PEG tube was placed by Ponsky pull technique. The scope was introduced in the esophagus, stomach, second and third portion of the duodenum, where the stomach, duodenum, and esophagus, all appeared normal in forward and retroflexed views. Adequate place for PEG tube placement was identified by finger indentation and transillumination. A PEG tube was placed by Ponsky pull technique, second-look confirmed good placement. The patient was then brought to recovery room in stable condition. Job ID: [id number]
[2018-12-21] MEDS ORDERED: Lidocaine 1% PF 5 ML VIAL ONE (15:33)
[2018-12-21] MEDS ORDERED: PROPOFOL 200 MG/20 ML VIAL ONE (15:33)
--- NOTE | 2018-12-21 16:38 | PDOC.PN ---
- Subjective Encounter Start Date: 12/21/18 Encounter Start Time: 16:37 Subjective: had PEG tube placement earlier today. -: No new problem - Objective Resuscitation Status - Order Detail: 12/11/18 22:44 Resuscitation Status Routine Resuscitation Status: DNAR: NO Resuscitation Discussed with: GRAND DAUGHTER Vital Signs & Weight: Vital Signs (12 hours) Temp Pulse Resp BP BP BP Pulse Ox 12/21/18 16:30 97.5 F L 74 18 95 12/21/18 14:02 82 148/68 H 12/21/18 13:59 82 148/68 H 12/21/18 12:50 18 148/68 H 98 12/21/18 11:45 97.6 F 59 L 18 190/90 H 92 L 12/21/18 10:55 76 168/99 H 12/21/18 08:12 97.2 F L 76 18 155/78 H 92 L 12/21/18 06:17 72 Weight Admit Weight 82 lb 9.6 oz Weight 82 lb 9.6 oz I&O: 12/20/18 12/21/18 12/22/18 06:59 06:59 06:59 Intake Total 1857 1336 Output Total 30 260 Balance 1827 1076 Result Diagrams: 12/21/18 05:49 12/20/18 06:41 Phys Exam - Physical Examination Constitutional: NAD cachetic HEENT: PERRLA, moist MMs Neck: no JVD, supple Respiratory: no rales fair air entry bilaterally Cardiovascular: RRR Gastrointestinal: soft, no distention, positive bowel sounds PEG tube noted Musculoskeletal: no edema, pulses present Neurological: non-focal, moves all 4 limbs awake but non verbal Dx/Plan (1) SAAD (acute kidney injury) Code(s): N17.9 - ACUTE KIDNEY FAILURE, UNSPECIFIED Status: Acute Comment: Improved with IVF (2) Dementia Code(s): F03.90 - UNSPECIFIED DEMENTIA WITHOUT BEHAVIORAL DISTURBANCE Status: Acute (3) Dehydration with hypernatremia Code(s): E87.0 - HYPEROSMOLALITY AND HYPERNATREMIA Status: Acute Comment: Improved. (4) Acute hypernatremia Code(s): E87.0 - HYPEROSMOLALITY AND HYPERNATREMIA Status: Acute Comment: Resolved. (5) UTI (urinary tract infection) Status: Suspected Comment: culture grew E coli (6) Sepsis Code(s): A41.9 - SEPSIS, UNSPECIFIED ORGANISM Status: Acute Comment: Due to cpomplicated UTI (7) Acute encephalopathy Code(s): G93.40 - ENCEPHALOPATHY, UNSPECIFIED Status: Chronic Comment: Due to UTI, electrolyte derangements and severe PCM (8) Hypertension Code(s): I10 - ESSENTIAL (PRIMARY) HYPERTENSION Status: Chronic Qualifiers: Hypertension type: essential hypertension Qualified Code(s): I10 - Essential (primary) hypertension Comment: (9) Physical deconditioning Code(s): R53.81 - OTHER MALAISE Status: Chronic Comment: PT for mobilization , SNF options pending, fall risk precautions (10) Failure to thrive in adult Status: Acute (11) Protein-calorie malnutrition, severe Code(s): E43 - UNSPECIFIED SEVERE PROTEIN-CALORIE MALNUTRITION Status: Chronic - Plan Start tube with slow advancement to gaol. -: Continue IVF till tube feed at goal. -: Oral intake as tolerated. -: CBC, BMP, mag and Phos in the am. -: Discussed care plan with daughter at bed side. * .
[2018-12-21] MEDS ORDERED: Pancrelipase DR 12000 1 CAP FS PRN (16:41)
[2018-12-21] MEDS ORDERED: Sodium Bicarbonate Tab 325 MG TAB PER TUBE PRN (16:41)
[2018-12-21] MEDS: Donepezil HCl 5 MG TAB PO SCH (20:48)
[2018-12-21] MEDS: Heparin 5,000 UNITS/ML VIAL SC SCH (21:12)
[2018-12-22] MEDS: Dextrose 5%-Lactated Ringers 1,000 ML IV SCH (04:45)
[2018-12-22 07:16] LABS: #Basophils 0.1 thou/uL (0.0-0.2); #Eosinphils 0.1 thou/uL (0.0-0.7); #Monocytes 0.6 thou/uL (0.11-0.59); #Neutrophils 3.9 thou/uL (1.40-6.50); %Basophils 1.3 % (0.0-1.0); %Eosinophils 2.2 % (0.0-10.0); %Lymphocytes 17.4 % (21.0-51.0); %Monocytes 10.9 % (0.0-10.0); %Neutrophils 68.2 % (42.0-75.0); Hemoglobin 9.5 g/dL (12.0-16.0); Mean Corpuscular HGB CONC 30.7 g/dL (32.0-36.0); Mean Corpuscular Hemoglobin 29.8 pg (27.0-31.0); Mean Corpuscular Volume 96.9 fL (78.0-98.0); Mean Platelet Volume 7.7 fL (7.4-10.4); Platelet Count 167 thou/uL (130-400); RBC Distribution Width 15.3 % (11.5-14.5); Red Blood Cell (RBC) Count 3.17 mill/uL (4.20-5.40); White Blood Cell (WBC) Count 5.7 thou/uL (4.8-10.8)
[2018-12-22 07:35] LABS: Anion Gap 10 mmol/L (10-20); BUN (Urea Nitrogen) 13 mg/dL (9.8-20.1); Calc. Creatinine Clearance 22 mL/min (70-130); Calcium 8.5 mg/dL (7.8-10.44); Carbon Dioxide 19 mmol/L (23-31); Chloride 113 mmol/L (98-107); Estimated GFR-MDRD 50; Glucose 109 mg/dL (83-110); Phosphorus 2.6 mg/dL (2.3-4.7); Sodium 138 mmol/L (136-145)
[2018-12-22] MEDS: levETIRAcetam 500 mg/5 ml Oral Solution PO SCH ×2 (09:07→20:35)
[2018-12-22] MEDS: Labetalol 100 MG TAB PO SCH ×2 (09:08→20:35)
[2018-12-22] MEDS: Aspirin 325 MG TAB PO SCH (09:08)
[2018-12-22] MEDS: Saccharomyces boulardii 250 MG CAP PO SCH (09:08)
[2018-12-22] MEDS: Famotidine 20 MG TAB PO SCH ×2 (09:09→20:35)
[2018-12-22] MEDS: Cyanocobalamin (Vitamin B-12) 1,000 MCG TAB PO SCH (09:09)
[2018-12-22] MEDS: Folic Acid 1 MG TAB PO SCH (09:09)
[2018-12-22] MEDS: Heparin 5,000 UNITS/ML VIAL SC SCH ×2 (09:09→20:34)
[2018-12-22] MEDS: Amiodarone 200 MG TAB PO SCH (09:09)
[2018-12-22] MEDS: hydrALAZINE 25 MG TAB PO SCH ×3 (09:09→20:34)
--- NOTE | 2018-12-22 11:17 | PDOC.PN ---
- Subjective Encounter Start Date: 12/22/18 Encounter Start Time: 11:15 Subjective: No new problem -: daughter reported that she is talking more. -: Tolerating tube feeding. - Objective Resuscitation Status - Order Detail: 12/11/18 22:44 Resuscitation Status Routine Resuscitation Status: DNAR: NO Resuscitation Discussed with: GRAND DAUGHTER Vital Signs & Weight: Vital Signs (12 hours) Temp Pulse Resp BP BP Pulse Ox 12/22/18 09:09 68 186/81 H 12/22/18 09:08 68 186/81 H 12/22/18 07:58 98.1 F 68 19 186/81 H 94 L Weight Admit Weight 82 lb 9.6 oz Weight 82 lb 9.6 oz I&O: 12/21/18 12/22/18 12/23/18 06:59 06:59 06:59 Intake Total 1336 1347 Output Total 260 Balance 1076 1347 Result Diagrams: 12/22/18 07:00 12/22/18 07:00 Phys Exam - Physical Examination Constitutional: NAD cachetic elderly HEENT: PERRLA, moist MMs Neck: supple Respiratory: no wheezing, no rales, no rhonchi fair air entry with transmitted sound Cardiovascular: RRR Gastrointestinal: soft, non-tender, no distention, positive bowel sounds PEG tube noted Musculoskeletal: no edema Neurological: non-focal, moves all 4 limbs awake. Minimally verbal Dx/Plan (1) SAAD (acute kidney injury) Code(s): N17.9 - ACUTE KIDNEY FAILURE, UNSPECIFIED Status: Acute Comment: Improved with IVF (2) Dementia Code(s): F03.90 - UNSPECIFIED DEMENTIA WITHOUT BEHAVIORAL DISTURBANCE Status: Acute (3) Dehydration with hypernatremia Code(s): E87.0 - HYPEROSMOLALITY AND HYPERNATREMIA Status: Acute Comment: Improved. (4) Acute hypernatremia Code(s): E87.0 - HYPEROSMOLALITY AND HYPERNATREMIA Status: Acute Comment: Resolved. (5) UTI (urinary tract infection) Status: Suspected Comment: culture grew E coli. Completed antibiotics. (6) Sepsis Code(s): A41.9 - SEPSIS, UNSPECIFIED ORGANISM Status: Acute Comment: Due to complicated UTI. Resolved. (7) Acute encephalopathy Code(s): G93.40 - ENCEPHALOPATHY, UNSPECIFIED Status: Chronic Comment: Due to UTI, electrolyte derangements and severe PCM (8) Hypertension Code(s): I10 - ESSENTIAL (PRIMARY) HYPERTENSION Status: Chronic Qualifiers: Hypertension type: essential hypertension Qualified Code(s): I10 - Essential (primary) hypertension Comment: (9) Physical deconditioning Code(s): R53.81 - OTHER MALAISE Status: Chronic Comment: PT for mobilization , SNF options pending, fall risk precautions (10) Failure to thrive in adult Status: Acute (11) Protein-calorie malnutrition, severe Code(s): E43 - UNSPECIFIED SEVERE PROTEIN-CALORIE MALNUTRITION Status: Chronic (12) Seizure Code(s): R56.9 - UNSPECIFIED CONVULSIONS Status: Chronic Comment: - Plan Continue low rate LR till tube feed is at goal. -: Continue other supportive care. -: PT/OT/WOOL FLEECE SORTER to continue. -: Monitor electrolytes -: diet as tolerated by mouth. * .
--- NOTE | 2018-12-22 15:43 | PRG ---
DATE OF SERVICE: 12/22/2018 SUBJECTIVE: Ms. Dai has been tolerating her tube feeds well according to her family. OBJECTIVE: VITAL SIGNS: She has been afebrile. Temperature is 98.2, blood pressure is 186/81, and pulse 68. ABDOMEN: Soft and nontender. PEG tube site looks clean and dry. LABORATORY DATA: White count 5.7, hemoglobin 9.5, platelet count 163. Basic metabolic profile notable for normal electrolytes. ASSESSMENT AND PLAN: Status post percutaneous endoscopic gastrostomy tube for dementia and oropharyngeal dysphagia. It seems to be functioning well with no signs of complications or infection. RECOMMENDATIONS: Clean PEG tube site drape daily with soap and water. We will sign off. Please call if you have any further assistance patient's care. Job ID: [id number]
[2018-12-22] MEDS: Donepezil HCl 5 MG TAB PO SCH (20:35)
[2018-12-23] MEDS: Dextrose 5%-Lactated Ringers 1,000 ML IV SCH (02:45)
[2018-12-23] MEDS ORDERED: hydrALAZINE 20 MG/ML VIAL SLOW IVP PRN (07:53)
[2018-12-23 08:23] LABS: Albumin 2.1 g/dL (3.4-4.8); Anion Gap 13 mmol/L (10-20); BUN (Urea Nitrogen) 14 mg/dL (9.8-20.1); BUN/Creatinine Ratio 12.84; Calc. Creatinine Clearance 21 mL/min (70-130); Calcium 8.6 mg/dL (7.8-10.44); Carbon Dioxide 16 mmol/L (23-31); Chloride 114 mmol/L (98-107); Estimated GFR-MDRD 47; Glucose 101 mg/dL (83-110); Phosphorus 2.7 mg/dL (2.3-4.7); Potassium 4.3 mmol/L (3.5-5.1); Sodium 139 mmol/L (136-145)
[2018-12-23] MEDS: levETIRAcetam 500 mg/5 ml Oral Solution PO SCH ×2 (08:30→20:13)
[2018-12-23] MEDS: Saccharomyces boulardii 250 MG CAP PO SCH (08:31)
[2018-12-23] MEDS: hydrALAZINE 25 MG TAB PO SCH ×3 (08:31→20:13)
[2018-12-23] MEDS: Labetalol 100 MG TAB PO SCH ×2 (08:31→20:13)
[2018-12-23] MEDS: Amiodarone 200 MG TAB PO SCH (08:32)
[2018-12-23] MEDS: Cyanocobalamin (Vitamin B-12) 1,000 MCG TAB PO SCH (08:32)
[2018-12-23] MEDS: Heparin 5,000 UNITS/ML VIAL SC SCH ×2 (08:32→20:14)
[2018-12-23] MEDS: Aspirin 325 MG TAB PO SCH (08:32)
[2018-12-23] MEDS: Folic Acid 1 MG TAB PO SCH (08:32)
[2018-12-23] MEDS ORDERED: NIFEdipine XL 60 MG TAB PO SCH (09:00)
--- NOTE | 2018-12-23 14:36 | PDOC.PN ---
- Subjective Encounter Start Date: 12/23/18 Encounter Start Time: 10:35 Subjective: No new proble. tolerating tube feeding well. Now at goal - Objective Resuscitation Status - Order Detail: 12/11/18 22:44 Resuscitation Status Routine Resuscitation Status: DNAR: NO Resuscitation Discussed with: GRAND DAUGHTER Vital Signs & Weight: Vital Signs (12 hours) Temp Pulse Resp BP BP BP Pulse Ox 12/23/18 14:06 65 12/23/18 12:27 97.3 F L 65 16 103/54 L 12/23/18 08:31 69 12/23/18 08:30 69 203/70 H 12/23/18 07:45 97.1 F L 69 16 203/70 H 92 L Weight Admit Weight 82 lb 9.6 oz Weight 82 lb 9.6 oz I&O: 12/22/18 12/23/18 12/24/18 06:59 06:59 06:59 Intake Total 1347 1790 30 Balance 1347 1790 30 Result Diagrams: 12/22/18 07:00 12/23/18 07:00 Phys Exam - Physical Examination HEENT: moist MMs Neck: supple fair air entry with transmitted sound Cardiovascular: RRR Gastrointestinal: soft, non-tender, no distention, positive bowel sounds PEG tube in place Musculoskeletal: no edema Neurological: moves all 4 limbs awake but minimally verbal Dx/Plan (1) SAAD (acute kidney injury) Code(s): N17.9 - ACUTE KIDNEY FAILURE, UNSPECIFIED Status: Acute Comment: Improved with IVF (2) Dementia Code(s): F03.90 - UNSPECIFIED DEMENTIA WITHOUT BEHAVIORAL DISTURBANCE Status: Acute (3) Dehydration with hypernatremia Code(s): E87.0 - HYPEROSMOLALITY AND HYPERNATREMIA Status: Acute Comment: Improved. (4) Acute hypernatremia Code(s): E87.0 - HYPEROSMOLALITY AND HYPERNATREMIA Status: Acute Comment: Resolved. (5) UTI (urinary tract infection) Status: Suspected Comment: culture grew E coli. Completed antibiotics. (6) Sepsis Code(s): A41.9 - SEPSIS, UNSPECIFIED ORGANISM Status: Acute Comment: Due to complicated UTI. Resolved. (7) Acute encephalopathy Code(s): G93.40 - ENCEPHALOPATHY, UNSPECIFIED Status: Chronic Comment: Due to UTI, electrolyte derangements and severe PCM (8) Hypertension Code(s): I10 - ESSENTIAL (PRIMARY) HYPERTENSION Status: Chronic Qualifiers: Hypertension type: essential hypertension Qualified Code(s): I10 - Essential (primary) hypertension Comment: (9) Physical deconditioning Code(s): R53.81 - OTHER MALAISE Status: Chronic Comment: PT for mobilization , SNF options pending, fall risk precautions (10) Failure to thrive in adult Status: Acute (11) Protein-calorie malnutrition, severe Code(s): E43 - UNSPECIFIED SEVERE PROTEIN-CALORIE MALNUTRITION Status: Chronic (12) Seizure Code(s): R56.9 - UNSPECIFIED CONVULSIONS Status: Chronic Comment: - Plan DC IVF. -: Substitute metoprolo with labetalol to get adequate BP control. -: Continue tube feeding. -: PT/OT to continue -: Case mgt consulted to help with discharge disposition. * .
[2018-12-23] MEDS: Donepezil HCl 5 MG TAB PO SCH (20:13)
[2018-12-23] MEDS: Famotidine 20 MG TAB PO SCH (20:14)
[2018-12-24 06:55] LABS: Albumin 2.3 g/dL (3.4-4.8); Anion Gap 10 mmol/L (10-20); BUN (Urea Nitrogen) 14 mg/dL (9.8-20.1); BUN/Creatinine Ratio 13.33; Calc. Creatinine Clearance 21 mL/min (70-130); Calcium 8.4 mg/dL (7.8-10.44); Carbon Dioxide 22 mmol/L (23-31); Chloride 108 mmol/L (98-107); Estimated GFR-MDRD 49; Glucose 104 mg/dL (83-110); Phosphorus 2.5 mg/dL (2.3-4.7); Potassium 3.7 mmol/L (3.5-5.1); Sodium 136 mmol/L (136-145)
[2018-12-24] MEDS: levETIRAcetam 500 mg/5 ml Oral Solution PO SCH ×2 (10:35→21:08)
[2018-12-24] MEDS: Amiodarone 200 MG TAB PO SCH (10:36)
[2018-12-24] MEDS: Labetalol 100 MG TAB PO SCH ×2 (10:36→21:08)
[2018-12-24] MEDS: NIFEdipine XL 60 MG TAB PO SCH ×2 (10:36→21:07)
[2018-12-24] MEDS: Aspirin 325 MG TAB PO SCH (10:36)
[2018-12-24] MEDS: hydrALAZINE 25 MG TAB PO SCH ×3 (10:37→21:07)
[2018-12-24] MEDS: Saccharomyces boulardii 250 MG CAP PO SCH (10:37)
[2018-12-24] MEDS: Heparin 5,000 UNITS/ML VIAL SC SCH ×2 (10:37→21:07)
[2018-12-24] MEDS: Folic Acid 1 MG TAB PO SCH (10:38)
[2018-12-24] MEDS: Cyanocobalamin (Vitamin B-12) 1,000 MCG TAB PO SCH (10:39)
--- NOTE | 2018-12-24 16:19 | PDOC.PN ---
- Subjective Encounter Start Date: 12/24/18 Encounter Start Time: 16:17 Subjective: minimally conversational. -: tolerating tube feeds. - Objective Resuscitation Status - Order Detail: 12/11/18 22:44 Resuscitation Status Routine Resuscitation Status: DNAR: NO Resuscitation Discussed with: GRAND DAUGHTER Vital Signs & Weight: Vital Signs (12 hours) Temp Pulse Pulse Resp BP BP BP 12/24/18 10:37 69 174/81 H 12/24/18 10:36 69 174/81 H 12/24/18 08:45 69 182/72 H 12/24/18 08:00 97.5 F L 68 16 182/72 H 12/24/18 04:50 75 12/24/18 04:28 98.7 F 75 18 BP Pulse Ox Pulse Ox 12/24/18 10:37 12/24/18 10:36 12/24/18 08:45 96 12/24/18 08:00 96 12/24/18 04:50 12/24/18 04:28 182/67 H 91 L Weight Admit Weight 82 lb 9.6 oz Weight 82 lb 9.6 oz I&O: 12/23/18 12/24/18 12/25/18 06:59 06:59 06:59 Intake Total 1790 1070 30 Balance 1790 1070 30 Result Diagrams: 12/22/18 07:00 12/24/18 06:10 Phys Exam - Physical Examination Constitutional: NAD sleeping but easily arousable HEENT: moist MMs Neck: supple fair air entry bilaterally with some transmirtted sound Cardiovascular: RRR Gastrointestinal: soft, non-tender, no distention, positive bowel sounds PEG tube in place Musculoskeletal: no edema Neurological: non-focal, moves all 4 limbs awake but minimally verbal Dx/Plan (1) Hypertension Code(s): I10 - ESSENTIAL (PRIMARY) HYPERTENSION Status: Chronic Qualifiers: Hypertension type: essential hypertension Qualified Code(s): I10 - Essential (primary) hypertension Comment: BP has gone up since startingtube feeds (2) SAAD (acute kidney injury) Code(s): N17.9 - ACUTE KIDNEY FAILURE, UNSPECIFIED Status: Acute Comment: Improved with IVF (3) Dementia Code(s): F03.90 - UNSPECIFIED DEMENTIA WITHOUT BEHAVIORAL DISTURBANCE Status: Acute (4) Dehydration with hypernatremia Code(s): E87.0 - HYPEROSMOLALITY AND HYPERNATREMIA Status: Acute Comment: Improved. (5) Acute hypernatremia Code(s): E87.0 - HYPEROSMOLALITY AND HYPERNATREMIA Status: Acute Comment: Resolved. (6) UTI (urinary tract infection) Status: Suspected Comment: culture grew E coli. Completed antibiotics. (7) Sepsis Code(s): A41.9 - SEPSIS, UNSPECIFIED ORGANISM Status: Acute Comment: Due to complicated UTI. Resolved. (8) Acute encephalopathy Code(s): G93.40 - ENCEPHALOPATHY, UNSPECIFIED Status: Chronic Comment: Due to UTI, electrolyte derangements and severe PCM (9) Physical deconditioning Code(s): R53.81 - OTHER MALAISE Status: Chronic Comment: PT for mobilization , SNF options pending, fall risk precautions (10) Failure to thrive in adult Status: Acute (11) Protein-calorie malnutrition, severe Code(s): E43 - UNSPECIFIED SEVERE PROTEIN-CALORIE MALNUTRITION Status: Chronic (12) Seizure Code(s): R56.9 - UNSPECIFIED CONVULSIONS Status: Chronic Comment: - Plan Start lisinopril. Patient already on maxdose of Nifedipine. -: Also on hydralazine and labetalol. -: Monitor vitals and increase lisinopril ad needed -: Continue PT/OT. -: Recheck renal function with commenecent of lisinopril. * .
[2018-12-24] MEDS ORDERED: Lisinopril 10 MG TAB PO SCH (16:30)
[2018-12-24] MEDS ORDERED: Labetalol 100 MG TAB PO SCH (21:00)
[2018-12-24] MEDS: Famotidine 20 MG TAB PO SCH (21:07)
[2018-12-24] MEDS: Donepezil HCl 5 MG TAB PO SCH (21:07)
[2018-12-25 07:09] LABS: Albumin 2.5 g/dL (3.4-4.8); Anion Gap 7 mmol/L (10-20); BUN (Urea Nitrogen) 16 mg/dL (9.8-20.1); BUN/Creatinine Ratio 14.81; Calc. Creatinine Clearance 21 mL/min (70-130); Calcium 8.7 mg/dL (7.8-10.44); Carbon Dioxide 27 mmol/L (23-31); Chloride 104 mmol/L (98-107); Estimated GFR-MDRD 48; Glucose 121 mg/dL (83-110); Phosphorus 2.9 mg/dL (2.3-4.7); Potassium 3.5 mmol/L (3.5-5.1); Sodium 134 mmol/L (136-145)
[2018-12-25] MEDS: levETIRAcetam 500 mg/5 ml Oral Solution PO SCH ×2 (08:06→20:16)
[2018-12-25] MEDS: Labetalol 100 MG TAB PO SCH ×2 (08:09→20:16)
[2018-12-25] MEDS: Aspirin 325 MG TAB PO SCH (08:10)
[2018-12-25] MEDS: hydrALAZINE 25 MG TAB PO SCH ×3 (08:10→20:17)
[2018-12-25] MEDS: Saccharomyces boulardii 250 MG CAP PO SCH (08:11)
[2018-12-25] MEDS: Amiodarone 200 MG TAB PO SCH (08:13)
[2018-12-25] MEDS: Cyanocobalamin (Vitamin B-12) 1,000 MCG TAB PO SCH (08:14)
[2018-12-25] MEDS: Lisinopril 10 MG TAB PO SCH (08:14)
[2018-12-25] MEDS: NIFEdipine XL 60 MG TAB PO SCH ×2 (08:15→20:17)
[2018-12-25] MEDS: Heparin 5,000 UNITS/ML VIAL SC SCH ×2 (08:16→20:18)
[2018-12-25] MEDS: Folic Acid 1 MG TAB PO SCH (08:18)
--- NOTE | 2018-12-25 08:49 | PDOC.PN ---
- Subjective Encounter Start Date: 12/25/18 Encounter Start Time: 08:48 Subjective: No new problem -: No signifoicant improvement asyet. Still barely verbal. -: Had drop in spo2 andwasstarted on oxygen last night - Objective Resuscitation Status - Order Detail: 12/11/18 22:44 Resuscitation Status Routine Resuscitation Status: DNAR: NO Resuscitation Discussed with: GRAND DAUGHTER Vital Signs & Weight: Vital Signs (12 hours) Temp Pulse Resp BP Pulse Ox 12/25/18 07:59 97.4 F L 63 16 128/66 97 12/25/18 05:41 97.3 F L 74 19 145/69 H 94 L 12/25/18 05:25 24 H 12/25/18 00:34 97.4 F L 74 19 163/71 H 94 L 12/24/18 21:59 74 24 H 94 L 12/24/18 21:08 75 12/24/18 21:07 75 12/24/18 20:55 91 L Weight Admit Weight 82 lb 9.6 oz Weight 82 lb 9.6 oz I&O: 12/24/18 12/25/18 12/26/18 06:59 06:59 06:59 Intake Total 1070 1145 Balance 1070 1145 Result Diagrams: 12/22/18 07:00 12/25/18 06:29 Phys Exam - Physical Examination Constitutional: NAD cachetic HEENT: PERRLA, moist MMs fair air entry with transmitted sound bilaterally Cardiovascular: RRR Gastrointestinal: soft, non-tender, no distention, positive bowel sounds PEG in place Musculoskeletal: no edema, pulses present Neurological: non-focal, moves all 4 limbs awake but barely conversational. Dx/Plan (1) Hypertension Code(s): I10 - ESSENTIAL (PRIMARY) HYPERTENSION Status: Chronic Qualifiers: Hypertension type: essential hypertension Qualified Code(s): I10 - Essential (primary) hypertension Comment: BP has gone up since starting tube feeds; Control better with adjustment of antihypertensives. (2) SAAD (acute kidney injury) Code(s): N17.9 - ACUTE KIDNEY FAILURE, UNSPECIFIED Status: Acute Comment: Improved with IVF (3) Dementia Code(s): F03.90 - UNSPECIFIED DEMENTIA WITHOUT BEHAVIORAL DISTURBANCE Status: Acute (4) Dehydration with hypernatremia Code(s): E87.0 - HYPEROSMOLALITY AND HYPERNATREMIA Status: Acute Comment: Improved. (5) Acute hypernatremia Code(s): E87.0 - HYPEROSMOLALITY AND HYPERNATREMIA Status: Acute Comment: Resolved. (6) UTI (urinary tract infection) Status: Suspected Comment: culture grew E coli. Completed antibiotics. (7) Sepsis Code(s): A41.9 - SEPSIS, UNSPECIFIED ORGANISM Status: Acute Comment: Due to complicated UTI. Resolved. (8) Acute encephalopathy Code(s): G93.40 - ENCEPHALOPATHY, UNSPECIFIED Status: Chronic Comment: Due to UTI, electrolyte derangements and severe PCM (9) Physical deconditioning Code(s): R53.81 - OTHER MALAISE Status: Chronic Comment: PT for mobilization , SNF options pending, fall risk precautions (10) Failure to thrive in adult Status: Acute (11) Protein-calorie malnutrition, severe Code(s): E43 - UNSPECIFIED SEVERE PROTEIN-CALORIE MALNUTRITION Status: Chronic (12) Seizure Code(s): R56.9 - UNSPECIFIED CONVULSIONS Status: Chronic Comment: (13) Hypoxia Code(s): R09.02 - HYPOXEMIA Status: Acute Comment: now on oxygen - Plan Get CXR. Start aggressive air way toileting. -: Bronchodilators asneeded -: Continue other treatments and tube feeding -: Awaiting SNF placement * .
--- NOTE | 2018-12-25 09:36 | RAD ---
EXAM: XR Chest 1 View Portable PROVIDED CLINICAL HISTORY: Cough and hypoxia COMPARISON: 12/11/2018 FINDINGS: There is a small right and [id number]-[id number] size left pleural effusion with associated atelectasis. Patchy parenchymal density seen in the right midlung zone which may represent atelectasis or focal area of pneumonitis. The cardiac silhouette is magnified by projection but is at the upper limits of normal in size. Pulmonary vasculature is within normal limits. Vascular calcifications are seen in the thoracic aorta. No other interval change. Radio opaque tubing does overlie the left chest. IMPRESSION: 1. Small right and pyens-tu-fwpwpegn size left pleural effusions. 2. Patchy parenchymal density right midlung zone which may represent atelectasis or focal area of pne umonitis. Follow-up to complete resolution is recommended.
[2018-12-25] MEDS: Acetaminophen 650 MG/20.3 ML UDCUP PO PRN (20:16)
[2018-12-25] MEDS: Donepezil HCl 5 MG TAB PO SCH (20:17)
[2018-12-25] MEDS: Famotidine 20 MG TAB PO SCH (20:17)
[2018-12-25] MEDS: Melatonin 3 MG TAB PO PRN (20:17)
[2018-12-26] MEDS: Labetalol 100 MG TAB PO SCH ×2 (07:57→20:55)
[2018-12-26] MEDS: levETIRAcetam 500 mg/5 ml Oral Solution PO SCH ×2 (07:58→20:53)
[2018-12-26] MEDS: hydrALAZINE 25 MG TAB PO SCH ×3 (07:59→20:55)
[2018-12-26] MEDS: NIFEdipine XL 60 MG TAB PO SCH ×2 (07:59→20:55)
[2018-12-26] MEDS: Aspirin 325 MG TAB PO SCH (07:59)
[2018-12-26] MEDS: Saccharomyces boulardii 250 MG CAP PO SCH (08:00)
[2018-12-26] MEDS: Cyanocobalamin (Vitamin B-12) 1,000 MCG TAB PO SCH (08:00)
[2018-12-26] MEDS: Folic Acid 1 MG TAB PO SCH (08:00)
[2018-12-26] MEDS: Lisinopril 10 MG TAB PO SCH (08:00)
[2018-12-26] MEDS: Amiodarone 200 MG TAB PO SCH (08:01)
[2018-12-26] MEDS: Heparin 5,000 UNITS/ML VIAL SC SCH ×2 (08:01→20:56)
--- NOTE | 2018-12-26 15:44 | ULT ---
Venous duplex sonogram right upper extremity HISTORY: Right arm pain and edema. FINDINGS: Subcutaneous swelling is apparent. The right internal jugular and subclavian veins were evaluated along with the axillary, brachial, cep halic, and basilic veins. Color and spectral Doppler flow. No internal thrombus. IMPRESSION: No sonographic evidence of DVT within the right upper extremity.
[2018-12-26] MEDS ORDERED: Furosemide 20 MG/2 ML VIAL SLOW IVP SCH (16:00)
[2018-12-26 16:23] LABS: Bilirubin Negative (Negative); Blood, Urine Negative (Negative); Clarity CLEAR (Clear); Glucose, Urine (Dipstick) Negative (Negative); Leukocyte Trace (Negative); Nitrite Negative (Negative); Protein, Urine (Dipstick) Negative (Neg-Trace); Specific Gravity, Urine 1.011 (1.002-1.036); Urobilinogen 0.2 mg/dL (0.2-1.0); pH, Urine 5.5 (5.0-9.0)
[2018-12-26 16:26] LABS: Bacteria/HPF None Seen HPF (None Seen); Hyaline Casts/LPF 0-3 HYALINE CAST LPF (0-3 Hyaline); Pathc Cast-AUWi Flag 0.54 (0-2.49); RBC/HPF 0-3 HPF (0-3); Squamous Epithelial 0-3 HPF (0-3)
[2018-12-26] MEDS: Acetaminophen 650 MG/20.3 ML UDCUP PO PRN (20:53)
[2018-12-26] MEDS: Melatonin 3 MG TAB PO PRN (20:55)
[2018-12-26] MEDS: Famotidine 20 MG TAB PO SCH (20:55)
[2018-12-26] MEDS: Donepezil HCl 5 MG TAB PO SCH (20:56)
--- NOTE | 2018-12-26 22:47 | PDOC.PN ---
- Subjective Encounter Start Date: 12/26/18 Encounter Start Time: 12:30 Not speaking much today. - Objective Resuscitation Status - Order Detail: 12/11/18 22:44 Resuscitation Status Routine Resuscitation Status: DNAR: NO Resuscitation Discussed with: GRAND DAUGHTER Vital Signs & Weight: Vital Signs (12 hours) Temp Pulse Resp BP BP BP Pulse Ox 12/26/18 20:55 74 143/57 H 12/26/18 19:57 98.7 F 68 20 125/55 L 94 L 12/26/18 19:40 94 L 12/26/18 16:16 65 169/64 H 12/26/18 16:05 97.5 F L 65 20 169/64 H 92 L 12/26/18 13:57 94 L Weight Admit Weight 82 lb 9.6 oz Weight 82 lb 9.6 oz I&O: 12/25/18 12/26/18 12/27/18 06:59 06:59 06:59 Intake Total 1145 1330 740 Output Total 900 Balance 1145 1330 -160 Result Diagrams: 12/22/18 07:00 12/25/18 06:29 Phys Exam - Physical Examination Constitutional: NAD Awake, but no speaking much. Respiratory: no wheezing, no rales, no rhonchi, clear to auscultation bilateral Cardiovascular: RRR, no significant murmur Gastrointestinal: soft, non-tender, no distention UE edema. R>L. Dependent. Neurological: non-focal Dx/Plan (1) Edema Code(s): R60.9 - EDEMA, UNSPECIFIED Status: Acute (2) Dehydration with hypernatremia Code(s): E87.0 - HYPEROSMOLALITY AND HYPERNATREMIA Status: Acute Comment: Improved. (3) Dementia Code(s): F03.90 - UNSPECIFIED DEMENTIA WITHOUT BEHAVIORAL DISTURBANCE Status: Acute (4) UTI (urinary tract infection) Status: Suspected Comment: culture grew E coli. Completed antibiotics. (5) Acute encephalopathy Code(s): G93.40 - ENCEPHALOPATHY, UNSPECIFIED Status: Chronic Comment: Due to UTI, electrolyte derangements and severe PCM (6) Protein-calorie malnutrition, severe Code(s): E43 - UNSPECIFIED SEVERE PROTEIN-CALORIE MALNUTRITION Status: Chronic - Plan * Granddaughter reports she is a little less responsive over past day or two. * Very concerned about her edema, but likely related to the low albumin and immobilitiy. * Doppler. * Repeat UA to ensure the encephalopathy is not related to persistent infection. * Discussed with patients granddaughter and daughter (an RN on the phone). Will give a small dose of lasix. * She has acceptance for placement when stable.
[2018-12-27 06:28] LABS: #Eosinphils 0.1 thou/uL (0.0-0.7); #Monocytes 0.6 thou/uL (0.11-0.59); #Neutrophils 5.3 thou/uL (1.40-6.50); %Basophils 0.7 % (0.0-1.0); %Eosinophils 1.2 % (0.0-10.0); %Lymphocytes 14.1 % (21.0-51.0); %Monocytes 8.7 % (0.0-10.0); %Neutrophils 75.3 % (42.0-75.0); Hemoglobin 7.7 g/dL (12.0-16.0); Mean Corpuscular HGB CONC 31.6 g/dL (32.0-36.0); Mean Corpuscular Hemoglobin 29.2 pg (27.0-31.0); Mean Corpuscular Volume 92.4 fL (78.0-98.0); Mean Platelet Volume 7.6 fL (7.4-10.4); Platelet Count 179 thou/uL (130-400); RBC Distribution Width 15.3 % (11.5-14.5); Red Blood Cell (RBC) Count 2.63 mill/uL (4.20-5.40)
[2018-12-27 06:40] LABS: Anion Gap 10 mmol/L (10-20); BUN (Urea Nitrogen) 21 mg/dL (9.8-20.1); Calc. Creatinine Clearance 18 mL/min (70-130); Calcium 8.3 mg/dL (7.8-10.44); Carbon Dioxide 25 mmol/L (23-31); Chloride 103 mmol/L (98-107); Estimated GFR-MDRD 40; Glucose 114 mg/dL (83-110); Potassium 3.5 mmol/L (3.5-5.1); Sodium 134 mmol/L (136-145)
[2018-12-27] MEDS: Labetalol 100 MG TAB PO SCH ×2 (08:05→20:32)
[2018-12-27] MEDS: hydrALAZINE 25 MG TAB PO SCH ×3 (08:06→20:33)
[2018-12-27] MEDS: Aspirin 325 MG TAB PO SCH (08:06)
[2018-12-27] MEDS: Saccharomyces boulardii 250 MG CAP PO SCH (08:06)
[2018-12-27] MEDS: Lisinopril 10 MG TAB PO SCH (08:07)
[2018-12-27] MEDS: Amiodarone 200 MG TAB PO SCH (08:07)
[2018-12-27] MEDS: Folic Acid 1 MG TAB PO SCH (08:07)
[2018-12-27] MEDS: levETIRAcetam 500 mg/5 ml Oral Solution PO SCH ×2 (08:07→20:36)
[2018-12-27] MEDS: Cyanocobalamin (Vitamin B-12) 1,000 MCG TAB PO SCH (08:07)
[2018-12-27] MEDS: Furosemide 20 MG/2 ML VIAL SLOW IVP SCH (08:08)
[2018-12-27] MEDS: Heparin 5,000 UNITS/ML VIAL SC SCH ×2 (08:08→20:34)
[2018-12-27] MEDS: NIFEdipine XL 60 MG TAB PO SCH ×2 (08:41→20:58)
--- NOTE | 2018-12-27 17:21 | PRG ---
DATE OF SERVICE: 12/27/2018 SUBJECTIVE: The patient is denying any pain today, is a bit more talkative, but not terribly verbally interactive still. OBJECTIVE: VITAL SIGNS: Temperature 98.6, pulse 74, BP 143/56, O2 saturation 98% on room air. GENERAL APPEARANCE: Age-appropriate female, she is more awake today. She is conversant. She is in no distress. HEENT: PERRL. No OP lesions. HEART: Regular rate and rhythm without murmurs. LUNGS: Clear bilaterally. ABDOMEN: Soft, nontender, and nondistended. Positive bowel sounds. No masses. No organomegaly. EXTREMITIES: Upper extremity edema has significantly improved. She still has some mild dependent pitting edema at the elbows. No lower extremity edema. LABORATORY DATA: White count 7.0, hemoglobin 7.7, platelets 179. Sodium 134, BUN is 21, creatinine is 1.26. IMPRESSION AND PLAN: 1. Acute encephalopathy, appears to actually be possibly more chronic at this point, she is a little more responsive today than she was yesterday. She was making eye contact and using few words. This was originally felt to be related to urinary tract infection. At this point, etiology is less clear, may be part of her aging and dementia process. 2. Dementia. The patient has a CT scan showing some evidence of modest chronic ischemic changes. 3. Urinary tract infection. Completed course of antibiotics. Repeated UA without significant evidence of ongoing urinary tract infection. 4. Dehydration with hyponatremia, improved. 5. Upper extremity edema, likely dependent and related to the low oncotic state because of low albumin and poor intake. 6. Protein calorie malnutrition. The patient is not taking p.o. She does have a PEG tube in place. Continues to get feeds from there. 7. Acute on chronic kidney disease. The patient appears to have likely stage 3 chronic kidney disease, although it looks like it is probably borderline stage IV, but she was worse here with her creatinine clearance going down to 11 at one point, it has improved slightly up today, but generally stable. 8. Anemia. The patient has a history of anemia. However, her hemoglobin appears to be lower than it has been on any of her previous recorded readings. I discussed this with the patient's granddaughter could be multiple etiologies including some chronic kidney disease or potentially some GI bleeding being that she has been on the blood thinners all time she has been here. We would check it again in the morning and check hemoccult. If she is hemoccult negative and her hemoglobin level stay unchanged, we will consider discharging her tomorrow. Job ID: [id number]
[2018-12-27] MEDS: Famotidine 20 MG TAB PO SCH (20:32)
[2018-12-27] MEDS: Donepezil HCl 5 MG TAB PO SCH (20:33)
[2018-12-28 06:50] LABS: #Eosinphils 0.1 thou/uL (0.0-0.7); #Lymphocytes 1.1 thou/uL (1.20-3.40); #Monocytes 0.7 thou/uL (0.11-0.59); #Neutrophils 5.4 thou/uL (1.40-6.50); %Basophils 0.6 % (0.0-1.0); %Eosinophils 1.8 % (0.0-10.0); %Lymphocytes 15.2 % (21.0-51.0); %Monocytes 9.5 % (0.0-10.0); %Neutrophils 72.9 % (42.0-75.0); Hemoglobin 8.1 g/dL (12.0-16.0); Mean Corpuscular HGB CONC 32.5 g/dL (32.0-36.0); Mean Corpuscular Hemoglobin 29.9 pg (27.0-31.0); Mean Platelet Volume 7.4 fL (7.4-10.4); Platelet Count 188 thou/uL (130-400); RBC Distribution Width 15.3 % (11.5-14.5); Red Blood Cell (RBC) Count 2.71 mill/uL (4.20-5.40); White Blood Cell (WBC) Count 7.3 thou/uL (4.8-10.8)
[2018-12-28 07:02] LABS: Anion Gap 11 mmol/L (10-20); BUN (Urea Nitrogen) 21 mg/dL (9.8-20.1); Calc. Creatinine Clearance 20 mL/min (70-130); Calcium 8.7 mg/dL (7.8-10.44); Carbon Dioxide 25 mmol/L (23-31); Chloride 101 mmol/L (98-107); Estimated GFR-MDRD 45; Glucose 98 mg/dL (83-110); Potassium 3.4 mmol/L (3.5-5.1); Sodium 134 mmol/L (136-145)
[2018-12-28] MEDS: NIFEdipine XL 60 MG TAB PO SCH ×2 (08:32→20:21)
[2018-12-28] MEDS: Folic Acid 1 MG TAB PO SCH (08:32)
[2018-12-28] MEDS: hydrALAZINE 25 MG TAB PO SCH (08:32)
[2018-12-28] MEDS: Cyanocobalamin (Vitamin B-12) 1,000 MCG TAB PO SCH (08:32)
[2018-12-28] MEDS: Labetalol 100 MG TAB PO SCH (08:33)
[2018-12-28] MEDS: Saccharomyces boulardii 250 MG CAP PO SCH (08:33)
[2018-12-28] MEDS: Amiodarone 200 MG TAB PO SCH (08:33)
[2018-12-28] MEDS: Lisinopril 10 MG TAB PO SCH (08:33)
[2018-12-28] MEDS: Aspirin 325 MG TAB PO SCH (08:33)
[2018-12-28] MEDS: levETIRAcetam 500 mg/5 ml Oral Solution PO SCH (08:33)
[2018-12-28] MEDS: Heparin 5,000 UNITS/ML VIAL SC SCH ×2 (08:34→20:22)
[2018-12-28] MEDS: Furosemide 20 MG/2 ML VIAL SLOW IVP SCH (08:34)
--- NOTE | 2018-12-28 09:27 | RAD ---
EXAM: CHEST ONE VIEW HISTORY: Shortness of breath and cough. Swallowing dysfunction. COMPARISON: 12/25/2018 FINDINGS: Cardiac silhouette is magnified by projection. Pulmonary vasculature is similar to prior study. Bilat eral pleural effusions are again seen with associated atelectasis. Mild patchy density in the right midlung zone is again seen which again may be attributable to atelectasis, but focal area of pneumoni tis is again a possibility. Osteopenia is present. Prominent vascular calcifications in the thoracic aorta are again seen. Given differences in technique, chest is overall stable compared to th e prior exam. IMPRESSION: 1. Overall stable bilateral pleural effusions and associated atelectasis. 2. Patchy density right midlung zone which does appear mildly improved. This may be related to improv ement in atelectasis or infiltrate. Continued follow-up recommended.
[2018-12-28] MEDS ORDERED: Melatonin 3 MG TAB PER TUBE PRN ×2 (13:57→14:30)
[2018-12-28] MEDS ORDERED: Acetaminophen 650 MG/20.3 ML UDCUP PER TUBE PRN (14:00)
[2018-12-28] MEDS: hydrALAZINE 25 MG TAB PER TUBE SCH ×2 (14:49→20:21)
--- NOTE | 2018-12-28 16:24 | PRG ---
DATE OF SERVICE: 12/28/2018 SUBJECTIVE: The patient is not talking too much today. She is making eye contact, but nonverbal. OBJECTIVE: VITAL SIGNS: Temp 97.5, pulse 58, respirations 14, O2 saturation 93% on 2 L, and BP is 119/69. GENERAL APPEARANCE: Age-appropriate female, in no distress. She is awake, alert, oriented, pleasant, and cooperative. HEART: Regular without murmurs. LUNGS: Slightly diminished but clear other than some mild upper airway secretions, which she does clear with cough. ABDOMEN: Soft, nontender, and nondistended. Positive bowel sounds. EXTREMITIES: No significant edema. LABORATORY DATA: White count 7.3, hemoglobin 8.1, platelets 188. Sodium 134, potassium 3.4, chloride 101, CO2 of 25, BUN 21, creatinine is 1.14, glucose 98. Hemoccult negative. IMPRESSION AND PLAN: 1. Acute encephalopathy, again appears to be more of a chronic issue, likely related to some underlying dementia at this point. It appears to be at least stable. 2. Chronic dementia with some evidence of modest chronic ischemic changes on CT. 3. Urinary tract infection, resolved after completed course of Rocephin with repeat UA confirming that. 4. History of dehydration with hyponatremia, improved. 5. Upper extremity edema, resolved after Lasix, likely due to some dependent edema and low albumin. 6. Protein-calorie malnutrition. The patient is still not taking p.o. She has a PEG tube, getting adequate nutrition from there. 7. Acute on chronic kidney disease, stable, stage 3 disease. 8. Anemia. Hemoglobin is actually slightly better today. Apparently, she has a history of this and gets worse when she is hospitalized or get sick for any reason, but is actually improving a bit. 9. Disposition: I had talked to the patient's family yesterday and made them aware that if the Hemoccult was negative and her hemoglobin was stable, that we would be discharging her to the [facility] today and called the patient's daughter this morning, explained that the findings were all favorable and the plan was to discharge her to the [facility] now that we have her in a relatively stable position and that might happen today. If not, it would probably be on Sunday. Was subsequently notified that the patient's family was not happy that the patient was going today. They apparently have not talked to anyone from administration at the [facility] and they have not been there physically to evaluate it although apparently, the patient was approved there on . There is also some questionnaires regarding whether they can actually have her formula available today. Therefore, the patient's discharge will be canceled and will anticipate her going on Sunday. Job ID: [id number]
[2018-12-28] MEDS: Labetalol 100 MG TAB PER TUBE SCH (20:21)
[2018-12-28] MEDS: Famotidine 20 MG TAB PER TUBE SCH (20:22)
[2018-12-28] MEDS: Donepezil HCl 5 MG TAB PER TUBE SCH (20:22)
[2018-12-28] MEDS: levETIRAcetam 500 mg/5 ml Oral Solution PER TUBE SCH (20:23)
[2018-12-29] MEDS: hydrALAZINE 25 MG TAB PER TUBE SCH ×3 (08:10→19:59)
[2018-12-29] MEDS: Lisinopril 10 MG TAB PER TUBE SCH (08:10)
[2018-12-29] MEDS: Labetalol 100 MG TAB PER TUBE SCH ×2 (08:11→19:59)
[2018-12-29] MEDS: Aspirin 325 MG TAB PER TUBE SCH (08:11)
[2018-12-29] MEDS: NIFEdipine XL 60 MG TAB PO SCH ×2 (08:11→20:00)
[2018-12-29] MEDS: Cyanocobalamin (Vitamin B-12) 1,000 MCG TAB PER TUBE SCH (08:11)
[2018-12-29] MEDS: Amiodarone 200 MG TAB PER TUBE SCH (08:11)
[2018-12-29] MEDS: Folic Acid 1 MG TAB PER TUBE SCH (08:11)
[2018-12-29] MEDS: Furosemide 20 MG/2 ML VIAL SLOW IVP SCH (08:11)
[2018-12-29] MEDS: Saccharomyces boulardii 250 MG CAP PER TUBE SCH (08:12)
[2018-12-29] MEDS: Heparin 5,000 UNITS/ML VIAL SC SCH ×2 (08:12→19:59)
[2018-12-29] MEDS: levETIRAcetam 500 mg/5 ml Oral Solution PER TUBE SCH ×2 (08:12→19:59)
--- NOTE | 2018-12-29 15:29 | PDOC.PN ---
- Subjective Encounter Start Date: 12/29/18 Encounter Start Time: 15:29 -: non-verbal Subjective: Pt is seen and examined - Objective Resuscitation Status - Order Detail: 12/11/18 22:44 Resuscitation Status Routine Resuscitation Status: DNAR: NO Resuscitation Discussed with: GRAND DAUGHTER Vital Signs & Weight: Vital Signs (12 hours) Temp Pulse Resp BP BP BP Pulse Ox 12/29/18 14:17 69 122/62 12/29/18 11:07 110/72 12/29/18 08:11 69 12/29/18 08:10 69 180/72 H 12/29/18 08:00 93 L 12/29/18 07:54 98.6 F 69 18 180/72 H 94 L Weight Admit Weight 82 lb 9.6 oz Weight 82 lb 9.6 oz I&O: 12/28/18 12/29/18 12/30/18 06:59 06:59 06:59 Intake Total 680 1175 60 Output Total 300 Balance 380 1175 60 Result Diagrams: 12/28/18 05:45 12/28/18 05:45 Phys Exam - Physical Examination HEENT: PERRLA, moist MMs, oral pharynx no lesions Neck: no nodes, no JVD, supple Respiratory: no wheezing, no rales, no rhonchi Cardiovascular: RRR, no significant murmur, no rub, gallop Gastrointestinal: soft, non-tender, no distention, positive bowel sounds Musculoskeletal: no edema Neurological: non-focal Lymphatic: no nodes Psychiatric: normal affect Dx/Plan - Plan Dx/Plan (1) Edema Code(s): R60.9 - EDEMA, UNSPECIFIED Status: Acute (2) Dehydration with hypernatremia Code(s): E87.0 - HYPEROSMOLALITY AND HYPERNATREMIA Status: Acute Comment: Improved. (3) Dementia Code(s): F03.90 - UNSPECIFIED DEMENTIA WITHOUT BEHAVIORAL DISTURBANCE Status: Acute (4) UTI (urinary tract infection) Status: Suspected Comment: culture grew E coli. Completed antibiotics. (5) Acute encephalopathy Code(s): G93.40 - ENCEPHALOPATHY, UNSPECIFIED Status: Chronic Comment: Due to UTI, electrolyte derangements and severe PCM (6) Protein-calorie malnutrition, severe Code(s): E43 - UNSPECIFIED SEVERE PROTEIN-CALORIE MALNUTRITION Status: Chronic - Plan * She has acceptance for placement and family agrees * .
[2018-12-29] MEDS: Famotidine 20 MG TAB PER TUBE SCH (19:59)
[2018-12-29] MEDS: Donepezil HCl 5 MG TAB PER TUBE SCH (20:00)
[2018-12-30] MEDS: Aspirin 325 MG TAB PER TUBE SCH (09:21)
[2018-12-30] MEDS: Furosemide 20 MG/2 ML VIAL SLOW IVP SCH (09:21)
[2018-12-30] MEDS: hydrALAZINE 25 MG TAB PER TUBE SCH ×3 (09:22→20:24)
[2018-12-30] MEDS: Folic Acid 1 MG TAB PER TUBE SCH (09:23)
[2018-12-30] MEDS: Saccharomyces boulardii 250 MG CAP PER TUBE SCH (09:23)
[2018-12-30] MEDS: Lisinopril 10 MG TAB PER TUBE SCH (09:23)
[2018-12-30] MEDS: Amiodarone 200 MG TAB PER TUBE SCH (09:23)
[2018-12-30] MEDS: Cyanocobalamin (Vitamin B-12) 1,000 MCG TAB PER TUBE SCH (09:24)
[2018-12-30] MEDS: Labetalol 100 MG TAB PER TUBE SCH ×2 (09:24→20:28)
[2018-12-30] MEDS: levETIRAcetam 500 mg/5 ml Oral Solution PER TUBE SCH ×2 (09:25→20:27)
[2018-12-30] MEDS: Heparin 5,000 UNITS/ML VIAL SC SCH ×2 (09:28→20:24)
[2018-12-30] MEDS: NIFEdipine XL 60 MG TAB PO SCH (09:30)
[2018-12-30 10:05] LABS: #Eosinphils 0.1 thou/uL (0.0-0.7); #Monocytes 0.9 thou/uL (0.11-0.59); #Neutrophils 7.3 thou/uL (1.40-6.50); %Basophils 0.1 % (0.0-1.0); %Eosinophils 0.7 % (0.0-10.0); %Lymphocytes 10.8 % (21.0-51.0); %Neutrophils 78.4 % (42.0-75.0); Hemoglobin 8.2 g/dL (12.0-16.0); Mean Corpuscular HGB CONC 32.2 g/dL (32.0-36.0); Mean Corpuscular Hemoglobin 29.8 pg (27.0-31.0); Mean Corpuscular Volume 92.6 fL (78.0-98.0); Mean Platelet Volume 6.8 fL (7.4-10.4); Platelet Count 213 thou/uL (130-400); RBC Distribution Width 15.5 % (11.5-14.5); Red Blood Cell (RBC) Count 2.76 mill/uL (4.20-5.40); White Blood Cell (WBC) Count 9.3 thou/uL (4.8-10.8)
[2018-12-30 10:32] LABS: ALT (SGPT) 11 U/L (8-55); AST (SGOT) 13 U/L (5-34); Albumin 2.3 g/dL (3.4-4.8); Alkaline Phosphatase 89 U/L (40-150); Anion Gap 9 mmol/L (10-20); BUN (Urea Nitrogen) 23 mg/dL (9.8-20.1); Bilirubin, Total 0.2 mg/dL (0.2-1.2); Calc. Creatinine Clearance 20 mL/min (70-130); Calcium 8.6 mg/dL (7.8-10.44); Carbon Dioxide 28 mmol/L (23-31); Chloride 100 mmol/L (98-107); Estimated GFR-MDRD 44; Globulin 2.4 g/dL (2.4-3.5); Glucose 97 mg/dL (83-110); Magnesium 1.9 mg/dL (1.6-2.6); Potassium 3.4 mmol/L (3.5-5.1); Protein, Total 4.7 g/dL (6.0-8.3); Sodium 134 mmol/L (136-145)
--- NOTE | 2018-12-30 16:41 | PDOC.PN ---
- Subjective Encounter Start Date: 12/30/18 Encounter Start Time: 15:00 -: non-verbal Patient seen and examined for Encephalopathy. Appears comfortable. No overnight events - Objective Resuscitation Status - Order Detail: 12/11/18 22:44 Resuscitation Status Routine Resuscitation Status: DNAR: NO Resuscitation Discussed with: GRAND DAUGHTER ELDA Reviewed: Yes Vital Signs & Weight: Vital Signs (12 hours) Temp Pulse Resp BP BP Pulse Ox 12/30/18 09:30 68 158/66 H 12/30/18 09:24 68 158/66 H 12/30/18 09:23 158/66 H 12/30/18 09:22 68 158/66 H 12/30/18 08:00 97.9 F 68 20 158/66 H 94 L Weight Admit Weight 82 lb 9.6 oz Weight 82 lb 9.6 oz I&O: 12/29/18 12/30/18 12/31/18 06:59 06:59 06:59 Intake Total 1175 1360 30 Balance 1175 1360 30 Result Diagrams: 12/30/18 09:51 12/30/18 09:51 Radiology Reviewed by me: Yes (CXR - 12/28 - improving) Phys Exam - Physical Examination Constitutional: NAD Respiratory: no wheezing Bibasilar rhonchi Cardiovascular: RRR, no rub Gastrointestinal: soft, positive bowel sounds PEG + Musculoskeletal: no edema Dx/Plan - Plan plan discussed w/ family, DVT proph w/heparin, DVT proph w/SCDs IMPRESSION: Toxic Metabolic Encephalopathy Hypokalemia UTI - completed Atbx Oropharyngeal dysphagia s/p PEG Severe PEM Dementia PLAN: Replace Potassium Await placement Change Procardia to Amlodipine (Cannot be crushed) Repeat CXR in AM Cont other meds as below Review of Systems - Review of Systems Other: ROS cannot be obtained due to current mentation. - Medications/Allergies Allergies/Adverse Reactions: Allergies Allergy/AdvReac Type Severity Reaction Status Date / Time cefepime Allergy Mild Rash Verified 12/11/18 21:56 red dye Allergy Unknown Verified 12/11/18 21:56 yellow dye Allergy Unknown Verified 12/11/18 21:56 amoxicillin [From Amoxil] Allergy Verified 12/11/18 21:56 ciprofloxacin Allergy Verified 12/11/18 21:56 clarithromycin Allergy Verified 12/11/18 21:56 codeine Allergy Verified 12/21/18 21:10 hydrocodone Allergy Verified 12/11/18 21:56 lansoprazole Allergy Verified 12/11/18 21:56 nitrofurantoin Allergy Verified 12/11/18 21:56 rivastigmine Allergy Verified 12/11/18 21:56 Medications: Current Medications Acetaminophen (Tylenol Elixir) 650 mg PER TUBE Q6H PRN PRN Reason: Headache/Fever or Pain Albuterol/Ipratropium (Duoneb) 3 ml NEB Q4H PRN PRN Reason: SOB &/or Wheezing Last Admin: 12/25/18 05:25 Dose: 3 ml Amiodarone HCl (Cordarone) 200 mg PER TUBE DAILY [facility] Last Admin: 12/30/18 09:23 Dose: 200 mg Lipase/Protease/[place]ylase ([place] [id number]) 1 cap FS .PER PROTOCOL PRN PRN Reason: TUBE OCCLUSION PROTOCOL Aspirin (Aspirin) 325 mg PER TUBE DAILY [facility] Last Admin: 12/30/18 09:21 Dose: 325 mg Cyanocobalamin (Vitamin B-12) 1,000 mcg PER TUBE QAM [facility] Last Admin: 12/30/18 09:24 Dose: 1,000 mcg Donepezil HCl (Aricept) 5 mg PER TUBE HS [facility] Last Admin: 12/29/18 20:00 Dose: 5 mg Famotidine (Pepcid) 20 mg PER TUBE 2100 [facility] Last Admin: 12/29/18 19:59 Dose: 20 mg Folic Acid (Folvite) 1 mg PER TUBE DAILY [facility] Last Admin: 12/30/18 09:23 Dose: 1 mg Furosemide (Lasix) 10 mg SLOW IVP DAILY [facility] Last Admin: 12/30/18 09:21 Dose: 10 mg Heparin Sodium (Porcine) (Heparin) 5,000 units SC BID [facility] Last Admin: 12/30/18 09:28 Dose: 5,000 units Hydralazine HCl (Apresoline) 10 mg SLOW IVP Q4H PRN PRN Reason: Hypertension Last Admin: 12/24/18 04:50 Dose: 10 mg Hydralazine HCl (Apresoline) 100 mg PER TUBE TID [facility] Last Admin: 12/30/18 09:22 Dose: 100 mg Labetalol HCl (Normodyne) 100 mg PER TUBE BID [facility] Last Admin: 12/30/18 09:24 Dose: 100 mg Levetiracetam (Keppra Oral Solution) 250 mg PER TUBE BID [facility] Last Admin: 12/30/18 09:25 Dose: 250 mg Lisinopril (Zestril) 10 mg PER TUBE DAILY [facility] Last Admin: 12/30/18 09:23 Dose: 10 mg Melatonin (Melatonin) 3 mg PER TUBE HSPRN PRN PRN Reason: Insomnia Nifedipine (Procardia Xl) 60 mg PO BID [facility] Last Admin: 12/30/18 09:30 Dose: Not Given Potassium Chloride (Klor-Con) 20 meq PO NOW [facility] Stop: 12/30/18 18:00 Saccharomyces Boulardii (Florastor) 250 mg PER TUBE DAILY [facility] Last Admin: 12/30/18 09:23 Dose: 250 mg Sertraline HCl (Zoloft) 100 mg PER TUBE DAILY [facility] Last Admin: 12/30/18 09:23 Dose: 100 mg Sodium Bicarbonate (Bicarbonate, Sodium) 650 mg PER TUBE .PER PROTOCOL PRN PRN Reason: ENTERAL TUBE OCCLUSION Sodium Chloride (Flush - Normal Saline) 10 ml IVF Q12HR [facility] Last Admin: 12/30/18 09:56 Dose: 10 ml Sodium Chloride (Flush - Normal Saline) 10 ml IVF PRN PRN PRN Reason: Saline Flush
[2018-12-30] MEDS: Donepezil HCl 5 MG TAB PER TUBE SCH (20:22)
[2018-12-30] MEDS: Amlodipine 5 MG TAB PO SCH (20:22)
[2018-12-30] MEDS: Famotidine 20 MG TAB PER TUBE SCH (20:23)
[2018-12-30] MEDS: Diabetic Tussin 200 MG/10 ML UDCUP PER TUBE SCH (20:23)
--- NOTE | 2018-12-31 07:55 | RAD ---
SINGLE VIEW OF THE CHEST: COMPARISON: 12/28/2018. HISTORY: Shortness of breath. FINDINGS: A single view of the chest shows a normal-size cardiomediastinal silhouette. Atherosclerotic calcifi cations are seen in the aorta. There small to moderate bilateral pleural effusions, unchanged. IMPRESSION: Stable exam. POS: FELIPE
[2018-12-31 09:09] LABS: #Eosinphils 0.1 thou/uL (0.0-0.7); #Monocytes 0.9 thou/uL (0.11-0.59); #Neutrophils 6.2 thou/uL (1.40-6.50); %Basophils 0.5 % (0.0-1.0); %Eosinophils 0.7 % (0.0-10.0); %Lymphocytes 12.5 % (21.0-51.0); %Monocytes 10.8 % (0.0-10.0); %Neutrophils 75.6 % (42.0-75.0); Hemoglobin 8.2 g/dL (12.0-16.0); Mean Corpuscular Volume 93.8 fL (78.0-98.0); Mean Platelet Volume 7.3 fL (7.4-10.4); Platelet Count 177 thou/uL (130-400); RBC Distribution Width 15.7 % (11.5-14.5); Red Blood Cell (RBC) Count 2.74 mill/uL (4.20-5.40); White Blood Cell (WBC) Count 8.3 thou/uL (4.8-10.8)
[2018-12-31 09:33] LABS: Anion Gap 12 mmol/L (10-20); BUN (Urea Nitrogen) 21 mg/dL (9.8-20.1); Calc. Creatinine Clearance 22 mL/min (70-130); Calcium 8.5 mg/dL (7.8-10.44); Carbon Dioxide 25 mmol/L (23-31); Chloride 100 mmol/L (98-107); Estimated GFR-MDRD 51; Glucose 96 mg/dL (83-110); Potassium 3.5 mmol/L (3.5-5.1); Sodium 133 mmol/L (136-145)
[2018-12-31] MEDS: hydrALAZINE 25 MG TAB PER TUBE SCH ×3 (09:51→20:32)
[2018-12-31] MEDS: Amlodipine 5 MG TAB PO SCH ×2 (09:51→20:33)
[2018-12-31] MEDS: Lisinopril 10 MG TAB PER TUBE SCH (09:51)
[2018-12-31] MEDS: Amiodarone 200 MG TAB PER TUBE SCH (09:51)
[2018-12-31] MEDS: Saccharomyces boulardii 250 MG CAP PER TUBE SCH (09:51)
[2018-12-31] MEDS: Labetalol 100 MG TAB PER TUBE SCH ×2 (09:51→20:33)
[2018-12-31] MEDS: Cyanocobalamin (Vitamin B-12) 1,000 MCG TAB PER TUBE SCH (09:52)
[2018-12-31] MEDS: levETIRAcetam 500 mg/5 ml Oral Solution PER TUBE SCH ×2 (09:52→20:31)
[2018-12-31] MEDS: Diabetic Tussin 200 MG/10 ML UDCUP PER TUBE SCH ×2 (09:52→20:31)
[2018-12-31] MEDS: Aspirin 325 MG TAB PER TUBE SCH (09:52)
[2018-12-31] MEDS: Folic Acid 1 MG TAB PER TUBE SCH (09:52)
[2018-12-31] MEDS: Heparin 5,000 UNITS/ML VIAL SC SCH ×2 (09:52→20:34)
[2018-12-31] MEDS: Furosemide 20 MG/2 ML VIAL SLOW IVP SCH (09:53)
--- NOTE | 2018-12-31 11:23 | PDOC.PN ---
- Subjective Encounter Start Date: 12/31/18 Encounter Start Time: 11:21 -: non-verbal Subjective: Pt is seen and examined - Objective Resuscitation Status - Order Detail: 12/11/18 22:44 Resuscitation Status Routine Resuscitation Status: DNAR: NO Resuscitation Discussed with: GRAND DAUGHTER ELDA Reviewed: Yes Vital Signs & Weight: Vital Signs (12 hours) Temp Pulse Resp BP BP Pulse Ox 12/31/18 09:51 69 151/60 H 12/31/18 07:14 97.4 F L 69 19 151/60 H 96 Weight Admit Weight 82 lb 9.6 oz Weight 82 lb 9.6 oz I&O: 12/30/18 12/31/18 01/01/19 06:59 06:59 06:59 Intake Total 1360 1130 Balance 1360 1130 Result Diagrams: 12/31/18 07:59 12/31/18 07:59 Phys Exam - Physical Examination HEENT: PERRLA, moist MMs Neck: no nodes, no JVD Respiratory: no wheezing, no rales Cardiovascular: RRR, no significant murmur Gastrointestinal: soft, non-tender, no distention Musculoskeletal: edema present Neurological: non-focal Deviation from normal: Non verbal Skin: no rash Dx/Plan (1) SAAD (acute kidney injury) Code(s): N17.9 - ACUTE KIDNEY FAILURE, UNSPECIFIED Status: Acute Comment: Improved with IVF (2) Acute hypernatremia Code(s): E87.0 - HYPEROSMOLALITY AND HYPERNATREMIA Status: Acute Comment: Resolved. (3) Dehydration with hypernatremia Code(s): E87.0 - HYPEROSMOLALITY AND HYPERNATREMIA Status: Acute Comment: Improved. (4) Dementia Code(s): F03.90 - UNSPECIFIED DEMENTIA WITHOUT BEHAVIORAL DISTURBANCE Status: Acute (5) Edema Code(s): R60.9 - EDEMA, UNSPECIFIED Status: Acute (6) Failure to thrive in adult Status: Acute (7) Hypoxia Code(s): R09.02 - HYPOXEMIA Status: Acute Comment: now on oxygen (8) Acute renal failure superimposed on stage 3 chronic kidney disease Code(s): N17.9 - ACUTE KIDNEY FAILURE, UNSPECIFIED; N18.3 - CHRONIC KIDNEY DISEASE, STAGE 3 (MODERATE) Status: Acute Comment: Improved with IVF's, avoidance of nephrotoxic meds and limiting contrast exposure, serial creatinine (9) C. difficile colitis Status: Acute Comment: Resolved, [place] course completed - Plan cont current plan of care awaiting placement * .
[2018-12-31] MEDS: Famotidine 20 MG TAB PER TUBE SCH (20:32)
[2018-12-31] MEDS: Donepezil HCl 5 MG TAB PER TUBE SCH (20:33)
[2019-01-01 07:50] VITALS: TEMP 98.1
[2019-01-01] MEDS: Lisinopril 10 MG TAB PER TUBE SCH (08:45)
[2019-01-01] MEDS: Aspirin 325 MG TAB PER TUBE SCH (08:45)
[2019-01-01] MEDS: Cyanocobalamin (Vitamin B-12) 1,000 MCG TAB PER TUBE SCH (08:45)
[2019-01-01] MEDS: Amlodipine 5 MG TAB PO SCH (08:47)
[2019-01-01] MEDS: Saccharomyces boulardii 250 MG CAP PER TUBE SCH (08:47)
[2019-01-01] MEDS: Folic Acid 1 MG TAB PER TUBE SCH (08:47)
[2019-01-01] MEDS: hydrALAZINE 25 MG TAB PER TUBE SCH (08:47)
[2019-01-01] MEDS: Amiodarone 200 MG TAB PER TUBE SCH (08:47)
[2019-01-01] MEDS: Labetalol 100 MG TAB PER TUBE SCH (08:48)
[2019-01-01] MEDS: Diabetic Tussin 200 MG/10 ML UDCUP PER TUBE SCH (08:48)
[2019-01-01] MEDS: levETIRAcetam 500 mg/5 ml Oral Solution PER TUBE SCH (08:48)
[2019-01-01] MEDS: Furosemide 20 MG/2 ML VIAL SLOW IVP SCH (08:49)
[2019-01-01] MEDS: Heparin 5,000 UNITS/ML VIAL SC SCH (08:49)
[2019-01-01 09:46] VITALS: BP 163/64
--- NOTE | 2019-01-01 10:20 | DIS ---
DATE OF ADMISSION: 12/11/2018 DATE OF DISCHARGE: 12/31/2018 ADMITTING DIAGNOSES: 1. Sepsis, urinary tract infection. 2. History of recurrent Clostridium difficile. 3. Acute on chronic kidney disease. 4. Hypertension. 5. Dementia. 6. Dysphagia. HISTORY OF PRESENT ILLNESS: She is an 88 woman with a history of multiple medical problems, came in because of having some confusion and sepsis and history of C diff in the past and fecal impaction. The patient kept in the hospital to treat her with sepsis protocol with IV antibiotics Ceptaz and Merrem, and GI consulted and the patient was treated empirically and once the infection was well healed, she underwent PEG tube placement. The patient continued to improve with the hospital stay. PEG tube was placed and tube feeding was started. Kidney function improved. Hypernatremia, improved. Sepsis improved. The patient will continue to wait for the placement. The patient was accepted in the rehab, but family was not sure they will go that rehab, so finally the patient accepted to the [facility] today, and family willing to take over there. LABORATORY DATA: Discharge lab shows hemoglobin 8.2, WBC 8.3, MCV 94.0, platelets 177. Chemistry shows sodium 133, potassium 3.5, chloride 100, bicarb 25, BUN 21, creatinine 1.02. GFR 51. Lactic acid improved. Albumin 2.3. Serum total protein 4.7. Urine culture showed gram-negative E coli. DISCHARGE MEDICATIONS: 1. Ed Save 5 mg daily. 2. Lasix 20 mg. 3. Heparin 5000 units b.i.d. 4. Hydralazine 100 mg 3 times daily. 5. Labetalol 100 mg daily. 6. Keppra 250 mg b.i.d. 7. Lisinopril 10 mg daily. 8. Zoloft 100 mg daily. FINAL DIAGNOSIS: 1. Sepsis with urinary tract infection. 2. Acute metabolic encephalopathy. 3. Acute kidney injury on chronic kidney disease. 4. Hypernatremia, improved, 155 to 136 now. 5. Clostridium difficile colitis, chronic. 6. Dysphagia with PEG tube placements. PLAN: Discharge her to [facility]. Job ID: [id number]
== END 2019-01-01 10:26 | DRG 871 ==
LOC: ERS 17:23 → T4-B 21:41
PROVIDERS: ADMIT Family Medicine; ATTEND Family Medicine
PROC: 0DH63UZ Insertion of Feeding Device into Stomach, Percutaneous Approach (ICD-10-PCS; principal; 2018-12-21)
DX: A41.9 Sepsis, unspecified organism (principal); G93.41 Metabolic encephalopathy; E43 Unspecified severe protein-calorie malnutrition; N39.0 Urinary tract infection, site not specified; N17.9 Acute kidney failure, unspecified; E87.0 Hyperosmolality and hypernatremia; A04.72 Enterocolitis due to Clostridium difficile, not specified as recurrent; I13.0 Hypertensive heart and chronic kidney disease with heart failure and stage 1 through stage 4 chronic kidney disease, or unspecified chronic kidney disease; Z68.1 Body mass index [BMI] 19.9 or less, adult; I50.32 Chronic diastolic (congestive) heart failure; Z66 Do not resuscitate; R13.12 Dysphagia, oropharyngeal phase; F03.90 Unspecified dementia, unspecified severity, without behavioral disturbance, psychotic disturbance, mood disturbance, and anxiety; K21.9 Gastro-esophageal reflux disease without esophagitis; E78.5 Hyperlipidemia, unspecified; F32.9 Major depressive disorder, single episode, unspecified; R65.20 Severe sepsis without septic shock; N18.3 Chronic kidney disease, stage 3 (moderate); E86.0 Dehydration; E87.6 Hypokalemia; D63.1 Anemia in chronic kidney disease; M19.90 Unspecified osteoarthritis, unspecified site; Z88.8 Allergy status to other drugs, medicaments and biological substances; Z88.1 Allergy status to other antibiotic agents; Z88.5 Allergy status to narcotic agent; Z86.73 Personal history of transient ischemic attack (TIA), and cerebral infarction without residual deficits
CPT/HCPCS: 36415; 51701; 71045; 80048; 80053; 80069; 81003; 81015; 82274; 83605; 83735; 84100; 85007; 85025; 85027; 85610; 85730; 87040; 87077; 87086; 87186; 94640; 96361; 96365; A4353; J0360; J0696; J1580; J1644; J1940; J2001; J2704; J3475; J3480; J3490; J7050; J7070; J7620